=== PATIENT | female | born 1950 | race Caucasian/White ===

== ENCOUNTER 2021-05-30 14:26 | Inpatient (IN) | payer MEDICARE, OTHER ==
[2021-05-30 14:33] LABS: Glucose,Whole Blood 78 mg/dL (75-99)
--- NOTE | 2021-05-30 14:49 | ED ---
Altered Mental Status HPI - General Chief Complaint: Altered Mental Status Stated Complaint: HUMA/AMS Time Seen by Provider: 05/30/21 14:30 Source: EMS Mode of arrival: EMS Limitations: no limitations - History of Present Illness Initial Comments: 70-year-old female with past medical history of congestive heart failure, A. fib on anticoagulation, COPD with noncompliant use of her BiPAP, mood disorder who is brought into the emergency department for hypoxia. Patient was recently seen at [facility] for altered mental status. Found to have subdural hematomas versus hygromas and was shipped to [place]. [facility] evaluation deemed that the patient had chronic hygromas and she was cleared for anticoagulant use. Patient was transferred to [facility] for rehab. Patient has been noncompliant with her BiPAP and medications. at bedside states that she refuses majority of her medications. Today the staff found her more confused than normal. They state that she does has a history of some confusion at baseline however today was worsens. Her oxygen saturations were in the 80s. EMS attempted intubation of the patient however she was responsive and clenching down. There were unable to get an IV and therefore I was placed in the left humerus. Patient was placed on a nasal cannula. She did perk up upon transfer to the hospital however became agitated and therefore received 110 mg of ketamine. Patient arrives sedated with shallow respirations. She is unable to obtain any history from. She is found to be in A. fib which she has a history of. The remainder of the HPI is limited due to the patient's current condition - Related Data Home Medications Medication Instructions Recorded Confirmed Albuterol Inhaler [Ventolin Hfa 2 puff INHALATION RT-BID@0900,209905/30/21 05/30/21 Inhaler] Apixaban [Eliquis] 5 mg PO BID@0900,169905/30/21 05/30/21 Atorvastatin Calcium [Lipitor] 40 mg PO HS@209905/30/21 05/30/21 Budesonide/Formoterol Fumarate 2 puff INHALATION RT-BID@0900,169905/30/21 05/30/21 [Symbicort 160-4.5 Mcg Inhaler] Carvedilol [Coreg] 6.25 mg PO BID@0900,1700 05/30/21 05/30/21 Estrogens, Conjugated [Premarin] 1.25 mg PO DAILY@0900 05/30/21 05/30/21 Famotidine [Pepcid] 20 mg PO BID@0900,1700 05/30/21 05/30/21 Furosemide [Lasix] 20 mg PO DAILY@0900 05/30/21 05/30/21 HYDROcodone/APAP 10-325MG [[place] 1 tab PO Q6H PRN 05/30/21 05/30/21 10-325] Ipratropium-Albuterol Nebulize 3 ml INHALATION RT-Q4H PRN 05/30/21 05/30/21 [Duoneb 0.5 mg-3 mg/3 ml Soln] Ipratropium-Albuterol Nebulize 3 ml INHALATION RT-TID@09,13,21 05/30/21 05/30/21 [Duoneb 0.5 mg-3 mg/3 ml Soln] LORazepam [Ativan] 0.5 mg PO Q8H PRN 05/30/21 05/30/21 OLANZapine [ZyPREXA] 10 mg PO HS@2100 05/30/21 05/30/21 Umeclidinium [place] [Incruse 1 puff INHALATION RT-DAILY@89905/30/21 05/30/21 Ellipta] bisacodyL [Dulcolax] 10 mg RECTAL DAILY PRN 05/30/21 05/30/21 lisinopriL 40 mg PO DAILY@0900 05/30/21 05/30/21 predniSONE [Deltasone] 20 mg PO BID@0800,1600 05/30/21 05/30/21 Allergies Allergy/AdvReac Type Severity Reaction Status Date / Time morphine Allergy Unknown Verified 05/30/21 16:02 Review of Systems ROS Statement: Those systems with pertinent positive or pertinent negative responses have been documented in the HPI. ROS Other: All systems not noted in ROS Statement are negative. General Exam Limitations: altered mental status General appearance: obtunded, obese Eye exam: Present: other (significant bilateral chemosis) ENT exam: Present: normal exam, mucous membranes moist Neck exam: Present: normal inspection. Absent: tenderness, meningismus, lymphadenopathy Respiratory exam: Present: decreased breath sounds Cardiovascular Exam: Present: tachycardia, irregular rhythm GI/Abdominal exam: Present: soft, normal bowel sounds. Absent: distended, tenderness, guarding, rebound, rigid Extremities exam: Present: pedal edema Neurological exam: Present: altered Skin exam: Present: pallor Course Vital Signs 05/30/21 05/30/21 05/30/21 14:29 16:14 17:00 Temperature 98.1 F Pulse Rate 130 H 120 H 118 H Respiratory 18 26 H 20 Rate Blood Pressure 113/74 102/53 107/79 O2 Sat by Pulse 97 96 90 L Oximetry 05/30/21 05/30/21 05/30/21 18:00 18:39 18:44 Temperature Pulse Rate 129 H 123 H 130 H Respiratory 20 22 13 Rate Blood Pressure 131/53 90/67 90/67 O2 Sat by Pulse 96 96 84 L Oximetry 05/30/21 05/30/21 05/30/21 18:50 19:00 19:05 Temperature Pulse Rate 135 H 151 H 117 H Respiratory 12 23 Rate Blood Pressure 90/67 90/67 91/53 O2 Sat by Pulse 94 L 97 96 Oximetry 05/30/21 05/30/21 05/30/21 19:10 19:20 19:30 Temperature Pulse Rate 144 H 129 H 125 H Respiratory Rate Blood Pressure 91/53 91/53 91/53 O2 Sat by Pulse 81 L 87 L Oximetry 05/30/21 05/30/21 05/30/21 19:40 19:50 20:00 Temperature Pulse Rate 130 H 103 H 122 H Respiratory 22 Rate Blood Pressure 89/59 89/59 89/59 O2 Sat by Pulse 97 96 99 Oximetry 05/30/21 05/30/21 05/30/21 20:10 20:20 20:30 Temperature Pulse Rate 125 H 121 H 131 H Respiratory Rate Blood Pressure 103/49 103/49 103/49 O2 Sat by Pulse 94 L 99 Oximetry 05/30/21 05/30/21 05/30/21 20:40 20:50 21:00 Temperature Pulse Rate 121 H 134 H 112 H Respiratory 22 Rate Blood Pressure 100/78 100/78 100/78 O2 Sat by Pulse 98 98 98 Oximetry 05/30/21 05/30/21 05/30/21 21:10 21:20 21:30 Temperature Pulse Rate 124 H 122 H 124 H Respiratory Rate Blood Pressure 82/56 82/56 82/56 O2 Sat by Pulse 98 99 97 Oximetry 05/30/21 05/30/21 05/30/21 21:40 21:50 22:00 Temperature Pulse Rate 113 H 107 H Respiratory Rate Blood Pressure 116/60 116/60 116/60 O2 Sat by Pulse 96 96 97 Oximetry 05/30/21 22:10 Temperature Pulse Rate Respiratory Rate Blood Pressure 116/60 O2 Sat by Pulse Oximetry Procedures - Restraint - Face to Face Restraint Occurrence 1 Patient's Immediate Situation: Endangers self safety Patient's Reaction to the Intervention: Uncooperative, Anxious Patient's Medical & Behavioral Condition: Drowsy, Confused Need to Continue or Terminate Restraint or Seclusion: Continue Face to Face Eval of Restraint Date: 05/30/21 Face to Face Eval of Restraint Time: 20:05 Medical Decision Making - Medical Decision Making Upon arrival patient is placed into trauma 1. She is hooked up to continuous pulse ox and cardiac monitoring. I did review the patient's medical record that is accompanying her. Patient remains on 4 L via nasal cannula. IV is established and I'll is removed. Laboratory studies are conducted and an ABG is obtained to determine whether the patient's altered mental status is due to the ketamine versus hypercarbia. Laboratory studies are reviewed and demonstrates a leukocytosis of 13.5. ABG demonstrates a CO2 of 89. Lactic acid 3.1. Troponin 0.059. BNP elevated at 4460. Urinalysis demonstrates occasional bacteria with moderate budding yeast. Chest x-ray is performed which demonstrates right lower lobe pneumonia and effusion. Patient is initiated on antibiotics after blood cultures were obtained. Fluids are not given to the patient even though she does meet sepsis criteria as she does have history of congestive heart failure and has visible effusion on chest x-ray with an elevated BNP. Patient does have a mildly low blood pressure and therefore was given a 500 mL normal saline bolus only. Patient is initiated on amiodarone due to her A. fib with persistently elevated heart rate. I did CT the patient's brain which continues to demonstrate the chronic hygromas without acute abnormality. Patient will be admitted to [facility]. Spoke with urine who agreed to admit the patient. ABG is obtained and does demonstrate improvement on the BiPAP. CO2 is now 66. Patient does show marked improvement in her mentation. She does become agitated and therefore restraints are required for a short period of time. Her home dose of Zyprexa is ordered for agitation. I will consult cardiology and home. Patient remained in stable condition and was transported to the floor - Lab Data Result diagrams: 06/03/21 07:44 06/04/21 08:40 Lab Results 05/30/21 05/30/21 05/30/21 Range/Units 14:33 14:40 14:57 WBC 13.5 H (3.8-10.6) k/uL RBC 3.66 L (3.80-5.40) m/uL Hgb 9.9 L (11.4-16.0) gm/dL Hct 34.7 (34.0-46.0) % MCV 95.0 (80.0-100.0) fL MCH 27.1 (25.0-35.0) pg MCHC 28.5 L (31.0-37.0) g/dL RDW 16.5 H (11.5-15.5) % Plt Count 233 (150-450) k/uL MPV 8.9 Neutrophils % 85 % Lymphocytes % 6 % Monocytes % 6 % Eosinophils % 0 % Basophils % 0 % Neutrophils # 11.5 H (1.3-7.7) k/uL Lymphocytes # 0.8 L (1.0-4.8) k/uL Monocytes # 0.8 (0-1.0) k/uL Eosinophils # 0.0 (0-0.7) k/uL Basophils # 0.0 (0-0.2) k/uL Hypochromasia Marked Poikilocytosis Slight Anisocytosis Slight PT (9.0-12.0) sec INR (<1.2) APTT (22.0-30.0) sec Sample Site ABG pH (7.35-7.45) ABG pCO2 PROPERTY WORKER ABG pO2 (83-108) mmHg ABG HCO3 (21-25) mmol/L ABG Total CO2 (19-24) mmol/L ABG O2 Saturation (94-97) % ABG Base Excess mmol/L Adal Test Yes VBG pH 7.24 L (7.31-7.41) VBG pCO2 71 H* (37-51) mmHg VBG HCO3 29 H (24-28) mmol/L FiO2 % Sodium (137-145) mmol/L Potassium (3.5-5.1) mmol/L Chloride (98-107) mmol/L Carbon Dioxide (22-30) mmol/L Anion Gap mmol/L BUN (7-17) mg/dL Creatinine (0.52-1.04) mg/dL Est GFR (CKD-EPI)AfAm (>60 ml/min/1.73 sqM) Est GFR (CKD-EPI)NonAf (>60 ml/min/1.73 sqM) Glucose (74-99) mg/dL POC Glucose (mg/dL) 78 (75-99) mg/dL POC Glu Sales And Service Officer ID Willy Cisneros Lactic Ac Sepsis Rflx Plasma Lactic Acid Parag (0.7-2.0) mmol/L Calcium (8.4-10.2) mg/dL Total Bilirubin (0.2-1.3) mg/dL AST (14-36) U/L ALT (4-34) U/L Alkaline Phosphatase (38-126) U/L Ammonia (<30) umol/L Troponin I (0.000-0.034) ng/mL NT-Pro-B Natriuret Pep pg/mL Total Protein (6.3-8.2) g/dL Albumin (3.5-5.0) g/dL TSH (0.465-4.680) mIU/L Free T4 (0.78-2.19) ng/dL Urine Color Urine Appearance (Clear) Urine pH (5.0-8.0) Ur Specific [place] (1.001-1.035) Urine Protein (Negative) Urine Glucose (UA) (Negative) Urine Ketones (Negative) Urine Blood (Negative) Urine Nitrite (Negative) Urine Bilirubin (Negative) Urine Urobilinogen (<2.0) mg/dL Ur Leukocyte Esterase (Negative) Urine RBC (0-5) /hpf Urine WBC (0-5) /hpf Urine WBC Clumps (None) /hpf Ur Squamous Epith Cells (0-4) /hpf Urine Bacteria (None) /hpf Hyaline Casts (0-2) /lpf Urine Mucus (None) /hpf Urine Yeast (Budding) (None) /hpf 05/30/21 05/30/21 05/30/21 Range/Units 14:57 14:57 14:57 WBC (3.8-10.6) k/uL RBC (3.80-5.40) m/uL Hgb (11.4-16.0) gm/dL Hct (34.0-46.0) % MCV (80.0-100.0) fL MCH (25.0-35.0) pg MCHC (31.0-37.0) g/dL RDW (11.5-15.5) % Plt Count (150-450) k/uL MPV Neutrophils % % Lymphocytes % % Monocytes % % Eosinophils % % Basophils % % Neutrophils # (1.3-7.7) k/uL Lymphocytes # (1.0-4.8) k/uL Monocytes # (0-1.0) k/uL Eosinophils # (0-0.7) k/uL Basophils # (0-0.2) k/uL Hypochromasia Poikilocytosis Anisocytosis PT 12.0 (9.0-12.0) sec INR 1.1 (<1.2) APTT 21.2 L (22.0-30.0) sec Sample Site ABG pH (7.35-7.45) ABG pCO2 ABG pO2 (83-108) mmHg ABG HCO3 (21-25) mmol/L ABG Total CO2 (19-24) mmol/L ABG O2 Saturation (94-97) % ABG Base Excess mmol/L Adal Test VBG pH (7.31-7.41) VBG pCO2 (37-51) mmHg VBG HCO3 (24-28) mmol/L FiO2 % Sodium 137 (137-145) mmol/L Potassium 4.6 (3.5-5.1) mmol/L Chloride 102 (98-107) mmol/L Carbon Dioxide 29 (22-30) mmol/L Anion Gap 6 mmol/L BUN 31 H (7-17) mg/dL Creatinine 0.99 (0.52-1.04) mg/dL Est GFR (CKD-EPI)AfAm 66 (>60 ml/min/1.73 sqM) Est GFR (CKD-EPI)NonAf 57 (>60 ml/min/1.73 sqM) Glucose 76 (74-99) mg/dL POC Glucose (mg/dL) (75-99) mg/dL POC Glu Sales And Service Officer ID Lactic Ac Sepsis Rflx Plasma Lactic Acid Parag (0.7-2.0) mmol/L Calcium 8.8 (8.4-10.2) mg/dL Total Bilirubin 1.2 (0.2-1.3) mg/dL AST 25 (14-36) U/L ALT 20 (4-34) U/L Alkaline Phosphatase 101 (38-126) U/L Ammonia (<30) umol/L Troponin I (0.000-0.034) ng/mL NT-Pro-B Natriuret Pep pg/mL Total Protein 6.2 L (6.3-8.2) g/dL Albumin 3.5 (3.5-5.0) g/dL TSH (0.465-4.680) mIU/L Free T4 (0.78-2.19) ng/dL Urine Color Yellow Urine Appearance Cloudy H (Clear) Urine pH 5.5 (5.0-8.0) Ur Specific [place] 1.020 (1.001-1.035) Urine Protein 1+ H (Negative) Urine Glucose (UA) Negative (Negative) Urine Ketones Negative (Negative) Urine Blood Negative (Negative) Urine Nitrite Negative (Negative) Urine Bilirubin Negative (Negative) Urine Urobilinogen 2.0 (<2.0) mg/dL Ur Leukocyte Esterase Large H (Negative) Urine RBC 19 H (0-5) /hpf Urine WBC 120 H (0-5) /hpf Urine WBC Clumps Few H (None) /hpf Ur Squamous Epith Cells 12 H (0-4) /hpf Urine Bacteria Occasional H (None) /hpf Hyaline Casts 41 H (0-2) /lpf Urine Mucus Rare H (None) /hpf Urine Yeast (Budding) Moderate H (None) /hpf 05/30/21 05/30/21 05/30/21 Range/Units 14:57 14:57 14:57 WBC (3.8-10.6) k/uL RBC (3.80-5.40) m/uL Hgb (11.4-16.0) gm/dL Hct (34.0-46.0) % MCV (80.0-100.0) fL MCH (25.0-35.0) pg MCHC (31.0-37.0) g/dL RDW (11.5-15.5) % Plt Count (150-450) k/uL MPV Neutrophils % % Lymphocytes % % Monocytes % % Eosinophils % % Basophils % % Neutrophils # (1.3-7.7) k/uL Lymphocytes # (1.0-4.8) k/uL Monocytes # (0-1.0) k/uL Eosinophils # (0-0.7) k/uL Basophils # (0-0.2) k/uL Hypochromasia Poikilocytosis Anisocytosis PT (9.0-12.0) sec INR (<1.2) APTT (22.0-30.0) sec Sample Site ABG pH (7.35-7.45) ABG pCO2 ABG pO2 (83-108) mmHg ABG HCO3 (21-25) mmol/L ABG Total CO2 (19-24) mmol/L ABG O2 Saturation (94-97) % ABG Base Excess mmol/L Adal Test VBG pH (7.31-7.41) VBG pCO2 (37-51) mmHg VBG HCO3 (24-28) mmol/L FiO2 % Sodium (137-145) mmol/L Potassium (3.5-5.1) mmol/L Chloride (98-107) mmol/L Carbon Dioxide (22-30) mmol/L Anion Gap mmol/L BUN (7-17) mg/dL Creatinine (0.52-1.04) mg/dL Est GFR (CKD-EPI)AfAm (>60 ml/min/1.73 sqM) Est GFR (CKD-EPI)NonAf (>60 ml/min/1.73 sqM) Glucose (74-99) mg/dL POC Glucose (mg/dL) (75-99) mg/dL POC Glu Sales And Service Officer ID Lactic Ac Sepsis Rflx Plasma Lactic Acid Parag 3.1 H* (0.7-2.0) mmol/L Calcium (8.4-10.2) mg/dL Total Bilirubin (0.2-1.3) mg/dL AST (14-36) U/L ALT (4-34) U/L Alkaline Phosphatase (38-126) U/L Ammonia 39 H (<30) umol/L Troponin I 0.059 H* (0.000-0.034) ng/mL NT-Pro-B Natriuret Pep pg/mL Total Protein (6.3-8.2) g/dL Albumin (3.5-5.0) g/dL TSH 5.310 H (0.465-4.680) mIU/L Free T4 1.22 (0.78-2.19) ng/dL Urine Color Urine Appearance (Clear) Urine pH (5.0-8.0) Ur Specific [place] (1.001-1.035) Urine Protein (Negative) Urine Glucose (UA) (Negative) Urine Ketones (Negative) Urine Blood (Negative) Urine Nitrite (Negative) Urine Bilirubin (Negative) Urine Urobilinogen (<2.0) mg/dL Ur Leukocyte Esterase (Negative) Urine RBC (0-5) /hpf Urine WBC (0-5) /hpf Urine WBC Clumps (None) /hpf Ur Squamous Epith Cells (0-4) /hpf Urine Bacteria (None) /hpf Hyaline Casts (0-2) /lpf Urine Mucus (None) /hpf Urine Yeast (Budding) (None) /hpf 05/30/21 05/30/21 05/30/21 Range/Units 14:57 15:44 15:44 WBC (3.8-10.6) k/uL RBC (3.80-5.40) m/uL Hgb (11.4-16.0) gm/dL Hct (34.0-46.0) % MCV (80.0-100.0) fL MCH (25.0-35.0) pg MCHC (31.0-37.0) g/dL RDW (11.5-15.5) % Plt Count (150-450) k/uL MPV Neutrophils % % Lymphocytes % % Monocytes % % Eosinophils % % Basophils % % Neutrophils # (1.3-7.7) k/uL Lymphocytes # (1.0-4.8) k/uL Monocytes # (0-1.0) k/uL Eosinophils # (0-0.7) k/uL Basophils # (0-0.2) k/uL Hypochromasia Poikilocytosis Anisocytosis PT (9.0-12.0) sec INR (<1.2) APTT (22.0-30.0) sec Sample Site r brach ABG pH 7.19 L* (7.35-7.45) ABG pCO2 89 H* ABG pO2 301 H (83-108) mmHg ABG HCO3 34 H (21-25) mmol/L ABG Total CO2 37 H (19-24) mmol/L ABG O2 Saturation 99.9 H (94-97) % ABG Base Excess 5.6 mmol/L Adal Test na VBG pH (7.31-7.41) VBG pCO2 (37-51) mmHg VBG HCO3 (24-28) mmol/L FiO2 100 % Sodium (137-145) mmol/L Potassium (3.5-5.1) mmol/L Chloride (98-107) mmol/L Carbon Dioxide (22-30) mmol/L Anion Gap mmol/L BUN (7-17) mg/dL Creatinine (0.52-1.04) mg/dL Est GFR (CKD-EPI)AfAm (>60 ml/min/1.73 sqM) Est GFR (CKD-EPI)NonAf (>60 ml/min/1.73 sqM) Glucose (74-99) mg/dL POC Glucose (mg/dL) (75-99) mg/dL POC Glu Sales And Service Officer ID Lactic Ac Sepsis Rflx Y Plasma Lactic Acid Parag (0.7-2.0) mmol/L Calcium (8.4-10.2) mg/dL Total Bilirubin (0.2-1.3) mg/dL AST (14-36) U/L ALT (4-34) U/L Alkaline Phosphatase (38-126) U/L Ammonia (<30) umol/L Troponin I (0.000-0.034) ng/mL NT-Pro-B Natriuret Pep 4460 pg/mL Total Protein (6.3-8.2) g/dL Albumin (3.5-5.0) g/dL TSH (0.465-4.680) mIU/L Free T4 (0.78-2.19) ng/dL Urine Color Urine Appearance (Clear) Urine pH (5.0-8.0) Ur Specific [place] (1.001-1.035) Urine Protein (Negative) Urine Glucose (UA) (Negative) Urine Ketones (Negative) Urine Blood (Negative) Urine Nitrite (Negative) Urine Bilirubin (Negative) Urine Urobilinogen (<2.0) mg/dL Ur Leukocyte Esterase (Negative) Urine RBC (0-5) /hpf Urine WBC (0-5) /hpf Urine WBC Clumps (None) /hpf Ur Squamous Epith Cells (0-4) /hpf Urine Bacteria (None) /hpf Hyaline Casts (0-2) /lpf Urine Mucus (None) /hpf Urine Yeast (Budding) (None) /hpf 05/30/21 05/30/21 Range/Units 18:03 18:06 WBC (3.8-10.6) k/uL RBC (3.80-5.40) m/uL Hgb (11.4-16.0) gm/dL Hct (34.0-46.0) % MCV (80.0-100.0) fL MCH (25.0-35.0) pg MCHC (31.0-37.0) g/dL RDW (11.5-15.5) % Plt Count (150-450) k/uL MPV Neutrophils % % Lymphocytes % % Monocytes % % Eosinophils % % Basophils % % Neutrophils # (1.3-7.7) k/uL Lymphocytes # (1.0-4.8) k/uL Monocytes # (0-1.0) k/uL Eosinophils # (0-0.7) k/uL Basophils # (0-0.2) k/uL Hypochromasia Poikilocytosis Anisocytosis PT (9.0-12.0) sec INR (<1.2) APTT (22.0-30.0) sec Sample Site r brach ABG pH 7.31 L (7.35-7.45) ABG pCO2 66 H ABG pO2 62 L (83-108) mmHg ABG HCO3 33 H (21-25) mmol/L ABG Total CO2 35 H (19-24) mmol/L ABG O2 Saturation 91.0 L (94-97) % ABG Base Excess 7.0 mmol/L Adal Test na VBG pH (7.31-7.41) VBG pCO2 (37-51) mmHg VBG HCO3 (24-28) mmol/L FiO2 30 % Sodium (137-145) mmol/L Potassium (3.5-5.1) mmol/L Chloride (98-107) mmol/L Carbon Dioxide (22-30) mmol/L Anion Gap mmol/L BUN (7-17) mg/dL Creatinine (0.52-1.04) mg/dL Est GFR (CKD-EPI)AfAm (>60 ml/min/1.73 sqM) Est GFR (CKD-EPI)NonAf (>60 ml/min/1.73 sqM) Glucose (74-99) mg/dL POC Glucose (mg/dL) (75-99) mg/dL POC Glu Sales And Service Officer ID Lactic Ac Sepsis Rflx Plasma Lactic Acid Parag 1.3 (0.7-2.0) mmol/L Calcium (8.4-10.2) mg/dL Total Bilirubin (0.2-1.3) mg/dL AST (14-36) U/L ALT (4-34) U/L Alkaline Phosphatase (38-126) U/L Ammonia (<30) umol/L Troponin I (0.000-0.034) ng/mL NT-Pro-B Natriuret Pep pg/mL Total Protein (6.3-8.2) g/dL Albumin (3.5-5.0) g/dL TSH (0.465-4.680) mIU/L Free T4 (0.78-2.19) ng/dL Urine Color Urine Appearance (Clear) Urine pH (5.0-8.0) Ur Specific [place] (1.001-1.035) Urine Protein (Negative) Urine Glucose (UA) (Negative) Urine Ketones (Negative) Urine Blood (Negative) Urine Nitrite (Negative) Urine Bilirubin (Negative) Urine Urobilinogen (<2.0) mg/dL Ur Leukocyte Esterase (Negative) Urine RBC (0-5) /hpf Urine WBC (0-5) /hpf Urine WBC Clumps (None) /hpf Ur Squamous Epith Cells (0-4) /hpf Urine Bacteria (None) /hpf Hyaline Casts (0-2) /lpf Urine Mucus (None) /hpf Urine Yeast (Budding) (None) /hpf 05/30/21 14:48 EKG demonstrates A. fib with a rate of 143. QRS 94. QTC of 352. No acute ST segment elevations or depressions Critical Care Time Critical Care Time: Yes Critical Care Time: 35 minutes Disposition Clinical Impression: Acute encephalopathy, Acute respiratory failure with hypoxia and hypercarbia, Chronic respiratory failure, NSTEMI (non-ST elevated myocardial infarction), H CAP (healthcare-associated pneumonia), Hygroma, Lactic acidosis, BiPAP (biphasic positive airway pressure) dependence Disposition: ADMITTED IP TO THIS HOSP Condition: Serious Is patient prescribed a controlled substance at d/c from ED?: No Decision to Admit Reason: Admit from EC Decision Date: 05/30/21 Decision Time: 17:51
[2021-05-30 15:10] LABS: Allen Test Performed? Yes
[2021-05-30 15:15] LABS: Anisocytosis Slight; Basophils % (A) 0 %; Eosinophils % (A) 0 %; HCT 34.7 % (34.0-46.0); HGB 9.9 gm/dL (11.4-16.0); Hypochromasia Marked; Lymphocytes # (A) 0.8 k/uL (1.0-4.8); Lymphocytes % (A) 6 %; MCH 27.1 pg (25.0-35.0); MCHC 28.5 g/dL (31.0-37.0); Mean Platelet Volume 8.9; Monocytes # (A) 0.8 k/uL (0-1.0); Monocytes % (A) 6 %; Neutrophils # (A) 11.5 k/uL (1.3-7.7); Neutrophils % (A) 85 %; Platelet Count 233 k/uL (150-450); Poikilocytosis Slight; RBC 3.66 m/uL (3.80-5.40); RDW 16.5 % (11.5-15.5); WBC 13.5 k/uL (3.8-10.6)
[2021-05-30 15:21] LABS: Appearance,Urine Cloudy (Clear); Bacteria,Urine Occasional /hpf; Bilirubin,Urine Negative (Negative); Blood,Urine Negative (Negative); Budding Yeast,Urine Moderate /hpf; Color,Urine Yellow; Glucose,Urine (UA) Negative (Negative); Hyaline Casts,Urine 41 /lpf (0-2); Ketones,Urine Negative (Negative); Leukocyte Esterase,Urine Large (Negative); Mucus,Urine Rare /hpf; Nitrite,Urine Negative (Negative); PH, Urine 5.5 (5.0-8.0); Protein,Urine 1+ (Negative); RBC,Urine 19 /hpf (0-5); Squamous Epithelial Cell,Urine 12 /hpf (0-4); WBC,Urine 120 /hpf (0-5)
[2021-05-30 15:32] LABS: Albumin 3.5 g/dL (3.5-5.0); Calcium 8.8 mg/dL (8.4-10.2); Potassium 4.6 mmol/L (3.5-5.1); Total Bilirubin 1.2 mg/dL (0.2-1.3); Total Protein 6.2 g/dL (6.3-8.2)
[2021-05-30 15:42] LABS: INR 1.1 (<1.2)
[2021-05-30 15:44] LABS: Lactic Acid, Venous 3.1 mmol/L (0.7-2.0)
[2021-05-30 15:45] LABS: VBG HCO3 29 mmol/L (24-28); VBG PH 7.24 (7.31-7.41)
[2021-05-30 15:45] LABS: Partial Thromboplastin Time 21.2 sec (22.0-30.0)
[2021-05-30 15:49] LABS: ABG Base Excess 5.6 mmol/L; ABG HCO3 34 mmol/L (21-25); ABG Oxygen Saturation 99.9 % (94-97); ABG PH 7.19 (7.35-7.45); ABG PO2 301 mmHg (83-108); ABG TCO2 37 mmol/L (19-24)
[2021-05-30 15:50] LABS: ABG PCO2 89 mmHg (35-45)
--- NOTE | 2021-05-30 15:52 | CT ---
EXAMINATION TYPE: CT brain wo con DATE OF EXAM: 05/30/2021 COMPARISON: None HISTORY: Altered mental status. CT DLP: 1159.4 mGycm Automated exposure control for dose reduction was used. Helical imaging through the brain. FINDINGS: Cortical atrophy is present, is prominent extra-axial fluid spaces over the convexity, difficult to e xclude chronic subdural hygromas. No evident hemorrhage or hydrocephalus. Cerebral vascular calcifica tions are present. There is inflammatory change present within the sphenoid sinus and ethmoid air jody ls, maxillary sinus on the right, right mastoid air cells. Calvarium is intact. Orbits show symmetric appearance. Periventricular white matter shows patchy low attenuation. IMPRESSION: NO ACUTE ABNORMALITY. Age-related atrophy and probable chronic small vessel ischemia, possible subdur al hygromas, comparison with prior exam may be of benefit if available, alternatively consider MRI as indicated
[2021-05-30 15:54] LABS: VBG PCO2 71 mmHg (37-51)
--- NOTE | 2021-05-30 16:25 | XR ---
EXAMINATION TYPE: XR chest 1V portable DATE OF EXAM: 05/30/2021 COMPARISON: NONE HISTORY: Altered mental status and difficulty breathing TECHNIQUE: Single frontal view of the chest is obtained. FINDINGS: Patient is rotated. Heart appears prominently. There is no evident pneumothorax or left pl eural effusion. There is overlying artifact. Patchy densities present in the right midlung. Questiona ble blunting the right costophrenic angle. IMPRESSION: Difficult to exclude right lower lobe pneumonia and possible associated effusion. Exam i s somewhat limited technically. Consider follow-up PA and lateral chest x-ray when stable.
[2021-05-30] MEDS ORDERED: FUROSEMIDE 10 MG/ML 10 ML VIAL IV STA (16:40)
[2021-05-30] MEDS ORDERED: AZITHROMYCIN 500 MG in SODIUM CHLORIDE 0.9% 250 ML IVPB STA (16:41)
[2021-05-30] MEDS ORDERED: PNEUMONIA PROTOCOL UTILIZED 1 EACH MISC PO PRN (16:41)
[2021-05-30] MEDS ORDERED: LORazepam 2 MG/ML INJ IV STA (17:12)
[2021-05-30] MEDS ORDERED: diphenhydrAMINE 50 MG/ML 1 ML VIAL IVP STA (17:12)
[2021-05-30] MEDS ORDERED: FLUCONAZOLE 150 MG TAB PO STA (17:15)
[2021-05-30 17:20] LABS: T4, Free (Free Thyroxine) 1.22 ng/dL (0.78-2.19)
[2021-05-30 18:08] LABS: ABG HCO3 33 mmol/L (21-25); ABG PCO2 66 mmHg (35-45); ABG PH 7.31 (7.35-7.45); ABG PO2 62 mmHg (83-108); ABG TCO2 35 mmol/L (19-24)
[2021-05-30] MEDS ORDERED: IPRATROPIUM-ALBUTEROL 3 ML NEB INHALATION PRN ×2 (18:14→20:15)
[2021-05-30] MEDS ORDERED: DEXTROSE 5% IN WATER 100 ML with AMIODARONE 150 MG IV ONE (18:30)
[2021-05-30] MEDS ORDERED: HYDROcodone/APAP 10-325MG 1 EACH TAB PO PRN (20:15)
[2021-05-30] MEDS ORDERED: bisacodyL 10 MG SUPP RECTAL PRN (20:15)
[2021-05-30] MEDS: AMIODARONE 450 MG in DEXTROSE 5% IN WATER 250 ML IV SCH ×2 (21:26)
[2021-05-30] MEDS ORDERED: SODIUM CHLORIDE 0.9% 500 ML 500 ML IV ONE (21:28)
[2021-05-30] MEDS: IPRATROPIUM-ALBUTEROL 3 ML NEB INHALATION SCH (22:32)
[2021-05-30] MEDS: ATORVASTATIN 40 MG TAB PO SCH (23:33)
[2021-05-30] MEDS: OLANZapine 10 MG TAB PO SCH (23:34)
[2021-05-31] MEDS: LORazepam 2 MG/ML INJ IV SCH ×2 (00:22→07:59)
[2021-05-31] MEDS ORDERED: AMIODARONE 360 MG in DEXTROSE 5% IN WATER 200 ML IV ONE ×2 (01:00)
[2021-05-31] MEDS: IPRATROPIUM-ALBUTEROL 3 ML NEB INHALATION SCH ×3 (08:41→19:10)
[2021-05-31] MEDS: SYMBICORT 160-4.5 MCG INHALER INHALATION SCH ×2 (08:41→19:10)
[2021-05-31] MEDS ORDERED: NON FORMULARY DRUG (Umeclidinium Bromide [Incruse Ellipta] 62.5 MCG Each) INHALATION SCH (09:00)
--- NOTE | 2021-05-31 09:04 | XR ---
EXAMINATION TYPE: XR chest 1V portable DATE OF EXAM: 05/31/2021 COMPARISON: Chest x-ray 05/30/2021 HISTORY: Pneumonia TECHNIQUE: Single frontal view of the chest is obtained. FINDINGS: Abnormal density within the right lung shows a similar appearance, lateral aspect of the r ight hemidiaphragm is obscured. There is no evident pneumothorax. Heart appears prominently similar t o prior exam. There are overlying artifacts. Aorta is dense. IMPRESSION: Correlate for possible pneumonia, parapneumonic effusion, cardiomegaly.
--- NOTE | 2021-05-31 10:02 | P.CRDCN ---
History of Present Illness Consult date: 05/31/21 History of present illness: HISTORY OF PRESENT ILLNESS: This is a 70-year-old female with a past medical history significant for COPD, atrial fibrillation, congestive heart failure, hyperlipidemia, and hypertension. Patient does not follow with a diamond die maker at [facility]. We have been asked to see the patient in consultation for afib with RVR. Patient examined at the bedside. Patient is currently residing at [facility] for rehab. She was brought to the hospital secondary to increased confusion. Apparently the patient is noncompliant with many of her medications at rehab and refuses to wear her CPAP. Patient is lethargic and unable to give any history at this time. Patient was found to be in atrial fibrillation with RVR. Patient was started on IV amio. She remains in atrial fibrillation this morning with a heart rate in the 120s. * EKG reveals atrial fibrillation with RVR * Chest xray correlate for possible pneumonia, parapneumonic effusion, cardia megaly. * Laboratory data: WBC 13.5. Hemoglobin 9.9. Platelet count 233. Sodium 137. Potassium 4.6. BUN 31. Creatinine 0.99. Lactic acid 3.1. Repeat 1.3. ProBNP 4460. Troponin 0.059. * Current home cardiac medications include Lipitor 40 mg at night, Lasix 20 mg daily, lisinopril 40 mg daily, Eliquis 5 mg twice a day, carvedilol 6.25 mg twice a day REVIEW OF SYSTEMS: At the time of my exam: CONSTITUTIONAL: Denies fever or chills. HEENT: Denies blurred vision, vision changes, or eye pain. Denies hemoptysis CARDIOVASCULAR: Denies chest pain. Denies orthopnea. Denies PND. Denies palpitations RESPIRATORY: Denies shortness of breath. GASTROINTESTINAL: Denies abdominal pain. Denies nausea or vomiting. HEMATOLOGIC: Denies bleeding disorders. GENITOURINARY: Denies any blood in urine. SKIN: Denies pruitis. Denies rash. PHYSICAL EXAM: VITAL SIGNS: Reviewed. GENERAL: Well-developed in no acute distress. HEENT: Head is normocephalic. Pupils are equal, round. Sclerae anicteric. Mucous membranes of the mouth are moist. Neck supple. No JVD or thyromegaly LUNGS: Respirations even and unlabored. Lungs essentially clear to auscultation bilaterally. HEART: Regular rate and rhythm. S1 and S2 heard. ABDOMEN: Soft. Nondistended. Nontender. EXTREMITIES: Normal range of motion. No clubbing or cyanosis. Peripheral pulses intact. No lower extremity edema NEUROLOGIC: Awake and alert. Oriented x 3. ASSESSMENT: Altered mental status Leukocytosis Elevated lactic acid Acute hypoxic respiratory failure Abnormal troponin, suspect secondary to type II VT Atrial fibrillation with RVR, duration unknown Chronic congestive heart failure, type unknown, EF unknown Hyperlipidemia Hypertension COPD Chronic subdural hygromas Medication noncomplaince PLAN: Obtain 2D echo to assess cardiac structure and function Continue amiodarone drip as patient is unable to take oral medications Resume oral medications when patient is able to tolerate oral medications Further recommendations pending patient course Nurse practitioner note has been reviewed by physician. Signing provider agrees with the documented findings, assessment, and plan of care. Past Medical History Past Medical History: Atrial Fibrillation, Heart Failure, COPD, GERD/Reflux, Hyperlipidemia, Hypertension, Memory Impairment, Musculoskeletal Disorder History of Any Multi-Drug Resistant Organisms: Unobtainable Past Anesthesia/Blood Transfusion Reactions: Unable to Obtain Past Psychological History: Anxiety Smoking Status: Unknown if ever smoked Past Alcohol Use History: Unable to Obtain Past Drug Use History: Unable to Obtain Medications and Allergies Home Medications Medication Instructions Recorded Confirmed Type Albuterol Inhaler [Ventolin Hfa 2 puff INHALATION RT-BID@0900,209905/30/21 05/30/21 History Inhaler] Apixaban [Eliquis] 5 mg PO BID@0900,169905/30/21 05/30/21 History Atorvastatin Calcium [Lipitor] 40 mg PO HS@209905/30/21 05/30/21 History Budesonide/Formoterol Fumarate 2 puff INHALATION RT-BID@0900,169905/30/21 05/30/21 History [Symbicort 160-4.5 Mcg Inhaler] Carvedilol [Coreg] 6.25 mg PO BID@0900,169905/30/21 05/30/21 History Estrogens, Conjugated [Premarin] 1.25 mg PO DAILY@89905/30/21 05/30/21 History Famotidine [Pepcid] 20 mg PO BID@0900,169905/30/21 05/30/21 History Furosemide [Lasix] 20 mg PO DAILY@0900 05/30/21 05/30/21 History HYDROcodone/APAP 10-325MG [[place] 1 tab PO Q6H PRN 05/30/21 05/30/21 History 10-325] Ipratropium-Albuterol Nebulize 3 ml INHALATION RT-Q4H PRN 05/30/21 05/30/21 History [Duoneb 0.5 mg-3 mg/3 ml Soln] Ipratropium-Albuterol Nebulize 3 ml INHALATION RT-TID@,,05/30/21 05/30/21 History [Duoneb 0.5 mg-3 mg/3 ml Soln] LORazepam [Ativan] 0.5 mg PO Q8H PRN 05/30/21 05/30/21 History OLANZapine [ZyPREXA] 10 mg PO HS@2100 05/30/21 05/30/21 History Umeclidinium [place] [Incruse 1 puff INHALATION RT-DAILY@0905/30/21 05/30/21 History Ellipta] bisacodyL [Dulcolax] 10 mg RECTAL DAILY PRN 05/30/21 05/30/21 History lisinopriL 40 mg PO DAILY@0900 05/30/21 05/30/21 History predniSONE [Deltasone] 20 mg PO BID@0800,1600 05/30/21 05/30/21 History Allergies Allergy/AdvReac Type Severity Reaction Status Date / Time morphine Allergy Unknown Verified 05/30/21 16:02 Physical Exam Vitals: Vital Signs Temp Pulse Pulse Resp BP BP Pulse Ox 05/31/21 08:44 98 05/31/21 04:00 68 16 133/65 94 L 05/31/21 00:53 100 05/31/21 00:00 87 16 113/57 100 05/30/21 22:40 97.9 F 117 H 24 112/56 97 05/30/21 22:33 97 05/30/21 21:00 123 H 22 100/78 98 05/30/21 20:00 118 H 22 103/49 98 05/30/21 19:05 117 H 23 91/53 96 05/30/21 18:39 123 H 22 90/67 96 05/30/21 18:00 129 H 20 131/53 96 05/30/21 17:00 118 H 20 107/79 90 L 05/30/21 16:14 120 H 26 H 102/53 96 05/30/21 14:29 98.1 F 130 H 18 113/74 97 Intake and Output 05/30/21 05/31/21 05/31/21 22:59 06:59 14:59 Intake Total 500 Output Total 200 Balance 300 Intake: Intake, IV Titration 500 Amount Sodium Chloride 0.9% 500 500 ml 500 ml @ 999 mls/hr IV .Q31M ONE Rx#:[id number] Oral 0 Output: Urine 200 Other: Voiding Method Indwelling Catheter Weight 112.5 kg Results 05/30/21 14:57 05/30/21 14:57 Cardiac Enzymes 05/30/21 05/30/21 Range/Units 14:57 14:57 AST 25 (14-36) U/L Troponin I 0.059 H* (0.000-0.034) ng/mL Coagulation 05/30/21 Range/Units 14:57 PT 12.0 (9.0-12.0) sec APTT 21.2 L (22.0-30.0) sec CBC 05/30/21 Range/Units 14:57 WBC 13.5 H (3.8-10.6) k/uL RBC 3.66 L (3.80-5.40) m/uL Hgb 9.9 L (11.4-16.0) gm/dL Hct 34.7 (34.0-46.0) % Plt Count 233 (150-450) k/uL Comprehensive Metabolic Panel 05/30/21 Range/Units 14:57 Sodium 137 (137-145) mmol/L Potassium 4.6 (3.5-5.1) mmol/L Chloride 102 (98-107) mmol/L Carbon Dioxide 29 (22-30) mmol/L BUN 31 H (7-17) mg/dL Creatinine 0.99 (0.52-1.04) mg/dL Glucose 76 (74-99) mg/dL Calcium 8.8 (8.4-10.2) mg/dL AST 25 (14-36) U/L ALT 20 (4-34) U/L Alkaline Phosphatase 101 (38-126) U/L Total Protein 6.2 L (6.3-8.2) g/dL Albumin 3.5 (3.5-5.0) g/dL Current Medications Generic Name Dose Route Start Last Admin Trade Name Freq PRN Reason Stop Dose Admin Hydrocodone Bitart/Acetaminophen 1 each 05/30/21 20:15 Hydrocodone/Apap 10-325mg 1 Each Tab PO Q6H PRN moderate Pain Albuterol/Ipratropium 3 ml 05/30/21 18:14 Ipratropium-Albuterol 3 Ml Neb INHALATION RT-Q4H PRN shortness of breath Albuterol/Ipratropium 3 ml 05/30/21 20:15 Ipratropium-Albuterol 3 Ml Neb INHALATION RT-Q4H PRN Shortness Of Breath Albuterol/Ipratropium 3 ml 05/30/21 21:00 05/31/21 08:41 Ipratropium-Albuterol 3 Ml Neb INHALATION Not Given RT-TID@09,13,21 [facility] Apixaban 5 mg 05/31/21 09:00 Apixaban 5 Mg Tab PO BID@0900,1700 [facility] Protocol Atorvastatin Calcium 40 mg 05/30/21 21:00 05/30/21 23:33 Atorvastatin 40 Mg Tab PO Not Given HS@2100 [facility] Azithromycin 500 mg 05/31/21 18:00 Azithromycin 500 Mg Tab PO 06/01/21 18:01 Q24H [facility] Protocol Bisacodyl 10 mg 05/30/21 20:15 Bisacodyl 10 Mg Supp RECTAL DAILY PRN Constipation Budesonide/Formoterol Fumarate 2 puff 05/31/21 09:00 05/31/21 08:41 Symbicort 160-4.5 Mcg Inhaler INHALATION Not Given RT-BID@0900,1700 [facility] Famotidine 20 mg 05/31/21 09:00 Famotidine 20 Mg Tab PO BID@0900,1700 [facility] Ceftriaxone Sodium 2 gm/ 50 mls @ 100 mls/hr 05/31/21 18:00 Sodium Chloride IVPB 06/03/21 18:29 Q24H [facility] Protocol Amiodarone HCl 450 mg/ 250 mls @ 16.667 mls/hr 05/30/21 18:45 05/30/21 21:26 Dextrose/Water IV 05/31/21 12:44 0.5 mg/min .Q15H MARK 16.667 mls/hr Administration Protocol 0.5 MG/MIN Lorazepam 0.5 mg 05/31/21 00:00 05/31/21 07:59 Lorazepam 2 Mg/Ml Inj IV 0.5 mg Q8HR MARK Administration Miscellaneous Information 1 each 05/30/21 16:41 Pneumonia Protocol Utilized 1 Each Misc PO ONCE PRN Per Protocol Non-Formulary Medication 1.25 mg 05/31/21 09:00 Estrogens, Conjugated [Premarin] PO DAILY@0900 MARK Olanzapine 10 mg 05/30/21 21:00 05/30/21 23:34 Olanzapine 10 Mg Tab PO Not Given HS@2100 MARK Prednisone 20 mg 05/31/21 08:00 Prednisone 20 Mg Tab PO BID@0800,1600 [facility] Intake and Output 05/30/21 05/31/21 05/31/21 22:59 06:59 14:59 Intake Total 500 Output Total 200 Balance 300 Intake: Intake, IV Titration 500 Amount Sodium Chloride 0.9% 500 500 ml 500 ml @ 999 mls/hr IV .Q31M ONE Rx#:[id number] Oral 0 Output: Urine 200 Other: Voiding Method Indwelling Catheter Weight 112.5 kg 05/30/21 14:57 05/30/21 14:57
[2021-05-31] MEDS: APIXABAN 5 MG TAB PO SCH ×2 (10:44→16:59)
[2021-05-31] MEDS: ESTROGENS CONJUGATED 1.25 MG PO SCH (10:44)
[2021-05-31] MEDS: predniSONE 20 MG TAB PO SCH ×2 (10:44→16:58)
[2021-05-31] MEDS: FAMOTIDINE 20 MG TAB PO SCH ×2 (10:44→16:59)
--- NOTE | 2021-05-31 12:33 | P.CNPUL ---
History of Present Illness Consult date: 05/31/21 Requesting physician: Derek Velazquez Reason for consult: dyspnea, COPD, hypoxemia Chief complaint: Shortness of breath. History of present illness: Pulmonary consult dated 05/31/2021. 71-year-old female, very poor historian, very lethargic and sleepy, who we are asked to see for her respiratory failure. She apparently has a history of congestive heart failure, atrial fibrillation, COPD, and mood disorder. He was very difficult getting any history from this patient. She was apparently recen tly seen at an outside hospital for mental status changes. She was thought to have possible subdural hematomas. She was transferred to [facility], and it was determined that she did not require any surgery this time. Apparently the told the ER physician that his , refuses the majority of her medications. Laboratory data includes a white count of 13.5, hemoglobin 9.9, hematocrit 34.7, and platelet count 233,000. Initial blood gas showed a pO2 of 301, pCO2 of 89, and pH is 7.19. On 30%, the pO2 was 62, pCO2 of 66, pH is 7.31. She may of been on BiPAP at this point. Sodium 137, potassium 4.6, chlorides 102, CO2 29, BUN 31, and creatinine 0.99. Initial lactic acid was 3.1, with follow-up lactic acid 1.3. Ammonia level was 39, troponin was 0.059, and N-terminal proBNP was 4460. TSH was 5.310. CT of the brain showed no acute abnormality, only age-related atrophy small vessel ischemic changes, and subdural hygromas. Asked x-ray showed infiltrates or atelectasis in the right lower lobe, with bilateral effusions. Review of Systems REVIEW OF SYSTEMS: CONSTITUTIONAL: [Negative.] NEUROLOGIC: Mental status changes. HEENT: [ Negative.] CARDIAC: [Negative.] PULMONARY: Respiratory distress. GI: [Negative.] : [Negative.] RHEUMATOLOGIC: [ Negative.] IMMUNOLOGIC: [ Negative.] ENDOCRINE: [Negative. ] DERMATOLOGIC: [Negative.] Past Medical History Past Medical History: Atrial Fibrillation, Heart Failure, COPD, GERD/Reflux, Hyperlipidemia, Hypertension, Memory Impairment, Musculoskeletal Disorder History of Any Multi-Drug Resistant Organisms: Unobtainable Past Anesthesia/Blood Transfusion Reactions: Unable to Obtain Past Psychological History: Anxiety Smoking Status: Unknown if ever smoked Past Alcohol Use History: Unable to Obtain Past Drug Use History: Unable to Obtain Medications and Allergies Home Medications Medication Instructions Recorded Confirmed Type Albuterol Inhaler [Ventolin Hfa 2 puff INHALATION RT-BID@0900,209905/30/21 05/30/21 History Inhaler] Apixaban [Eliquis] 5 mg PO BID@0900,17005/30/21 05/30/21 History Atorvastatin Calcium [Lipitor] 40 mg PO HS@209905/30/21 05/30/21 History Budesonide/Formoterol Fumarate 2 puff INHALATION RT-BID@0900,169905/30/21 05/30/21 History [Symbicort 160-4.5 Mcg Inhaler] Carvedilol [Coreg] 6.25 mg PO BID@0900,169905/30/21 05/30/21 History Estrogens, Conjugated [Premarin] 1.25 mg PO DAILY@0900 05/30/21 05/30/21 History Famotidine [Pepcid] 20 mg PO BID@0900,17005/30/21 05/30/21 History Furosemide [Lasix] 20 mg PO DAILY@0905/30/21 05/30/21 History HYDROcodone/APAP 10-325MG [[place] 1 tab PO Q6H PRN 05/30/21 05/30/21 History 10-325] Ipratropium-Albuterol Nebulize 3 ml INHALATION RT-Q4H PRN 05/30/21 05/30/21 History [Duoneb 0.5 mg-3 mg/3 ml Soln] Ipratropium-Albuterol Nebulize 3 ml INHALATION RT-TID@,,05/30/21 05/30/21 History [Duoneb 0.5 mg-3 mg/3 ml Soln] LORazepam [Ativan] 0.5 mg PO Q8H PRN 05/30/21 05/30/21 History OLANZapine [ZyPREXA] 10 mg PO HS@209905/30/21 05/30/21 History Umeclidinium [place] [Incruse 1 puff INHALATION RT-DAILY@0905/30/21 05/30/21 History Ellipta] bisacodyL [Dulcolax] 10 mg RECTAL DAILY PRN 05/30/21 05/30/21 History lisinopriL 40 mg PO DAILY@0900 05/30/21 05/30/21 History predniSONE [Deltasone] 20 mg PO BID@0800,1600 05/30/21 05/30/21 History Allergies Allergy/AdvReac Type Severity Reaction Status Date / Time morphine Allergy Unknown Verified 05/30/21 16:02 Physical Exam Osteopathic Statement: *. No significant issues noted on an osteopathic structural exam other than those noted in the History and Physical/Consult. Vitals: Vital Signs Temp Pulse Pulse Resp BP BP Pulse Ox 05/31/21 12:18 109 H 05/31/21 12:10 110 H 05/31/21 11:52 98.8 F 107 H 18 118/56 100 05/31/21 08:44 98 05/31/21 08:00 99.6 F 98 19 135/70 92 L 05/31/21 04:00 68 16 133/65 94 L 05/31/21 00:53 100 05/31/21 00:00 87 16 113/57 100 05/30/21 22:40 97.9 F 117 H 24 112/56 97 05/30/21 22:33 97 05/30/21 21:00 123 H 22 100/78 98 05/30/21 20:00 118 H 22 103/49 98 05/30/21 19:05 117 H 23 91/53 96 05/30/21 18:39 123 H 22 90/67 96 05/30/21 18:00 129 H 20 131/53 96 05/30/21 17:00 118 H 20 107/79 90 L 05/30/21 16:14 120 H 26 H 102/53 96 05/30/21 14:29 98.1 F 130 H 18 113/74 97 Intake and Output 05/30/21 05/31/21 05/31/21 22:59 06:59 14:59 Intake Total 500 Output Total 200 300 Balance 300 -300 Intake: Intake, IV Titration 500 Amount Sodium Chloride 0.9% 500 500 ml 500 ml @ 999 mls/hr IV .Q31M ONE Rx#:[id number] Oral 0 Output: Urine 200 300 Other: Voiding Method Indwelling Catheter Indwelling Catheter Weight 112.5 kg 112.5 kg No acute distress, very somnolent and lethargic, and a very poor historian. Almost no information could be obtained from her. HEENT examination is grossly unremarkable. Neck supple. Full range of motion. No adenopathy thyromegaly or neck vein distention. Cardiovascular examination reveals regular rhythm rate. S1-S2 normal. No S3 or S4. No discernible murmur noted. Heart rate about 105 bpm. Heart sounds are distant. Lungs reveal scattered bilateral rhonchi. Minimal bibasilar crackles. She does not take a deep breath. Saturations are 100% on 4 L. Abdomen is obese. Bowel sounds are not noted. Extremities reveal trace edema. No cyanosis or clubbing. Skin is without rash or lesion. Neurologic examination is difficult to assess. The patient is very lethargic and somnolent. Results - Laboratory Findings CBC and BMP: 05/30/21 14:57 05/30/21 14:57 ABG ABG pH 7.31 (7.35-7.45) L 05/30/21 18:03 ABG pCO2 66 mmHg (35-45) H 05/30/21 18:03 ABG pO2 62 mmHg (83-108) L 05/30/21 18:03 ABG O2 Saturation 91.0 % (94-97) L 05/30/21 18:03 PT/INR, D-dimer PT 12.0 sec (9.0-12.0) 05/30/21 14:57 INR 1.1 (<1.2) 05/30/21 14:57 Abnormal lab findings: Abnormal Labs 05/30/21 05/30/21 05/30/21 14:40 14:57 14:57 WBC 13.5 H RBC 3.66 L Hgb 9.9 L MCHC 28.5 L RDW 16.5 H Neutrophils # 11.5 H Lymphocytes # 0.8 L APTT 21.2 L ABG pH ABG pCO2 ABG pO2 ABG HCO3 ABG Total CO2 ABG O2 Saturation VBG pH 7.24 L VBG pCO2 71 H* VBG HCO3 29 H BUN Plasma Lactic Acid Parag Ammonia Troponin I Total Protein TSH Urine Appearance Urine Protein Ur Leukocyte Esterase Urine RBC Urine WBC Urine WBC Clumps Ur Squamous Epith Cells Urine Bacteria Hyaline Casts Urine Mucus Urine Yeast (Budding) 05/30/21 05/30/2105/30/22 14:57 14:57 14:57 WBC RBC Hgb MCHC RDW Neutrophils # Lymphocytes # APTT ABG pH ABG pCO2 ABG pO2 ABG HCO3 ABG Total CO2 ABG O2 Saturation VBG pH VBG pCO2 VBG HCO3 BUN 31 H Plasma Lactic Acid Parag 3.1 H* Ammonia 39 H Troponin I Total Protein 6.2 L TSH Urine Appearance Cloudy H Urine Protein 1+ H Ur Leukocyte Esterase Large H Urine RBC 19 H Urine WBC 120 H Urine WBC Clumps Few H Ur Squamous Epith Cells 12 H Urine Bacteria Occasional H Hyaline Casts 41 H Urine Mucus Rare H Urine Yeast (Budding) Moderate H 05/30/21 05/30/21 05/30/21 14:57 14:57 15:44 WBC RBC Hgb MCHC RDW Neutrophils # Lymphocytes # APTT ABG pH 7.19 L* ABG pCO2 89 H* ABG pO2 301 H ABG HCO3 34 H ABG Total CO2 37 H ABG O2 Saturation 99.9 H VBG pH VBG pCO2 VBG HCO3 BUN Plasma Lactic Acid Parag Ammonia Troponin I 0.059 H* Total Protein TSH 5.310 H Urine Appearance Urine Protein Ur Leukocyte Esterase Urine RBC Urine WBC Urine WBC Clumps Ur Squamous Epith Cells Urine Bacteria Hyaline Casts Urine Mucus Urine Yeast (Budding) 05/30/21 18:03 WBC RBC Hgb MCHC RDW Neutrophils # Lymphocytes # APTT ABG pH 7.31 L ABG pCO2 66 H ABG pO2 62 L ABG HCO3 33 H ABG Total CO2 35 H ABG O2 Saturation 91.0 L VBG pH VBG pCO2 VBG HCO3 BUN Plasma Lactic Acid Parag Ammonia Troponin I Total Protein TSH Urine Appearance Urine Protein Ur Leukocyte Esterase Urine RBC Urine WBC Urine WBC Clumps Ur Squamous Epith Cells Urine Bacteria Hyaline Casts Urine Mucus Urine Yeast (Budding) - Diagnostic Findings Chest x-ray: image reviewed Assessment and Plan Assessment: Acute on chronic hypoxemic and hypercapnic respiratory failure, with CO2 narcosis, and acute mental status changes. History of COPD. History of atrial fibrillation. History of CHF. Morbid obesity. History of hyperlipidemia. History of hypertension. Plan: Plan dated 05/31/2021. Currently, patient is on 4 L nasal cannula. Saturations on this patient are perfectly acceptable and the 88-92% range. The patient may have a possible pneumonia in the right lung. She is currently on Zithromax and Rocephin. Prognosis is very poor. She was very lethargic and sleepy, and not a particularly good historian. I would certainly avoid all sedatives, hypnotics, narcotics, and tranquilizers. Additional recommendations and suggestions are forthcoming. Time with Patient: Greater than 30
[2021-05-31 12:59] LABS: Glucose,Whole Blood 70 mg/dL (75-99)
[2021-05-31] MEDS: AMIODARONE 450 MG in DEXTROSE 5% IN WATER 250 ML IV SCH ×2 (15:54)
[2021-05-31] MEDS ORDERED: DILTIAZEM DRIP BOLUS FROM BAG 1 MG SOLN IV ONE (16:50)
[2021-05-31] MEDS: AZITHROMYCIN 500 MG TAB PO SCH (18:13)
[2021-05-31] MEDS: DILTIAZEM 125 MG in SODIUM CHLORIDE 0.9% 100 ML IV SCH (18:34)
--- NOTE | 2021-05-31 19:00 | ECHOF ---
Referral Reason:LV function MEASUREMENTS -------- HEIGHT: 167.6 cm WEIGHT: 112.5 kg BP: RVIDd: 3.8 cm (< 3.3) IVSd: 1.3 cm (0.6 - 1.1) LVIDd: 3.8 cm (3.9 - 5.3) LVPWd: 1.3 cm (0.6 - 1.1) IVSs: 1.9 cm LVIDs: 2.6 cm LVPWs: 1.7 cm LA Diam: 3.6 cm (2.7 - 3.8) Ao Diam: 3.0 cm (2.0 - 3.7) AV Cusp: 1.7 cm (1.5 - 2.6) MV EXCURSION: 19.089 mm (> 18.000) MV EF SLOPE: 86 mm/s (70 - 150) EPSS: 0.8 cm RAP: 5.00 mmHg RVSP: 53.31 mmHg FINDINGS -------- Atrial fibrillation. This was a technically difficult study with suboptimal views. The left ventricular size is normal. There is mild concentric left ventricular hypertrophy. Overa ll left ventricular systolic function is low-normal with, an EF between 50 - 55 %. There is septal flattening in diastole and systole which is consistent with right ventricular pressure and volume ove rload. The right ventricle is severely enlarged. The left atrium is normal in size. The right atrium is normal in size. Interatrial and interventricular septum intact. There is mild aortic valve sclerosis. There is trace mitral regurgitation. Moderate to severe tricuspid regurgitation present. There is moderate pulmonary hypertension. The right ventricular systolic pressure, as measured by Doppler, is 53.31mmHg. The pulmonic valve was not well visualized. The aortic root size is normal. IVC Not well visulized. There is no pericardial effusion. CONCLUSIONS -------- 1. The left ventricular size is normal. 2. There is mild concentric left ventricular hypertrophy. 3. Overall left ventricular systolic function is low-normal with, an EF between 50 - 55 %. 4. There is septal flattening in diastole and systole which is consistent with right ventricular pres sure and volume overload. 5. The right ventricle is severely enlarged. 6. There is mild aortic valve sclerosis. 7. There is trace mitral regurgitation. 8. Moderate to severe tricuspid regurgitation present. 9. There is moderate pulmonary hypertension. 10. The right ventricular systolic pressure, as measured by Doppler, is 53.31mmHg. 11. There is no pericardial effusion. COATING MACHINE FEEDER: Qiana Anglin RDCS
[2021-05-31] MEDS: OLANZapine 10 MG TAB PO SCH (20:17)
[2021-05-31] MEDS: ATORVASTATIN 40 MG TAB PO SCH (20:17)
[2021-05-31] MEDS ORDERED: AMIODARONE 450 MG in DEXTROSE 5% IN WATER 250 ML IV SCH ×2 (23:00)
[2021-06-01] MEDS: AMIODARONE 450 MG in DEXTROSE 5% IN WATER 250 ML IV SCH ×6 (05:13→20:00)
[2021-06-01] MEDS: SYMBICORT 160-4.5 MCG INHALER INHALATION SCH ×2 (07:45→19:47)
[2021-06-01] MEDS: IPRATROPIUM-ALBUTEROL 3 ML NEB INHALATION SCH ×3 (07:45→19:48)
[2021-06-01] MEDS: predniSONE 20 MG TAB PO SCH ×2 (08:45→17:23)
[2021-06-01] MEDS: APIXABAN 5 MG TAB PO SCH (08:45)
[2021-06-01] MEDS: FAMOTIDINE 20 MG TAB PO SCH ×2 (08:45→17:23)
[2021-06-01] MEDS: ESTROGENS CONJUGATED 1.25 MG PO SCH (08:46)
--- NOTE | 2021-06-01 12:35 | P.HPIM ---
History of Present Illness H&P Date: 05/31/21 Chief Complaint: Difficulty breathing/altered mental status 70-year-old female with past medical history of congestive heart failure, A. fib on anticoagulation, COPD with noncompliant use of her BiPAP, mood disorder who is brought into the emergency department for hypoxia. Patient was recently seen at [facility] for altered mental status. Found to have subdural he matomas versus hygromas and was shipped to [place]. [place] evaluation deemed that the patient had chronic hygromas and she was cleared for anticoagulant use. Patient was transferred to [facility] for rehab. Patient has been noncompliant with her BiPAP and medications. at bedside states that she refuses majority of her medications. Today the staff found her more confused than normal. They state that she does has a history of some confusion at baseline however today was worsens. Her oxygen saturations were in the 80s. EMS attempted intubation of the patient however she was responsive and clenching down. There were unable to get an IV and therefore I was placed in the left humerus. Patient was placed on a nasal cannula. She did perk up upon transfer to the hospital however became agitated and therefore received 110 mg of ketamine. Patient arrives sedated with shallow respirations. She is unable to obtain any history from. She is found to be in A. fib which she has a history of. Laboratory studies; demonstrates a leukocytosis of 13.5. ABG demonstrates a CO2 of 89. Lactic acid 3.1. Troponin 0.059. BNP elevated at 4460. Urinalysis demonstrates occasional bacteria with moderate budding yeast. Chest x-ray is performed which demonstrates right lower lobe pneumonia and effusion. Patient was initiated on antibiotics after blood cultures were obtained. Fluids were not given to the patient even though she does meet sepsis criteria as she does have history of congestive heart failure and has visible effusion on chest x-ray with an elevated BNP. Patient does have a mildly low blood pressure and therefore was given a 500 mL normal saline bolus only. Patient is initiated on amiodarone due to her A. fib with persistently elevated heart rate. CT brain demonstrate the chronic hygromas without acute abnormality. Review of Systems ROS unobtainable: due to mental status Past Medical History Past Medical History: Atrial Fibrillation, Heart Failure, COPD, GERD/Reflux, Hyperlipidemia, Hypertension, Memory Impairment, Musculoskeletal Disorder History of Any Multi-Drug Resistant Organisms: Unobtainable Past Anesthesia/Blood Transfusion Reactions: Unable to Obtain Past Psychological History: Anxiety Smoking Status: Unknown if ever smoked Past Alcohol Use History: Unable to Obtain Past Drug Use History: Unable to Obtain Medications and Allergies Home Medications Medication Instructions Recorded Confirmed Type Albuterol Inhaler [Ventolin Hfa 2 puff INHALATION RT-BID@0900,209905/30/21 05/30/21 History Inhaler] Apixaban [Eliquis] 5 mg PO BID@0900,17005/30/21 05/30/21 History Atorvastatin Calcium [Lipitor] 40 mg PO HS@209905/30/21 05/30/21 History Budesonide/Formoterol Fumarate 2 puff INHALATION RT-BID@0900,169905/30/21 05/30/21 History [Symbicort 160-4.5 Mcg Inhaler] Carvedilol [Coreg] 6.25 mg PO BID@0900,169905/30/21 05/30/21 History Estrogens, Conjugated [Premarin] 1.25 mg PO DAILY@0905/30/21 05/30/21 History Famotidine [Pepcid] 20 mg PO BID@0900,17005/30/21 05/30/21 History Furosemide [Lasix] 20 mg PO DAILY@89905/30/21 05/30/21 History HYDROcodone/APAP 10-325MG [[place] 1 tab PO Q6H PRN 05/30/21 05/30/21 History 10-325] Ipratropium-Albuterol Nebulize 3 ml INHALATION RT-Q4H PRN 05/30/21 05/30/21 History [Duoneb 0.5 mg-3 mg/3 ml Soln] Ipratropium-Albuterol Nebulize 3 ml INHALATION RT-TID@,,05/30/21 05/30/21 History [Duoneb 0.5 mg-3 mg/3 ml Soln] LORazepam [Ativan] 0.5 mg PO Q8H PRN 05/30/21 05/30/21 History OLANZapine [ZyPREXA] 10 mg PO HS@209905/30/21 05/30/21 History Umeclidinium [place] [Incruse 1 puff INHALATION RT-DAILY@0900 05/30/21 05/30/21 History Ellipta] bisacodyL [Dulcolax] 10 mg RECTAL DAILY PRN 05/30/21 05/30/21 History lisinopriL 40 mg PO DAILY@0900 05/30/21 05/30/21 History predniSONE [Deltasone] 20 mg PO BID@0800,1600 05/30/21 05/30/21 History Allergies Allergy/AdvReac Type Severity Reaction Status Date / Time morphine Allergy Unknown Verified 05/30/21 16:02 Physical Exam Vitals: Vital Signs Temp Pulse Pulse Resp BP BP Pulse Ox 05/31/21 08:44 98 05/31/21 08:00 99.6 F 98 19 135/70 92 L 05/31/21 04:00 68 16 133/65 94 L 05/31/21 00:53 100 05/31/21 00:00 87 16 113/57 100 05/30/21 22:40 97.9 F 117 H 24 112/56 97 05/30/21 22:33 97 05/30/21 21:00 123 H 22 100/78 98 05/30/21 20:00 118 H 22 103/49 98 05/30/21 19:05 117 H 23 91/53 96 05/30/21 18:39 123 H 22 90/67 96 05/30/21 18:00 129 H 20 131/53 96 05/30/21 17:00 118 H 20 107/79 90 L 05/30/21 16:14 120 H 26 H 102/53 96 05/30/21 14:29 98.1 F 130 H 18 113/74 97 Intake and Output 05/30/21 05/31/21 05/31/21 22:59 06:59 14:59 Intake Total 500 Output Total 200 Balance 300 Intake: Intake, IV Titration 500 Amount Sodium Chloride 0.9% 500 500 ml 500 ml @ 999 mls/hr IV .Q31M [facility] Rx#:[id number] Oral 0 Output: Urine 200 Other: Voiding Method Indwelling Catheter Indwelling Catheter Weight 112.5 kg 112.5 kg No acute distress, very somnolent and lethargic, and a very poor historian. Almost no information could be obtained from her. HEENT examination is grossly unremarkable. Neck supple. No adenopathy thyromegaly or neck vein distention. Cardiovascular examination reveals regular rhythm rate. S1-S2 normal. No S3 or S4. No discernible murmur noted. Heart rate about 105 bpm. Heart sounds are distant. Lungs reveal scattered bilateral rhonchi. Minimal bibasilar crackles. She does not take a deep breath. Saturations are 100% on 4 L. Abdomen is obese. Bowel sounds are not noted. Extremities reveal trace edema. No cyanosis or clubbing. Skin is without rash or lesion. Neurologic examination is difficult to assess. The patient is very lethargic and somnolent. Results CBC & Chem 7: 05/30/21 14:57 05/30/21 14:57 Labs: Abnormal Lab Results - Last 24 Hours (Table) 05/30/21 05/30/21 05/30/21 Range/Units 14:40 14:57 14:57 WBC 13.5 H (3.8-10.6) k/uL RBC 3.66 L (3.80-5.40) m/uL Hgb 9.9 L (11.4-16.0) gm/dL MCHC 28.5 L (31.0-37.0) g/dL RDW 16.5 H (11.5-15.5) % Neutrophils # 11.5 H (1.3-7.7) k/uL Lymphocytes # 0.8 L (1.0-4.8) k/uL APTT 21.2 L (22.0-30.0) sec ABG pH (7.35-7.45) ABG pCO2 (35-45) mmHg ABG pO2 (83-108) mmHg ABG HCO3 (21-25) mmol/L ABG Total CO2 (19-24) mmol/L ABG O2 Saturation (94-97) % VBG pH 7.24 L (7.31-7.41) VBG pCO2 71 H* (37-51) mmHg VBG HCO3 29 H (24-28) mmol/L BUN (7-17) mg/dL Plasma Lactic Acid Parag (0.7-2.0) mmol/L Ammonia (<30) umol/L Troponin I (0.000-0.034) ng/mL Total Protein (6.3-8.2) g/dL TSH (0.465-4.680) mIU/L Urine Appearance (Clear) Urine Protein (Negative) Ur Leukocyte Esterase (Negative) Urine RBC (0-5) /hpf Urine WBC (0-5) /hpf Urine WBC Clumps (None) /hpf Ur Squamous Epith Cells (0-4) /hpf Urine Bacteria (None) /hpf Hyaline Casts (0-2) /lpf Urine Mucus (None) /hpf Urine Yeast (Budding) (None) /hpf 05/30/21 05/30/21 05/30/21 Range/Units 14:57 14:57 14:57 WBC (3.8-10.6) k/uL RBC (3.80-5.40) m/uL Hgb (11.4-16.0) gm/dL MCHC (31.0-37.0) g/dL RDW (11.5-15.5) % Neutrophils # (1.3-7.7) k/uL Lymphocytes # (1.0-4.8) k/uL APTT (22.0-30.0) sec ABG pH (7.35-7.45) ABG pCO2 (35-45) mmHg ABG pO2 (83-108) mmHg ABG HCO3 (21-25) mmol/L ABG Total CO2 (19-24) mmol/L ABG O2 Saturation (94-97) % VBG pH (7.31-7.41) VBG pCO2 (37-51) mmHg VBG HCO3 (24-28) mmol/L BUN 31 H (7-17) mg/dL Plasma Lactic Acid Parag 3.1 H* (0.7-2.0) mmol/L Ammonia 39 H (<30) umol/L Troponin I (0.000-0.034) ng/mL Total Protein 6.2 L (6.3-8.2) g/dL TSH (0.465-4.680) mIU/L Urine Appearance Cloudy H (Clear) Urine Protein 1+ H (Negative) Ur Leukocyte Esterase Large H (Negative) Urine RBC 19 H (0-5) /hpf Urine WBC 120 H (0-5) /hpf Urine WBC Clumps Few H (None) /hpf Ur Squamous Epith Cells 12 H (0-4) /hpf Urine Bacteria Occasional H (None) /hpf Hyaline Casts 41 H (0-2) /lpf Urine Mucus Rare H (None) /hpf Urine Yeast (Budding) Moderate H (None) /hpf 05/30/21 05/30/21 05/30/21 Range/Units 14:57 14:57 15:44 WBC (3.8-10.6) k/uL RBC (3.80-5.40) m/uL Hgb (11.4-16.0) gm/dL MCHC (31.0-37.0) g/dL RDW (11.5-15.5) % Neutrophils # (1.3-7.7) k/uL Lymphocytes # (1.0-4.8) k/uL APTT (22.0-30.0) sec ABG pH 7.19 L* (7.35-7.45) ABG pCO2 89 H* (35-45) mmHg ABG pO2 301 H (83-108) mmHg ABG HCO3 34 H (21-25) mmol/L ABG Total CO2 37 H (19-24) mmol/L ABG O2 Saturation 99.9 H (94-97) % VBG pH (7.31-7.41) VBG pCO2 (37-51) mmHg VBG HCO3 (24-28) mmol/L BUN (7-17) mg/dL Plasma Lactic Acid Parag (0.7-2.0) mmol/L Ammonia (<30) umol/L Troponin I 0.059 H* (0.000-0.034) ng/mL Total Protein (6.3-8.2) g/dL TSH 5.310 H (0.465-4.680) mIU/L Urine Appearance (Clear) Urine Protein (Negative) Ur Leukocyte Esterase (Negative) Urine RBC (0-5) /hpf Urine WBC (0-5) /hpf Urine WBC Clumps (None) /hpf Ur Squamous Epith Cells (0-4) /hpf Urine Bacteria (None) /hpf Hyaline Casts (0-2) /lpf Urine Mucus (None) /hpf Urine Yeast (Budding) (None) /hpf 05/30/21 Range/Units 18:03 WBC (3.8-10.6) k/uL RBC (3.80-5.40) m/uL Hgb (11.4-16.0) gm/dL MCHC (31.0-37.0) g/dL RDW (11.5-15.5) % Neutrophils # (1.3-7.7) k/uL Lymphocytes # (1.0-4.8) k/uL APTT (22.0-30.0) sec ABG pH 7.31 L (7.35-7.45) ABG pCO2 66 H (35-45) mmHg ABG pO2 62 L (83-108) mmHg ABG HCO3 33 H (21-25) mmol/L ABG Total CO2 35 H (19-24) mmol/L ABG O2 Saturation 91.0 L (94-97) % VBG pH (7.31-7.41) VBG pCO2 (37-51) mmHg VBG HCO3 (24-28) mmol/L BUN (7-17) mg/dL Plasma Lactic Acid Parag (0.7-2.0) mmol/L Ammonia (<30) umol/L Troponin I (0.000-0.034) ng/mL Total Protein (6.3-8.2) g/dL TSH (0.465-4.680) mIU/L Urine Appearance (Clear) Urine Protein (Negative) Ur Leukocyte Esterase (Negative) Urine RBC (0-5) /hpf Urine WBC (0-5) /hpf Urine WBC Clumps (None) /hpf Ur Squamous Epith Cells (0-4) /hpf Urine Bacteria (None) /hpf Hyaline Casts (0-2) /lpf Urine Mucus (None) /hpf Urine Yeast (Budding) (None) /hpf Microbiology - Last 24 Hours (Table) 05/30/21 14:57 Urine Culture - Preliminary Urine,Catheterized Assessment and Plan Assessment: 1. Acute on chronic hypoxemic and hypercapnic respiratory failure; multifactorial --CO2 narcosis/ COPD - Possible PNA -- patient is on 4 L nasal cannula planning to keep SpO2> 88-92% 2. Altered Mental Status; likely related to CO2 Narcosis vs PNA - treat underlying cause 3. Possible Pneumonia; currently on Rocephin/zithromax; monitor CBC, CRP, procalcitonin 4. Atrial fibrillation withRVR; continue with amiodarone infusion till able to take oral amiodarone. 5. Hyperlipidemia; continue home dose of Lipitor 6. Hypertension; currently not on any meds; monitor closely 7. Elevated Troponin; likely Type II [place]; cardiology on board; 2D ECHO ordered and pending DVT Prophylaxis; SCDs/Eliquis CODE STATUS; FULL CODE
--- NOTE | 2021-06-01 15:22 | P.PN ---
Subjective HISTORY OF PRESENT ILLNESS: This is a 70-year-old female with a past medical history significant for COPD, atrial fibrillation, congestive heart failure, hyperlipidemia, and hypertension. 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 We have been asked to see the patient in consultation for afib with RVR. Patient examin ed at the bedside. Patient is currently residing at [facility] for rehab. She was brought to the hospital secondary to increased confusion. Apparently the patient is noncompliant with many of her medications at rehab and refuses to wear her CPAP. Patient is lethargic and unable to give any history at this time. Patient was found to be in atrial fibrillation with RVR. Patient was started on IV amio. She remains in atrial fibrillation this morning with a heart rate in the 120s. * EKG reveals atrial fibrillation with RVR * Chest xray correlate for possible pneumonia, parapneumonic effusion, cardia megaly. * Laboratory data: WBC 13.5. Hemoglobin 9.9. Platelet count 233. Sodium 137. Potassium 4.6. BUN 31. Creatinine 0.99. Lactic acid 3.1. Repeat 1.3. ProBNP 4460. Troponin 0.059. * Current home cardiac medications include Lipitor 40 mg at night, Lasix 20 mg daily, lisinopril 40 mg daily, Eliquis 5 mg twice a day, carvedilol 6.25 mg twice a day / Patient seen and examined. Echocardiogram performed yesterday which shows EF 50-55%, septal flattening consistent with RV pressure and volume overload, RV severely enlarged, RVSP of 53, moderate to severe tricuspid regurgitation. Hypertension remains somnolent. Repeat troponins 0.057, 0.063. HRs somewhat better controlled 80-100's, still in Afib PHYSICAL EXAM: VITAL SIGNS: Reviewed. GENERAL: Well-developed in no acute distress. HEENT: Head is normocephalic. Pupils are equal, round. Sclerae anicteric. Mucous membranes of the mouth are moist. Neck supple. No JVD or thyromegaly LUNGS: Respirations even and unlabored. Lungs essentially clear to auscultation bilaterally. HEART: Regular rate and rhythm. S1 and S2 heard. ABDOMEN: Soft. Nondistended. Nontender. EXTREMITIES: Normal range of motion. No clubbing or cyanosis. Peripheral pulses intact. No lower extremity edema NEUROLOGIC: Somnolent but arousable ASSESSMENT: Altered mental status Leukocytosis Elevated lactic acid Acute hypoxic respiratory failure Abnormal troponin, suspect secondary to type II [place] Atrial fibrillation with RVR, mildly improved Chronic congestive heart failure, type unknown, EF unknown Hyperlipidemia Hypertension COPD Chronic subdural hygromas Medication noncomplaince RV dilation, pulmonary hypertension, moderate to severe TR PLAN: Echocardiogram reviewed with predominantly preserved EF. Patient does have RV dilation as well as pulmonary hypertension with moderate to severe tricuspid regurgitation. Patient has not been getting her Eliquis secondary to not being able to tolerate her oral medications and therefore we will change to Lovenox 1 mg/kg twice a day. Continue with amiodarone drip at this time. Transition to oral medications when able. Do not suspect acute coronary syndrome with predominantly preserved EF. Continue supportive care. Monitor hemoglobin closely. Monitor for neurologic improvement. Prognosis guarded. Objective - Vital Signs Vital signs: Vital Signs Temp 97.9 F 06/01/21 12:00 Pulse 72 06/01/21 12:00 Resp 20 06/01/21 12:00 BP 114/57 06/01/21 12:00 Pulse Ox 97 06/01/21 12:00 Intake & Output 05/31/21 06/01/21 06/01/21 18:59 06:59 18:59 Intake Total 770 0 Output Total 300 300 500 Balance 470 -300 -500 Weight 112.5 kg Intake: Intake, IV Titration 250 Amount Amiodarone 450 mg In 250 Dextrose 5% in Water 250 ml @ 0.5 MG/MIN 16.667 mls/hr IV .Q15H [facility] Rx#: [id number] Oral 520 0 Output: Urine 300 300 500 Other: Voiding Method Indwelling Catheter Indwelling Catheter Indwelling Catheter # Bowel Movements 1 - Labs CBC & Chem 7: 05/30/21 14:57 05/30/21 14:57 Labs: Abnormal Lab Results - Last 24 Hours (Table) 05/31/21 Range/Units 14:11 Troponin I 0.063 H* (0.000-0.034) ng/mL Microbiology - Last 24 Hours (Table) 05/30/21 14:57 Urine Culture - Preliminary Urine,Catheterized Yeast species 05/30/21 18:08 Blood Culture - Preliminary Blood No Growth after 24 hours 05/30/21 17:55 Blood Culture - Preliminary Blood No Growth after 24 hours
--- NOTE | 2021-06-01 15:50 | P.PN ---
Subjective Progress Note Date: 06/01/21 Principal diagnosis: Shortness of breath/atrial fibrillation. Pulmonary consult dated 05/31/2021. 71-year-old female, very poor historian, very lethargic and sleepy, who we are a sked to see for her respiratory failure. She apparently has a history of congestive heart failure, atrial fibrillation, COPD, and mood disorder. He was very difficult getting any history from this patient. She was apparently recently seen at an outside hospital for mental status changes. She was thought to have possible subdural hematomas. She was transferred to [facility], and it was determined that she did not require any surgery this time. Apparently the told the ER physician that his , refuses the majority of her medications. Laboratory data includes a white count of 13.5, hemoglobin 9.9, hematocrit 34.7, and platelet count 233,000. Initial blood gas showed a p O2 of 301, pCO2 of 89, and pH is 7.19. On 30%, the pO2 was 62, pCO2 of 66, pH is 7.31. She may of been on BiPAP at this point. Sodium 137, potassium 4.6, chlorides 102, CO2 29, BUN 31, and creatinine 0.99. Initial lactic acid was 3.1, with follow-up lactic acid 1.3. Ammonia level was 39, troponin was 0.059, and N-terminal proBNP was 4460. TSH was 5.310. CT of the brain showed no acute abnormality, only age-related atrophy small vessel ischemic changes, and subdural hygromas. Asked x-ray showed infiltrates or atelectasis in the right lower lobe, with bilateral effusions. Progress note dated 06/01/2021. 70-year-old female again seen in room 366. The patient is currently on 4 L of oxygen. The patient's also receiving a Cardizem drip at 5 mg an hour, and amiodarone at 1.5 mg/m. The patient has a very poor historian. Not much history can be obtained from her. In fact, she is just yelling out. Current laboratory data includes a troponin from the first, which was 0.057 and 0.063. No lab data from today. Microbiologic data is currently on negative. Chest x- ray from May 31 was reviewed. Labs, x-rays, and medications are all reviewed. Objective - Vital Signs Vital signs: Vital Signs Temp 97.9 F 06/01/21 12:00 Pulse 72 06/01/21 12:00 Resp 20 06/01/21 12:00 BP 114/57 06/01/21 12:00 Pulse Ox 97 06/01/21 12:00 Intake & Output 05/31/21 06/01/21 06/01/21 18:59 06:59 18:59 Intake Total 770 0 Output Total 300 300 500 Balance 470 -300 -500 Weight 112.5 kg Intake: Intake, IV Titration 250 Amount Amiodarone 450 mg In 250 Dextrose 5% in Water 250 ml @ 0.5 MG/MIN 16.667 mls/hr IV .Q15H [facility] Rx#: [id number] Oral 520 0 Output: Urine 300 300 500 Other: Voiding Method Indwelling Catheter Indwelling Catheter Indwelling Catheter # Bowel Movements 1 - Exam No acute distress, much more awake today. The patient is yelling out. She is a very poor historian. HEENT examination is grossly unremarkable. Neck supple. Full range of motion. No adenopathy thyromegaly or neck vein distention. Cardiovascular examination reveals an irregular rhythm and rate. S1-S2 normal. No S3 or S4. No discernible murmur noted. Heart sounds are distant. Heart rate is 75 bpm. Lungs reveal scattered bilateral rhonchi. Minimal bibasilar crackles. She does not take a deep breath. Saturations are 97% on 4 L. Abdomen is obese. Bowel sounds are not noted. Extremities reveal trace edema. No cyanosis or clubbing. Skin is without rash or lesion. Neurologic examination is difficult to assess. The patient does move all 4 extremities. She's quite agitated, and is yelling out. - Labs CBC & Chem 7: 05/30/21 14:57 05/30/21 14:57 Labs: Abnormal Lab Results - Last 24 Hours (Table) 05/31/21 Range/Units 14:11 Troponin I 0.063 H* (0.000-0.034) ng/mL Microbiology - Last 24 Hours (Table) 05/30/21 14:57 Urine Culture - Preliminary Urine,Catheterized Yeast species 05/30/21 18:08 Blood Culture - Preliminary Blood No Growth after 24 hours 05/30/21 17:55 Blood Culture - Preliminary Blood No Growth after 24 hours Assessment and Plan Assessment: Acute on chronic hypoxemic and hypercapnic respiratory failure, with CO2 narcosis, and acute mental status changes. History of COPD. History of atrial fibrillation, with rapid ventricular response. History of CHF. Morbid obesity. History of hyperlipidemia. History of hypertension. Plan: Plan dated 05/31/2021. Currently, patient is on 4 L nasal cannula. Saturations on this patient are perfectly acceptable and the 88-92% range. The patient may have a possible pneumonia in the right lung. She is currently on Zithromax and Rocephin. Prognosis is very poor. She was very lethargic and sleepy, and not a particularly good historian. I would certainly avoid all sedatives, hypnotics, narcotics, and tranquilizers. Additional recommendations and suggestions are forthcoming. Plan dated 06/01/2021. The patient remains on 4 L nasal cannula. The patient is also on amiodarone at 0.5 mg/m, and Cardizem drip at 5 mg an hour. We will continue to follow make recommendations where appropriate. The patient saturations on 4 L are fine. The patient remains on antibiotics. Additional recommendations and suggestions are forthcoming. As mentioned yesterday, I would avoid all sedatives, hypnotics, narcotics, and tranquilizers. Prognosis is very guarded. We will continue to follow make recommendations. Time with Patient: Less than 30
[2021-06-01 15:59] LABS: Anisocytosis Slight; Basophils % (A) 0 %; Eosinophils % (A) 0 %; HCT 30.6 % (34.0-46.0); HGB 8.6 gm/dL (11.4-16.0); Hypochromasia Marked; Lymphocytes # (A) 0.5 k/uL (1.0-4.8); Lymphocytes % (A) 5 %; MCH 26.6 pg (25.0-35.0); Mean Platelet Volume 8.9; Monocytes # (A) 0.4 k/uL (0-1.0); Monocytes % (A) 3 %; Neutrophils # (A) 9.1 k/uL (1.3-7.7); Neutrophils % (A) 90 %; Platelet Count 129 k/uL (150-450); RBC 3.22 m/uL (3.80-5.40); RDW 16.6 % (11.5-15.5); WBC 10.1 k/uL (3.8-10.6)
[2021-06-01] MEDS: AZITHROMYCIN 500 MG TAB PO SCH (17:23)
[2021-06-01] MEDS: DILTIAZEM 125 MG in SODIUM CHLORIDE 0.9% 100 ML IV SCH (19:29)
[2021-06-01] MEDS: ATORVASTATIN 40 MG TAB PO SCH (19:31)
[2021-06-01] MEDS: ENOXAPARIN 100 MG/ML SYRINGE SQ SCH (19:31)
[2021-06-01] MEDS: OLANZapine 10 MG TAB PO SCH (19:31)
--- NOTE | 2021-06-01 23:16 | P.PN ---
Subjective Progress Note Date: 06/01/21 70-year-old female with past medical history of congestive heart failure, A. fib on anticoagulation, COPD with noncompliant use of her BiPAP, mood disorder who is brought into the emergency department for hypoxia. Patient was recently seen at [facility] for altered mental status. Found to have subdural hematomas versus hygromas and was shipped to [place]. [place]'s evaluation deemed that the patient had chronic hygromas and she was cleared for anticoagulant use. Patient was transferred to [facility] for rehab. Patient has been noncompliant with her BiPAP and medications. at bedside states that she refuses majority of her medications. Today the staff found her more confused than normal. They state that she does has a history of some confusion at baseline however today was worsens. Her oxygen saturations were in the 80s. EMS attempted intubation of the patient however she was responsive and clenching down. There were unable to get an IV and therefore I was placed in the left humerus. Patient was placed on a nasal cannula. She did perk up upon transfer to the hospital however became agitated and therefore received 110 mg of ketamine. Patient arrives sedated with shallow respirations. She is unable to obtain any history from. She is found to be in A. fib which she has a history of. Laboratory studies; demonstrates a leukocytosis of 13.5. ABG demonstrates a CO2 of 89. Lactic acid 3.1. Troponin 0.059. BNP elevated at 4460. Urinalysis demonstrates occasional bacteria with moderate budding yeast. Chest x-ray is performed which demonstrates right lower lobe pneumonia and effusion. Patient was initiated on antibiotics after blood cultures were obtained. Fluids were not given to the patient even though she does meet sepsis criteria as she does have history of congestive heart failure and has visible effusion on chest x-ray with an elevated BNP. Patient does have a mildly low blood pressure and therefore was given a 500 mL normal saline bolus only. Patient is initiated on amiodarone due to her A. fib with persistently elevated heart rate. CT brain demonstrate the chronic hygromas without acute abnormality. 06/01/2021 Patient is seen and evaluated and follow-up with no issues overnight per nursing staff although patient continues to be confused and yelling out at times and can be redirected. Patient reports to having shortness of breath and is currently maintained on 4 L via nasal cannula. Cardiology and pulmonary following and patient is maintained on IV Cardizem and oral anticoagulant has been resumed. P atient with extensive weakness and will have PT/OT evaluated the patient and family would like the patient to return to [facility]. Case management and social work following. Patient is able to answer questions somewhat appropriately when redirected although continues to be confused and rambles at times. No reports of chest pain. Patient is afebrile. Active Medications Albuterol/Ipratropium (Ipratropium-Albuterol 3 Ml Neb) 3 ml INHALATION RT-Q4H PRN PRN Reason: shortness of breath Albuterol/Ipratropium (Ipratropium-Albuterol 3 Ml Neb) 3 ml INHALATION RT-Q4H PRN PRN Reason: Shortness Of Breath Albuterol/Ipratropium (Ipratropium-Albuterol 3 Ml Neb) 3 ml INHALATION RT- TID@09,13,21 [facility] Last Admin: 06/01/21 07:45 Dose: 3 ml Documented by: Apixaban (Apixaban 5 Mg Tab) 5 mg PO BID@0900,1700 [facility]; Protocol Last Admin: 06/01/21 08:45 Dose: 5 mg Documented by: Atorvastatin Calcium (Atorvastatin 40 Mg Tab) 40 mg PO HS@2100 [facility] Last Admin: 05/31/21 20:17 Dose: 40 mg Documented by: Azithromycin (Azithromycin 500 Mg Tab) 500 mg PO Q24H [facility]; Protocol Stop: 06/01/21 18:01 Last Admin: 05/31/21 18:13 Dose: 500 mg Documented by: Bisacodyl (Bisacodyl 10 Mg Supp) 10 mg RECTAL DAILY PRN PRN Reason: Constipation Budesonide/Formoterol Fumarate (Symbicort 160-4.5 Mcg Inhaler) 2 puff INHALATION RT-BID@0900,1700 [facility] Last Admin: 06/01/21 07:45 Dose: Not Given Documented by: Famotidine (Famotidine 20 Mg Tab) 20 mg PO BID@0900,1700 [facility] Last Admin: 06/01/21 08:45 Dose: 20 mg Documented by: Ceftriaxone Sodium 2 gm/ (Sodium Chloride) 50 mls @ 100 mls/hr IVPB Q24H [facility]; Protocol Stop: 06/03/21 18:29 Last Admin: 05/31/21 18:16 Dose: 100 mls/hr Documented by: Diltiazem HCl 125 mg/ Sodium (Chloride) 125 mls @ 5 mls/hr IV .Q24H [facility] Last Admin: 05/31/21 18:34 Dose: 5 mg/hr, 5 mls/hr Documented by: Miscellaneous Information (Pneumonia Protocol Util[facility] 1 each PO ONCE PRN PRN Reason: Per Protocol Non-Formulary Medication (Estrogens, Conjugated [Premarin]) 1.25 mg PO DAILY@0900 [facility] Last Admin: 06/01/21 08:46 Dose: Not Given Documented by: Olanzapine (Olanzapine 10 Mg Tab) 10 mg PO HS@2100 [facility] Last Admin: 05/31/21 20:17 Dose: 10 mg Documented by: Prednisone (Prednisone 20 Mg Tab) 20 mg PO BID@0800,1600 [facility] Last Admin: 06/01/21 08:45 Dose: 20 mg Documented by: Physical exam: General: No acute distress, very lethargic although arousable and continues to be confused, and a very poor historian. Obese HEENT examination is grossly unremarkable. Neck supple. No adenopathy thyromegaly or neck vein distention. Cardiovascular examination reveals regular rhythm rate. S1-S2 normal. No S3 or S4. No discernible murmur noted. Lungs reveal scattered bilateral rhonchi. Minimal bibasilar crackles. Saturations are 100% on 4 L. Abdomen is obese. Bowel sounds are not noted. Extremities reveal trace edema. No cyanosis or clubbing. Skin is without rash or lesion. Neurologic examination is difficult to assess. The patient is confused and lethargic. Assessment: -Acute on chronic hypoxemic and hypercapnic respiratory failure; multifactorial, CO2 narcosis -COPD acute exacerbation -Possible pneumonia - Altered Mental Status; likely related to CO2 Narcosis vs PNA -Possible Pneumonia; currently on Rocephin/zithromax -Atrial fibrillation withRVR; cardiology following and continued on IV cardizem -Hyperlipidemia -Hypertension -Elevated Troponin; likely Type II PA; cardiology on board; 2D ECHO ordered and pending -DVT Prophylaxis; SCDs/Eliquis -GI prophylaxis -FULL CODE Plan: Recommend continue with weaning FiO2 as tolerated and will continue on 4 L via nasal cannula. Strongly encouraged to avoid any MANAGER FILE agents as patient continues to be confused. Patient needs frequent reorientation. Cardiology and pulmonary following as patient was continued with atrial fibrillation with RVR and is currently maintained on Cardizem drip. Patient also continues on oral anticoagulant of Eliquis. Case management and social work also following for possible return to [facility] as patient continues with weakness and will have PT/OT evaluate the patient. Multiple complex medical issues, prognosis is guarded. Recommend repeat labs and follow-up chest x-ray in the morning. The impression and plan of care has been dictated by Sophie Rhodes, Nurse Practitioner as directed. Dr. Saadia MD I have performed a history and examination and MDM of this patient, discussed the same with the dictator, and agree with the dictator's assessment and plan as written ,documented as a scribe. Based on total visit time, I have performed more than 50% of the visit. Objective - Vital Signs Vital signs: Vital Signs Temp 97.9 F 05/31/21 20:00 Pulse 97 06/01/21 08:00 Resp 20 06/01/21 08:00 BP 139/79 06/01/21 08:00 Pulse Ox 99 06/01/21 08:00 Intake & Output 05/31/21 06/01/21 06/01/21 18:59 06:59 18:59 Intake Total 770 0 Output Total 300 300 500 Balance 470 -300 -500 Weight 112.5 kg Intake: Intake, IV Titration 250 Amount Amiodarone 450 mg In 250 Dextrose 5% in Water 250 ml @ 0.5 MG/MIN 16.667 mls/hr IV .Q15H [facility] Rx#: [id number] Oral 520 0 Output: Urine 300 300 500 Other: Voiding Method Indwelling Catheter Indwelling Catheter Indwelling Catheter # Bowel Movements 1 - Labs CBC & Chem 7: 06/01/21 15:38 05/30/21 14:57 Labs: Abnormal Lab Results - Last 24 Hours (Table) 05/31/21 05/31/21 05/31/21 Range/Units 11:14 12:57 14:11 POC Glucose (mg/dL) 70 L (75-99) mg/dL Troponin I 0.057 H* 0.063 H* (0.000-0.034) ng/mL Microbiology - Last 24 Hours (Table) 03/31/22 14:57 Urine Culture - Preliminary Urine,Catheterized Yeast species 05/30/21 18:08 Blood Culture - Preliminary Blood No Growth after 24 hours 05/30/21 17:55 Blood Culture - Preliminary Blood No Growth after 24 hours
[2021-06-02] MEDS ORDERED: QUEtiapine 25 MG TAB PO PRN (03:29)
[2021-06-02] MEDS: ENOXAPARIN 100 MG/ML SYRINGE SQ SCH ×2 (09:23→20:26)
[2021-06-02] MEDS: IPRATROPIUM-ALBUTEROL 3 ML NEB INHALATION SCH ×3 (10:39→19:13)
[2021-06-02] MEDS: SYMBICORT 160-4.5 MCG INHALER INHALATION SCH ×2 (10:39→19:13)
[2021-06-02 11:00] LABS: Anisocytosis Slight; Basophils % (A) 0 %; Eosinophils % (A) 0 %; HCT 31.4 % (34.0-46.0); HGB 8.8 gm/dL (11.4-16.0); Hypochromasia Marked; Lymphocytes # (A) 0.5 k/uL (1.0-4.8); Lymphocytes % (A) 5 %; MCHC 27.9 g/dL (31.0-37.0); MCV 96.6 fL (80.0-100.0); Macrocytosis Slight; Mean Platelet Volume 9.1; Monocytes # (A) 0.5 k/uL (0-1.0); Monocytes % (A) 6 %; Neutrophils # (A) 8.1 k/uL (1.3-7.7); Neutrophils % (A) 86 %; Platelet Count 138 k/uL (150-450); RBC 3.25 m/uL (3.80-5.40); RDW 16.5 % (11.5-15.5); WBC 9.5 k/uL (3.8-10.6)
[2021-06-02] MEDS: ESTROGENS CONJUGATED 1.25 MG PO SCH (11:09)
[2021-06-02] MEDS: predniSONE 20 MG TAB PO SCH ×2 (11:09→15:42)
[2021-06-02] MEDS: FAMOTIDINE 20 MG TAB PO SCH ×2 (11:09→17:28)
[2021-06-02 11:15] LABS: Calcium 8.5 mg/dL (8.4-10.2); Magnesium 1.8 mg/dL (1.6-2.3); Potassium 4.2 mmol/L (3.5-5.1)
--- NOTE | 2021-06-02 12:45 | P.PN ---
Subjective Progress Note Date: 06/02/21 70-year-old female with past medical history of congestive heart failure, A. fib on anticoagulation, COPD with noncompliant use of her BiPAP, mood disorder who is brought into the emergency department for hypoxia. Patient was recently seen at [facility] for altered mental status. Found to have subdural hematomas versus hygromas and was shipped to [place]. [place]'s evaluation deemed that the patient had chronic hygromas and she was cleared for anticoagulant use. Patient was transferred to [facility] for rehab. Patient has been noncompliant with her BiPAP and medications. at bedside states that she refuses majority of her medications. Today the staff found her more confused than normal. They state that she does has a history of some confusion at baseline however today was worsens. Her oxygen saturations were in the 80s. EMS attempted intubation of the patient however she was responsive and clenching down. There were unable to get an IV and therefore I was placed in the left humerus. Patient was placed on a nasal cannula. She did perk up upon transfer to the hospital however became agitated and therefore received 110 mg of ketamine. Patient arrives sedated with shallow respirations. She is unable to obtain any history from. She is found to be in A. fib which she has a history of. Laboratory studies; demonstrates a leukocytosis of 13.5. ABG demonstrates a CO2 of 89. Lactic acid 3.1. Troponin 0.059. BNP elevated at 4460. Urinalysis demonstrates occasional bacteria with moderate budding yeast. Chest x-ray is performed which demonstrates right lower lobe pneumonia and effusion. Patient was initiated on antibiotics after blood cultures were obtained. Fluids were not given to the patient even though she does meet sepsis criteria as she does have history of congestive heart failure and has visible effusion on chest x-ray with an elevated BNP. Patient does have a mildly low blood pressure and therefore was given a 500 mL normal saline bolus only. Patient is initiated on amiodarone due to her A. fib with persistently elevated heart rate. CT brain demonstrate the chronic hygromas without acute abnormality. 06/01/2021 Patient is seen and evaluated and follow-up with no issues overnight per nursing staff although patient continues to be confused and yelling out at times and can be redirected. Patient reports to having shortness of breath and is currently maintained on 4 L via nasal cannula. Cardiology and pulmonary following and patient is maintained on IV Cardizem and oral anticoagulant has been resumed. P atient with extensive weakness and will have PT/OT evaluated the patient and family would like the patient to return to [facility]. Case management and social work following. Patient is able to answer questions somewhat appropriately when redirected although continues to be confused and rambles at times. No reports of chest pain. Patient is afebrile. 06/02/2021 Patient is seen in follow-up today and per nursing staff and sitter at the bedside for safety, patient continues with confusion and has been pocketing her pills and spitting them out and not tolerating oral intake very well. Cardio logy following and patient is to continue on IV Cardizem along with amiodarone until able to tolerate oral intake. Patient also continued on ceftriaxone and oral prednisone with pulmonary following. Will add low-dose Seroquel at night and monitor closely. Review of systems: Unable to obtain as patient is confused Active Medications Albuterol/Ipratropium (Ipratropium-Albuterol 3 Ml Neb) 3 ml INHALATION RT-Q4H PRN PRN Reason: shortness of breath Albuterol/Ipratropium (Ipratropium-Albuterol 3 Ml Neb) 3 ml INHALATION RT-Q4H PRN PRN Reason: Shortness Of Breath Albuterol/Ipratropium (Ipratropium-Albuterol 3 Ml Neb) 3 ml INHALATION RT- TID@09,13,21 [facility] Last Admin: 06/02/21 10:39 Dose: Not Given Documented by: Atorvastatin Calcium (Atorvastatin 40 Mg Tab) 40 mg PO HS@2100 [facility] Last Admin: 06/01/21 19:31 Dose: 40 mg Documented by: Bisacodyl (Bisacodyl 10 Mg Supp) 10 mg RECTAL DAILY PRN PRN Reason: Constipation Budesonide/Formoterol Fumarate (Symbicort 160-4.5 Mcg Inhaler) 2 puff INHALATION RT-BID@0900,1700 [facility] Last Admin: 06/02/21 10:39 Dose: Not Given Documented by: Enoxaparin Sodium (Enoxaparin 100 Mg/Ml Syringe) 100 mg SQ Q12HR [facility] Last Admin: 06/02/21 09:23 Dose: 100 mg Documented by: Famotidine (Famotidine 20 Mg Tab) 20 mg PO BID@0900,1700 [facility] Last Admin: 06/02/21 11:09 Dose: Not Given Documented by: Ceftriaxone Sodium 2 gm/ (Sodium Chloride) 50 mls @ 100 mls/hr IVPB Q24H [facility]; Protocol Stop: 06/03/21 18:29 Last Admin: 06/01/21 19:59 Dose: 100 mls/hr Documented by: Diltiazem HCl 125 mg/ Sodium (Chloride) 125 mls @ 5 mls/hr IV .Q24H [facility] Last Admin: 06/01/21 19:29 Dose: 5 mg/hr, 5 mls/hr Documented by: Amiodarone HCl 450 mg/ (Dextrose/Water) 250 mls @ 16.667 mls/hr IV .Q15H [facility]; Protocol Last Admin: 06/01/21 20:00 Dose: 0.5 mg/min, 16.667 mls/hr Documented by: Miscellaneous Information (Pneumonia Protocol Utilized 1 Each [facility]) 1 each PO ONCE PRN PRN Reason: Per Protocol Non-Formulary Medication (Estrogens, Conjugated [Premarin]) 1.25 mg PO DAILY@0900 [facility] Last Admin: 06/02/21 11:09 Dose: Not Given Documented by: Olanzapine (Olanzapine 10 Mg Tab) 10 mg PO HS@2100 [facility] Last Admin: 06/01/21 19:31 Dose: 10 mg Documented by: Prednisone (Prednisone 20 Mg Tab) 20 mg PO BID@0800,1600 [facility] Last Admin: 06/02/21 11:09 Dose: Not Given Documented by: Quetiapine Fumarate (Quetiapine 25 Mg Tab) 12.5 mg PO HS PRN PRN Reason: Agitation Physical exam: General: No acute distress, very lethargic although arousable and continues to be confused, and a very poor historian. Obese HEENT examination is grossly unremarkable. Neck supple. No adenopathy thyromegaly or neck vein distention. Cardiovascular examination reveals regular rhythm rate. S1-S2 normal. No S3 or S4. No discernible murmur noted. Lungs reveal scattered bilateral rhonchi. Minimal bibasilar crackles. Saturations are 100% on 4 L. Abdomen is obese. Bowel sounds are not noted. Extremities reveal trace edema. No cyanosis or clubbing. Skin is without rash or lesion. Neurologic examination is difficult to assess. The patient is confused and lethargic. Assessment: -Acute on chronic hypoxemic and hypercapnic respiratory failure; multifactorial, CO2 narcosis -COPD acute exacerbation -Possible pneumonia - Altered Mental Status; likely related to CO2 Narcosis vs PNA -Possible Pneumonia; currently on Rocephin/zithromax -Atrial fibrillation with RVR; cardiology following and continued on IV cardizem and also IV amiodarone -Hyperlipidemia -Hypertension -Elevated Troponin; likely Type II CO; cardiology on board; 2D ECHO ordered and pending -DVT Prophylaxis; SCDs/Eliquis -GI prophylaxis -FULL CODE Plan: Recommend continue with weaning FiO2 as tolerated and will continue on 4 L via nasal cannula. Strongly encouraged to avoid any RETAINING ROOM CUTTER agents as patient continues to be confused. Patient needs frequent reorientation. 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 Cardiology and pulmonary following as patient was continued with atrial fibrillation with RVR and is currently maintained on Cardizem drip along with IV amiodarone as patient is unable to tolerate oral intake at this t michelle. Patient normally takes oral anticoagulant of Eliquis although has been spitting out medications and placed on subcutaneous Lovenox for now. 2-D echo shows atrial fibrillation with overall left ventricular systolic function is low to normal with an EF of 50-55% in the septal flattening in dialysis daily and systole which is consistent with right ventricular pressure and volume overload with the right ventricle being severely enlarged and there is a trace of mitral regurgitation along with moderate to severe tricuspid regurgitation present and moderate pulmonary hypertension noted. Case management and social work also following for possible return to [facility] as patient continues with weakness and will have PT/OT evaluate the patient. Multiple complex medical issues, prognosis is guarded. Repeat labs from today within normal limits and white blood count remains within normal limits at 9.5. The impression and plan of care has been dictated by Sophie Rhodes, Nurse Practitioner as directed. Dr. Saadia MD I have performed a history and examination and MDM of this patient, discussed the same with the dictator, and agree with the dictator's assessment and plan as written ,documented as a scribe. Based on total visit time, I have performed more than 50% of the visit. Objective - Vital Signs Vital signs: Vital Signs Temp 98.3 F 06/01/21 20:00 Pulse 121 H 06/02/21 04:00 Resp 16 06/02/21 04:00 BP 125/60 06/02/21 04:00 Pulse Ox 100 06/02/21 04:00 Intake & Output 06/01/21 06/02/21 06/02/21 18:59 06:59 18:59 Intake Total 172.8 624.583 Output Total 500 750 Balance -327.2 -125.417 Intake: Intake, IV Titration 172.8 374.583 Amount Amiodarone 450 mg In 132.8 Dextrose 5% in Water 250 ml @ 0.5 MG/MIN 16.667 mls/hr IV .Q15H [facility] Rx#: [id number] Amiodarone 450 mg In 250 Dextrose 5% in Water 250 ml @ 0.5 MG/MIN 16.667 mls/hr IV .Q15H [facility] Rx#: [id number] Diltiazem 125 mg In 40 124.583 Sodium Chloride 0.9% 100 ml @ 5 MG/HR 5 mls/hr IV .Q24H [facility] Rx#:[id number] Oral 250 Output: Urine 500 750 Other: Voiding Method Indwelling Catheter Indwelling Catheter - Labs CBC & Chem 7: 06/02/21 10:36 06/02/21 10:36 Labs: Abnormal Lab Results - Last 24 Hours (Table) 06/01/21 Range/Units 15:38 RBC 3.22 L (3.80-5.40) m/uL Hgb 8.6 L (11.4-16.0) gm/dL Hct 30.6 L (34.0-46.0) % MCHC 28.0 L (31.0-37.0) g/dL RDW 16.6 H (11.5-15.5) % Plt Count 129 L (150-450) k/uL Neutrophils # 9.1 H (1.3-7.7) k/uL Lymphocytes # 0.5 L (1.0-4.8) k/uL Microbiology - Last 24 Hours (Table) 05/30/21 14:57 Urine Culture - Final Urine,Catheterized Audrey albicans 05/30/21 18:08 Blood Culture - Preliminary Blood No Growth after 48 hours 05/30/21 17:55 Blood Culture - Preliminary Blood No Growth after 48 hours
--- NOTE | 2021-06-02 13:52 | P.PN ---
Subjective Progress Note Date: 06/02/21 Principal diagnosis: Shortness of breath/atrial fibrillation. Pulmonary consult dated 05/31/2021. 71-year-old female, very poor historian, very lethargic and sleepy, who we are a sked to see for her respiratory failure. She apparently has a history of congestive heart failure, atrial fibrillation, COPD, and mood disorder. He was very difficult getting any history from this patient. She was apparently recently seen at an outside hospital for mental status changes. She was thought to have possible subdural hematomas. She was transferred to [facility], and it was determined that she did not require any surgery this time. Apparently the told the ER physician that his , refuses the majority of her medications. Laboratory data includes a white count of 13.5, hemoglobin 9.9, hematocrit 34.7, and platelet count 233,000. Initial blood gas showed a p O2 of 301, pCO2 of 89, and pH is 7.19. On 30%, the pO2 was 62, pCO2 of 66, pH is 7.31. She may of been on BiPAP at this point. Sodium 137, potassium 4.6, chlorides 102, CO2 29, BUN 31, and creatinine 0.99. Initial lactic acid was 3.1, with follow-up lactic acid 1.3. Ammonia level was 39, troponin was 0.059, and N-terminal proBNP was 4460. TSH was 5.310. CT of the brain showed no acute abnormality, only age-related atrophy small vessel ischemic changes, and subdural hygromas. Asked x-ray showed infiltrates or atelectasis in the right lower lobe, with bilateral effusions. Progress note dated 06/01/2021. 70-year-old female again seen in room 366. The patient is currently on 4 L of oxygen. The patient's also receiving a Cardizem drip at 5 mg an hour, and amiodarone at 1.5 mg/m. The patient has a very poor historian. Not much history can be obtained from her. In fact, she is just yelling out. Current laboratory data includes a troponin from the first, which was 0.057 and 0.063. No lab data from today. Microbiologic data is currently on negative. Chest x- ray from May 31 was reviewed. Labs, x-rays, and medications are all reviewed. Progress note dated 06/02/2021. 70-year-old female, seen again in room 366. Today, the patient's very calm. She is on 2 L nasal cannula. She remains on a Cardizem drip at 5 mg an hour, and amiodarone at 0.5 mg/m. Clinically, the patient appears to be much more stable. The patient is much calmer as well. She is not yelling out or is not agitated. Labs today include a white count of 9.5, hemoglobin 8.8, hematocrit 31.4, and platelet count 130,000. Sodium 139, potassium 4.2, chlorides 105, CO2 30, anion gap 4, BUN 26, and creatinine 0.91. There was no chest x-ray today. Microbiologic studies are thus far negative. Objective - Vital Signs Vital signs: Vital Signs Temp 97.8 F 06/02/21 12:00 Pulse 57 L 06/02/21 12:00 Resp 16 06/02/21 12:00 BP 135/60 06/02/21 12:00 Pulse Ox 100 06/02/21 12:00 Intake & Output 06/01/21 06/02/21 06/02/21 18:59 06:59 18:59 Intake Total 172.8 624.583 Output Total 500 750 150 Balance -327.2 -125.417 -150 Intake: Intake, IV Titration 172.8 374.583 Amount Amiodarone 450 mg In 132.8 Dextrose 5% in Water 250 ml @ 0.5 MG/MIN 16.667 mls/hr IV .Q15H MARK Rx#: [id number] Amiodarone 450 mg In 250 Dextrose 5% in Water 250 ml @ 0.5 MG/MIN 16.667 mls/hr IV .Q15H MARK Rx#: [id number] Diltiazem 125 mg In 40 124.583 Sodium Chloride 0.9% 100 ml @ 5 MG/HR 5 mls/hr IV .Q24H MARK Rx#:[id number] Oral 250 Output: Urine 500 750 150 Other: Voiding Method Indwelling Catheter Indwelling Catheter Indwelling Catheter - Exam No acute distress. Today the patient is sleeping. The patient's on nasal O2 at 3 L. There is no signs or symptoms of respiratory difficulty or distress. HEENT examination is grossly unremarkable. Neck supple. Full range of motion. No adenopathy thyromegaly or neck vein distention. Cardiovascular examination reveals an irregular rhythm and rate. S1-S2 normal. No S3 or S4. No discernible murmur noted. Heart sounds are distant. Heart rate is 57 bpm. Lungs reveal scattered bilateral rhonchi. Minimal bibasilar crackles. She does not take a deep breath. Saturations are 100% on 3 L. Abdomen is obese. Bowel sounds are not noted. Extremities reveal trace edema. No cyanosis or clubbing. Skin is without rash or lesion. Neurologic examination is difficult to assess. The patient does move all 4 extremities. - Labs CBC & Chem 7: 06/02/21 10:36 06/02/21 10:36 Labs: Abnormal Lab Results - Last 24 Hours (Table) 06/01/21 06/02/21 06/02/21 Range/Units 15:38 10:36 10:36 RBC 3.22 L 3.25 L (3.80-5.40) m/uL Hgb 8.6 L 8.8 L (11.4-16.0) gm/dL Hct 30.6 L 31.4 L (34.0-46.0) % MCHC 28.0 L 27.9 L (31.0-37.0) g/dL RDW 16.6 H 16.5 H (11.5-15.5) % Plt Count 129 L 138 L (150-450) k/uL Neutrophils # 9.1 H 8.1 H (1.3-7.7) k/uL Lymphocytes # 0.5 L 0.5 L (1.0-4.8) k/uL BUN 26 H (7-17) mg/dL Glucose 123 H (74-99) mg/dL Microbiology - Last 24 Hours (Table) 05/30/21 14:57 Urine Culture - Final Urine,Catheterized Audrey albicans 05/30/21 18:08 Blood Culture - Preliminary Blood No Growth after 48 hours 05/30/21 17:55 Blood Culture - Preliminary Blood No Growth after 48 hours Assessment and Plan Assessment: Acute on chronic hypoxemic and hypercapnic respiratory failure, with CO2 narcosis, and acute mental status changes. History of COPD. History of atrial fibrillation, with rapid ventricular response. History of CHF. Morbid obesity. History of hyperlipidemia. History of hypertension. Plan: Plan dated 05/31/2021. Currently, patient is on 4 L nasal cannula. Saturations on this patient are perfectly acceptable and the 88-92% range. The patient may have a possible pneumonia in the right lung. She is currently on Zithromax and Rocephin. Prognosis is very poor. She was very lethargic and sleepy, and not a particularly good historian. I would certainly avoid all sedatives, hypnotics, narcotics, and tranquilizers. Additional recommendations and suggestions are forthcoming. Plan dated 06/01/2021. The patient remains on 4 L nasal cannula. The patient is also on amiodarone at 0.5 mg/m, and Cardizem drip at 5 mg an hour. We will continue to follow make recommendations where appropriate. The patient saturations on 4 L are fine. The patient remains on antibiotics. Additional recommendations and suggestions are forthcoming. As mentioned yesterday, I would avoid all sedatives, hypnotics, narcotics, and tranquilizers. Prognosis is very guarded. We will continue to follow make recommendations. Plan dated 06/02/2021. The patient has been weaned down to 3 L. The patient appears to be very comfortable. She remains on Cardizem drip at 5 mg an hour, and amiodarone at 0.5 mg/m. We will continue to follow make recommendations where appropriate. Patient's laboratory data is reviewed. Medications and x-rays are reviewed. As mentioned yesterday, we should avoid all sedatives, hypnotics, narcotics, or tranquilizers. We will certainly contribute to the patient's worsening hypercapnic respiratory failure. We will continue to follow and make recommendations where appropriate. Prognosis is guarded. Time with Patient: Less than 30
--- NOTE | 2021-06-02 13:55 | P.PN ---
Subjective HISTORY OF PRESENT ILLNESS: This is a 70-year-old female with a past medical history significant for COPD, atrial fibrillation, congestive heart failure, hyperlipidemia, and hypertension. Patient does not follow with a wellness program administrator at [facility]. We have been asked to see the patient in consultation for afib with RVR. Patient examin ed at the bedside. Patient is currently residing at [facility] for rehab. She was brought to the hospital secondary to increased confusion. Apparently the patient is noncompliant with many of her medications at rehab and refuses to wear her CPAP. Patient is lethargic and unable to give any history at this time. Patient was found to be in atrial fibrillation with RVR. Patient was started on IV amio. She remains in atrial fibrillation this morning with a heart rate in the 120s. * EKG reveals atrial fibrillation with RVR * Chest xray correlate for possible pneumonia, parapneumonic effusion, cardia megaly. * Laboratory data: WBC 13.5. Hemoglobin 9.9. Platelet count 233. Sodium 137. Potassium 4.6. BUN 31. Creatinine 0.99. Lactic acid 3.1. Repeat 1.3. ProBNP 4460. Troponin 0.059. * Current home cardiac medications include Lipitor 40 mg at night, Lasix 20 mg daily, lisinopril 40 mg daily, Eliquis 5 mg twice a day, carvedilol 6.25 mg twice a day 06/01 Patient seen and examined. Echocardiogram performed yesterday which shows EF 50-55%, septal flattening consistent with RV pressure and volume overload, RV severely enlarged, RVSP of 53, moderate to severe tricuspid regurgitation. Hypertension remains somnolent. Repeat troponins 0.057, 0.063. HRs somewhat better controlled 80-100's, still in Afib 06/02 Patient seen and examined. Patient remains somnolent but arousable. Patient responds to some questions saying she does not have any chest pain. Hemoglobin today 8.8, creatinine 0.9. Patient remains in A. fib with heart rates in the 70s to 80s on telemetry. Remains on amiodarone drip. PHYSICAL EXAM: VITAL SIGNS: Reviewed. GENERAL: Well-developed in no acute distress. HEENT: Head is normocephalic. Pupils are equal, round. Sclerae anicteric. Mucous membranes of the mouth are moist. Neck supple. No JVD or thyromegaly LUNGS: Respirations even and unlabored. Lungs essentially clear to auscultation bilaterally. HEART: Irregular rate and rhythm. S1 and S2 heard. ABDOMEN: Soft. Nondistended. Nontender. EXTREMITIES: Normal range of motion. No clubbing or cyanosis. Peripheral pulses intact. No lower extremity edema NEUROLOGIC: Somnolent but arousable ASSESSMENT: Altered mental status Leukocytosis Elevated lactic acid Acute hypoxic respiratory failure Abnormal troponin, suspect secondary to type II [place] Atrial fibrillation with RVR, mildly improved Chronic congestive heart failure, type unknown, EF unknown Hyperlipidemia Hypertension COPD Chronic subdural hygromas Medication noncomplaince RV dilation, pulmonary hypertension, moderate to severe TR PLAN: Echocardiogram reviewed with predominantly preserved EF. Patient does have RV dilation as well as pulmonary hypertension with moderate to severe tricuspid regurgitation. Unable to tolerate oral meds and therefore has been on Lovenox. Continue supportive care and transition to oral medications when able. Objective - Vital Signs Vital signs: Vital Signs Temp 97.8 F 06/02/21 12:00 Pulse 57 L 06/02/21 12:00 Resp 16 06/02/21 12:00 BP 135/60 06/02/21 12:00 Pulse Ox 100 06/02/21 12:00 Intake & Output 06/01/21 06/02/21 06/02/21 18:59 06:59 18:59 Intake Total 172.8 624.583 Output Total 500 750 150 Balance -327.2 -125.417 -150 Intake: Intake, IV Titration 172.8 374.583 Amount Amiodarone 450 mg In 132.8 Dextrose 5% in Water 250 ml @ 0.5 MG/MIN 16.667 mls/hr IV .Q15H MARK Rx#: [id number] Amiodarone 450 mg In 250 Dextrose 5% in Water 250 ml @ 0.5 MG/MIN 16.667 mls/hr IV .Q15H MARK Rx#: [id number] Diltiazem 125 mg In 40 124.583 Sodium Chloride 0.9% 100 ml @ 5 MG/HR 5 mls/hr IV .Q24H MARK Rx#:[id number] Oral 250 Output: Urine 500 750 150 Other: Voiding Method Indwelling Catheter Indwelling Catheter Indwelling Catheter - Labs CBC & Chem 7: 06/02/21 10:36 06/02/21 10:36 Labs: Abnormal Lab Results - Last 24 Hours (Table) 06/01/21 06/02/21 06/02/21 Range/Units 15:38 10:36 10:36 RBC 3.22 L 3.25 L (3.80-5.40) m/uL Hgb 8.6 L 8.8 L (11.4-16.0) gm/dL Hct 30.6 L 31.4 L (34.0-46.0) % MCHC 28.0 L 27.9 L (31.0-37.0) g/dL RDW 16.6 H 16.5 H (11.5-15.5) % Plt Count 129 L 138 L (150-450) k/uL Neutrophils # 9.1 H 8.1 H (1.3-7.7) k/uL Lymphocytes # 0.5 L 0.5 L (1.0-4.8) k/uL BUN 26 H (7-17) mg/dL Glucose 123 H (74-99) mg/dL Microbiology - Last 24 Hours (Table) 05/30/21 14:57 Urine Culture - Final Urine,Catheterized Audrey albicans 05/30/21 18:08 Blood Culture - Preliminary Blood No Growth after 48 hours 05/30/21 17:55 Blood Culture - Preliminary Blood No Growth after 48 hours
[2021-06-02] MEDS ORDERED: QUEtiapine 25 MG TAB PO STA (15:34)
[2021-06-02] MEDS: AMIODARONE 450 MG in DEXTROSE 5% IN WATER 250 ML IV SCH ×2 (17:28)
[2021-06-02] MEDS: DILTIAZEM 125 MG in SODIUM CHLORIDE 0.9% 100 ML IV SCH (17:28)
[2021-06-02] MEDS: OLANZapine 10 MG TAB PO SCH (20:26)
[2021-06-02] MEDS: ATORVASTATIN 40 MG TAB PO SCH (20:26)
[2021-06-03] MEDS: AMIODARONE 450 MG in DEXTROSE 5% IN WATER 250 ML IV SCH ×4 (01:52→11:36)
[2021-06-03 08:03] LABS: Anisocytosis Slight; Basophils % (A) 0 %; Eosinophils # (A) 0.1 k/uL (0-0.7); Eosinophils % (A) 1 %; HCT 30.1 % (34.0-46.0); HGB 8.6 gm/dL (11.4-16.0); Hypochromasia Marked; Lymphocytes # (A) 0.4 k/uL (1.0-4.8); Lymphocytes % (A) 6 %; MCH 27.2 pg (25.0-35.0); MCHC 28.5 g/dL (31.0-37.0); MCV 95.3 fL (80.0-100.0); Mean Platelet Volume 8.9; Monocytes # (A) 0.4 k/uL (0-1.0); Monocytes % (A) 5 %; Neutrophils # (A) 6.5 k/uL (1.3-7.7); Neutrophils % (A) 86 %; Platelet Count 121 k/uL (150-450); RBC 3.16 m/uL (3.80-5.40); RDW 16.5 % (11.5-15.5); WBC 7.6 k/uL (3.8-10.6)
[2021-06-03 08:51] LABS: Calcium 8.7 mg/dL (8.4-10.2); Magnesium 1.8 mg/dL (1.6-2.3); Potassium 4.1 mmol/L (3.5-5.1)
[2021-06-03] MEDS ORDERED: methylPREDNISolone SOD SUCCI 125 MG/2 ML VIAL IV SCH (09:00)
[2021-06-03] MEDS: IPRATROPIUM-ALBUTEROL 3 ML NEB INHALATION SCH ×3 (09:46→21:38)
[2021-06-03] MEDS: SYMBICORT 160-4.5 MCG INHALER INHALATION SCH ×2 (09:46→16:19)
[2021-06-03] MEDS: ESTROGENS CONJUGATED 1.25 MG PO SCH (09:47)
[2021-06-03] MEDS: FUROSEMIDE 10 MG/ML 4 ML VIAL IV SCH ×2 (09:55→20:24)
[2021-06-03] MEDS: ENOXAPARIN 100 MG/ML SYRINGE SQ SCH ×2 (09:56→20:24)
[2021-06-03] MEDS: FAMOTIDINE 20 MG TAB PO SCH ×2 (09:59→17:50)
[2021-06-03] MEDS: DILTIAZEM 125 MG in SODIUM CHLORIDE 0.9% 100 ML IV SCH (09:59)
[2021-06-03] MEDS: predniSONE 20 MG TAB PO SCH ×2 (10:21→22:32)
--- NOTE | 2021-06-03 11:03 | XR ---
EXAMINATION TYPE: XR chest 1V DATE OF EXAM: 06/03/2021 COMPARISON: Chest x-ray 05/31/2021 HISTORY: Redness of breath TECHNIQUE: Single frontal view of the chest is obtained. FINDINGS: Abnormal density is present in the right lower and mid lung possibly progressed in the int erval although there are differences in technique. Heart is enlarged. There is no evident pneumothora x. Lateral aspect of the right hemidiaphragm remains obscured. IMPRESSION: Correlate for pneumonia, there may be associated effusion, follow-up is recommended. Car diomegaly.
--- NOTE | 2021-06-03 12:10 | P.PN ---
Subjective This is a 70-year-old female with a past medical history significant for COPD, atrial fibrillation, congestive heart failure, hyperlipidemia, and hypertension. Patient does not follow with a flow match sofa cutter at [facility]. We have been asked to see the patient in consultation for afib with RVR. Patient examined at the bedside. Patient is currently residing at [facility] for rehab. She was brought to the hospital secondary to increased confusion. Apparently the patient is noncompliant with many of her medications at rehab and refuses to wear her CPAP. Patient was lethargic and unable to give any history at this time. Patient was found to be in atrial fibrillation with RVR. Patient was started on IV amio. She remains in atrial fibrillation this morning with a heart rate in the 120s. Echocardiogram performed this admission which shows EF 50-55%, septal flattening consistent with RV pressure and volume overload, RV severely enlarged, RVSP of 53, moderate to severe tricuspid regurgitation. Repeat troponins 0.057, 0.063. 06/03/2021 Patient seen and examined at bedside, she remains somnolent but arousable. She is lethargic. Unable to answer questions adequately. She remains in atrial fibrillation with heart rates in the 70s80s. Patient with 3.5 L urine output over the past 24 hours. Renal function stable with BUN 25, serum creatinine 0.8. She remains on IV Lasix 40 mg twice a day, IV amiodarone 0.5 mg/min, atorvastatin 40 mg nightly, decreasing 5 mg/hr, Lovenox 100 mg twice a day GENERAL: Lethargic, somnolent NECK: Supple without JVD LUNGS: Breath sounds diminished to auscultation bilaterally. Respiration equal and unlabored. No wheezes, rales or rhonchi. HEART: Irregular rate and rhythm without murmurs, rubs or gallops. S1 and S2 heard. EXTREMITIES: trace bilateral lower extremity edema. No clubbing or cyanosis. Peripheral pulses intact. NEUROLOGIC: Somnolent but arousable ASSESSMENT: Altered mental status Leukocytosis Elevated lactic acid Acute hypoxic respiratory failure Abnormal troponin, suspect secondary to type II [place] Atrial fibrillation with RVR, mildly improved Chronic congestive heart failure, type unknown, EF unknown Hyperlipidemia Hypertension COPD Chronic subdural hygromas Medication noncomplaince RV dilation, pulmonary hypertension, moderate to severe TR PLAN: Echocardiogram reviewed with predominantly preserved EF. Patient does have RV dilation as well as pulmonary hypertension with moderate to severe tricuspid regurgitation. Unable to tolerate oral meds and therefore has been on Lovenox, and IV medicatinos for rate control and IV Lasix. Continue supportive care and transition to oral medications when able. Nurse practitioner note has been reviewed by physician. Signing provider agrees with the documented findings, assessment, and plan of care. Objective - Vital Signs Vital signs: Vital Signs Temp 97.6 F 06/03/21 08:00 Pulse 79 06/03/21 08:00 Resp 19 06/03/21 08:00 BP 106/51 06/03/21 08:00 Pulse Ox 100 06/03/21 08:00 Intake & Output 06/02/21 06/03/21 06/03/21 18:59 06:59 18:59 Intake Total 430 245 162.225 Output Total 300 100 Balance 130 145 162.225 Intake: Intake, IV Titration 250 125 162.225 Amount Amiodarone 450 mg In 250 162.225 Dextrose 5% in Water 250 ml @ 0.5 MG/MIN 16.667 mls/hr IV .Q15H MARK Rx#: [id number] Diltiazem 125 mg In 125 Sodium Chloride 0.9% 100 ml @ 5 MG/HR 5 mls/hr IV .Q24H MARK Rx#:[id number] Oral 180 120 Output: Urine 300 100 Uretheral (Estrella) 100 Other: Voiding Method Indwelling Catheter Indwelling Catheter - Labs CBC & Chem 7: 06/03/21 07:44 06/03/21 07:44 Labs: Abnormal Lab Results - Last 24 Hours (Table) 06/03/21 06/03/21 06/03/21 Range/Units 07:44 07:44 07:44 RBC 3.16 L (3.80-5.40) m/uL Hgb 8.6 L (11.4-16.0) gm/dL Hct 30.1 L (34.0-46.0) % MCHC 28.5 L (31.0-37.0) g/dL RDW 16.5 H (11.5-15.5) % Plt Count 121 L (150-450) k/uL Lymphocytes # 0.4 L (1.0-4.8) k/uL BUN 25 H (7-17) mg/dL Glucose 139 H (74-99) mg/dL Procalcitonin 0.18 H (0.02-0.09) ng/mL Microbiology - Last 24 Hours (Table) 05/30/21 18:08 Blood Culture - Preliminary Blood No Growth after 72 hours 05/30/21 17:55 Blood Culture - Preliminary Blood No Growth after 72 hours
--- NOTE | 2021-06-03 13:35 | CDI ---
Documentation Clarification Form Date: 06/03/2021 01:01:30 PM From: Leatha Grady RN, CCDS Admit Date: 05/30/2021 06:15:00 PM Patient Name: Juani Yip Visit Number: [id number] Discharge Date: ATTENTION: The Clinical Documentation Specialists (CDI) and [facility] Coding Staff appreciate your assistance in clarifying documentation. Please respond to the clarification below the line at the bottom and electronically sign. The CDI & [facility] Coding staff will review the response and follow-up if needed. Please note: Queries are made part of the Legal Health Record. If you have any questions, please contact the author of this message via ITS. Dr. Nain Polo The patient has the documented diagnosis of unspecified CHF in consult on 05/31/2021 and subsequent progress notes. Additional information regarding the type and acuity of CHF is requested. History/Risk Factors: Congestive heart failure, atrial fibrillation, COPD Clinical Indicators: 70-year old female with history of present illness for atrial fibrillation, COPD and congestive heart failure. She present from [facility] with confusion and difficulty in breathing. She has no lower extremity edema 05/30 EKG: A. FIB with RVR at 143 BPM. 05/30 CXR: Difficulty to exclude right lower lobe pneumonia and possible associated effusion, cardiomegaly. 05/30 VS/Pulse OX: 113/74 130 18 98.1 97% Non-Rebreather flow rate 15 05/30 BNP: 4460 05/31 Echocardiogram Results: Atrial Fibrillation, Left ventricular systolic function is low-normal with, an EF between 50-55 % There is septal flattening in diastole and systole which is consistent with right ventricular pressure and volume overload. The right ventricle is severely enlarged. There is moderate pulmonary hypertension 05/30 Labs: Troponin 0.059 Treatment: Telemetry Monitoring Amiodarone 360 MG drip per orders 05/30 Lasix 40 MG IV Q 12 HRS Lasix 60 MG IV Once 05/30 Cardizem 125 mg drip per orders In your professional opinion, can you please clarify the acuity and type of CHF if known? [ ] Acute Systolic Heart Failure (reduced EF) [ ] Chronic Systolic Heart Failure (reduced EF) [ ] Acute on Chronic Systolic Heart Failure (reduced EF) [ ] Acute Diastolic Heart Failure (preserved EF) [ ] Chronic Diastolic Heart Failure (preserved EF) [ x ] Acute on Chronic Diastolic Heart Failure (preserved EF) [ ] Acute Systolic & Diastolic Heart Failure [ ] Chronic Systolic & Diastolic Heart Failure [ ] Acute on Chronic Heart Failure Systolic & Diastolic Heart Failure [ ] Other, please specify [ ] Unable to determine (Template Last Revised: April 2020) MTDD
--- NOTE | 2021-06-03 13:41 | CDI ---
Documentation Clarification Form Date: 06/03/2021 01:35:59 PM From: Leatha Grady RN, CCDS Admit Date: 05/30/2021 06:15:00 PM Patient Name: Juani Yip Visit Number: [id number] Discharge Date: ATTENTION: The Clinical Documentation Specialists (CDI) and [facility] Coding Staff appreciate your assistance in clarifying documentation. Please respond to the clarification below the line at the bottom and electronically sign. The CDI & [facility] Coding staff will review the response and follow-up if needed. Please note: Queries are made part of the Legal Health Record. If you have any questions, please contact the author of this message via ITS. Dr. Nain Polo Atrial Fibrillation is documented past medical history, cardiology consult and subsequent progress notes]. Additional clarification regarding the type of atrial fibrillation is requested. History/Risk Factors: Congestive heart failure, atrial fibrillation, COPD Clinical Indicators: 70-year old female with history of present illness for atrial fibrillation, COPD and congestive heart failure. [facility] with [facility] and difficulty in breathing. She has no lower extremity edema 05/30 EKG: A. FIB with RVR at 143 BPM. 05/30 VS/Pulse OX: 113/74 130 18 98.1 97% Non-Rebreather flow rate 15 05/31 Echocardiogram Results: Atrial Fibrillation, Left ventricular systolic function is low-normal with, an EF between 50-55 % There is septal flattening in diastole and systole which is consistent with right ventricular pressure and volume overload. The right ventricle is severely enlarged. There is moderate pulmonary hypertension Treatment: Telemetry Monitoring Amiodarone 360 MG drip per orders 05/30 Cardizem 125 mg drip per orders Please clarify the type of atrial fibrillation, if known: [ ] Chronic [ ] Permanent [ ] Paroxysmal [ ] Persistent [ ] Other, please specify [ x ] Unable to determine (Template Last Revised: June 2020) MTDD
--- NOTE | 2021-06-03 15:07 | P.PN ---
Subjective Progress Note Date: 06/03/21 On today's evaluation of 06/03/2021, the patient continues to be lethargic and somewhat confused. She is arousable. She only follows and can indulge herself and to short conversations. If left on some related, she will go back to sleep. The patient apparently has been able to also swallow her tablets without any major difficulties. No reported aspiration. She remains in atrial fibrillation. She remains on amiodarone maintenance of 0.5 mg per minute. The patient is also on a Cardizem drip at 5 mg an hour. The patient is also on anticoagulation with oral Eliquis. Echocardiogram showed an ejection fraction of 55% and the patient elevated RV systolic pressure of 53 mmHg. This is consistent with moderate to severe pulmonary hypertension and tricuspid regurgitation. The patient continues to have edema in lower extremity is bilaterally. Overall fluid balance over the past 24 hours has been -452 mL. The patient is on Lasix 40 mg IV every 12 hours. This was started today by the primary care team. The patient is on oral prednisone 20 mg twice a day and the patient was taken off the IV Solu-Medrol. No other significant events overnight. No agitation. She has a sitter at the bedside. Objective - Vital Signs Vital signs: Vital Signs Temp 97.6 F 06/03/21 08:00 Pulse 79 06/03/21 08:00 Resp 19 06/03/21 08:00 BP 106/51 06/03/21 08:00 Pulse Ox 100 06/03/21 08:00 Intake & Output 06/02/21 06/03/21 06/03/21 18:59 06:59 18:59 Intake Total 430 245 162.225 Output Total 300 100 Balance 130 145 162.225 Intake: Intake, IV Titration 250 125 162.225 Amount Amiodarone 450 mg In 250 162.225 Dextrose 5% in Water 250 ml @ 0.5 MG/MIN 16.667 mls/hr IV .Q15H [facility] Rx#: [id number] Diltiazem 125 mg In 125 Sodium Chloride 0.9% 100 ml @ 5 MG/HR 5 mls/hr IV .Q24H [facility] Rx#:[id number] Oral 180 120 Output: Urine 300 100 Uretheral (Etsrella) 100 Other: Voiding Method Indwelling Catheter Indwelling Catheter - Exam No acute distress. Today the patient is sleeping. The patient's on nasal O2 at 3 L. There is no signs or symptoms of respiratory difficulty or distress. The patient remains lethargic. She is arousable. She would communicate for a very short period of time and she would go back to sleep. No agitation. No r estlessness. HEENT examination is grossly unremarkable. Neck supple. Full range of motion. No adenopathy thyromegaly or neck vein distention. Cardiovascular examination reveals an irregular rhythm and rate. S1-S2 normal. No S3 or S4. No discernible murmur noted. Heart sounds are distant. Lungs reveal scattered bilateral rhonchi. Minimal bibasilar crackles. She does not take a deep breath. She has diminished breath sounds bilaterally along with scattered expiratory wheezes throughout. Abdomen is obese. Bowel sounds are not noted. Extremities reveal trace edema. No cyanosis or clubbing. Skin is without rash or lesion. Neurologic examination is difficult to assess. The patient does move all 4 extremities. - Labs CBC & Chem 7: 06/03/21 07:44 06/03/21 07:44 Labs: Abnormal Lab Results - Last 24 Hours (Table) 06/03/21 06/03/21 06/03/21 Range/Units 07:44 07:44 07:44 RBC 3.16 L (3.80-5.40) m/uL Hgb 8.6 L (11.4-16.0) gm/dL Hct 30.1 L (34.0-46.0) % MCHC 28.5 L (31.0-37.0) g/dL RDW 16.5 H (11.5-15.5) % Plt Count 121 L (150-450) k/uL Lymphocytes # 0.4 L (1.0-4.8) k/uL BUN 25 H (7-17) mg/dL Glucose 139 H (74-99) mg/dL Procalcitonin 0.18 H (0.02-0.09) ng/mL Microbiology - Last 24 Hours (Table) 05/30/21 18:08 Blood Culture - Preliminary Blood No Growth after 72 hours 05/30/21 17:55 Blood Culture - Preliminary Blood No Growth after 72 hours Assessment and Plan Plan: Acute on chronic hypoxemic and hypercapnic respiratory failure, with CO2 narcosis, and acute mental status changes. Clinically, the patient is shown showing any active signs of CO2 narcosis. She is easily arousable. She remains on 3 L of O2 by nasal cannula. History of COPD. Right lung opacity/consolidation, could be also related to underlying pleural fluid as the patient has signs of fluid overload. Nevertheless, based on the chest x-ray findings, this needs to be correlated with a pneumonia. There is underlying cardiomegaly. History of atrial fibrillation, with rapid ventricular response. The patient is currently on a combination of amiodarone drip, Cardizem drip and the patient on anticoagulation with Eliquis History of CHF. The echocardiogram showed normal LV, mild LVH, EF around 50- 55%, severe RV dilation with a pulmonary artery pressure of around 53 mmHg and moderate to severe tricuspid regurgitation Morbid obesity. History of hyperlipidemia. History of hypertension. Increased lower extremity edema Plan Start the patient on Lasix 40 mg IV every 12 hours Continued IV Rocephin Repeat chest x-ray with the next 24 hours Monitor electrolytes Continue bronchodilators Continue prednisone burst taper Management of atrial fibrillation with accommodation Cardizem drip and amiodarone drip and the patient also underwent evaluation with Eliquis We'll continue to follow. Watch for any signs of CO2 narcosis. Further recommendations to follow based on her response.
[2021-06-03] MEDS: LIDOCAINE 5% PATCH TOPICAL SCH (19:03)
[2021-06-03] MEDS: OLANZapine 10 MG TAB PO SCH (22:32)
[2021-06-03] MEDS: ATORVASTATIN 40 MG TAB PO SCH (22:32)
--- NOTE | 2021-06-03 23:30 | P.PN ---
Subjective 70-year-old female with past medical history of congestive heart failure, A. fib on anticoagulation, COPD with noncompliant use of her BiPAP, mood disorder who is brought into the emergency department for hypoxia. Patient was recently seen at [facility] for altered mental status. Found to have subdural hematomas versus hygromas and was shipped to [place]. [facility] evaluation deemed that the patient had chronic hygromas and she was cleared for anticoagulant use. Patient was transferred to [facility] for rehab. Patient has been noncompliant with her BiPAP and medications. at bedside states that she refuses majority of her medications. Today the staff found her more confused than normal. They state that she does has a history of some confusion at baseline however today was worsens. Her oxygen saturations were in the 80s. EMS attempted intubation of the patient however she was responsive and clenching down. There were unable to get an IV and therefore I was placed in the left humerus. Patient was placed on a nasal cannula. She did perk up upon transfer to the hospital however became agitated and therefore received 110 mg of ketamine. Patient arrives sedated with shallow respirations. She is unable to obtain any history from. She is found to be in A. fib which she has a history of. Laboratory studies; demonstrates a leukocytosis of 13.5. ABG demonstrates a CO2 of 89. Lactic acid 3.1. Troponin 0.059. BNP elevated at 4460. Urinalysis demonstrates occasional bacteria with moderate budding yeast. Chest x-ray is performed which demonstrates right lower lobe pneumonia and effusion. Patient was initiated on antibiotics after blood cultures were obtained. Fluids were not given to the patient even though she does meet sepsis criteria as she does have history of congestive heart failure and has visible effusion on chest x-ray with an elevated BNP. Patient does have a mildly low blood pressure and therefore was given a 500 mL normal saline bolus only. Patient is initiated on amiodarone due to her A. fib with persistently elevated heart rate. CT brain demonstrate the chronic hygromas without acute abnormality. 06/01/2021 Patient is seen and evaluated and follow-up with no issues overnight per nursing staff although patient continues to be confused and yelling out at times and can be redirected. Patient reports to having shortness of breath and is currently m aintained on 4 L via nasal cannula. Cardiology and pulmonary following and patient is maintained on IV Cardizem and oral anticoagulant has been resumed. Patient with extensive weakness and will have PT/OT evaluated the patient and family would like the patient to return to [facility]. Case management and social work following. Patient is able to answer questions somewhat appropriately when redirected although continues to be confused and rambles at times. No reports of chest pain. Patient is afebrile. 06/02/2021 Patient is seen in follow-up today and per nursing staff and sitter at the [facility] for safety, patient continues with confusion and has been pocketing her pills and spitting them out and not tolerating oral intake very well. Cardiology following and patient is to continue on IV Cardizem along with amiodarone until able to tolerate oral intake. Patient also continued on ce ftriaxone and oral prednisone with pulmonary following. Will add low-dose Seroquel at night and monitor closely. 06/03/2021 Patient remains confused and drowsy secondary to her CO2 narcosis but she is arousable and she knows and she is in the hospital. She denies headache or weakness or numbness, no asymmetry noted in her examination. Both pupils are equal and reactive to light. No meningeal signs. She ate 75% of her denying 100% of snack last night. She is on 4 L oxygen via nasal cannula. She is hemodynamically stable and afebrile. The hemoglobin is stable at 8.6, platelet count improved slightly at 121, creatinine normal 0.8, pro-calcitonin is slightly elevated at 0.18. Chest x-ray showing possible pneumonia and effusion and the recommend follow-up. I looked at the chest x-ray myself she has bilateral infiltrates, more on the right side, looks slightly better than when she came in to the hospital. She has significant bilateral leg edema probnp is improving since admission 4460 to 3190 [address] [facility] on this admission showing ejection fraction of 50-55% with moderate to severe tricuspid regurgitation and moderate pulmonary hypertension She has amiodarone and Cardizem running also she is on ceftriaxone, therapeutic dose of Lovenox and Eliquis is on hold. She is on prednisone 20 mg twice daily and Seroquel. We will add doxycycline for coverage of atypical bacteria. IV Lasix 40 twice a day. Objective - Vital Signs Vital signs: Vital Signs Temp 97.6 F 06/03/21 04:00 Pulse 90 06/03/21 04:00 Resp 20 06/03/21 04:00 BP 120/75 06/03/21 04:00 Pulse Ox 93 L 06/03/21 04:00 Intake & Output 06/02/21 06/03/21 06/03/21 18:59 06:59 18:59 Intake Total 430 245 Output Total 300 100 Balance 130 145 Intake: Intake, IV Titration 250 125 Amount Amiodarone 450 mg In 250 Dextrose 5% in Water 250 ml @ 0.5 MG/MIN 16.667 mls/hr IV .Q15H [facility] Rx#: [id number] Diltiazem 125 mg In 125 Sodium Chloride 0.9% 100 ml @ 5 MG/HR 5 mls/hr IV .Q24H [facility] Rx#:[id number] Oral 180 120 Output: Urine 300 100 Uretheral (Estrella) 100 Other: Voiding Method Indwelling Catheter Indwelling Catheter - Exam -GENERAL: The patient is confused and drowsy but arousable, she follows commands and she knows she is in the hospital, not in any acute distress. Well developed, well nourished. HEENT: Pupils are round and equally reacting to light. EOMI. No scleral icterus. No conjunctival pallor. Normocephalic, atraumatic. No pharyngeal erythema. No thyromegaly. CARDIOVASCULAR: S1 and S2 present. No murmurs, rubs, or gallops. PULMONARY: Chest is clear to auscultation, no wheezing . Decreased breath sounds on both sides. Bilateral crepitation ABDOMEN: Soft, nontender, nondistended, normoactive bowel sounds. No palpable organomegaly. MUSCULOSKELETAL: No joint swelling or deformity. -EXTREMITIES: No cyanosis, clubbing,. 2-3+ bilateral pitting Leg edema NEUROLOGICAL: Gross neurological examination did not reveal any focal deficits. SKIN: No rashes. no petechiae. - Labs CBC & Chem 7: 06/03/21 07:44 06/03/21 07:44 Labs: Abnormal Lab Results - Last 24 Hours (Table) 06/02/21 06/02/21 06/03/21 Range/Units 10:36 10:36 07:44 RBC 3.25 L 3.16 L (3.80-5.40) m/uL Hgb 8.8 L 8.6 L (11.4-16.0) gm/dL Hct 31.4 L 30.1 L (34.0-46.0) % MCHC 27.9 L 28.5 L (31.0-37.0) g/dL RDW 16.5 H 16.5 H (11.5-15.5) % Plt Count 138 L 121 L (150-450) k/uL Neutrophils # 8.1 H (1.3-7.7) k/uL Lymphocytes # 0.5 L 0.4 L (1.0-4.8) k/uL BUN 26 H (7-17) mg/dL Glucose 123 H (74-99) mg/dL 06/03/21 Range/Units 07:44 RBC (3.80-5.40) m/uL Hgb (11.4-16.0) gm/dL Hct (34.0-46.0) % MCHC (31.0-37.0) g/dL RDW (11.5-15.5) % Plt Count (150-450) k/uL Neutrophils # (1.3-7.7) k/uL Lymphocytes # (1.0-4.8) k/uL BUN 25 H (7-17) mg/dL Glucose 139 H (74-99) mg/dL Microbiology - Last 24 Hours (Table) 05/30/21 18:08 Blood Culture - Preliminary Blood No Growth after 72 hours 05/30/21 17:55 Blood Culture - Preliminary Blood No Growth after 72 hours Assessment and Plan Assessment: Possible bilateral pneumonia Possible acute diastolic CHF with ejection fraction 50-55% with fluid overload a nd bilateral pitting edema COPD with narcosis. She is on steroids for acute exacerbation Possible obesity hypoventilation syndrome A. fib with RVR Metabolic encephalopathy secondary to above Acute hypoxic hypercapnic respiratory failure Moderate to severe tricuspid regurgitation Moderate pulmonary hypertension morbid obesity with BMI of 40 Plan: This is a pleasant 70-year-old years old female who presents with multiple cardiac and pulmonary problems including possible pneumonia, CHF, AMS, high troponin, hypoxia and hypercapnia, A. fib and RVR and pulmonary hypertension. Continue with amiodarone and Cardizem drip per cardiology team Continue with anticoagulation and currently on Lovenox while Eliquis on hold. Continue with pulmonary team on the case Continue with the prednisone Continue with Seroquel as needed Continue with antibiotic ceftriaxone and doxycycline Start the patient on Lasix 40 mg IV twice a day on monitor input and output Labs and medication were reviewed.. Continue same treatment. Continue with symptomatic treatment. Resume home medication. Monitor lytes and vitals. DVT and GI prophylaxis. Further recommendations as per clinical course of the patient DVT prophylaxis: Subcutaneous Lovenox GI Prophylaxis: Pepcid Prognosis is definitely guarded
[2021-06-04] MEDS: DOXYCYCLINE 100 MG in SODIUM CHLORIDE 0.9% 100 ML IVPB SCH ×3 (00:12→23:25)
[2021-06-04] MEDS: AMIODARONE 450 MG in DEXTROSE 5% IN WATER 250 ML IV SCH ×2 (04:59)
[2021-06-04] MEDS: SYMBICORT 160-4.5 MCG INHALER INHALATION SCH ×2 (07:58→16:28)
[2021-06-04] MEDS: IPRATROPIUM-ALBUTEROL 3 ML NEB INHALATION SCH ×3 (08:00→19:27)
[2021-06-04] MEDS: ESTROGENS CONJUGATED 1.25 MG PO SCH (09:29)
[2021-06-04 09:30] LABS: Calcium 8.7 mg/dL (8.4-10.2); Potassium 4.4 mmol/L (3.5-5.1)
[2021-06-04] MEDS: FAMOTIDINE 20 MG TAB PO SCH ×2 (09:33→17:26)
[2021-06-04] MEDS: methylPREDNISolone SOD SUCCI 40 MG/ML 1 ML VIAL IV SCH ×2 (10:25→21:14)
[2021-06-04] MEDS: ENOXAPARIN 100 MG/ML SYRINGE SQ SCH ×2 (10:30→21:14)
[2021-06-04] MEDS: LIDOCAINE 5% PATCH TOPICAL SCH (10:31)
[2021-06-04] MEDS: FUROSEMIDE 10 MG/ML 4 ML VIAL IV SCH (10:35)
[2021-06-04] MEDS: predniSONE 20 MG TAB PO SCH (10:35)
[2021-06-04 11:11] LABS: Glucose,Whole Blood 133 mg/dL (75-99)
--- NOTE | 2021-06-04 11:19 | XR ---
EXAMINATION TYPE: XR chest 1V portable DATE OF EXAM: 06/04/2021 COMPARISON: This x-ray 06/03/2021 HISTORY: Pneumonia TECHNIQUE: frontal view of the chest is obtained 2 images. FINDINGS: There is been progression in the abnormal attenuation at the right lung base, the right he midiaphragm is obscured. Patient is rotated. Patchy density also present at the left lung base. Heart is enlarged. No evident pneumothorax. The aorta is dense. Interstitium appears somewhat prominently. Patient is rotated. IMPRESSION: Correlate for pneumonia versus congestive heart failure with probable associated effusio n, heart is enlarged. Follow-up is recommended.
[2021-06-04] MEDS: FUROSEMIDE 100 MG in SODIUM CHLORIDE 0.9% 90 ML IV SCH ×2 (11:43→19:47)
[2021-06-04 12:25] LABS: ABG Base Excess 9.6 mmol/L; ABG HCO3 35 mmol/L (21-25); ABG Oxygen Saturation 97.2 % (94-97); ABG PCO2 66 mmHg (35-45); ABG PH 7.34 (7.35-7.45); ABG PO2 86 mmHg (83-108); ABG TCO2 37 mmol/L (19-24)
--- NOTE | 2021-06-04 12:32 | P.PN ---
Subjective Progress Note Date: 06/04/21 On today's evaluation of 06/03/2021, the patient continues to be lethargic and somewhat confused. She is arousable. She only follows and can indulge herself and to short conversations. If left on some related, she will go back to sleep. The patient apparently has been able to also swallow her tablets without any major difficulties. No reported aspiration. She remains in atrial fibrillation. She remains on amiodarone maintenance of 0.5 mg per minute. The patient is also on a Cardizem drip at 5 mg an hour. The patient is also on anticoagulation with oral Eliquis. Echocardiogram showed an ejection fraction of 55% and the patient elevated RV systolic pressure of 53 mmHg. This is consistent with moderate to severe pulmonary hypertension and tricuspid regurgitation. The patient continues to have edema in lower extremity is bilaterally. Overall fluid balance over the past 24 hours has been -452 mL. The patient is on Lasix 40 mg IV every 12 hours. This was started today by the primary care team. The patient is on oral prednisone 20 mg twice a day and the patient was taken off the IV Solu-Medrol. No other significant events overnight. No agitation. She has a sitter at the bedside. 06/04/2021, the patient is doing poorly. I had some difficulties in arousing this patient on the medical floor. As such, I think the patient may be in a CO2 narcosis states. Her chest x-ray from yesterday was showing an extensive consolidation of the right lung and the patient has obvious signs of fluid overload with extensive edema in lower extremity bilaterally. The patient is arousable upon repeated stimulation unit if left ultimately did, the patient will go back to sleep. The patient remains in atrial fibrillation. Rate is controlled and the patient is currently on a combination of amiodarone drip at 0.5 mg per minute and the patient is also on Cardizem drip at 5 mg an hour. She was given anticoagulation with Lovenox 100 mg subcu every 12 hours. At the same time, the patient was receiving IV Lasix 40 mg every 12 hours. Overall fluid balance has been negative. The patient continues to have significant amount of edema in lower extremity is bilaterally. No reported aspiration. No reported agitation. Based on all this, I made a decision to transfer this patient to the intensive care unit. She will need very close monitoring, BiPAP support, aggressive diuresis and management of her atrial fibrillation. Objective - Vital Signs Vital signs: Vital Signs Temp 97.9 F 06/04/21 08:05 Pulse 79 06/04/21 08:05 Resp 18 06/04/21 08:05 BP 106/52 06/04/21 08:05 Pulse Ox 99 06/04/21 08:05 Intake & Output 06/03/21 06/04/21 06/04/21 18:59 06:59 18:59 Intake Total 162.225 250 Output Total 1600 525 Balance -1437.775 -275 Weight 112.5 kg Intake: Intake, IV Titration 162.225 250 Amount Amiodarone 450 mg In 162.225 250 Dextrose 5% in Water 250 ml @ 0.5 MG/MIN 16.667 mls/hr IV .Q15H [facility] Rx#: [id number] Output: Urine 1600 525 Uretheral (Estrella) 1100 Other: Voiding Method Indwelling Catheter Indwelling Catheter Indwelling Catheter - Exam No acute distress. Today the patient is sleeping. The patient's on nasal O2 at 3 L. There is no signs or symptoms of respiratory difficulty or distress. The patient remains lethargic. She is arousable. She would communicate for a very short period of time and she would go back to sleep. No agitation. No restlessness. HEENT examination is grossly unremarkable. Neck supple. Full range of motion. No adenopathy thyromegaly or neck vein distention. Cardiovascular examination reveals an irregular rhythm and rate. S1-S2 normal. No S3 or S4. No discernible murmur noted. Heart sounds are distant. Lungs reveal scattered bilateral rhonchi. Minimal bibasilar crackles. She does not take a deep breath. She has diminished breath sounds bilaterally along with scattered expiratory wheezes throughout. Abdomen is obese. Bowel sounds are not noted. Extremities reveal trace edema. No cyanosis or clubbing. Skin is without rash or lesion. Neurologic examination is difficult to assess. The patient does move all 4 extremities. - Labs CBC & Chem 7: 06/03/21 07:44 06/04/21 08:40 Labs: Abnormal Lab Results - Last 24 Hours (Table) 06/04/21 06/04/21 06/04/21 Range/Units 08:40 11:08 12:23 ABG pH 7.34 L (7.35-7.45) ABG pCO2 66 H (35-45) mmHg ABG HCO3 35 H (21-25) mmol/L ABG Total CO2 37 H (19-24) mmol/L ABG O2 Saturation 97.2 H (94-97) % Carbon Dioxide 34 H (22-30) mmol/L BUN 25 H (7-17) mg/dL Glucose 135 H (74-99) mg/dL POC Glucose (mg/dL) 133 H (75-99) mg/dL Microbiology - Last 24 Hours (Table) 05/30/21 18:08 Blood Culture - Preliminary Blood No Growth after 96 hours 05/30/21 17:55 Blood Culture - Preliminary Blood No Growth after 96 hours Assessment and Plan Plan: Acute on chronic hypoxemic and hypercapnic respiratory failure, with CO2 narcosis, and acute mental status changes. Clinically, the patient is shown showing any active signs of CO2 narcosis. She is easily arousable. She remains on 3 L of O2 by nasal cannula. Nevertheless, I do suspect a component of CO2 narcosis that the patient has significant limitation in her mental status and impaired mentation and I attribute this to her acid base status and hypercapnia. I'm recommending transfer this patient to the intensive care unit. Her condition slightly worse compared to yesterday and the patient is more difficult to arouse compared to yesterday. History of COPD. Right lung opacity/consolidation, could be also related to underlying pleural fluid as the patient has signs of fluid overload. Nevertheless, based on the chest x-ray findings, this needs to be correlated with a pneumonia. There is underlying cardiomegaly. History of atrial fibrillation, with rapid ventricular response. The patient is currently on a combination of amiodarone drip, Cardizem drip and the patient on anticoagulation with Eliquis History of CHF. The echocardiogram showed normal LV, mild LVH, EF around 50- 55%, severe RV dilation with a pulmonary artery pressure of around 53 mmHg and moderate to severe tricuspid regurgitation Morbid obesity. History of hyperlipidemia. History of hypertension. Increased lower extremity edema Plan Transfer the patient to the intensive care unit Do a blood gas Put the patient on a BiPAP at a pressure of 12/5 cm of water and titrate FiO2 to maintain saturation above 90% Stop the IV Lasix and put the patient on Lasix drip at the rate of 10 mg an hour He is a Estrella catheter in place Continue the amiodarone drip at 0.5 mg every minutes and discontinue the Cardizem drip Continue Lovenox therapeutic doses Continued IV Rocephin Obtain a chest x-ray This is a thoracentesis of the right lung a very sizable effusion Condition is critical and the patient will be chest intensive care unit. We will obtain advanced directives.
--- NOTE | 2021-06-04 13:31 | P.PN ---
Subjective This is a 70-year-old female with a past medical history significant for COPD, atrial fibrillation, congestive heart failure, hyperlipidemia, and hypertension. 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 We have been asked to see the patient in consultation for afib with RVR. Patient examined at the bedside. Patient is currently residing at [facility] for rehab. She was brought to the hospital secondary to increased confusion. Apparently the patient is noncompliant with many of her medications at rehab and refuses to wear her CPAP. Patient was lethargic and unable to give any history at this time. Patient was found to be in atrial fibrillation with RVR. Patient was started on IV amio. She remains in atrial fibrillation this morning with a heart rate in the 120s. Echocardiogram performed this admission which shows EF 50-55%, septal flattening consistent with RV pressure and volume overload, RV severely enlarged, RVSP of 53, moderate to severe tricuspid regurgitation. Repeat troponins 0.057, 0.063. 06/04/2021 Patient seen and examined at bedside, is more alert this morning and talking. She continued to be lethargic overnight and somnolent. Unable to answer questions adequately. She remains in atrial fibrillation with heart rates in the 60s80s. Patient with 2125m L urine output over the past 24 hours. Renal function stable with BUN 25, serum creatinine 0.88. She remains on Lasix drip 10mg/hr,, IV amiodarone 0.5 mg/min, atorvastatin 40 mg nightly, Lovenox 100 mg twice a day GENERAL: Lethargic, somnolent NECK: Supple without JVD LUNGS: Breath sounds diminished to auscultation bilaterally. Respiration equal and unlabored. No wheezes, rales or rhonchi. HEART: Irregular rate and rhythm without murmurs, rubs or gallops. S1 and S2 heard. EXTREMITIES: trace bilateral lower extremity edema. No clubbing or cyanosis. Peripheral pulses intact. NEUROLOGIC: Somnolent but arousable ASSESSMENT: Altered mental status Leukocytosis Elevated lactic acid Acute hypoxic hypercapnic respiratory failure Abnormal troponin, suspect secondary to type II RI Atrial fibrillation with RVR, mildly improved Chronic congestive heart failure, type unknown, EF unknown Hyperlipidemia Hypertension COPD Chronic subdural hygromas Medication noncomplaince RV dilation, pulmonary hypertension, moderate to severe TR PLAN: Pulmonary following and recommending transfer to ICU due to respiratory status Echocardiogram reviewed with predominantly preserved EF. Patient does have RV dilation as well as pulmonary hypertension with moderate to severe tricuspid regurgitation. Patient may be able to tolerate oral medications this morning, however, due to patient being transferred to ICU for BIPAP, recommend continuing Lovenox, and amiodarone and IV Lasix at this time. Continue supportive care and hopefully transition to oral medications tomorrow. Nurse practitioner note has been reviewed by physician. Signing provider agrees with the documented findings, assessment, and plan of care. Objective - Vital Signs Vital signs: Vital Signs Temp 97.9 F 06/04/21 08:05 Pulse 79 06/04/21 08:05 Resp 18 06/04/21 08:05 BP 106/52 06/04/21 08:05 Pulse Ox 99 06/04/21 08:05 Intake & Output 06/03/21 06/04/21 06/04/21 18:59 06:59 18:59 Intake Total 162.225 250 Output Total 1600 525 Balance -1437.775 -275 Weight 112.5 kg Intake: Intake, IV Titration 162.225 250 Amount Amiodarone 450 mg In 162.225 250 Dextrose 5% in Water 250 ml @ 0.5 MG/MIN 16.667 mls/hr IV .Q15H [facility] Rx#: [id number] Output: Urine 1600 525 Uretheral (Estrella) 1100 Other: Voiding Method Indwelling Catheter Indwelling Catheter Indwelling Catheter - Labs CBC & Chem 7: 06/03/21 07:44 06/04/21 08:40 Labs: Abnormal Lab Results - Last 24 Hours (Table) 06/04/21 06/04/21 06/04/21 Range/Units 08:40 11:08 12:23 ABG pH 7.34 L (7.35-7.45) ABG pCO2 66 H (35-45) mmHg ABG HCO3 35 H (21-25) mmol/L ABG Total CO2 37 H (19-24) mmol/L ABG O2 Saturation 97.2 H (94-97) % Carbon Dioxide 34 H (22-30) mmol/L BUN 25 H (7-17) mg/dL Glucose 135 H (74-99) mg/dL POC Glucose (mg/dL) 133 H (75-99) mg/dL Microbiology - Last 24 Hours (Table) 05/30/21 18:08 Blood Culture - Preliminary Blood No Growth after 96 hours 05/30/21 17:55 Blood Culture - Preliminary Blood No Growth after 96 hours
--- NOTE | 2021-06-04 14:31 | P.PN ---
Subjective Progress Note Date: 06/04/21 70-year-old female with past medical history of congestive heart failure, A. fib on anticoagulation, COPD with noncompliant use of her BiPAP, mood disorder who is brought into the emergency department for hypoxia. Patient was recently seen at [facility] for altered mental status. Found to have subdural hematomas versus hygromas and was shipped to [place]. [place]'s evaluation deemed that the patient had chronic hygromas and she was cleared for anticoagulant use. Patient was transferred to [facility] for rehab. Patient has been noncompliant with her BiPAP and medications. at bedside states that she refuses majority of her medications. Today the staff found her more confused than normal. They state that she does has a history of some confusion at baseline however today was worsens. Her oxygen saturations were in the 80s. EMS attempted intubation of the patient however she was responsive and clenching down. There were unable to get an IV and therefore I was placed in the left humerus. Patient was placed on a nasal cannula. She did perk up upon transfer to the hospital however became agitated and therefore received 110 mg of ketamine. Patient arrives sedated with shallow respirations. She is unable to obtain any history from. She is found to be in A. fib which she has a history of. Laboratory studies; demonstrates a leukocytosis of 13.5. ABG demonstrates a CO2 of 89. Lactic acid 3.1. Troponin 0.059. BNP elevated at 4460. Urinalysis demonstrates occasional bacteria with moderate budding yeast. Chest x-ray is performed which demonstrates right lower lobe pneumonia and effusion. Patient was initiated on antibiotics after blood cultures were obtained. Fluids were not given to the patient even though she does meet sepsis criteria as she does have history of congestive heart failure and has visible effusion on chest x-ray with an elevated BNP. Patient does have a mildly low blood pressure and therefore was given a 500 mL normal saline bolus only. Patient is initiated on amiodarone due to her A. fib with persistently elevated heart rate. CT brain demonstrate the chronic hygromas without acute abnormality. 06/01/2021 Patient is seen and evaluated and follow-up with no issues overnight per nursing staff although patient continues to be confused and yelling out at times and can be redirected. Patient reports to having shortness of breath and is currently maintained on 4 L via nasal cannula. Cardiology and pulmonary following and patient is maintained on IV Cardizem and oral anticoagulant has been resumed. P atient with extensive weakness and will have PT/OT evaluated the patient and family would like the patient to return to [facility]. Case management and social work following. Patient is able to answer questions somewhat appropriately when redirected although continues to be confused and rambles at times. No reports of chest pain. Patient is afebrile. 06/02/2021 Patient is seen in follow-up today and per nursing staff and sitter at the bedside for safety, patient continues with confusion and has been pocketing her pills and spitting them out and not tolerating oral intake very well. Cardio logy following and patient is to continue on IV Cardizem along with amiodarone until able to tolerate oral intake. Patient also continued on ceftriaxone and oral prednisone with pulmonary following. Will add low-dose Seroquel at night and monitor closely. 06/03/2021 Patient remains confused and drowsy secondary to her CO2 narcosis but she is arousable and she knows and she is in the hospital. She denies headache or weakness or numbness, no asymmetry noted in her examination. Both pupils are equal and reactive to light. No meningeal signs. She ate 75% of her denying 100% of snack last night. She is on 4 L oxygen via nasal cannula. She is hemodynamically stable and afebrile. The hemoglobin is stable at 8.6, platelet count improved slightly at 121, creatinine normal 0.8, pro-calcitonin is slightly elevated at 0.18. Chest x-ray showing possible pneumonia and effusion and the recommend follow-up. I looked at the chest x-ray myself she has bilateral infiltrates, more on the right side, looks slightly better than when she came in to the hospital. She has significant bilateral leg edema probnp is improving since admission 4460 to 3190 Under Lio on this admission showing ejection fraction of 50-55% with moderate to severe tricuspid regurgitation and moderate pulmonary hypertension She has amiodarone and Cardizem running also she is on ceftriaxone, therapeutic dose of Lovenox and Eliquis is on hold. She is on prednisone 20 mg twice daily and Seroquel. We will add doxycycline for coverage of atypical bacteria. IV Lasix 40 twice a day. 06/04/2021 Patient is seen in follow-up this morning and continues to be confused and rambling. Patient was given a dose of IV Lasix for some volume overload and appears edematous throughout including bilateral lower extremities with 2+ pitting edema noted. Patient with continued shortness of breath and chest x-ray showing correlate for pneumonia versus congestive heart failure with probable associated effusions and the heart is enlarged with patchy densities also present at the left lung base. Pulmonary following recommending transfer to the ICU for close monitoring. She is continued on 2 L via nasal cannula and oxygen saturation is 99%. Patient will most likely be need on BiPAP. Patient will be placed on a Lasix drip. CODE STATUS needs to be addressed. Will call family. Review of systems: Unable to obtain as patient is confused Active Medications Albuterol/Ipratropium (Ipratropium-Albuterol 3 Ml Neb) 3 ml INHALATION RT-Q4H PRN PRN Reason: shortness of breath Albuterol/Ipratropium (Ipratropium-Albuterol 3 Ml Neb) 3 ml INHALATION RT-Q4H PRN PRN Reason: Shortness Of Breath Albuterol/Ipratropium (Ipratropium-Albuterol 3 Ml Neb) 3 ml INHALATION RT- TID@,13,21 [facility] Last Admin: 06/04/21 08:00 Dose: Not Given Documented by: Atorvastatin Calcium (Atorvastatin 40 Mg Tab) 40 mg PO HS@2100 [facility] Last Admin: 06/03/21 22:32 Dose: Not Given Documented by: Bisacodyl (Bisacodyl 10 Mg Supp) 10 mg RECTAL DAILY PRN PRN Reason: Constipation Budesonide/Formoterol Fumarate (Symbicort 160-4.5 Mcg Inhaler) 2 puff INHALATION RT-BID@0900,1700 [facility] Last Admin: 06/04/21 07:58 Dose: Not Given Documented by: Enoxaparin Sodium (Enoxaparin 100 Mg/Ml Syringe) 100 mg SQ Q12HR [facility] Last Admin: 06/04/21 10:30 Dose: 100 mg Documented by: Famotidine (Famotidine 20 Mg Tab) 20 mg PO BID@0900,1700 [facility] Last Admin: 06/04/21 09:33 Dose: Not Given Documented by: Amiodarone HCl 450 mg/ (Dextrose/Water) 250 mls @ 16.667 mls/hr IV .Q15H [facility]; Protocol Last Admin: 06/04/21 04:59 Dose: 0.5 mg/min, 16.667 mls/hr Documented by: Ceftriaxone Sodium 1 gm/ (Sodium Chloride) 50 mls @ 100 mls/hr IVPB Q24H [facility]; Protocol Doxycycline Hyclate 100 mg/ (Sodium Chloride) 100 mls @ 100 mls/hr IVPB Q12H [facility]; Protocol Last Admin: 06/04/21 00:12 Dose: 100 mls/hr Documented by: Furosemide 100 mg/ Sodium (Chloride) 100 mls @ 10 mls/hr IV .Q10H [facility] Lidocaine (Lidocaine 5% Patch) 1 patch TOPICAL DAILY [facility]; Protocol Last Admin: 06/04/21 10:31 Dose: 1 patch Documented by: Methylprednisolone Sodium Succinate (Methylprednisolone Sod Succi 40 Mg/Ml 1 Ml Vial) 40 mg IV Q12HR [facility] Last Admin: 06/04/21 10:25 Dose: 40 mg Documented by: Miscellaneous Information (Pneumonia Protocol Utilized 1 Each Misc) 1 each PO ONCE PRN PRN Reason: Per Protocol Non-Formulary Medication (Estrogens, Conjugated [Premarin]) 1.25 mg PO DAILY@0900 [facility] Last Admin: 06/04/21 09:29 Dose: Not Given Documented by: Olanzapine (Olanzapine 10 Mg Tab) 10 mg PO HS@2100 [facility] Last Admin: 06/03/21 22:32 Dose: Not Given Documented by: Quetiapine Fumarate (Quetiapine 25 Mg Tab) 12.5 mg PO HS PRN PRN Reason: Agitation Last Admin: 06/02/21 20:26 Dose: 12.5 mg Documented by: Physical exam: General: Patient is extremely confused and rambling, and a very poor historian. Obese HEENT examination is grossly unremarkable. Neck supple. No adenopathy thyromegaly or neck vein distention. Cardiovascular examination reveals regular rhythm rate. S1-S2 normal. No S3 or S4. No discernible murmur noted. Lungs reveal scattered bilateral rhonchi. bibasilar crackles. Saturations are 100% on 2 L. Abdomen is obese. Bowel sounds are not noted. Extremities reveal 2+ pitting edema. No cyanosis or clubbing. Skin is without rash or lesion. Neurologic examination is difficult to assess. The patient is confused and lethargic. Assessment: -Acute on chronic hypoxemic and hypercapnic respiratory failure; multifactorial, CO2 narcosis -COPD acute exacerbation -Possible pneumonia - Altered Mental Status; likely related to CO2 Narcosis vs PNA -Atrial fibrillation with RVR; cardiology following and continued on IV cardizem and also IV amiodarone -Hyperlipidemia -Hypertension -Elevated Troponin; likely Type II PA; cardiology on board -DVT Prophylaxis; SCDs/Eliquis -GI prophylaxis -FULL CODE Plan: Recommend to continue with close monitoring and pulmonary in class special education teacher following recommending ICU transfer for IV Lasix drip and possible BiPAP as patient continues to be confused most likely continued with CO2 narcosis. Patient has been rambling and somewhat coherent at times although continues to be agitated and confused. Per nursing staff patient continued talking and rambling all n ight and did not sleep. All CONTROL SYSTEMS DESIGNER agents are on hold. Patient is continued on IV antibiotics along with oral antibiotics in the form of ceftriaxone and doxycycline. Chest x-ray shows correlate for pneumonia versus congestive heart failure with probable associated effusion and patchy density also present in the left lung base. Patient is afebrile with normal white blood count and appears to be volume overloaded. Will initiate IV Lasix drip. Cardiology also following and patient is maintained on IV amiodarone and will continue for now as patient is in A. fib. CODE STATUS was addressed with family as there was no orders for code in the computer and per spouse Radhames, patient did not want to be on mechanical vent or have chest compressions. No CODE STATUS entered. Due to multiple complex medical issues, prognosis is extremely guarded. Plan repeat labs and follow-up chest x-ray in the morning. The impression and plan of care has been dictated by Sophie Rhodes, Nurse Practitioner as directed. Dr. Saadia MD I have performed a history and examination and MDM of this patient, discussed the same with the dictator, and agree with the dictator's assessment and plan as written ,documented as a scribe. Based on total visit time, I have performed more than 50% of the visit. Objective - Vital Signs Vital signs: Vital Signs Temp 97.9 F 06/04/21 08:05 Pulse 79 06/04/21 08:05 Resp 18 06/04/21 08:05 BP 106/52 06/04/21 08:05 Pulse Ox 99 06/04/21 08:05 Intake & Output 06/03/21 06/04/21 06/04/21 18:59 06:59 18:59 Intake Total 162.225 250 Output Total 1600 525 Balance -8937.775 -339 Intake: Intake, IV Titration 162.225 250 Amount Amiodarone 450 mg In 162.225 250 Dextrose 5% in Water 250 ml @ 0.5 MG/MIN 16.667 mls/hr IV .Q15H [facility] Rx#: [id number] Output: Urine 1600 525 Uretheral (Estrella) 1100 Other: Voiding Method Indwelling Catheter Indwelling Catheter - Labs CBC & Chem 7: 06/03/21 07:44 06/04/21 08:40 Labs: Abnormal Lab Results - Last 24 Hours (Table) 06/03/21 Range/Units 07:44 Procalcitonin 0.18 H (0.02-0.09) ng/mL Microbiology - Last 24 Hours (Table) 05/30/21 18:08 Blood Culture - Preliminary Blood No Growth after 96 hours 05/30/21 17:55 Blood Culture - Preliminary Blood No Growth after 96 hours
[2021-06-04] MEDS: DEXMEDETOMIDINE/0.9% NACL(PMX) 400 MCG in EMPTY BAG 1 BAG IV SCH (17:25)
[2021-06-05] MEDS: AMIODARONE 450 MG in DEXTROSE 5% IN WATER 250 ML IV SCH ×4 (00:21→14:45)
[2021-06-05] MEDS: ATORVASTATIN 40 MG TAB PO SCH ×2 (00:22→21:13)
[2021-06-05] MEDS: OLANZapine 10 MG TAB PO SCH ×2 (00:22→21:13)
[2021-06-05] MEDS: FUROSEMIDE 100 MG in SODIUM CHLORIDE 0.9% 90 ML IV SCH ×2 (05:07→16:28)
[2021-06-05] MEDS: IPRATROPIUM-ALBUTEROL 3 ML NEB INHALATION SCH ×3 (07:49→20:39)
[2021-06-05] MEDS: SYMBICORT 160-4.5 MCG INHALER INHALATION SCH ×3 (07:49→20:54)
[2021-06-05 08:11] LABS: Calcium 8.5 mg/dL (8.4-10.2); Potassium 4.4 mmol/L (3.5-5.1)
[2021-06-05 08:32] LABS: Anisocytosis Slight; HCT 35.1 % (34.0-46.0); HGB 9.9 gm/dL (11.4-16.0); Hypochromasia Marked; MCH 27.3 pg (25.0-35.0); MCHC 28.3 g/dL (31.0-37.0); MCV 96.4 fL (80.0-100.0); Macrocytosis Slight; Mean Platelet Volume 8.8; Poikilocytosis Slight; RBC 3.64 m/uL (3.80-5.40); RDW 16.8 % (11.5-15.5); WBC 4.7 k/uL (3.8-10.6)
[2021-06-05] MEDS: PANTOPRAZOLE 40 MG/10 ML VIAL IVP SCH (09:04)
[2021-06-05] MEDS: ENOXAPARIN 100 MG/ML SYRINGE SQ SCH ×2 (09:04→21:49)
[2021-06-05] MEDS: LIDOCAINE 5% PATCH TOPICAL SCH (09:05)
[2021-06-05] MEDS: methylPREDNISolone SOD SUCCI 40 MG/ML 1 ML VIAL IV SCH ×2 (09:05→21:12)
[2021-06-05 09:07] LABS: Platelet Count 99 k/uL (150-450)
[2021-06-05] MEDS: ESTROGENS CONJUGATED 1.25 MG PO SCH (09:08)
--- NOTE | 2021-06-05 09:54 | XR ---
EXAMINATION TYPE: XR chest 1V portable DATE OF EXAM: 06/05/2021 COMPARISON: 06/05/2019 HISTORY: Shortness of breath TECHNIQUE: Single frontal view of the chest is obtained. FINDINGS: Diffuse interstitial pattern with bilateral infiltrate and pleural effusion greater on the right similar to the prior exam. Heart size stable. Atherosclerotic change aorta. Arthropathy of the shoulders. Biapical pleural thickening. IMPRESSION: Bilateral pleural-parenchymal changes stable correlate for CHF. Underlying pneumonia not excluded
[2021-06-05] MEDS: DEXMEDETOMIDINE/0.9% NACL(PMX) 400 MCG in EMPTY BAG 1 BAG IV SCH ×2 (10:11→21:23)
--- NOTE | 2021-06-05 11:35 | P.PN ---
Subjective Progress Note Date: 06/05/21 On today's evaluation of 06/03/2021, the patient continues to be lethargic and somewhat confused. She is arousable. She only follows and can indulge herself and to short conversations. If left on some related, she will go back to sleep. The patient apparently has been able to also swallow her tablets without any major difficulties. No reported aspiration. She remains in atrial fibrillation. She remains on amiodarone maintenance of 0.5 mg per minute. The patient is also on a Cardizem drip at 5 mg an hour. The patient is also on anticoagulation with oral Eliquis. Echocardiogram showed an ejection fraction of 55% and the patient elevated RV systolic pressure of 53 mmHg. This is consistent with moderate to severe pulmonary hypertension and tricuspid regurgitation. The patient continues to have edema in lower extremity is bilaterally. Overall fluid balance over the past 24 hours has been -452 mL. The patient is on Lasix 40 mg IV every 12 hours. This was started today by the primary care team. The patient is on oral prednisone 20 mg twice a day and the patient was taken off the IV Solu-Medrol. No other significant events overnight. No agitation. She has a sitter at the bedside. 06/04/2021, the patient is doing poorly. I had some difficulties in arousing this patient on the medical floor. As such, I think the patient may be in a CO2 narcosis states. Her chest x-ray from yesterday was showing an extensive consolidation of the right lung and the patient has obvious signs of fluid overload with extensive edema in lower extremity bilaterally. The patient is arousable upon repeated stimulation unit if left ultimately did, the patient will go back to sleep. The patient remains in atrial fibrillation. Rate is controlled and the patient is currently on a combination of amiodarone drip at 0.5 mg per minute and the patient is also on Cardizem drip at 5 mg an hour. She was given anticoagulation with Lovenox 100 mg subcu every 12 hours. At the same time, the patient was receiving IV Lasix 40 mg every 12 hours. Overall fluid balance has been negative. The patient continues to have significant amount of edema in lower extremity is bilaterally. No reported aspiration. No reported agitation. Based on all this, I made a decision to transfer this patient to the intensive care unit. She will need very close monitoring, BiPAP support, aggressive diuresis and management of her atrial fibrillation. On today's evaluation of 06/05/2021, the patient remains on a BiPAP at a setting of 12/5 cm of water and FiO2 of 50%. She is more arousable compared to yeste rday. A blood. This was done while her pulmonary status. The patient's blood gases from yesterday showed a pH of 7.34 with a pCO2 of 66 and pO2 of 86. The follow-up blood gases will be obtained today. A follow-up chest x-ray still pending from today. Meanwhile, the patient has signs of fluid overload. The patient was started on Lasix drip which is currently running at 10 mg an hour. The patient has been a negative fluid balance of 1.7 L 4 yesterday and since today, the patient has been in a negative fluid balance of 3.3 L. Her BUN is at 25 L of 0.8. Sodium level is at 141 with a potassium level of 4.4. That hemoglobin is at 9.5 and the patient's white cell count is at 4.7. The patient remains in atrial fibrillation. Rate is controlled. The patient is currently off amiodarone and the patient is off Cardizem and the patient isn't taking therapeutic doses of Lovenox 1 mg subcu every 12 hours. The patient did not require any sedation. Initially, she was slightly restless and agitated. The patient was given order for Precedex which she never used. She remains on IV Protonix patient remains on IV Solu Medrol and the patient also is on Rocephin and doxycycline combination. Objective - Vital Signs Vital signs: Vital Signs Temp 98.6 F 06/05/21 08:00 Pulse 86 06/05/21 11:00 Resp 0 L 06/05/21 11:00 BP 138/95 06/05/21 11:00 Pulse Ox 100 06/05/21 11:00 Intake & Output 06/04/21 06/05/21 06/05/21 18:59 06:59 18:59 Intake Total 220 384.000 50 Output Total 1350 2575 1375 Balance -1130 -2191.000 -1325 Weight 112.5 kg 114.5 kg Intake: IV 70 110 50 0.9 NS 70 110 50 Intake, IV Titration 150 274.000 Amount Doxycycline 100 mg In 100 100 Sodium Chloride 0.9% 100 ml @ 100 mls/hr IVPB Q12H [facility] Rx#:[id number] Furosemide 100 mg In 174.000 Sodium Chloride 0.9% 90 ml @ 10 MG/HR 10 mls/hr IV .Q10H [facility] Rx#: [id number] cefTRIAXone 1 gm In 50 Sodium Chloride 0.9% 50 ml @ 100 mls/hr IVPB Q24H [facility] Rx#:[id number] Output: Urine 1350 2575 1375 Other: Voiding Method Indwelling Catheter Indwelling Catheter Indwelling Catheter - Exam No acute distress. the patient is somewhat lethargic and the patient is very much interested the BiPAP machine which is set at a pressure of 12/5 cm of water with an FiO2 of 50%. No agitation. Head exam was generally normal. There was no scleral icterus or corneal arcus. Mucous membranes were moist. Neck supple. Full range of motion. No adenopathy thyromegaly or neck vein distention. Cardiovascular examination reveals an irregular rhythm and rate. S1-S2 normal. No S3 or S4. No discernible murmur noted. Heart sounds are distant. Lungs reveal scattered bilateral rhonchi. Minimal bibasilar crackles. She does not take a deep breath. She has diminished breath sounds bilaterally along with scattered expiratory wheezes throughout. Abdomen is obese. Bowel sounds are not noted. Extremities extensive edema in lower extremity is bilaterally. No cyanosis or clubbing. Skin is without rash or lesion. Neurologic examination is difficult to assess. The patient does move all 4 extremities. - Labs CBC & Chem 7: 06/05/21 07:31 06/05/21 07:31 Labs: Abnormal Lab Results - Last 24 Hours (Table) 06/04/21 06/05/21 06/05/21 Range/Units 12:23 07:31 07:31 RBC 3.64 L (3.80-5.40) m/uL Hgb 9.9 L (11.4-16.0) gm/dL MCHC 28.3 L (31.0-37.0) g/dL RDW 16.8 H (11.5-15.5) % Plt Count 99 L (150-450) k/uL ABG pH 7.34 L (7.35-7.45) ABG pCO2 66 H (35-45) mmHg ABG HCO3 35 H (21-25) mmol/L ABG Total CO2 37 H (19-24) mmol/L ABG O2 Saturation 97.2 H (94-97) % Carbon Dioxide 39 H (22-30) mmol/L BUN 25 H (7-17) mg/dL Glucose 102 H (74-99) mg/dL Microbiology - Last 24 Hours (Table) 05/30/21 18:08 Blood Culture - Preliminary Blood No Growth after 120 hours 05/30/21 17:55 Blood Culture - Preliminary Blood No Growth after 120 hours Assessment and Plan Plan: Acute on chronic hypoxemic and hypercapnic respiratory failure, with CO2 narcosis, and acute mental status changes. Clinically, the patient was showing signs of CO2 narcosis and fluid overload with possibly a component of pneumonia. Based on that, the patient got transferred to the intensive care unit. This is despite a DNR/DNI CODE STATUS. The patient was started on BiPAP at a pressure of 12/5 cm of water and currently she is an FiO2 of 50%. She has more awake compared to yesterday and less lethargic and her follow-up blood gases from yesterday showed improvement and acid base status. The patient is currently on Lasix drip and the patient is mobilizing had extra fluid and she is diuresing adequately for now. She is also covered with antibiotics. Family is at the bedside. Estrella cath is in place. Urine output is adequate for now. There may be "component of right-sided pleural effusion That may need drainage at a later stage. Obesity with a BMI of 40.7 COPD Right lung opacity/consolidation, could be also related to underlying pleural fluid as the patient has signs of fluid overload. Nevertheless, based on the chest x-ray findings, this needs to be correlated with a pneumonia. There is underlying cardiomegaly.The chest x-ray from today is showing adequate and bilateral infiltrates and pleural effusion right more than left consistent with CHF and volume overload. History of atrial fibrillation, with rapid ventricular response. The patient is currentl off amiodarone drip and Cardizem drip and the patient is on therapeutic dose of Lovenox 1 mg subcu every 12 hours. History of CHF. The echocardiogram showed normal LV, mild LVH, EF around 50- 55%, severe RV dilation with a pulmonary artery pressure of around 53 mmHg and moderate to severe tricuspid regurgitation Morbid obesity. History of hyperlipidemia. History of hypertension. Increased lower extremity edema Chronic normocytic anemia. Plan Keep the patient in the intensive care unit Follow-up chest x-ray was noted Obtain a follow-up blood gases Continue BiPAP at a pressure of 12/5 cm of water and titrate FiO2 to maintain saturation above 90% Continue Lasix drip at the rate of 10 mg an hour He is a Estrella catheter in place Amiodarone and Cardizem drip has been discontinued as the patient's rate is under good control Continue Lovenox therapeutic doses Continued IV Rocephin Obtain a chest x-rayIn a.m. This is a thoracentesis of the right lung was the patient is more awake and she is able to sit up on a chair for the procedure to be completed Condition is critical and the patient will be chest intensive care unit. We obtained advanced directives.I believe she is a DNR/DNI CODE STATUS for now.
--- NOTE | 2021-06-05 11:54 | P.PN ---
Subjective Progress Note Date: 06/05/21 This 70-year-old female with history of obesity. Hypercarbic respiratory failure and some fluid overload and diastolic CHF was transferred to intensive care unit yesterday. Patient has been on BiPAP. Patient was also started on IV Lasix. Patient seemed to be diuresing better. There may be slight improvement in the mental status. She is off amiodarone drip. Her heart rate is controlled. Patient is in atrial fibrillation. She was getting Lovenox for anticoagulation. Overall this seemed to be some progress in critical status. Pulmonary is following this closely. Continue current management. If necessary, IV amiodarone drip to be reinstated Objective - Vital Signs Vital signs: Vital Signs Temp 98.6 F 06/05/21 08:00 Pulse 86 06/05/21 11:00 Resp 0 L 06/05/21 11:00 BP 138/95 06/05/21 11:00 Pulse Ox 100 06/05/21 11:00 Intake & Output 06/04/21 06/05/21 06/05/21 18:59 06:59 18:59 Intake Total 220 384.000 50 Output Total 1350 2575 1375 Balance -1130 -2191.000 -1325 Weight 112.5 kg 114.5 kg Intake: IV 70 110 50 0.9 NS 70 110 50 Intake, IV Titration 150 274.000 Amount Doxycycline 100 mg In 100 100 Sodium Chloride 0.9% 100 ml @ 100 mls/hr IVPB Q12H [facility] Rx#:[id number] Furosemide 100 mg In 174.000 Sodium Chloride 0.9% 90 ml @ 10 MG/HR 10 mls/hr IV .Q10H [facility] Rx#: [id number] cefTRIAXone 1 gm In 50 Sodium Chloride 0.9% 50 ml @ 100 mls/hr IVPB Q24H [facility] Rx#:[id number] Output: Urine 1350 2575 1375 Other: Voiding Method Indwelling Catheter Indwelling Catheter Indwelling Catheter - Exam GENERAL EXAM: Patient is sleepy and barely arousable HEENT: Normocephalic. Normal reaction of pupils, equal size, normal range of extraocular motion. No erythema or exudates in the throat. NECK: No masses, no nuchal rigidity. CHEST: No chest wall deformity. LUNGS: Diminished air exchange and dullness to the bases HEART: S1 and S2 normal . Irregular heart sounds ABDOMEN: No hepatosplenomegaly, normal bowel sounds, no guarding or rigidity. SKIN: No rashes CENTRAL NERVOUS SYSTEM: Patient is sleepy and barely arousable EXTREMITIES: Edema plus plus - Labs CBC & Chem 7: 06/05/21 07:31 06/05/21 07:31 Labs: Abnormal Lab Results - Last 24 Hours (Table) 06/04/21 06/05/21 06/05/21 Range/Units 12:23 07:31 07:31 RBC 3.64 L (3.80-5.40) m/uL Hgb 9.9 L (11.4-16.0) gm/dL MCHC 28.3 L (31.0-37.0) g/dL RDW 16.8 H (11.5-15.5) % Plt Count 99 L (150-450) k/uL ABG pH 7.34 L (7.35-7.45) ABG pCO2 66 H (35-45) mmHg ABG HCO3 35 H (21-25) mmol/L ABG Total CO2 37 H (19-24) mmol/L ABG O2 Saturation 97.2 H (94-97) % Carbon Dioxide 39 H (22-30) mmol/L BUN 25 H (7-17) mg/dL Glucose 102 H (74-99) mg/dL Microbiology - Last 24 Hours (Table) 05/30/21 18:08 Blood Culture - Preliminary Blood No Growth after 120 hours 05/30/21 17:55 Blood Culture - Preliminary Blood No Growth after 120 hours Assessment and Plan (1) Diastolic CHF Current Visit: Yes Status: Acute Code(s): I50.30 - UNSPECIFIED DIASTOLIC (CONGESTIVE) HEART FAILURE SNOMED Code(s): 461160185 (2) Acute encephalopathy Current Visit: Yes Status: Acute Code(s): G93.40 - ENCEPHALOPATHY, UNSPECIFIED SNOMED Code(s): 22896764 (3) Acute respiratory failure with hypoxia and hypercarbia Current Visit: Yes Status: Acute Code(s): J96.01 - ACUTE RESPIRATORY FAILURE WITH HYPOXIA; J96.02 - ACUTE RESPIRATORY FAILURE WITH HYPERCAPNIA SNOMED Code(s): 523626634 (4) Chronic respiratory failure Current Visit: Yes Status: Acute Code(s): J96.10 - CHRONIC RESPIRATORY FAILURE, UNSP W HYPOXIA OR HYPERCAPNIA SNOMED Code(s): 27974506 Plan: Continue current management. May restart amiodarone if necessary. Further recommendations depend upon clinical course
[2021-06-05] MEDS: DOXYCYCLINE 100 MG in SODIUM CHLORIDE 0.9% 100 ML IVPB SCH ×2 (13:04→23:07)
--- NOTE | 2021-06-05 14:11 | P.PN ---
Subjective Progress Note Date: 06/05/21 70-year-old female with past medical history of congestive heart failure, A. fib on anticoagulation, COPD with noncompliant use of her BiPAP, mood disorder who is brought into the emergency department for hypoxia. Patient was recently seen at [facility] for altered mental status. Found to have subdural hematomas versus hygromas and was shipped to [place]. [facility] evaluation deemed that the patient had chronic hygromas and she was cleared for anticoagulant use. Patient was transferred to [facility] for rehab. Patient has been noncompliant with her BiPAP and medications. at bedside states that she refuses majority of her medications. Today the staff found her more confused than normal. They state that she does has a history of some confusion at baseline however today was worsens. Her oxygen saturations were in the 80s. EMS attempted intubation of the patient however she was responsive and clenching down. There were unable to get an IV and therefore I was placed in the left humerus. Patient was placed on a nasal cannula. She did perk up upon transfer to the hospital however became agitated and therefore received 110 mg of ketamine. Patient arrives sedated with shallow respirations. She is unable to obtain any history from. She is found to be in A. fib which she has a history of. Laboratory studies; demonstrates a leukocytosis of 13.5. ABG demonstrates a CO2 of 89. Lactic acid 3.1. Troponin 0.059. BNP elevated at 4460. Urinalysis demonstrates occasional bacteria with moderate budding yeast. Chest x-ray is performed which demonstrates right lower lobe pneumonia and effusion. Patient was initiated on antibiotics after blood cultures were obtained. Fluids were not given to the patient even though she does meet sepsis criteria as she does have history of congestive heart failure and has visible effusion on chest x-ray with an elevated BNP. Patient does have a mildly low blood pressure and therefore was given a 500 mL normal saline bolus only. Patient is initiated on amiodarone due to her A. fib with persistently elevated heart rate. CT brain demonstrate the chronic hygromas without acute abnormality. 06/01/2021 Patient is seen and evaluated and follow-up with no issues overnight per nursing staff although patient continues to be confused and yelling out at times and can be redirected. Patient reports to having shortness of breath and is currently maintained on 4 L via nasal cannula. Cardiology and pulmonary following and patient is maintained on IV Cardizem and oral anticoagulant has been resumed. P atient with extensive weakness and will have PT/OT evaluated the patient and family would like the patient to return to [facility]. Case management and social work following. Patient is able to answer questions somewhat appropriately when redirected although continues to be confused and rambles at times. No reports of chest pain. Patient is afebrile. 06/02/2021 Patient is seen in follow-up today and per nursing staff and sitter at the bedside for safety, patient continues with confusion and has been pocketing her pills and spitting them out and not tolerating oral intake very well. Cardio logy following and patient is to continue on IV Cardizem along with amiodarone until able to tolerate oral intake. Patient also continued on ceftriaxone and oral prednisone with pulmonary following. Will add low-dose Seroquel at night and monitor closely. 06/03/2021 Patient remains confused and drowsy secondary to her CO2 narcosis but she is arousable and she knows and she is in the hospital. She denies headache or weakness or numbness, no asymmetry noted in her examination. Both pupils are equal and reactive to light. No meningeal signs. She ate 75% of her denying 100% of snack last night. She is on 4 L oxygen via nasal cannula. She is hemodynamically stable and afebrile. The hemoglobin is stable at 8.6, platelet count improved slightly at 121, creatinine normal 0.8, pro-calcitonin is slightly elevated at 0.18. Chest x-ray showing possible pneumonia and effusion and the recommend follow-up. I looked at the chest x-ray myself she has bilateral infiltrates, more on the right side, looks slightly better than when she came in to the hospital. She has significant bilateral leg edema probnp is improving since admission 4460 to 3190 Under [facility] on this admission showing ejection fraction of 50-55% with moderate to severe tricuspid regurgitation and moderate pulmonary hypertension She has amiodarone and Cardizem running also she is on ceftriaxone, therapeutic dose of Lovenox and Eliquis is on hold. She is on prednisone 20 mg twice daily and Seroquel. We will add doxycycline for coverage of atypical bacteria. IV Lasix 40 twice a day. 06/04/2021 Patient is seen in follow-up this morning and continues to be confused and rambling. Patient was given a dose of IV Lasix for some volume overload and appears edematous throughout including bilateral lower extremities with 2+ pitting edema noted. Patient with continued shortness of breath and chest x-ray showing correlate for pneumonia versus congestive heart failure with probable associated effusions and the heart is enlarged with patchy densities also present at the left lung base. Pulmonary following recommending transfer to the ICU for close monitoring. She is continued on 2 L via nasal cannula and oxygen saturation is 99%. Patient will most likely be need on BiPAP. Patient will be placed on a Lasix drip. CODE STATUS needs to be addressed. Will call family. 06/05/2021 Patient is seen and evaluated in follow-up continues to be in the ICU being closely monitored. Patient is maintained on IV Lasix and diuresing well and also continues on IV antibiotics in the form of ceftriaxone and doxycycline and will continue. Patient also continues on IV Solu-Medrol twice daily in breathing inhalational treatments. Patient continues on IV amiodarone as patient is currently on a BiPAP and requiring a sitter at the bedside as patient continues to be confused and attempting to remove IVs and tubing. Patient being started on Precedex as well. Overall generalized edema continues with significant 2+ pitting edema noted in bilateral lower extremities. The PBC is normal at 4.7 and hemoglobin is 9.9, BMP within normal limits. Chest x-ray today shows bilateral pleural parenchymal changes stable and correlate for CHF with underlying pneumonia not excluded. Review of systems: Unable to obtain as patient is confused Active Medications Albuterol/Ipratropium (Ipratropium-Albuterol 3 Ml Neb) 3 ml INHALATION RT-Q4H PRN PRN Reason: shortness of breath Albuterol/Ipratropium (Ipratropium-Albuterol 3 Ml Neb) 3 ml INHALATION RT-Q4H PRN PRN Reason: Shortness Of Breath Albuterol/Ipratropium (Ipratropium-Albuterol 3 Ml Neb) 3 ml INHALATION RT- TID@09,13,21 [facility] Last Admin: 06/05/21 11:56 Dose: 3 ml Documented by: Atorvastatin Calcium (Atorvastatin 40 Mg Tab) 40 mg PO HS@2100 [facility] Last Admin: 06/05/21 00:22 Dose: Not Given Documented by: Bisacodyl (Bisacodyl 10 Mg Supp) 10 mg RECTAL DAILY PRN PRN Reason: Constipation Budesonide/Formoterol Fumarate (Symbicort 160-4.5 Mcg Inhaler) 2 puff INHALATION RT-BID@0900,1700 [facility] Last Admin: 06/05/21 07:49 Dose: Not Given Documented by: Enoxaparin Sodium (Enoxaparin 100 Mg/Ml Syringe) 100 mg SQ Q12HR [facility] Last Admin: 06/05/21 09:04 Dose: 100 mg Documented by: Amiodarone HCl 450 mg/ (Dextrose/Water) 250 mls @ 16.667 mls/hr IV .Q15H [facility]; Protocol Last Admin: 06/05/21 00:21 Dose: Not Given Documented by: Ceftriaxone Sodium 1 gm/ (Sodium Chloride) 50 mls @ 100 mls/hr IVPB Q24H [facility]; Protocol Last Admin: 06/04/21 18:39 Dose: 100 mls/hr Documented by: Doxycycline Hyclate 100 mg/ (Sodium Chloride) 100 mls @ 100 mls/hr IVPB Q12H [facility]; Protocol Last Admin: 06/05/21 13:04 Dose: 100 mls/hr Documented by: Furosemide 100 mg/ Sodium (Chloride) 100 mls @ 10 mls/hr IV .Q10H [facility] Last Admin: 06/05/21 05:07 Dose: 10 mg/hr, 10 mls/hr Documented by: Dexmedetomidine HCl 400 mcg/ (IV Solution) 100 mls @ 5.625 mls/hr IV .[id number] [facility]; Protocol Last Admin: 06/05/21 10:11 Dose: 0.2 mcg/kg/hr, 5.625 mls/hr Documented by: Lidocaine (Lidocaine 5% Patch) 1 patch TOPICAL DAILY [facility]; Protocol Last Admin: 06/05/21 09:05 Dose: 1 patch Documented by: Methylprednisolone Sodium Succinate (Methylprednisolone Sod Succi 40 Mg/Ml 1 Ml Vial) 40 mg IV Q12HR [facility] Last Admin: 06/05/21 09:05 Dose: 40 mg Documented by: Miscellaneous Information (Pneumonia Protocol Utilized 1 Each Misc) 1 each PO ONCE PRN PRN Reason: Per Protocol Non-Formulary Medication (Estrogens, Conjugated [Premarin]) 1.25 mg PO D AILY@0900 [facility] Last Admin: 06/05/21 09:08 Dose: Not Given Documented by: Olanzapine (Olanzapine 10 Mg Tab) 10 mg PO HS@2100 [facility] Last Admin: 06/05/21 00:22 Dose: Not Given Documented by: Pantoprazole Sodium (Pantoprazole 40 Mg/10 Ml Vial) 40 mg IVP DAILY [facility] Last Admin: 06/05/21 09:04 Dose: 40 mg Documented by: Quetiapine Fumarate (Quetiapine 25 Mg Tab) 12.5 mg PO HS PRN PRN Reason: Agitation Last Admin: 06/02/21 20:26 Dose: 12.5 mg Documented by: Physical exam: General: Patient is extremely confused and rambling, and a very poor historian. Obese, currently on BiPAP with a sitter at the bedside in order to maintain the BiPAP mask on along with refraining from pulling out IVs and telemetry HEENT examination is grossly unremarkable. Neck supple. No adenopathy thyromegaly or neck vein distention. Cardiovascular examination reveals regular rhythm rate. S1-S2 normal. No S3 or S4. No discernible murmur noted. Lungs reveal scattered bilateral rhonchi. bibasilar crackles. Currently on BiPAP with an FiO2 of 20 and PEEP is 5 Abdomen is obese. Bowel sounds are not noted. Extremities reveal 2+ pitting edema. No cyanosis or clubbing. Skin is without rash or lesion. Neurologic examination is difficult to assess. The patient is confused and lethargic. Assessment: -Acute on chronic hypoxemic and hypercapnic respiratory failure; multifactorial, CO2 narcosis -COPD acute exacerbation -Possible pneumonia - Altered Mental Status; likely related to CO2 Narcosis vs PNA -Atrial fibrillation with RVR; cardiology following and continued on IV amiodarone -Hyperlipidemia -Hypertension -Elevated Troponin; likely Type II HI; cardiology on board -DVT Prophylaxis; SCDs/Eliquis -GI prophylaxis -FULL CODE Plan: Recommend to continue with close monitoring and pulmonary religious education teacher following recommending ICU monitoring and continued BiPAP as patient continues to be confused most likely continued with CO2 narcosis. Patient has been rambling and somewhat coherent at times although continues to be agitated and confused. Per nursing staff patient continued talking and rambling all night and did not sleep and continues to attempt to pull out IVs and pull off BiPAP mask and will continue safety and health consultant at the bedside. All [employer] agents are on hold. Patient is continued on IV antibiotics along with oral antibiotics in the form of ceftriaxone and doxycycline. Chest x-ray shows stable and to correlate for pneumonia versus congestive heart failure Patient is afebrile with normal white blood count and appears to be volume overloaded. Continue IV Lasix drip. Patient initiated on Precedex. Cardiology also following and patient is maintained on IV amiodarone and will continue for now as patient is in A. fib. CODE STATUS was addressed with family and No CODE STATUS entered. Due to multiple complex medical issues, prognosis is extremely guarded. Plan repeat labs and follow-up chest x-ray in the morning. The impression and plan of care has been dictated by Sophie Rhodes, Nurse Practitioner as directed. Dr. Saadia MD I have performed a history and examination and MDM of this patient, discussed the same with the dictator, and agree with the dictator's assessment and plan as written ,documented as a scribe. Based on total visit time, I have performed more than 50% of the visit. Objective - Vital Signs Vital signs: Vital Signs Temp 97.0 F L 06/05/21 04:00 Pulse 83 06/05/21 07:58 Resp 12 06/05/21 07:00 BP 128/56 06/05/21 07:00 Pulse Ox 100 06/05/21 06:00 Intake & Output 06/04/21 06/05/21 06/05/21 18:59 06:59 18:59 Intake Total 220 384.000 10 Output Total 1350 2575 150 Balance -1130 -2191.000 -140 Weight 112.5 kg 114.5 kg Intake: IV 70 110 10 0.9 NS 70 110 10 Intake, IV Titration 150 274.000 Amount Doxycycline 100 mg In 100 100 Sodium Chloride 0.9% 100 ml @ 100 mls/hr IVPB Q12H [facility] Rx#:[id number] Furosemide 100 mg In 174.000 Sodium Chloride 0.9% 90 ml @ 10 MG/HR 10 mls/hr IV .Q10H [facility] Rx#: [id number] cefTRIAXone 1 gm In 50 Sodium Chloride 0.9% 50 ml @ 100 mls/hr IVPB Q24H [facility] Rx#:[id number] Output: Urine 1350 2575 150 Other: Voiding Method Indwelling Catheter Indwelling Catheter - Labs CBC & Chem 7: 06/05/21 07:31 06/05/21 07:31 Labs: Abnormal Lab Results - Last 24 Hours (Table) 06/04/21 06/04/21 06/04/21 Range/Units 08:40 11:08 12:23 RBC (3.80-5.40) m/uL Hgb (11.4-16.0) gm/dL MCHC (31.0-37.0) g/dL RDW (11.5-15.5) % ABG pH 7.34 L (7.35-7.45) ABG pCO2 66 H (35-45) mmHg ABG HCO3 35 H (21-25) mmol/L ABG Total CO2 37 H (19-24) mmol/L ABG O2 Saturation 97.2 H (94-97) % Carbon Dioxide 34 H (22-30) mmol/L BUN 25 H (7-17) mg/dL Glucose 135 H (74-99) mg/dL POC Glucose (mg/dL) 133 H (75-99) mg/dL 06/05/21 06/05/21 Range/Units 07:31 07:31 RBC 3.64 L (3.80-5.40) m/uL Hgb 9.9 L (11.4-16.0) gm/dL MCHC 28.3 L (31.0-37.0) g/dL RDW 16.8 H (11.5-15.5) % ABG pH (7.35-7.45) ABG pCO2 (35-45) mmHg ABG HCO3 (21-25) mmol/L ABG Total CO2 (19-24) mmol/L ABG O2 Saturation (94-97) % Carbon Dioxide 39 H (22-30) mmol/L BUN 25 H (7-17) mg/dL Glucose 102 H (74-99) mg/dL POC Glucose (mg/dL) (75-99) mg/dL Microbiology - Last 24 Hours (Table) 05/30/21 18:08 Blood Culture - Preliminary Blood No Growth after 120 hours 05/30/21 17:55 Blood Culture - Preliminary Blood No Growth after 120 hours
[2021-06-05 20:12] LABS: ABG Base Excess 21.3 mmol/L; ABG Oxygen Saturation 99.2 % (94-97); ABG PH 7.38 (7.35-7.45); ABG PO2 153 mmHg (83-108); ABG TCO2 49 mmol/L (19-24); Allen Test Performed? Yes
[2021-06-05 20:14] LABS: ABG PCO2 78 mmHg (35-45)
[2021-06-05 20:15] LABS: ABG HCO3 46 mmol/L (21-25)
[2021-06-06] MEDS: FUROSEMIDE 100 MG in SODIUM CHLORIDE 0.9% 90 ML IV SCH ×4 (03:11→23:51)
[2021-06-06] MEDS: AMIODARONE 450 MG in DEXTROSE 5% IN WATER 250 ML IV SCH ×4 (04:58→20:04)
[2021-06-06 05:11] LABS: Anisocytosis Slight; HGB 9.5 gm/dL (11.4-16.0); Hypochromasia Marked; MCH 27.2 pg (25.0-35.0); MCHC 29.8 g/dL (31.0-37.0); Mean Platelet Volume 8.9; Platelet Count 83 k/uL (150-450); Poikilocytosis Slight; RBC 3.51 m/uL (3.80-5.40); RDW 16.8 % (11.5-15.5); WBC 2.6 k/uL (3.8-10.6)
[2021-06-06 05:26] LABS: Potassium 3.5 mmol/L (3.5-5.1)
[2021-06-06 05:27] LABS: Calcium 8.7 mg/dL (8.4-10.2)
[2021-06-06 05:37] LABS: MCV 91.3 fL (80.0-100.0)
[2021-06-06] MEDS ORDERED: Potassium Replacement Protocol 1 EACH MISC MISCELLANE PRN (05:56)
[2021-06-06] MEDS: DEXMEDETOMIDINE/0.9% NACL(PMX) 400 MCG in EMPTY BAG 1 BAG IV SCH ×2 (06:21→22:28)
[2021-06-06] MEDS: POTASSIUM CHLORIDE 10 MEQ in WATER FOR INJECTION 1 100ML.BAG IVPB SCH ×4 (06:34→13:37)
[2021-06-06] MEDS: IPRATROPIUM-ALBUTEROL 3 ML NEB INHALATION SCH ×3 (07:38→19:26)
[2021-06-06] MEDS: SYMBICORT 160-4.5 MCG INHALER INHALATION SCH ×2 (07:38→19:27)
[2021-06-06] MEDS: ENOXAPARIN 100 MG/ML SYRINGE SQ SCH ×2 (09:27→21:03)
[2021-06-06] MEDS: PANTOPRAZOLE 40 MG/10 ML VIAL IVP SCH (09:27)
--- NOTE | 2021-06-06 09:29 | XR ---
EXAMINATION TYPE: XR chest 1V portable DATE OF EXAM: 06/06/2021 COMPARISON: 06/05/2021 HISTORY: Shortness of breath FINDINGS: There are bilateral pleural effusions with cardiomegaly and bibasilar infiltrate. There is a diffuse interstitial pattern. Atherosclerotic change aorta. Biapical pleural thickening. IMPRESSION: 1. Findings are similar to prior exam correlate for CHF. Underlying pneumonia not excluded.
[2021-06-06] MEDS: ESTROGENS CONJUGATED 1.25 MG PO SCH (09:41)
--- NOTE | 2021-06-06 11:16 | P.PN ---
Subjective Progress Note Date: 06/06/21 On today's evaluation of 06/03/2021, the patient continues to be lethargic and somewhat confused. She is arousable. She only follows and can indulge herself and to short conversations. If left on some related, she will go back to sleep. The patient apparently has been able to also swallow her tablets without any major difficulties. No reported aspiration. She remains in atrial fibrillation. She remains on amiodarone maintenance of 0.5 mg per minute. The patient is also on a Cardizem drip at 5 mg an hour. The patient is also on anticoagulation with oral Eliquis. Echocardiogram showed an ejection fraction of 55% and the patient elevated RV systolic pressure of 53 mmHg. This is consistent with moderate to severe pulmonary hypertension and tricuspid regurgitation. The patient continues to have edema in lower extremity is bilaterally. Overall fluid balance over the past 24 hours has been -452 mL. The patient is on Lasix 40 mg IV every 12 hours. This was started today by the primary care team. The patient is on oral prednisone 20 mg twice a day and the patient was taken off the IV Solu-Medrol. No other significant events overnight. No agitation. She has a sitter at the bedside. 06/04/2021, the patient is doing poorly. I had some difficulties in arousing this patient on the medical floor. As such, I think the patient may be in a CO2 narcosis states. Her chest x-ray from yesterday was showing an extensive consolidation of the right lung and the patient has obvious signs of fluid overload with extensive edema in lower extremity bilaterally. The patient is arousable upon repeated stimulation unit if left ultimately did, the patient will go back to sleep. The patient remains in atrial fibrillation. Rate is controlled and the patient is currently on a combination of amiodarone drip at 0.5 mg per minute and the patient is also on Cardizem drip at 5 mg an hour. She was given anticoagulation with Lovenox 100 mg subcu every 12 hours. At the same time, the patient was receiving IV Lasix 40 mg every 12 hours. Overall fluid balance has been negative. The patient continues to have significant amount of edema in lower extremity is bilaterally. No reported aspiration. No reported agitation. Based on all this, I made a decision to transfer this patient to the intensive care unit. She will need very close monitoring, BiPAP support, aggressive diuresis and management of her atrial fibrillation. On today's evaluation of 06/05/2021, the patient remains on a BiPAP at a setting of 12/5 cm of water and FiO2 of 50%. She is more arousable compared to yeste rday. A blood. This was done while her pulmonary status. The patient's blood gases from yesterday showed a pH of 7.34 with a pCO2 of 66 and pO2 of 86. The follow-up blood gases will be obtained today. A follow-up chest x-ray still pending from today. Meanwhile, the patient has signs of fluid overload. The patient was started on Lasix drip which is currently running at 10 mg an hour. The patient has been a negative fluid balance of 1.7 L 4 yesterday and since today, the patient has been in a negative fluid balance of 3.3 L. Her BUN is at 25 L of 0.8. Sodium level is at 141 with a potassium level of 4.4. That hemoglobin is at 9.5 and the patient's white cell count is at 4.7. The patient remains in atrial fibrillation. Rate is controlled. The patient is currently off amiodarone and the patient is off Cardizem and the patient isn't taking therapeutic doses of Lovenox 1 mg subcu every 12 hours. The patient did not require any sedation. Initially, she was slightly restless and agitated. The patient was given order for Precedex which she never used. She remains on IV Protonix patient remains on IV Solu Medrol and the patient also is on Rocephin and doxycycline combination. 06/06/2021, the patient is considerably much more alert and awake compared to yesterday. She still on a BiPAP at a pressure of 12/5 cm of water with an FiO2 of 30%. She remains on Precedex at 0.5 [facility] kilogram per minute and as will be gradually weaned off and discontinued. She is very much calm and comfortable and responsive. Her fluid balance is negative as the patient is on Lasix drip at 10 mg an hour. 4 yesterday, the neck fluid balance of been -3.3 L in for today she is oriented to 5.1 L negative fluid balance. Her BUN is at 29 with a creatinine of 0.8. No major active disturbances. Her potassium level is at 3.5. Serum bicarbonate of 44. At the same time, the patient has developed some thrombocytopenia. Platelet count is down to 83, hemoglobin however is stable at 9.5 with a white cell count of 2.6. The blood gases from yesterday was completed and the patient hasn't improvement and acid base status. The patient was at 7.38 with a pCO2 of 78 and a pO2 of 153 and this was on FiO2 of 50%. Chest x-ray was repeated today and is still showing some right-sided pleural effusion. The patient is diuresing very nicely with diuretics and IV Lasix. The patient continues to have significant amount of edema in lower extremity is bilaterally. Cardiac rhythm is sinus. The patient remains on Lovenox therapeutic dose for DVT prophylaxis. No focal neurological deficit. She is in no code. Objective - Vital Signs Vital signs: Vital Signs Temp 97.6 F 06/06/21 08:00 Pulse 84 06/06/21 10:00 Resp 11 L 06/06/21 10:00 BP 167/83 06/06/21 10:00 Pulse Ox 93 L 06/06/21 10:03 Intake & Output 06/05/21 06/06/21 06/06/21 18:59 06:59 18:59 Intake Total 253.799 382.366 221.016 Output Total 3285 2500 1410 Balance -3031.201 -2117.634 -1188.984 Weight 109.769 kg Intake: IV 120 120 180 0.9 NS 120 120 40 Furosemide 100 mg In 40 Sodium Chloride 0.9% 90 ml @ 10 MG/HR 10 mls/hr IV .Q10H [facility] Rx#: [id number] Potassium Chloride 10 meq 100 In Water For Injection 1 100ml.bag @ 100 mls/hr IVPB Q1HR [facility] Rx#: [id number] Intake, IV Titration 133.799 262.366 41.016 Amount Dexmedetomidine/0.9% NaCl 33.799 112.366 41.016 (Pmx) 400 mcg In Empty Bag 1 bag @ 0.2 MCG/KG/HR 5.625 mls/hr IV .[id number] [facility] Rx#:[id number] Furosemide 100 mg In 100 100 Sodium Chloride 0.9% 90 ml @ 10 MG/HR 10 mls/hr IV .Q10H [facility] Rx#: [id number] cefTRIAXone 1 gm In 50 Sodium Chloride 0.9% 50 ml @ 100 mls/hr IVPB Q24H [facility] Rx#:[id number] Output: Urine 3285 2500 1410 Other: Voiding Method Indwelling Catheter Indwelling Catheter - Exam No acute distress. the patient is somewhat lethargic and the patient is very much interested the BiPAP machine which is set at a pressure of 12/5 cm of water with an FiO2 of 30%. No agitation. Head exam was generally normal. There was no scleral icterus or corneal arcus. M ucous membranes were moist. Neck supple. Full range of motion. No adenopathy thyromegaly or neck vein distention. Cardiovascular examination reveals an irregular rhythm and rate. S1-S2 normal. No S3 or S4. No discernible murmur noted. Heart sounds are distant. Lungs reveal scattered bilateral rhonchi. Minimal bibasilar crackles. She does not take a deep breath. She has diminished breath sounds bilaterally along with scattered expiratory wheezes throughout. Abdomen is obese. Bowel sounds are not noted. Extremities extensive edema in lower extremity is bilaterally. No cyanosis or clubbing. Skin is without rash or lesion. Neurologic examination is difficult to assess. The patient does move all 4 extremities. - Labs CBC & Chem 7: 06/06/21 04:32 06/06/21 04:32 Labs: Abnormal Lab Results - Last 24 Hours (Table) 06/05/21 06/06/21 06/06/21 Range/Units 20:10 04:32 04:32 WBC 2.6 L (3.8-10.6) k/uL RBC 3.51 L (3.80-5.40) m/uL Hgb 9.5 L (11.4-16.0) gm/dL Hct 32.0 L (34.0-46.0) % MCHC 29.8 L (31.0-37.0) g/dL RDW 16.8 H (11.5-15.5) % Plt Count 83 L (150-450) k/uL ABG pCO2 78 H* (35-45) mmHg ABG pO2 153 H (83-108) mmHg ABG HCO3 46 H* (21-25) mmol/L ABG Total CO2 49 H (19-24) mmol/L ABG O2 Saturation 99.2 H (94-97) % Chloride 94 L (98-107) mmol/L Carbon Dioxide 44 H* (22-30) mmol/L BUN 29 H (7-17) mg/dL Glucose 121 H (74-99) mg/dL Microbiology - Last 24 Hours (Table) 05/30/21 18:08 Blood Culture - Final Blood No Growth after 144 hours 05/30/21 17:55 Blood Culture - Final Blood No Growth after 144 hours Assessment and Plan Plan: Acute on chronic hypoxemic and hypercapnic respiratory failure, with CO2 narcosis, and acute mental status changes. Clinically, the patient was showing signs of CO2 narcosis and fluid overload with possibly a component of pneumonia. Based on that, the patient got transferred to the intensive care unit. This is despite a DNR/DNI CODE STATUS. The patient was started on BiPAP at a pressure of 12/5 cm of water and currently she is an FiO2 of 30%. The patient is getting progressively more awake and alert. The patient is on 10 mg of Lasix drip and the patient has been negative fluid balance. Mental status is improving. Acid base status is improving. We'll keep the BiPAP. We'll consider doing a thoracentesis of the right lung within the next 24 hours. Noted the patient is currently on a therapeutic dose of Lovenox. Obesity with a BMI of 39.1 COPD Right lung opacity/consolidation, could be also related to underlying pleural fluid as the patient has signs of fluid overload. Nevertheless, based on the chest x-ray findings, this needs to be correlated with a pneumonia. There is underlying cardiomegaly.The chest x-ray from today is showing adequate and bilateral infiltrates and pleural effusion right more than left consistent with CHF and volume overload. History of atrial fibrillation, with rapid ventricular response. The patient is currentl off amiodarone drip and Cardizem drip and the patient is on therapeutic dose of Lovenox 100 mg subcu every 12 hours. History of CHF. The echocardiogram showed normal LV, mild LVH, EF around 50- 55%, severe RV dilation with a pulmonary artery pressure of around 53 mmHg and moderate to severe tricuspid regurgitation Morbid obesity. History of hyperlipidemia. History of hypertension. Increased lower extremity edema Chronic normocytic anemia. Plan Keep the patient in the intensive care unit Follow-up chest x-ray was noted and the patient continues to have a persistent right-sided pleural effusion Obtain a follow-up blood gases , blood gases from yesterday was noted and there is improvement and acid base status Continue BiPAP at a pressure of 12/5 cm of water and titrate FiO2 to maintain saturation above 90%, current FiO2 is a 30% Continue Lasix drip at the rate of 10 mg an hour He is a Estrella catheter in place Amiodarone and Cardizem drip has been discontinued as the patient's rate is under good control Continue Lovenox therapeutic doses Continued IV Rocephin Obtain a chest x-ray in a.m. Condition is critical and the patient will be chest intensive care unit. We obtained advanced directives. DNR/DNI CODE STATUS for now.
[2021-06-06] MEDS: LIDOCAINE 5% PATCH TOPICAL SCH (12:21)
[2021-06-06] MEDS: DOXYCYCLINE 100 MG in SODIUM CHLORIDE 0.9% 100 ML IVPB SCH (12:22)
--- NOTE | 2021-06-06 17:21 | P.PN ---
Subjective Progress Note Date: 06/06/21 This 70-year-old female with history of obesity. Hypercarbic respiratory failure and some fluid overload and diastolic CHF was transferred to intensive care unit yesterday. Patient has been on BiPAP. Patient was also started on IV Lasix. Patient seemed to be diuresing better. There may be slight improvement in the mental status. She is off amiodarone drip. Her heart rate is controlled. Patient is in atrial fibrillation. She was getting Lovenox for anticoagulation. Overall this seemed to be some progress in critical status. Pulmonary is following this closely. Continue current management. If necessary, IV amiodarone drip to be reinstated. 06/06/2021: This patient with history of hypercarbic respiratory failure, fluid overload and obesity on BiPAP machine. Patient seemed to be much more alert and communicative today. Doesn't complain of any chest pain. Doesn't appear to be in acute distress. Her ABG hasn't shown much improvement. Patient is diuresing very well on IV Lasix. Still has significant edema. Patient heart rate is controlled without IV amiodarone off Cardizem. Her echocardiogram showed previously normal ejection fraction. I'm going to restart her on Coreg 3.125 mg by mouth twice a day. Continue rest of the medications. We'll follow Objective - Vital Signs Vital signs: Vital Signs Temp 96.6 F L 06/06/21 12:00 Pulse 78 06/06/21 15:00 Resp 17 06/06/21 15:00 BP 120/85 06/06/21 15:00 Pulse Ox 95 06/06/21 15:00 Intake & Output 06/05/21 06/06/21 06/06/21 18:59 06:59 18:59 Intake Total 253.799 382.366 734.454 Output Total 3285 2500 2430 Balance -3031.201 -4625.634 -7657.225 Weight 109.769 kg 109.769 kg Intake: IV 120 120 540 0.9 NS 120 120 70 Doxycycline 100 mg In 100 Sodium Chloride 0.9% 100 ml @ 100 mls/hr IVPB Q12H [facility] Rx#:[id number] Furosemide 100 mg In 60 Sodium Chloride 0.9% 90 ml @ 10 MG/HR 10 mls/hr IV .Q10H [facility] Rx#: [id number] Potassium Chloride 10 meq 310 In Water For Injection 1 100ml.bag @ 100 mls/hr IVPB Q1HR [facility] Rx#: [id number] Intake, IV Titration 133.799 262.366 194.454 Amount Dexmedetomidine/0.9% NaCl 33.799 112.366 94.454 (Pmx) 400 mcg In Empty Bag 1 bag @ 0.2 MCG/KG/HR 5.625 mls/hr IV .[id number] [facility] Rx#:[id number] Furosemide 100 mg In 100 100 100 Sodium Chloride 0.9% 90 ml @ 10 MG/HR 10 mls/hr IV .Q10H [facility] Rx#: [id number] cefTRIAXone 1 gm In 50 Sodium Chloride 0.9% 50 ml @ 100 mls/hr IVPB Q24H [facility] Rx#:[id number] Output: Urine 3285 2500 2430 Other: Voiding Method Indwelling Catheter Indwelling Catheter Indwelling Catheter - Exam GENERAL EXAM: Patient is much more alert and communicative HEENT: Normocephalic. Normal reaction of pupils, equal size, normal range of extraocular motion. No erythema or exudates in the throat. NECK: No masses, no nuchal rigidity. CHEST: No chest wall deformity. LUNGS: Diminished air exchange and dullness to the bases HEART: S1 and S2 normal . Irregular heart sounds ABDOMEN: No hepatosplenomegaly, normal bowel sounds, no guarding or rigidity. SKIN: No rashes CENTRAL NERVOUS SYSTEM: Patient is sleepy and barely arousable EXTREMITIES: Edema plus plus - Labs CBC & Chem 7: 06/06/21 04:32 06/06/21 04:32 Labs: Abnormal Lab Results - Last 24 Hours (Table) 06/05/21 06/06/21 06/06/21 Range/Units 20:10 04:32 04:32 WBC 2.6 L (3.8-10.6) k/uL RBC 3.51 L (3.80-5.40) m/uL Hgb 9.5 L (11.4-16.0) gm/dL Hct 32.0 L (34.0-46.0) % MCHC 29.8 L (31.0-37.0) g/dL RDW 16.8 H (11.5-15.5) % Plt Count 83 L (150-450) k/uL ABG pCO2 78 H* (35-45) mmHg ABG pO2 153 H (83-108) mmHg ABG HCO3 46 H* (21-25) mmol/L ABG Total CO2 49 H (19-24) mmol/L ABG O2 Saturation 99.2 H (94-97) % Chloride 94 L (98-107) mmol/L Carbon Dioxide 44 H* (22-30) mmol/L BUN 29 H (7-17) mg/dL Glucose 121 H (74-99) mg/dL Microbiology - Last 24 Hours (Table) 05/30/21 18:08 Blood Culture - Final Blood No Growth after 144 hours 05/30/21 17:55 Blood Culture - Final Blood No Growth after 144 hours Assessment and Plan (1) Diastolic CHF Current Visit: Yes Status: Acute Code(s): I50.30 - UNSPECIFIED DIASTOLIC (CONGESTIVE) HEART FAILURE SNOMED Code(s): 764383431 (2) Acute encephalopathy Current Visit: Yes Status: Acute Code(s): G93.40 - ENCEPHALOPATHY, UNSPECIFIED SNOMED Code(s): 82307842 (3) Acute respiratory failure with hypoxia and hypercarbia Current Visit: Yes Status: Acute Code(s): J96.01 - ACUTE RESPIRATORY FAILURE WITH HYPOXIA; J96.02 - ACUTE RESPIRATORY FAILURE WITH HYPERCAPNIA SNOMED Code(s): 468652740 (4) Chronic respiratory failure Current Visit: Yes Status: Acute Code(s): J96.10 - CHRONIC RESPIRATORY FAILURE, UNSP W HYPOXIA OR HYPERCAPNIA SNOMED Code(s): 75147623 Plan: Continue current medical therapy. Initiate a small dose of Coreg. Further examination depend upon the critical course. Continue rest of the management
[2021-06-06] MEDS: carvediloL 3.125 MG TAB PO SCH (17:51)
--- NOTE | 2021-06-06 18:40 | P.PN ---
Subjective 70-year-old female with past medical history of congestive heart failure, A. fib on anticoagulation, COPD with noncompliant use of her BiPAP, mood disorder who is brought into the emergency department for hypoxia. Patient was recently seen at [facility] for altered mental status. Found to have subdural hematomas versus hygromas and was shipped to [place]. [place] [facility]' evaluation deemed that the patient had chronic hygromas and she was cleared for anticoagulant use. Patient was transferred to [facility] for rehab. Patient has been noncompliant with her BiPAP and medications. at bedside states that she refuses majority of her medications. Today the staff found her more confused than normal. They state that she does has a history of some confusion at baseline however today was worsens. Her oxygen saturations were in the 80s. EMS attempted intubation of the patient however she was responsive and clenching down. There were unable to get an IV and therefore I was placed in the left humerus. Patient was placed on a nasal cannula. She did perk up upon transfer to the hospital however became agitated and therefore received 110 mg of ketamine. Patient arrives sedated with shallow respirations. She is unable to obtain any history from. She is found to be in A. fib which she has a history of. Laboratory studies; demonstrates a leukocytosis of 13.5. ABG demonstrates a CO2 of 89. Lactic acid 3.1. Troponin 0.059. BNP elevated at 4460. Urinalysis demonstrates occasional bacteria with moderate budding yeast. Chest x-ray is performed which demonstrates right lower lobe pneumonia and effusion. Patient was initiated on antibiotics after blood cultures were obtained. Fluids were not given to the patient even though she does meet sepsis criteria as she does have history of congestive heart failure and has visible effusion on chest x-ray with an elevated BNP. Patient does have a mildly low blood pressure and therefore was given a 500 mL normal saline bolus only. Patient is initiated on amiodarone due to her A. fib with persistently elevated heart rate. CT brain demonstrate the chronic hygromas without acute abnormality. 06/01/2021 Patient is seen and evaluated and follow-up with no issues overnight per nursing staff although patient continues to be confused and yelling out at times and can be redirected. Patient reports to having shortness of breath and is currently m aintained on 4 L via nasal cannula. Cardiology and pulmonary following and patient is maintained on IV Cardizem and oral anticoagulant has been resumed. Patient with extensive weakness and will have PT/OT evaluated the patient and family would like the patient to return to [facility]. Case management and social work following. Patient is able to answer questions somewhat appropriately when redirected although continues to be confused and rambles at times. No reports of chest pain. Patient is afebrile. 06/02/2021 Patient is seen in follow-up today and per nursing staff and sitter at the [facility] for safety, patient continues with confusion and has been pocketing her pills and spitting them out and not tolerating oral intake very well. Cardiology following and patient is to continue on IV Cardizem along with amiodarone until able to tolerate oral intake. Patient also continued on ce ftriaxone and oral prednisone with pulmonary following. Will add low-dose Seroquel at night and monitor closely. 06/03/2021 Patient remains confused and drowsy secondary to her CO2 narcosis but she is arousable and she knows and she is in the hospital. She denies headache or weakness or numbness, no asymmetry noted in her examination. Both pupils are equal and reactive to light. No meningeal signs. She ate 75% of her denying 100% of snack last night. She is on 4 L oxygen via nasal cannula. She is hemodynamically stable and afebrile. The hemoglobin is stable at 8.6, platelet count improved slightly at 121, creatinine normal 0.8, pro-calcitonin is slightly elevated at 0.18. Chest x-ray showing possible pneumonia and effusion and the recommend follow-up. I looked at the chest x-ray myself she has bilateral infiltrates, more on the right side, looks slightly better than when she came in to the hospital. She has significant bilateral leg edema probnp is improving since admission 4460 to 3190 Under Lio on this admission showing ejection fraction of 50-55% with moderate to severe tricuspid regurgitation and moderate pulmonary hypertension She has amiodarone and Cardizem running also she is on ceftriaxone, therapeutic dose of Lovenox and Eliquis is on hold. She is on prednisone 20 mg twice daily and Seroquel. We will add doxycycline for coverage of atypical bacteria. IV Lasix 40 twice a day. 06/06/2021, resume the care of the patient Patient remains in the ICU on high flow nasal cannula at 4 L however earlier she was on BiPAP but her respiratory status is improving. She is currently on Lasix drip for her diastolic CHF him on ceftriaxone and doxycycline for her right lower lobe pneumonia and she was getting BiPAP for her CO2 retention. Patient clinically improved. Negative balance of 5-6 L over 24 hours Also she is on therapeutic dose of Lovenox Currently her heart rate is core controlled with Coreg and Lovenox at therapeutic dose. Ejection fraction 45-50% Objective - Vital Signs Vital signs: Vital Signs Temp 97.3 F L 06/06/21 04:00 Pulse 76 06/06/21 06:00 Resp 20 06/06/21 06:00 BP 158/87 06/06/21 06:00 Pulse Ox 96 06/06/21 06:00 Intake & Output 06/05/21 06/06/21 06/06/21 18:59 06:59 18:59 Intake Total 253.799 382.366 Output Total 3285 2500 Balance -3031.201 -2117.634 Weight 109.769 kg Intake: IV 120 120 0.9 NS 120 120 Intake, IV Titration 133.799 262.366 Amount Dexmedetomidine/0.9% NaCl 33.799 112.366 (Pmx) 400 mcg In Empty Bag 1 bag @ 0.2 MCG/KG/HR 5.625 mls/hr IV .[id number] MARK Rx#:[id number] Furosemide 100 mg In 100 100 Sodium Chloride 0.9% 90 ml @ 10 MG/HR 10 mls/hr IV .Q10H MARK Rx#: [id number] cefTRIAXone 1 gm In 50 Sodium Chloride 0.9% 50 ml @ 100 mls/hr IVPB Q24H MARK Rx#:[id number] Output: Urine 3285 2500 Other: Voiding Method Indwelling Catheter Indwelling Catheter - Exam -GENERAL: The patient is confused and drowsy but arousable, she follows commands and she knows she is in the hospital, not in any acute distress. Well developed, well nourished. HEENT: Pupils are round and equally reacting to light. EOMI. No scleral icterus. No conjunctival pallor. Normocephalic, atraumatic. No pharyngeal erythema. No thyromegaly. CARDIOVASCULAR: S1 and S2 present. No murmurs, rubs, or gallops. PULMONARY: Chest is clear to auscultation, no wheezing . Decreased breath sounds on both sides. Bilateral crepitation ABDOMEN: Soft, nontender, nondistended, normoactive bowel sounds. No palpable organomegaly. MUSCULOSKELETAL: No joint swelling or deformity. -EXTREMITIES: No cyanosis, clubbing,. 2-3+ bilateral pitting Leg edema NEUROLOGICAL: Gross neurological examination did not reveal any focal deficits. SKIN: No rashes. no petechiae. - Labs CBC & Chem 7: 06/06/21 04:32 06/06/21 04:32 Labs: Abnormal Lab Results - Last 24 Hours (Table) 06/05/21 06/05/21 06/05/21 Range/Units 07:31 07:31 20:10 WBC (3.8-10.6) k/uL RBC 3.64 L (3.80-5.40) m/uL Hgb 9.9 L (11.4-16.0) gm/dL Hct (34.0-46.0) % MCHC 28.3 L (31.0-37.0) g/dL RDW 16.8 H (11.5-15.5) % Plt Count 99 L (150-450) k/uL ABG pCO2 78 H* (35-45) mmHg ABG pO2 153 H (83-108) mmHg ABG HCO3 46 H* (21-25) mmol/L ABG Total CO2 49 H (19-24) mmol/L ABG O2 Saturation 99.2 H (94-97) % Chloride (98-107) mmol/L Carbon Dioxide 39 H (22-30) mmol/L BUN 25 H (7-17) mg/dL Glucose 102 H (74-99) mg/dL 06/06/21 06/06/21 Range/Units 04:32 04:32 WBC 2.6 L (3.8-10.6) k/uL RBC 3.51 L (3.80-5.40) m/uL Hgb 9.5 L (11.4-16.0) gm/dL Hct 32.0 L (34.0-46.0) % MCHC 29.8 L (31.0-37.0) g/dL RDW 16.8 H (11.5-15.5) % Plt Count 83 L (150-450) k/uL ABG pCO2 (35-45) mmHg ABG pO2 (83-108) mmHg ABG HCO3 (21-25) mmol/L ABG Total CO2 (19-24) mmol/L ABG O2 Saturation (94-97) % Chloride 94 L (98-107) mmol/L Carbon Dioxide 44 H* (22-30) mmol/L BUN 29 H (7-17) mg/dL Glucose 121 H (74-99) mg/dL Microbiology - Last 24 Hours (Table) 05/30/21 18:08 Blood Culture - Final Blood No Growth after 144 hours 05/30/21 17:55 Blood Culture - Final Blood No Growth after 144 hours Assessment and Plan Assessment: Possible bilateral pneumonia Possible acute diastolic CHF with ejection fraction 50-55% with fluid overload and bilateral pitting edema COPD with narcosis. She is on steroids for acute exacerbation Possible obesity hypoventilation syndrome A. fib with RVR Metabolic encephalopathy secondary to above Acute hypoxic hypercapnic respiratory failure Moderate to severe tricuspid regurgitation Moderate pulmonary hypertension morbid obesity with BMI of 40 Plan: This is a pleasant 70-year-old years old female who presents with multiple cardiac and pulmonary problems including possible pneumonia, CHF, AMS, high troponin, hypoxia and hypercapnia, A. fib and RVR and pulmonary hypertension. Continue with Coreg Continue with anticoagulation and currently on Lovenox while Eliquis on hold. Continue with pulmonary team on the case Continue with the Lasix to drip Continue with Seroquel as needed Continue with antibiotic ceftriaxone and doxycycline Labs and medication were reviewed.. Continue same treatment. Continue with symptomatic treatment. Resume home medication. Monitor lytes and vitals. DVT and GI prophylaxis. Further recommendations as per clinical course of the patient DVT prophylaxis: Subcutaneous Lovenox GI Prophylaxis: Pepcid Prognosis is definitely guarded
[2021-06-06] MEDS ORDERED: QUEtiapine 25 MG TAB PO PRN (18:45)
[2021-06-06] MEDS ORDERED: QUEtiapine 25 MG TAB PO SCH (18:45)
[2021-06-06] MEDS: OLANZapine 10 MG TAB PO SCH (21:02)
[2021-06-06] MEDS: ATORVASTATIN 40 MG TAB PO SCH (21:02)
[2021-06-07] MEDS: DOXYCYCLINE 100 MG in SODIUM CHLORIDE 0.9% 100 ML IVPB SCH (00:15)
--- NOTE | 2021-06-07 07:35 | P.PN ---
Subjective 70-year-old female with past medical history of congestive heart failure, A. fib on anticoagulation, COPD with noncompliant use of her BiPAP, mood disorder who is brought into the emergency department for hypoxia. Patient was recently seen at [facility] for altered mental status. Found to have subdural hematomas versus hygromas and was shipped to [place]. [facility]' evaluation deemed that the patient had chronic hygromas and she was cleared for anticoagulant use. Patient was transferred to [facility] for rehab. Patient has been noncompliant with her BiPAP and medications. at bedside states that she refuses majority of her medications. Today the staff found her more confused than normal. They state that she does has a history of some confusion at baseline however today was worsens. Her oxygen saturations were in the 80s. EMS attempted intubation of the patient however she was responsive and clenching down. There were unable to get an IV and therefore I was placed in the left humerus. Patient was placed on a nasal cannula. She did perk up upon transfer to the hospital however became agitated and therefore received 110 mg of ketamine. Patient arrives sedated with shallow respirations. She is unable to obtain any history from. She is found to be in A. fib which she has a history of. Laboratory studies; demonstrates a leukocytosis of 13.5. ABG demonstrates a CO2 of 89. Lactic acid 3.1. Troponin 0.059. BNP elevated at 4460. Urinalysis demonstrates occasional bacteria with moderate budding yeast. Chest x-ray is performed which demonstrates right lower lobe pneumonia and effusion. Patient was initiated on antibiotics after blood cultures were obtained. Fluids were not given to the patient even though she does meet sepsis criteria as she does have history of congestive heart failure and has visible effusion on chest x-ray with an elevated BNP. Patient does have a mildly low blood pressure and therefore was given a 500 mL normal saline bolus only. Patient is initiated on amiodarone due to her A. fib with persistently elevated heart rate. CT brain demonstrate the chronic hygromas without acute abnormality. 06/01/2021 Patient is seen and evaluated and follow-up with no issues overnight per nursing staff although patient continues to be confused and yelling out at times and can be redirected. Patient reports to having shortness of breath and is currently m aintained on 4 L via nasal cannula. Cardiology and pulmonary following and patient is maintained on IV Cardizem and oral anticoagulant has been resumed. Patient with extensive weakness and will have PT/OT evaluated the patient and family would like the patient to return to [facility]. Case management and social work following. Patient is able to answer questions somewhat appropriately when redirected although continues to be confused and rambles at times. No reports of chest pain. Patient is afebrile. 06/02/2021 Patient is seen in follow-up today and per nursing staff and sitter at the [facility] for safety, patient continues with confusion and has been pocketing her pills and spitting them out and not tolerating oral intake very well. Cardiology following and patient is to continue on IV Cardizem along with amiodarone until able to tolerate oral intake. Patient also continued on ce ftriaxone and oral prednisone with pulmonary following. Will add low-dose Seroquel at night and monitor closely. 06/03/2021 Patient remains confused and drowsy secondary to her CO2 narcosis but she is arousable and she knows and she is in the hospital. She denies headache or weakness or numbness, no asymmetry noted in her examination. Both pupils are equal and reactive to light. No meningeal signs. She ate 75% of her denying 100% of snack last night. She is on 4 L oxygen via nasal cannula. She is hemodynamically stable and afebrile. The hemoglobin is stable at 8.6, platelet count improved slightly at 121, creatinine normal 0.8, pro-calcitonin is slightly elevated at 0.18. Chest x-ray showing possible pneumonia and effusion and the recommend follow-up. I looked at the chest x-ray myself she has bilateral infiltrates, more on the right side, looks slightly better than when she came in to the hospital. She has significant bilateral leg edema probnp is improving since admission 4460 to 3190 Under Lio on this admission showing ejection fraction of 50-55% with moderate to severe tricuspid regurgitation and moderate pulmonary hypertension She has amiodarone and Cardizem running also she is on ceftriaxone, therapeutic dose of Lovenox and Eliquis is on hold. She is on prednisone 20 mg twice daily and Seroquel. We will add doxycycline for coverage of atypical bacteria. IV Lasix 40 twice a day. 06/06/2021, resume the care of the patient Patient remains in the ICU on high flow nasal cannula at 4 L however earlier she was on BiPAP but her respiratory status is improving. She is currently on Lasix drip for her diastolic CHF him on ceftriaxone and doxycycline for her right lower lobe pneumonia and she was getting BiPAP for her CO2 retention. Patient clinically improved. Negative balance of 5-6 L over 24 hours Also she is on therapeutic dose of Lovenox Currently her heart rate is core controlled with Coreg and Lovenox at therapeutic dose. Ejection fraction 45-50% 06/07/2021 Patient uses BiPAP for about 4 hours last night, then she switched to 4 L/m of oxygen via nasal cannula and she is doing well this morning, she can talk freely with minimal shortness of breath. She is hemodynamically stable. Labs are pending. Chest x-ray reviewed by myself showing persistent bilateral infiltrates on both lower sites, more on the right side. She is eating without difficulty. She remains on Lasix drip at 10 mg per hour, ceftriaxone and doxycycline, Lovenox 100 mg twice a day, Coreg 3.125 mg, Seroquel/Zyprexa. She has good urine output Objective - Vital Signs Vital signs: Vital Signs Temp 98.1 F 06/07/21 00:00 Pulse 80 06/07/21 07:00 Resp 16 06/07/21 07:00 BP 99/50 06/07/21 07:00 Pulse Ox 100 06/07/21 07:00 Intake & Output 06/06/21 06/07/21 06/07/21 18:59 06:59 18:59 Intake Total 794.454 565.269 Output Total 5120 4275 Balance -1875.546 -6389.731 Weight 109.769 kg 100.4 kg Intake: IV 600 410 0.9 NS 100 130 Doxycycline 100 mg In 100 100 Sodium Chloride 0.9% 100 ml @ 100 mls/hr IVPB Q12H MARK Rx#:[id number] Furosemide 100 mg In 90 130 Sodium Chloride 0.9% 90 ml @ 10 MG/HR 10 mls/hr IV .Q10H MARK Rx#: [id number] Potassium Chloride 10 meq 310 In Water For Injection 1 100ml.bag @ 100 mls/hr IVPB Q1HR MARK Rx#: [id number] cefTRIAXone 1 gm In 50 Sodium Chloride 0.9% 50 ml @ 100 mls/hr IVPB Q24H MARK Rx#:[id number] Intake, IV Titration 194.454 155.269 Amount Dexmedetomidine/0.9% NaCl 94.454 55.269 (Pmx) 400 mcg In Empty Bag 1 bag @ 0.2 MCG/KG/HR 5.625 mls/hr IV .[id number] MARK Rx#:[id number] Furosemide 100 mg In 100 100 Sodium Chloride 0.9% 90 ml @ 10 MG/HR 10 mls/hr IV .Q10H MARK Rx#: [id number] Output: Urine 3680 4275 Other: Voiding Method Indwelling Catheter Indwelling Catheter - Exam -GENERAL: The patient is confused and drowsy but arousable, she follows commands and she knows she is in the hospital, not in any acute distress. Well developed, well nourished. HEENT: Pupils are round and equally reacting to light. EOMI. No scleral icterus. No conjunctival pallor. Normocephalic, atraumatic. No pharyngeal erythema. No thyromegaly. CARDIOVASCULAR: S1 and S2 present. No murmurs, rubs, or gallops. PULMONARY: Chest is clear to auscultation, no wheezing . Decreased breath sounds on both sides. Bilateral crepitation ABDOMEN: Soft, nontender, nondistended, normoactive bowel sounds. No palpable organomegaly. MUSCULOSKELETAL: No joint swelling or deformity. -EXTREMITIES: No cyanosis, clubbing,. 2-3+ bilateral pitting Leg edema NEUROLOGICAL: Gross neurological examination did not reveal any focal deficits. SKIN: No rashes. no petechiae. - Labs CBC & Chem 7: 06/06/21 04:32 06/06/21 04:32 Assessment and Plan Assessment: Possible bilateral pneumonia Possible acute diastolic CHF with ejection fraction 50-55% with fluid overload and bilateral pitting edema COPD with narcosis. She is on steroids for acute exacerbation Possible obesity hypoventilation syndrome A. fib with RVR Metabolic encephalopathy secondary to above Acute hypoxic hypercapnic respiratory failure Moderate to severe tricuspid regurgitation Moderate pulmonary hypertension morbid obesity with BMI of 40 Plan: This is a pleasant 70-year-old years old female who presents with multiple cardiac and pulmonary problems including possible pneumonia, CHF, AMS, high troponin, hypoxia and hypercapnia, A. fib and RVR and pulmonary hypertension. Continue with Coreg Continue with anticoagulation and currently on Lovenox while Eliquis on hold. Continue with pulmonary team on the case Continue with the Lasix to drip Continue with Seroquel as needed Continue with antibiotic ceftriaxone and doxycycline Labs and medication were reviewed.. Continue same treatment. Continue with symptomatic treatment. Resume home medication. Monitor lytes and vitals. DVT and GI prophylaxis. Further recommendations as per clinical course of the patient DVT prophylaxis: Subcutaneous Lovenox GI Prophylaxis: Pepcid Prognosis is definitely guarded
[2021-06-07 07:45] LABS: Anisocytosis Slight; Basophils % (A) 0 %; Eosinophils % (A) 0 %; HGB 9.6 gm/dL (11.4-16.0); Hypochromasia Marked; Lymphocytes # (A) 0.5 k/uL (1.0-4.8); Lymphocytes % (A) 10 %; MCH 26.9 pg (25.0-35.0); MCHC 29.2 g/dL (31.0-37.0); MCV 92.2 fL (80.0-100.0); Mean Platelet Volume 9.5; Monocytes # (A) 0.3 k/uL (0-1.0); Monocytes % (A) 6 %; Neutrophils # (A) 3.9 k/uL (1.3-7.7); Neutrophils % (A) 83 %; RBC 3.57 m/uL (3.80-5.40); RDW 16.8 % (11.5-15.5); WBC 4.7 k/uL (3.8-10.6)
[2021-06-07 07:56] LABS: Platelet Count 71 k/uL (150-450)
[2021-06-07] MEDS: IPRATROPIUM-ALBUTEROL 3 ML NEB INHALATION SCH ×3 (08:14→20:38)
[2021-06-07] MEDS: SYMBICORT 160-4.5 MCG INHALER INHALATION SCH ×2 (08:14→20:38)
--- NOTE | 2021-06-07 08:54 | XR ---
EXAMINATION TYPE: XR chest 1V portable DATE OF EXAM: 06/07/2021 COMPARISON: 06/07/2019 HISTORY: Shortness of breath FINDINGS: There are bilateral pleural effusions with cardiomegaly and bibasilar infiltrate. There is a diffuse interstitial pattern. Diffuse osteopenia. IMPRESSION: 1. Stable x-ray correlate for CHF otherwise consider bilateral pneumonia
[2021-06-07] MEDS: FUROSEMIDE 100 MG in SODIUM CHLORIDE 0.9% 90 ML IV SCH ×2 (09:01→19:54)
[2021-06-07] MEDS: ESTROGENS CONJUGATED 1.25 MG PO SCH (09:06)
[2021-06-07] MEDS: carvediloL 3.125 MG TAB PO SCH ×2 (09:06→18:18)
[2021-06-07] MEDS: PANTOPRAZOLE 40 MG/10 ML VIAL IVP SCH (09:16)
[2021-06-07] MEDS ORDERED: HALOPERIDOL LACTATE 5 MG/ML 1 ML VIAL IVP PRN (09:48)
[2021-06-07] MEDS: LIDOCAINE 5% PATCH TOPICAL SCH (10:48)
[2021-06-07] MEDS: AMIODARONE 450 MG in DEXTROSE 5% IN WATER 250 ML IV SCH ×2 (10:48)
--- NOTE | 2021-06-07 11:12 | P.PN ---
Subjective Progress Note Date: 06/07/21 This 70-year-old female with history of obesity. Hypercarbic respiratory failure and some fluid overload and diastolic CHF was transferred to intensive care unit yesterday. Patient has been on BiPAP. Patient was also started on IV Lasix. Patient seemed to be diuresing better. There may be slight improvement in the mental status. She is off amiodarone drip. Her heart rate is controlled. Patient is in atrial fibrillation. She was getting Lovenox for anticoagulation. Overall this seemed to be some progress in critical status. Pulmonary is following this closely. Continue current management. If necessary, IV amiodarone drip to be reinstated. 06/06/2021: This patient with history of hypercarbic respiratory failure, fluid overload and obesity on BiPAP machine. Patient seemed to be much more alert and communicative today. Doesn't complain of any chest pain. Doesn't appear to be in acute distress. Her ABG hasn't shown much improvement. Patient is diuresing very well on IV Lasix. Still has significant edema. Patient heart rate is controlled without IV amiodarone off Cardizem. Her echocardiogram showed previously normal ejection fraction. I'm going to restart her on Coreg 3.125 mg by mouth twice a day. Continue rest of the medications. We'll follow 06/07/2021: Patient is still remains extubated. Seemed to be alert and talkative. Patient however has underlying confusion. Doesn't appear to be in acute distress. Patient blood pressure is running low. Coreg has been held. Her heart rate is remaining stable. She still on IV Lasix and diuresing well. Still has moderate edema of the legs. Patient will continue current medical therapy. May consider switching to bolus of IV Lasix. Prognosis is guarded Objective - Vital Signs Vital signs: Vital Signs Temp 97.1 F L 06/07/21 08:00 Pulse 89 06/07/21 09:00 Resp 20 06/07/21 09:00 BP 108/58 06/07/21 09:00 Pulse Ox 100 06/07/21 09:00 Intake & Output 06/06/21 06/07/21 06/07/21 18:59 06:59 18:59 Intake Total 794.454 565.269 131.667 Output Total 3680 4275 800 Balance -2885.546 -3709.731 -668.333 Weight 109.769 kg 100.4 kg Intake: IV 600 410 40 0.9 NS 100 130 20 Doxycycline 100 mg In 100 100 Sodium Chloride 0.9% 100 ml @ 100 mls/hr IVPB Q12H MARK Rx#:[id number] Furosemide 100 mg In 90 130 20 Sodium Chloride 0.9% 90 ml @ 10 MG/HR 10 mls/hr IV .Q10H MARK Rx#: [id number] Potassium Chloride 10 meq 310 In Water For Injection 1 100ml.bag @ 100 mls/hr IVPB Q1HR MARK Rx#: [id number] cefTRIAXone 1 gm In 50 Sodium Chloride 0.9% 50 ml @ 100 mls/hr IVPB Q24H MARK Rx#:[id number] Intake, IV Titration 194.454 155.269 91.667 Amount Dexmedetomidine/0.9% NaCl 94.454 55.269 (Pmx) 400 mcg In Empty Bag 1 bag @ 0.2 MCG/KG/HR 5.625 mls/hr IV .[id number] MARK Rx#:[id number] Furosemide 100 mg In 100 100 91.667 Sodium Chloride 0.9% 90 ml @ 10 MG/HR 10 mls/hr IV .Q10H MARK Rx#: [id number] Output: Urine 3680 4275 800 Other: Voiding Method Indwelling Catheter Indwelling Catheter Indwelling Catheter - Exam GENERAL EXAM: Patient is much more alert and communicative HEENT: Normocephalic. Normal reaction of pupils, equal size, normal range of extraocular motion. No erythema or exudates in the throat. NECK: No masses, no nuchal rigidity. CHEST: No chest wall deformity. LUNGS: Diminished air exchange and dullness to the bases HEART: S1 and S2 normal . Irregular heart sounds ABDOMEN: No hepatosplenomegaly, normal bowel sounds, no guarding or rigidity. SKIN: No rashes CENTRAL NERVOUS SYSTEM: Patient is sleepy and barely arousable EXTREMITIES: Edema plus plus - Labs CBC & Chem 7: 06/07/21 07:17 06/07/21 07:17 Labs: Abnormal Lab Results - Last 24 Hours (Table) 06/07/21 06/07/21 Range/Units 07:17 07:17 RBC 3.57 L (3.80-5.40) m/uL Hgb 9.6 L (11.4-16.0) gm/dL Hct 33.0 L (34.0-46.0) % MCHC 29.2 L (31.0-37.0) g/dL RDW 16.8 H (11.5-15.5) % Plt Count 71 L (150-450) k/uL Lymphocytes # 0.5 L (1.0-4.8) k/uL Carbon Dioxide 46 H* (22-30) mmol/L Assessment and Plan (1) Diastolic CHF Current Visit: Yes Status: Acute Code(s): I50.30 - UNSPECIFIED DIASTOLIC (CONGESTIVE) HEART FAILURE SNOMED Code(s): 119365715 (2) Acute encephalopathy Current Visit: Yes Status: Acute Code(s): G93.40 - ENCEPHALOPATHY, UNSPECIFIED SNOMED Code(s): 88746985 (3) Acute respiratory failure with hypoxia and hypercarbia Current Visit: Yes Status: Acute Code(s): J96.01 - ACUTE RESPIRATORY FAILURE WITH HYPOXIA; J96.02 - ACUTE RESPIRATORY FAILURE WITH HYPERCAPNIA SNOMED Code(s): 359184025 (4) Chronic respiratory failure Current Visit: Yes Status: Acute Code(s): J96.10 - CHRONIC RESPIRATORY FAILURE, UNSP W HYPOXIA OR HYPERCAPNIA SNOMED Code(s): 98026669 Plan: Patient could not tolerate Coreg because of hypotension. Coreg will be held if the blood pressure below 100 heart rate is controlled. Continue current medical therapy. May switch to either IV bolus of Lasix by mouth Lasix. Prognosis is guarded
[2021-06-07 11:18] LABS: Calcium 8.3 mg/dL (8.4-10.2); Potassium 3.5 mmol/L (3.5-5.1)
--- NOTE | 2021-06-07 13:05 | P.PN ---
Subjective Progress Note Date: 06/07/21 On today's evaluation of 06/03/2021, the patient continues to be lethargic and somewhat confused. She is arousable. She only follows and can indulge herself and to short conversations. If left on some related, she will go back to sleep. The patient apparently has been able to also swallow her tablets without any major difficulties. No reported aspiration. She remains in atrial fibrillation. She remains on amiodarone maintenance of 0.5 mg per minute. The patient is also on a Cardizem drip at 5 mg an hour. The patient is also on anticoagulation with oral Eliquis. Echocardiogram showed an ejection fraction of 55% and the patient elevated RV systolic pressure of 53 mmHg. This is consistent with moderate to severe pulmonary hypertension and tricuspid regurgitation. The patient continues to have edema in lower extremity is bilaterally. Overall fluid balance over the past 24 hours has been -452 mL. The patient is on Lasix 40 mg IV every 12 hours. This was started today by the primary care team. The patient is on oral prednisone 20 mg twice a day and the patient was taken off the IV Solu-Medrol. No other significant events overnight. No agitation. She has a sitter at the bedside. 06/04/2021, the patient is doing poorly. I had some difficulties in arousing this patient on the medical floor. As such, I think the patient may be in a CO2 narcosis states. Her chest x-ray from yesterday was showing an extensive consolidation of the right lung and the patient has obvious signs of fluid overload with extensive edema in lower extremity bilaterally. The patient is arousable upon repeated stimulation unit if left ultimately did, the patient will go back to sleep. The patient remains in atrial fibrillation. Rate is controlled and the patient is currently on a combination of amiodarone drip at 0.5 mg per minute and the patient is also on Cardizem drip at 5 mg an hour. She was given anticoagulation with Lovenox 100 mg subcu every 12 hours. At the same time, the patient was receiving IV Lasix 40 mg every 12 hours. Overall fluid balance has been negative. The patient continues to have significant amount of edema in lower extremity is bilaterally. No reported aspiration. No reported agitation. Based on all this, I made a decision to transfer this patient to the intensive care unit. She will need very close monitoring, BiPAP support, aggressive diuresis and management of her atrial fibrillation. On today's evaluation of 06/05/2021, the patient remains on a BiPAP at a setting of 12/5 cm of water and FiO2 of 50%. She is more arousable compared to yeste rday. A blood. This was done while her pulmonary status. The patient's blood gases from yesterday showed a pH of 7.34 with a pCO2 of 66 and pO2 of 86. The follow-up blood gases will be obtained today. A follow-up chest x-ray still pending from today. Meanwhile, the patient has signs of fluid overload. The patient was started on Lasix drip which is currently running at 10 mg an hour. The patient has been a negative fluid balance of 1.7 L 4 yesterday and since today, the patient has been in a negative fluid balance of 3.3 L. Her BUN is at 25 L of 0.8. Sodium level is at 141 with a potassium level of 4.4. That hemoglobin is at 9.5 and the patient's white cell count is at 4.7. The patient remains in atrial fibrillation. Rate is controlled. The patient is currently off amiodarone and the patient is off Cardizem and the patient isn't taking therapeutic doses of Lovenox 1 mg subcu every 12 hours. The patient did not require any sedation. Initially, she was slightly restless and agitated. The patient was given order for Precedex which she never used. She remains on IV Protonix patient remains on IV Solu Medrol and the patient also is on Rocephin and doxycycline combination. 06/06/2021, the patient is considerably much more alert and awake compared to yesterday. She still on a BiPAP at a pressure of 12/5 cm of water with an FiO2 of 30%. She remains on Precedex at 0.5 [facility] kilogram per minute and as will be gradually weaned off and discontinued. She is very much calm and comfortable and responsive. Her fluid balance is negative as the patient is on Lasix drip at 10 mg an hour. 4 yesterday, the neck fluid balance of been -3.3 L in for today she is oriented to 5.1 L negative fluid balance. Her BUN is at 29 with a creatinine of 0.8. No major active disturbances. Her potassium level is at 3.5. Serum bicarbonate of 44. At the same time, the patient has developed some thrombocytopenia. Platelet count is down to 83, hemoglobin however is stable at 9.5 with a white cell count of 2.6. The blood gases from yesterday was completed and the patient hasn't improvement and acid base status. The patient was at 7.38 with a pCO2 of 78 and a pO2 of 153 and this was on FiO2 of 50%. Chest x-ray was repeated today and is still showing some right-sided pleural effusion. The patient is diuresing very nicely with diuretics and IV Lasix. The patient continues to have significant amount of edema in lower extremity is bilaterally. Cardiac rhythm is sinus. The patient remains on Lovenox therapeutic dose for DVT prophylaxis. No focal neurological deficit. She is in no code. 06/06/2021, the patient is being seen for a follow-up. She is awake. She is not having any new complaints. She continues to be on a Lasix drip and the patient is on [employer] progress in terms of diuresis. Over the past 24 hours, she was 5.1 L negative fluid balance. Patient is also another 6.5 negative fluid balance since today. Meanwhile, the patient's electrodes were potassium level of 3.5, and a serum bicarb is up to 46 and the BUN is at 35 with a creatinine of 1.2. The patient's is much improved. The chest x-ray however shows persistent but the pleural effusions right more than left. The white cell count is at 4.7 with a hemoglobin 9.6 and platelet count of 71 and that has been persistent and ongoing drop in platelet count this admission. The patient remains on therapeutic dose of Lovenox 100 mg subcu every 12 hours. Cardiac rhythm is sin us and it's well-controlled at this point in time and the patient is currently off amiodarone drip. She is having issues with agitation and restlessness overnight and she remains on Zyprexa. She is off the BiPAP. Overnight, the patient briefly had to be placed on Precedex and attentive chest that his discontinued as the patient is pleasantly confused. No agitation. No thrashing. No restlessness. Objective - Vital Signs Vital signs: Vital Signs Temp 98.0 F 06/07/21 12:00 Pulse 111 H 06/07/21 12:23 Resp 16 04/08/22 12:23 BP 106/59 06/07/21 12:00 Pulse Ox 97 06/07/21 11:00 Intake & Output 06/06/21 06/07/21 06/07/21 18:59 06:59 18:59 Intake Total 794.454 565.269 176.667 Output Total 3680 4275 1800 Balance -2885.546 -3709.731 -1623.333 Weight 109.769 kg 100.4 kg Intake: IV 600 410 85 0.9 NS 100 130 50 Doxycycline 100 mg In 100 100 Sodium Chloride 0.9% 100 ml @ 100 mls/hr IVPB Q12H MARK Rx#:[id number] Furosemide 100 mg In 90 130 35 Sodium Chloride 0.9% 90 ml @ 5 MG/HR 5 mls/hr IV .Q20H MARK Rx#:[id number] Potassium Chloride 10 meq 310 In Water For Injection 1 100ml.bag @ 100 mls/hr IVPB Q1HR MARK Rx#: [id number] cefTRIAXone 1 gm In 50 Sodium Chloride 0.9% 50 ml @ 100 mls/hr IVPB Q24H MARK Rx#:[id number] Intake, IV Titration 194.454 155.269 91.667 Amount Dexmedetomidine/0.9% NaCl 94.454 55.269 (Pmx) 400 mcg In Empty Bag 1 bag @ 0.2 MCG/KG/HR 5.625 mls/hr IV .[id number] MARK Rx#:[id number] Furosemide 100 mg In 100 100 91.667 Sodium Chloride 0.9% 90 ml @ 5 MG/HR 5 mls/hr IV .Q20H MARK Rx#:[id number] Output: Urine 3680 4275 1800 Other: Voiding Method Indwelling Catheter Indwelling Catheter Indwelling Catheter - Exam No acute distress. the patient is somewhat lethargic and the patient is awake, alert, communicating, confused. Head exam was generally normal. There was no scleral icterus or corneal arcus. Mucous membranes were moist. Neck supple. Full range of motion. No adenopathy thyromegaly or neck vein distention. Cardiovascular examination reveals an irregular rhythm and rate. S1-S2 normal. No S3 or S4. No discernible murmur noted. Heart sounds are distant. Lungs reveal scattered bilateral rhonchi. Minimal bibasilar crackles. She does not take a deep breath. She has diminished breath sounds bilaterally along with scattered expiratory wheezes throughout. Abdomen is obese. Bowel sounds are not noted. Extremities improvement in the edema in lower extremity is bilaterally. No cyanosis or clubbing. Skin is without rash or lesion. Neurologic examination is confused. Communicating. Neurologic exam is nonfocal. Patient is moving all 4 extremity is without any limitation. No facial asymmetry. Pupils are equal and symmetric to light.. - Labs CBC & Chem 7: 06/07/21 07:17 06/07/21 07:17 Labs: Abnormal Lab Results - Last 24 Hours (Table) 06/07/21 06/07/21 Range/Units 07:17 07:17 RBC 3.57 L (3.80-5.40) m/uL Hgb 9.6 L (11.4-16.0) gm/dL Hct 33.0 L (34.0-46.0) % MCHC 29.2 L (31.0-37.0) g/dL RDW 16.8 H (11.5-15.5) % Plt Count 71 L (150-450) k/uL Lymphocytes # 0.5 L (1.0-4.8) k/uL Chloride 90 L (98-107) mmol/L Carbon Dioxide 46 H* (22-30) mmol/L BUN 35 H (7-17) mg/dL Creatinine 1.21 H (0.52-1.04) mg/dL Calcium 8.3 L (8.4-10.2) mg/dL Assessment and Plan Plan: Acute on chronic hypoxemic and hypercapnic respiratory failure, with CO2 narcosis, and acute mental status changes. Clinically, the patient was showing signs of CO2 narcosis and fluid overload with possibly a component of fluid overload. The patient was subjected to diuretics and BiPAP therapy and since then the patient is improved. This morning, the patient is off the BiPAP. The chest x-ray still showing bilateral pleural effusions right more than left yet overall fluid balance is improved considerably on this patient and the patient is currently off the BiPAP. Subsequent blood gases showed improvement in the acid base status. The patient remains on a Lasix drip. Obesity with a BMI of 39.1 COPD Right lung opacity/consolidation, could be also related to underlying pleural fluid as the patient has signs of fluid overload. Nevertheless, based on the chest x-ray findings, this needs to be correlated with a pneumonia. There is underlying cardiomegaly.The chest x-ray from today is showing adequate and bilateral infiltrates and pleural effusion right more than left consistent with CHF and volume overload. History of atrial fibrillation, with rapid ventricular response. The patient is currentl off amiodarone drip and Cardizem drip and the patient is on therapeutic dose of Lovenox 100 mg subcu every 12 hours. History of CHF. The echocardiogram showed normal LV, mild LVH, EF around 50- 55%, severe RV dilation with a pulmonary artery pressure of around 53 mmHg and moderate to severe tricuspid regurgitation Morbid obesity. History of hyperlipidemia. History of hypertension. Increased lower extremity edema Chronic normocytic anemia. Metabolic alkalosis Acute kidney injury with a creatinine of 1.2 related to diuresis. New onset thrombocytopenia with ongoing drop in the platelet count, consider this to be related to Lovenox Plan Keep the patient in the intensive care unit Follow-up chest x-ray was noted and the patient continues to have a persistent right-sided pleural effusion Drop the Lasix infusion rate to 5 mg an hour Give the patient will dose of Diamox to 50 mg IV every 12 hours 2 Discontinue the doxycycline Discontinue Lovenox Keep the patient off anticoagulation for the next 24 hours and monitor the platelet count. At the platelet count is above 50, I went to proceed with a thoracentesis of the right lung tomorrow. Continue BiPAP at a pressure of 12/5 cm of water and titrate FiO2 to maintain saturation above 90%, current FiO2 is a 30% Continued IV Rocephin Discontinue the Precedex in increase the Zyprexa dose to 15 mg daily Obtain a chest x-ray in a.m. Monitor renal function Condition is critical and the patient will be chest intensive care unit. We obtained advanced directives. DNR/DNI CODE STATUS for now.
[2021-06-07] MEDS: POTASSIUM BICARBONATE/CIT AC 20 MEQ TABLET.EFF NG-TUBE SCH ×2 (13:20→14:31)
[2021-06-07] MEDS ORDERED: DILTIAZEM DRIP BOLUS FROM BAG 1 MG SOLN IV ONE (13:52)
[2021-06-07] MEDS: DILTIAZEM 125 MG in SODIUM CHLORIDE 0.9% 100 ML IV SCH ×2 (14:15→20:10)
[2021-06-07] MEDS: DEXMEDETOMIDINE/0.9% NACL(PMX) 400 MCG in EMPTY BAG 1 BAG IV SCH ×3 (15:33→23:41)
[2021-06-07] MEDS: ATORVASTATIN 40 MG TAB PO SCH (20:16)
[2021-06-07] MEDS: OLANZapine 7.5 MG TAB PO SCH (20:16)
[2021-06-07] MEDS: NOREPINEPHRINE 4 MG in SODIUM CHLORIDE 0.9% 250 ML IV SCH (21:33)
[2021-06-08] MEDS: FUROSEMIDE 100 MG in SODIUM CHLORIDE 0.9% 90 ML IV SCH ×2 (00:57→17:22)
[2021-06-08] MEDS: AMIODARONE 450 MG in DEXTROSE 5% IN WATER 250 ML IV SCH ×4 (01:22→15:42)
[2021-06-08] MEDS: DEXMEDETOMIDINE/0.9% NACL(PMX) 400 MCG in EMPTY BAG 1 BAG IV SCH ×3 (06:42→23:53)
[2021-06-08] MEDS: carvediloL 3.125 MG TAB PO SCH ×2 (06:43→15:43)
[2021-06-08 06:46] LABS: Anisocytosis Slight; Basophils % (A) 0 %; Eosinophils # (A) 0.1 k/uL (0-0.7); Eosinophils % (A) 1 %; HCT 34.8 % (34.0-46.0); HGB 10.1 gm/dL (11.4-16.0); Hypochromasia Marked; Lymphocytes # (A) 0.9 k/uL (1.0-4.8); Lymphocytes % (A) 13 %; MCH 26.4 pg (25.0-35.0); MCV 90.9 fL (80.0-100.0); Mean Platelet Volume 9.5; Monocytes # (A) 0.4 k/uL (0-1.0); Monocytes % (A) 5 %; Neutrophils # (A) 5.8 k/uL (1.3-7.7); Neutrophils % (A) 80 %; Platelet Count 104 k/uL (150-450); Poikilocytosis Slight; RBC 3.83 m/uL (3.80-5.40); RDW 17.2 % (11.5-15.5); WBC 7.3 k/uL (3.8-10.6)
--- NOTE | 2021-06-08 06:47 | XR ---
EXAMINATION TYPE: XR chest 1V portable DATE OF EXAM: 06/08/2021 5:29 AM COMPARISON:Chest radiograph from one day prior. TECHNIQUE: XR chest 1V portable Frontal view of the chest. CLINICAL INDICATION:Female, 70 years old with history of shortness of breath; FINDINGS: Lungs/Pleura: Persistent suspected bilateral layering pleural effusions. No evidence of pneumothorax. Increased lucency within the lung apices. Pulmonary vascularity: Unremarkable. Heart/mediastinum: Cardiomediastinal silhouette is enlarged and stable. Musculoskeletal: No acute osseous pathology. IMPRESSION: 1. Similar suspect bilateral layering pleural effusions with associated subsegmental atelectasis. 2. Similar cardiomegaly. 3. Similar COPD changes
[2021-06-08 07:14] LABS: Calcium 8.5 mg/dL (8.4-10.2); Potassium 3.2 mmol/L (3.5-5.1)
[2021-06-08] MEDS: SYMBICORT 160-4.5 MCG INHALER INHALATION SCH ×3 (07:39→20:01)
[2021-06-08] MEDS: IPRATROPIUM-ALBUTEROL 3 ML NEB INHALATION SCH ×4 (07:40→20:01)
[2021-06-08] MEDS: ESTROGENS CONJUGATED 1.25 MG PO SCH (09:00)
--- NOTE | 2021-06-08 09:24 | P.PCN ---
Date of Procedure: 06/08/21 Preoperative Diagnosis: right sided pleural effusion Postoperative Diagnosis: right sided pleural effusion Procedure(s) Performed: Right sided thoracentesis Anesthesia: local Surgeon: Desire Reyez Estimated Blood Loss (ml): 0 Pathology: other Condition: critical Disposition: ICU Operative Findings: A time out was performed and the chest x-ray was reviewed, the appropriate side was confirmed and marked. My hands were washed immediately prior to the procedure. I wore a surgical cap, mask with protective eyewear, sterile gown and sterile gloves throughout the procedure. The patient was prepped and draped in a sterile manner using chlorhexidine scrub after the appropriate level was percussed and confirmed by ultrasound. 1% lidocaine was used to anesthesize the skin, subcutaneous tissue, superior aspect of the rib periosteum and parietal pleura. A finder needle was then introduced over the superior aspect of the rib to locate the pleural fluid; 2colored fluid was aspirated at a depth of approximately 2 cm. A 10-blade scalpel was used to teena the skin at the insertio n site. The [id number] needle was then introduced through the skin incision into the pleural space using negative aspiration pressure and the red colometric indicator to confirm appropriate positioning of the needle. The thoracentesis catheter was then threaded without difficulty. 1250 ml of turbid colored fluid was removed without difficulty. The catheter was then removed. No immediate complications were noted during the procedure. A post-procedure chest x-ray is pending at the time of this note. The fluid will be sent for studies. Estimated blood loss is 0cc
--- NOTE | 2021-06-08 09:51 | XR ---
EXAMINATION TYPE: XR chest 1V DATE OF EXAM: 06/08/2021 9:42 AM COMPARISON:None TECHNIQUE: XR chest 1V Frontal view of the chest. CLINICAL INDICATION:Female, 70 years old with history of post thoracentesis; FINDINGS: Lungs/Pleura: There is no evidence of focal consolidation, or pneumothorax. Status post thoracentesis with airspace opacities within the lung bases with persistent blunting of the costophrenic angles. Pulmonary vascularity: Unremarkable. Heart/mediastinum: Cardiomediastinal silhouette is enlarged and stable. Musculoskeletal: No acute osseous pathology. IMPRESSION: 1. Improved positioning on today's exam with atelectasis changes within the lung bases and persisten t trace bilateral pleural effusions. 2. COPD changes.
[2021-06-08] MEDS: PANTOPRAZOLE 40 MG/10 ML VIAL IVP SCH (09:57)
[2021-06-08] MEDS: LIDOCAINE 5% PATCH TOPICAL SCH (09:57)
[2021-06-08] MEDS ORDERED: Magnesium Replacement Protocol 1 EACH MISC MISCELLANE PRN (10:55)
--- NOTE | 2021-06-08 11:04 | P.PN ---
Subjective 70-year-old female with past medical history of congestive heart failure, A. fib on anticoagulation, COPD with noncompliant use of her BiPAP, mood disorder who is brought into the emergency department for hypoxia. Patient was recently seen at [facility] for altered mental status. Found to have subdural hematomas versus hygromas and was shipped to [place]. [facility] evaluation deemed that the patient had chronic hygromas and she was cleared for anticoagulant use. Patient was transferred to [facility] for rehab. Patient has been noncompliant with her BiPAP and medications. at bedside states that she refuses majority of her medications. Today the staff found her more confused than normal. They state that she does has a history of some confusion at baseline however today was worsens. Her oxygen saturations were in the 80s. EMS attempted intubation of the patient however she was responsive and clenching down. There were unable to get an IV and therefore I was placed in the left humerus. Patient was placed on a nasal cannula. She did perk up upon transfer to the hospital however became agitated and therefore received 110 mg of ketamine. Patient arrives sedated with shallow respirations. She is unable to obtain any history from. She is found to be in A. fib which she has a history of. Laboratory studies; demonstrates a leukocytosis of 13.5. ABG demonstrates a CO2 of 89. Lactic acid 3.1. Troponin 0.059. BNP elevated at 4460. Urinalysis demonstrates occasional bacteria with moderate budding yeast. Chest x-ray is performed which demonstrates right lower lobe pneumonia and effusion. Patient was initiated on antibiotics after blood cultures were obtained. Fluids were not given to the patient even though she does meet sepsis criteria as she does have history of congestive heart failure and has visible effusion on chest x-ray with an elevated BNP. Patient does have a mildly low blood pressure and therefore was given a 500 mL normal saline bolus only. Patient is initiated on amiodarone due to her A. fib with persistently elevated heart rate. CT brain demonstrate the chronic hygromas without acute abnormality. 06/01/2021 Patient is seen and evaluated and follow-up with no issues overnight per nursing staff although patient continues to be confused and yelling out at times and can be redirected. Patient reports to having shortness of breath and is currently m aintained on 4 L via nasal cannula. Cardiology and pulmonary following and patient is maintained on IV Cardizem and oral anticoagulant has been resumed. Patient with extensive weakness and will have PT/OT evaluated the patient and family would like the patient to return to [facility]. Case management and social work following. Patient is able to answer questions somewhat appropriately when redirected although continues to be confused and rambles at times. No reports of chest pain. Patient is afebrile. 06/02/2021 Patient is seen in follow-up today and per nursing staff and sitter at the [facility] for safety, patient continues with confusion and has been pocketing her pills and spitting them out and not tolerating oral intake very well. Cardiology following and patient is to continue on IV Cardizem along with amiodarone until able to tolerate oral intake. Patient also continued on ce ftriaxone and oral prednisone with pulmonary following. Will add low-dose Seroquel at night and monitor closely. 06/03/2021 Patient remains confused and drowsy secondary to her CO2 narcosis but she is arousable and she knows and she is in the hospital. She denies headache or weakness or numbness, no asymmetry noted in her examination. Both pupils are equal and reactive to light. No meningeal signs. She ate 75% of her denying 100% of snack last night. She is on 4 L oxygen via nasal cannula. She is hemodynamically stable and afebrile. The hemoglobin is stable at 8.6, platelet count improved slightly at 121, creatinine normal 0.8, pro-calcitonin is slightly elevated at 0.18. Chest x-ray showing possible pneumonia and effusion and the recommend follow-up. I looked at the chest x-ray myself she has bilateral infiltrates, more on the right side, looks slightly better than when she came in to the hospital. She has significant bilateral leg edema probnp is improving since admission 4460 to 3190 Under [facility] on this admission showing ejection fraction of 50-55% with moderate to severe tricuspid regurgitation and moderate pulmonary hypertension She has amiodarone and Cardizem running also she is on ceftriaxone, therapeutic dose of Lovenox and Eliquis is on hold. She is on prednisone 20 mg twice daily and Seroquel. We will add doxycycline for coverage of atypical bacteria. IV Lasix 40 twice a day. 06/06/2021, resume the care of the patient Patient remains in the ICU on high flow nasal cannula at 4 L however earlier she was on BiPAP but her respiratory status is improving. She is currently on Lasix drip for her diastolic CHF him on ceftriaxone and doxycycline for her right lower lobe pneumonia and she was getting BiPAP for her CO2 retention. Patient clinically improved. Negative balance of 5-6 L over 24 hours Also she is on therapeutic dose of Lovenox Currently her heart rate is core controlled with Coreg and Lovenox at therapeutic dose. Ejection fraction 45-50% 06/07/2021 Patient uses BiPAP for about 4 hours last night, then she switched to 4 L/m of oxygen via nasal cannula and she is doing well this morning, she can talk freely with minimal shortness of breath. She is hemodynamically stable. Labs are pending. Chest x-ray reviewed by myself showing persistent bilateral infiltrates on both lower sites, more on the right side. She is eating without difficulty. She remains on Lasix drip at 10 mg per hour, ceftriaxone and doxycycline, Lovenox 100 mg twice a day, Coreg 3.125 mg, Seroquel/Zyprexa. She has good urine output 06/08/2021 Patient remains in the ICU, she is currently on 4 L of oxygen per minute. She refused BiPAP last night. She is eating little but she'll try to eat more this morning. No significant dyspnea or coughing, she is breathing easier compared to yesterday after 1250 mL of turbid fluid removed from her right-sided thoraco centesis yesterday. She is a bit hypertensive and bradycardiac today while she is on Lasix drip whil e the dose lowered from 10 mg/h down to 5 mg per hour. Also she is on Coreg small dose 3.125 per cardiology is following the patient closely. WBC improved 7.3 hemoglobin went up 10.5 as well as platelet 204. Carbon dioxide is elevated 49 and BNP is also elevated 3940. Currently she is covered with ceftriaxone, Lasix drip, therapeutic dose of Lovenox and pressors, she is on levophed Objective - Vital Signs Vital signs: Vital Signs Temp 98.0 F 06/08/21 08:00 Pulse 54 L 06/08/21 09:00 Resp 16 06/08/21 09:00 BP 81/39 06/08/21 09:00 Pulse Ox 100 06/08/21 09:00 Intake & Output 06/07/21 06/08/21 06/08/21 18:59 06:59 18:59 Intake Total 329.552 657.080 261.495 Output Total 3470 4675 500 Balance -3140.448 -4017.920 -238.505 Weight 100.4 kg 98.6 kg Intake: IV 225 310 20 0.9 NS 110 120 10 Diltiazem 125 mg In 50 120 10 Sodium Chloride 0.9% 100 ml @ 10 MG/HR 10 mls/hr IV .[id number] MARK Rx#: [id number] Furosemide 100 mg In 65 20 Sodium Chloride 0.9% 90 ml @ 5 MG/HR 5 mls/hr IV .Q20H MARK Rx#:[id number] cefTRIAXone 1 gm In 50 Sodium Chloride 0.9% 50 ml @ 100 mls/hr IVPB Q24H MARK Rx#:[id number] Intake, IV Titration 104.552 347.080 241.495 Amount Dexmedetomidine/0.9% NaCl 12.885 160.180 (Pmx) 400 mcg In Empty Bag 1 bag @ 0.2 MCG/KG/HR 5.02 mls/hr IV .[id number] MARK Rx#:[id number] Diltiazem 125 mg In 59.167 115.833 Sodium Chloride 0.9% 100 ml @ 10 MG/HR 10 mls/hr IV .[id number] MARK Rx#: [id number] Furosemide 100 mg In 91.667 100 Sodium Chloride 0.9% 90 ml @ 5 MG/HR 5 mls/hr IV .Q20H MARK Rx#:[id number] Norepinephrine 4 mg In 27.733 125.662 Sodium Chloride 0.9% 250 ml @ 0.05 MCG/KG/MIN 19. 126 mls/hr IV .[id number] MARK Rx#:[id number] Output: Urine 3470 4675 500 Other: Voiding Method Indwelling Catheter Indwelling Catheter - Exam -GENERAL: The patient is confused and drowsy but arousable, she follows commands and she knows she is in the hospital, not in any acute distress. Well developed, well nourished. HEENT: Pupils are round and equally reacting to light. EOMI. No scleral icterus. No conjunctival pallor. Normocephalic, atraumatic. No pharyngeal erythema. No thyromegaly. CARDIOVASCULAR: S1 and S2 present. No murmurs, rubs, or gallops. PULMONARY: Chest is clear to auscultation, no wheezing . Decreased breath sounds on both sides. Bilateral crepitation ABDOMEN: Soft, nontender, nondistended, normoactive bowel sounds. No palpable organomegaly. MUSCULOSKELETAL: No joint swelling or deformity. -EXTREMITIES: No cyanosis, clubbing,. 2-3+ bilateral pitting Leg edema NEUROLOGICAL: Gross neurological examination did not reveal any focal deficits. SKIN: No rashes. no petechiae. - Labs CBC & Chem 7: 06/08/21 06:05 06/08/21 06:05 Labs: Abnormal Lab Results - Last 24 Hours (Table) 06/07/21 06/08/21 06/08/21 Range/Units 07:17 06:05 06:05 Hgb 10.1 L (11.4-16.0) gm/dL MCHC 29.0 L (31.0-37.0) g/dL RDW 17.2 H (11.5-15.5) % Plt Count 104 L (150-450) k/uL Lymphocytes # 0.9 L (1.0-4.8) k/uL Potassium 3.2 L (3.5-5.1) mmol/L Chloride 90 L 86 L (98-107) mmol/L Carbon Dioxide 49 H* (22-30) mmol/L BUN 35 H 34 H (7-17) mg/dL Creatinine 1.21 H 1.18 H (0.52-1.04) mg/dL Glucose 127 H (74-99) mg/dL Calcium 8.3 L (8.4-10.2) mg/dL Assessment and Plan Assessment: Possible bilateral pneumonia Possible acute diastolic CHF with ejection fraction 50-55% with fluid overload and bilateral pitting edema COPD with narcosis. She is on steroids for acute exacerbation Possible obesity hypoventilation syndrome A. fib with RVR Metabolic encephalopathy secondary to above Acute hypoxic hypercapnic respiratory failure Moderate to severe tricuspid regurgitation Moderate pulmonary hypertension morbid obesity with BMI of 40 Plan: This is a pleasant 70-year-old years old female who presents with multiple cardiac and pulmonary problems including possible pneumonia, CHF, AMS, high troponin, hypoxia and hypercapnia, A. fib and RVR and pulmonary hypertension. Continue with Coreg cardiology team recommendation Continue with anticoagulation and currently on Lovenox while Eliquis on hold. Continue with pulmonary team on the case Continue with the Lasix to drip Continue with Seroquel as needed Continue with antibiotic ceftriaxone Labs and medication were reviewed.. Continue same treatment. Continue with symptomatic treatment. Resume home medication. Monitor lytes and vitals. DVT and GI prophylaxis. Further recommendations as per clinical course of the patient DVT prophylaxis: Subcutaneous Lovenox GI Prophylaxis: Pepcid Prognosis is definitely guarded
--- NOTE | 2021-06-08 11:42 | P.PN ---
Subjective Progress Note Date: 06/08/21 On today's evaluation of 06/03/2021, the patient continues to be lethargic and somewhat confused. She is arousable. She only follows and can indulge herself and to short conversations. If left on some related, she will go back to sleep. The patient apparently has been able to also swallow her tablets without any major difficulties. No reported aspiration. She remains in atrial fibrillation. She remains on amiodarone maintenance of 0.5 mg per minute. The patient is also on a Cardizem drip at 5 mg an hour. The patient is also on anticoagulation with oral Eliquis. Echocardiogram showed an ejection fraction of 55% and the patient elevated RV systolic pressure of 53 mmHg. This is consistent with moderate to severe pulmonary hypertension and tricuspid regurgitation. The patient continues to have edema in lower extremity is bilaterally. Overall fluid balance over the past 24 hours has been -452 mL. The patient is on Lasix 40 mg IV every 12 hours. This was started today by the primary care team. The patient is on oral prednisone 20 mg twice a day and the patient was taken off the IV Solu-Medrol. No other significant events overnight. No agitation. She has a sitter at the bedside. 06/04/2021, the patient is doing poorly. I had some difficulties in arousing this patient on the medical floor. As such, I think the patient may be in a CO2 narcosis states. Her chest x-ray from yesterday was showing an extensive consolidation of the right lung and the patient has obvious signs of fluid overload with extensive edema in lower extremity bilaterally. The patient is arousable upon repeated stimulation unit if left ultimately did, the patient will go back to sleep. The patient remains in atrial fibrillation. Rate is controlled and the patient is currently on a combination of amiodarone drip at 0.5 mg per minute and the patient is also on Cardizem drip at 5 mg an hour. She was given anticoagulation with Lovenox 100 mg subcu every 12 hours. At the same time, the patient was receiving IV Lasix 40 mg every 12 hours. Overall fluid balance has been negative. The patient continues to have significant amount of edema in lower extremity is bilaterally. No reported aspiration. No reported agitation. Based on all this, I made a decision to transfer this patient to the intensive care unit. She will need very close monitoring, BiPAP support, aggressive diuresis and management of her atrial fibrillation. On today's evaluation of 06/05/2021, the patient remains on a BiPAP at a setting of 12/5 cm of water and FiO2 of 50%. She is more arousable compared to yeste rday. A blood. This was done while her pulmonary status. The patient's blood gases from yesterday showed a pH of 7.34 with a pCO2 of 66 and pO2 of 86. The follow-up blood gases will be obtained today. A follow-up chest x-ray still pending from today. Meanwhile, the patient has signs of fluid overload. The patient was started on Lasix drip which is currently running at 10 mg an hour. The patient has been a negative fluid balance of 1.7 L 4 yesterday and since today, the patient has been in a negative fluid balance of 3.3 L. Her BUN is at 25 L of 0.8. Sodium level is at 141 with a potassium level of 4.4. That hemoglobin is at 9.5 and the patient's white cell count is at 4.7. The patient remains in atrial fibrillation. Rate is controlled. The patient is currently off amiodarone and the patient is off Cardizem and the patient isn't taking therapeutic doses of Lovenox 1 mg subcu every 12 hours. The patient did not require any sedation. Initially, she was slightly restless and agitated. The patient was given order for Precedex which she never used. She remains on IV Protonix patient remains on IV Solu Medrol and the patient also is on Rocephin and doxycycline combination. 06/06/2021, the patient is considerably much more alert and awake compared to yesterday. She still on a BiPAP at a pressure of 12/5 cm of water with an FiO2 of 30%. She remains on Precedex at 0.5 [facility] kilogram per minute and as will be gradually weaned off and discontinued. She is very much calm and comfortable and responsive. Her fluid balance is negative as the patient is on Lasix drip at 10 mg an hour. 4 yesterday, the neck fluid balance of been -3.3 L in for today she is oriented to 5.1 L negative fluid balance. Her BUN is at 29 with a creatinine of 0.8. No major active disturbances. Her potassium level is at 3.5. Serum bicarbonate of 44. At the same time, the patient has developed some thrombocytopenia. Platelet count is down to 83, hemoglobin however is stable at 9.5 with a white cell count of 2.6. The blood gases from yesterday was completed and the patient hasn't improvement and acid base status. The patient was at 7.38 with a pCO2 of 78 and a pO2 of 153 and this was on FiO2 of 50%. Chest x-ray was repeated today and is still showing some right-sided pleural effusion. The patient is diuresing very nicely with diuretics and IV Lasix. The patient continues to have significant amount of edema in lower extremity is bilaterally. Cardiac rhythm is sinus. The patient remains on Lovenox therapeutic dose for DVT prophylaxis. No focal neurological deficit. She is in no code. 06/07/2021, the patient is being seen for a follow-up. She is awake. She is not having any new complaints. She continues to be on a Lasix drip and the patient is on Ex[employer] progress in terms of diuresis. Over the past 24 hours, she was 5.1 L negative fluid balance. Patient is also another 6.5 negative fluid balance since today. Meanwhile, the patient's electrodes were potassium level of 3.5, and a serum bicarb is up to 46 and the BUN is at 35 with a creatinine of 1.2. The patient's is much improved. The chest x-ray however shows persistent but the pleural effusions right more than left. The white cell count is at 4.7 with a hemoglobin 9.6 and platelet count of 71 and that has been persistent and ongoing drop in platelet count this admission. The patient remains on therapeutic dose of Lovenox 100 mg subcu every 12 hours. Cardiac rhythm is sin us and it's well-controlled at this point in time and the patient is currently off amiodarone drip. She is having issues with agitation and restlessness overnight and she remains on Zyprexa. She is off the BiPAP. Overnight, the patient briefly had to be placed on Precedex and attentive chest that his discontinued as the patient is pleasantly confused. No agitation. No thrashing. No restlessness. 06/08/2021, I'm seeing the patient for a follow-up. The patient is doing well. The patient was admitted to restless and agitated yesterday. The patient also went into atrial fibrillation with rapid ventricular response. Based on that, the patient started on a Cardizem drip initially at 10 mg an hour and the patient currently is somewhat bradycardic special that the patient required also some Precedex to control her agitation. Precedex is currently running at 0.25 mg/kg per minute and this will be discontinued on a Cardizem drip will be also discontinued. The patient's atrial fibrillation has been under adequate control for now and no agitation this morning. The patient remains on Lasix drip at 5 mg an hour. The patient's overall fluid balance is been -6.5 L over the past 24 hours and 7.1 L since morning. The patient is doing much better. Lower extremity edema is improved. I furthermore performed a right-sided thoracentesis on this patient a total of 1.25 L of fluid was aspirated from the right lung. Note that the morning chest x-ray showed a large right-sided pleur al effusion and a subsequent follow-up chest x-ray showed noticing the pneumothorax and there is significant expansion of the right lung. The patient is not having any major respiratory distress. The white cell count is at 7.3 with hemoglobin of 10. The BUN is a 49 and his sodium level is at 140, BUN at 34 with a creatinine of 1.1. She is confused and she does have an underlying dementia for now. She is on Zyprexa and the dose was increased up to 15 mg overnight. Objective - Vital Signs Vital signs: Vital Signs Temp 98.0 F 06/08/21 08:00 Pulse 61 06/08/21 11:30 Resp 17 06/08/21 11:30 BP 99/61 06/08/21 11:30 Pulse Ox 100 06/08/21 11:30 Intake & Output 06/07/21 06/08/21 06/08/21 18:59 06:59 18:59 Intake Total 329.552 657.080 369.495 Output Total 3470 4675 2650 Balance -3140.448 -4017.920 -2280.505 Weight 100.4 kg 98.6 kg Intake: IV 225 310 80 0.9 NS 110 120 50 Diltiazem 125 mg In 50 120 10 Sodium Chloride 0.9% 100 ml @ 10 MG/HR 10 mls/hr IV .[id number] MARK Rx#: [id number] Furosemide 100 mg In 65 20 20 Sodium Chloride 0.9% 90 ml @ 5 MG/HR 5 mls/hr IV .Q20H MARK Rx#:[id number] cefTRIAXone 1 gm In 50 Sodium Chloride 0.9% 50 ml @ 100 mls/hr IVPB Q24H MARK Rx#:[id number] Intake, IV Titration 104.552 347.080 289.495 Amount Dexmedetomidine/0.9% NaCl 12.885 160.180 48 (Pmx) 400 mcg In Empty Bag 1 bag @ 0.2 MCG/KG/HR 5.02 mls/hr IV .[id number] MARK Rx#:[id number] Diltiazem 125 mg In 59.167 115.833 Sodium Chloride 0.9% 100 ml @ 10 MG/HR 10 mls/hr IV .[id number] MARK Rx#: [id number] Furosemide 100 mg In 91.667 100 Sodium Chloride 0.9% 90 ml @ 5 MG/HR 5 mls/hr IV .Q20H MARK Rx#:[id number] Norepinephrine 4 mg In 27.733 125.662 Sodium Chloride 0.9% 250 ml @ 0.05 MCG/KG/MIN 19. 126 mls/hr IV .[id number] MARK Rx#:[id number] Output: Urine 3470 4675 1400 Other 1250 Other: Voiding Method Indwelling Catheter Indwelling Catheter - Exam No acute distress. the patient is somewhat lethargic and the patient is awake, alert, communicating, confused. Head exam was generally normal. There was no scleral icterus or corneal arcus. Mucous membranes were moist. Neck supple. Full range of motion. No adenopathy thyromegaly or neck vein distention. Cardiovascular examination reveals an irregular rhythm and rate. S1-S2 normal. No S3 or S4. No discernible murmur noted. Heart sounds are distant. Lungs reveal scattered bilateral rhonchi. Minimal bibasilar crackles. She does not take a deep breath. She has diminished breath sounds bilaterally along with scattered expiratory wheezes throughout. Abdomen is obese. Bowel sounds are not noted. Extremities improvement in the edema in lower extremity is bilaterally. No cyanosis or clubbing. Skin is without rash or lesion. Neurologic examination is confused. Communicating. Neurologic exam is nonfocal. Patient is moving all 4 extremity is without any limitation. No facial asymmetry. Pupils are equal and symmetric to light.. - Labs CBC & Chem 7: 06/08/21 06:05 06/08/21 06:05 Labs: Abnormal Lab Results - Last 24 Hours (Table) 06/08/21 06/08/21 Range/Units 06:05 06:05 Hgb 10.1 L (11.4-16.0) gm/dL MCHC 29.0 L (31.0-37.0) g/dL RDW 17.2 H (11.5-15.5) % Plt Count 104 L (150-450) k/uL Lymphocytes # 0.9 L (1.0-4.8) k/uL Potassium 3.2 L (3.5-5.1) mmol/L Chloride 86 L (98-107) mmol/L Carbon Dioxide 49 H* (22-30) mmol/L BUN 34 H (7-17) mg/dL Creatinine 1.18 H (0.52-1.04) mg/dL Glucose 127 H (74-99) mg/dL Assessment and Plan Plan: Acute on chronic hypoxemic and hypercapnic respiratory failure, with CO2 narcosis, and acute mental status changes. Clinically, the patient was showing signs of CO2 narcosis and fluid overload with possibly a component of fluid overload. The patient was subjected to diuretics and BiPAP therapy and since then the patient is improved. This morning, the patient is off the BiPAP. The chest x-ray still showing bilateral pleural effusions right more than left yet overall fluid balance is improved considerably on this patient and the patient is currently off the BiPAP. Subsequent blood gases showed improvement in the acid base status. The patient remains on a Lasix drip. The patient is currently on 5 mg of Lasix drip per hour. Significant negativity in terms of fluid balance. Furthermore, right-sided thoracentesis was done with a total of 2.5 L of fluid being removed from the right hemithorax without any complications. The patient is currently on Lasix drip. Obesity with a BMI of 39.1 COPD Right lung opacity/consolidation, could be also related to underlying pleural fluid as the patient has signs of fluid overload. Nevertheless, based on the chest x-ray findings, this needs to be correlated with a pneumonia. There is underlying cardiomegaly.The chest x-ray from today is showing adequate and bilateral infiltrates and pleural effusion right more than left consistent with CHF and volume overload. I performed a right-sided thoracentesis a total of 1.25 L of fluid was removed from the right lung. History of atrial fibrillation, with rapid ventricular response. The patient is a controlled rate for now and the Cardizem drip will be discontinued History of CHF. The echocardiogram showed normal LV, mild LVH, EF around 50- 55%, severe RV dilation with a pulmonary artery pressure of around 53 mmHg and moderate to severe tricuspid regurgitation Morbid obesity. History of hyperlipidemia. History of hypertension. Increased lower extremity edema Chronic normocytic anemia. Metabolic alkalosis Acute kidney injury with a creatinine of 1.1 with a component of metabolic alkalosis New onset thrombocytopenia , the platelet count is on the rise and it's up to 104 and the patient is currently off Lovenox Plan Keep the patient in the intensive care unit Right-sided thoracentesis been completed Continue Lasix infusion rate to 5 mg an hour Diamox 250 mg every 12 hours times for Discontinue the Rocephin Discontinue the doxycycline Discontinue Lovenox and start the patient on Eliquis 5 mg 2 twice a day, monitor the platelet count Keep the patient off anticoagulation for the next 24 hours and monitor the platelet count. At the platelet count is above 50, I went to proceed with a thoracentesis of the right lung tomorrow. Continue BiPAP at a pressure of 12/5 cm of water and titrate FiO2 to maintain saturation above 90%, current FiO2 is a 30% Discontinue the Precedex Zyprexa dose to 15 mg daily Obtain a chest x-ray in a.m. Monitor renal function Condition is critical and the patient will be chest intensive care unit. We obtained advanced directives. DNR/DNI CODE STATUS for now.
[2021-06-08] MEDS: NOREPINEPHRINE 4 MG in SODIUM CHLORIDE 0.9% 250 ML IV SCH (12:49)
[2021-06-08] MEDS: POTASSIUM BICARBONATE/CIT AC 20 MEQ TABLET.EFF NG-TUBE SCH ×5 (12:49→20:44)
--- NOTE | 2021-06-08 13:57 | P.PN ---
Subjective Progress Note Date: 06/08/21 This 70-year-old female with history of obesity. Hypercarbic respiratory failure and some fluid overload and diastolic CHF was transferred to intensive care unit yesterday. Patient has been on BiPAP. Patient was also started on IV Lasix. Patient seemed to be diuresing better. There may be slight improvement in the mental status. She is off amiodarone drip. Her heart rate is controlled. Patient is in atrial fibrillation. She was getting Lovenox for anticoagulation. Overall this seemed to be some progress in critical status. Pulmonary is following this closely. Continue current management. If necessary, IV amiodarone drip to be reinstated. 06/06/2021: This patient with history of hypercarbic respiratory failure, fluid overload and obesity on BiPAP machine. Patient seemed to be much more alert and communicative today. Doesn't complain of any chest pain. Doesn't appear to be in acute distress. Her ABG hasn't shown much improvement. Patient is diuresing very well on IV Lasix. Still has significant edema. Patient heart rate is controlled without IV amiodarone off Cardizem. Her echocardiogram showed previously normal ejection fraction. I'm going to restart her on Coreg 3.125 mg by mouth twice a day. Continue rest of the medications. We'll follow 06/07/2021: Patient is still remains extubated. Seemed to be alert and talkative. Patient however has underlying confusion. Doesn't appear to be in acute distress. Patient blood pressure is running low. Coreg has been held. Her heart rate is remaining stable. She still on IV Lasix and diuresing well. Still has moderate edema of the legs. Patient will continue current medical therapy. May consider switching to bolus of IV Lasix. Prognosis is guarded. 06/08/2021: This patient went to into atrial fibrillation with rapid ventricular response. Patient was initiated on IV Cardizem. Patient was to have a rapid response and patient was advised to be started on amiodarone by my colleague. However, it appears that patient heart rate was coming down and actually she was taken off Cardizem drip. She was never started on amiodarone. Patient was agitated and she was given a Precedex, which seemed to be helped her. She seemed to be sleeping at the time of my examination. She also had a poor TODAY and significant amount of fluid was taken out. Overall clinical status is relatively stable. She'll continue current medical therapy. Objective - Vital Signs Vital signs: Vital Signs Temp 98.0 F 06/08/21 08:00 Pulse 68 06/08/21 11:39 Resp 17 06/08/21 11:30 BP 99/61 06/08/21 11:30 Pulse Ox 100 06/08/21 11:30 Intake & Output 06/07/21 06/08/21 06/08/21 18:59 06:59 18:59 Intake Total 329.552 657.080 413.358 Output Total 3470 4675 2650 Balance -3140.448 -4017.920 -4606.642 Weight 100.4 kg 98.6 kg Intake: IV 225 310 80 0.9 NS 110 120 50 Diltiazem 125 mg In 50 120 10 Sodium Chloride 0.9% 100 ml @ 10 MG/HR 10 mls/hr IV .[id number] MARK Rx#: [id number] Furosemide 100 mg In 65 20 20 Sodium Chloride 0.9% 90 ml @ 5 MG/HR 5 mls/hr IV .Q20H MARK Rx#:[id number] cefTRIAXone 1 gm In 50 Sodium Chloride 0.9% 50 ml @ 100 mls/hr IVPB Q24H MARK Rx#:[id number] Intake, IV Titration 104.552 347.080 333.358 Amount Dexmedetomidine/0.9% NaCl 12.885 160.180 48 (Pmx) 400 mcg In Empty Bag 1 bag @ 0.2 MCG/KG/HR 5.02 mls/hr IV .[id number] MARK Rx#:[id number] Diltiazem 125 mg In 59.167 115.833 Sodium Chloride 0.9% 100 ml @ 10 MG/HR 10 mls/hr IV .[id number] MARK Rx#: [id number] Furosemide 100 mg In 91.667 100 Sodium Chloride 0.9% 90 ml @ 5 MG/HR 5 mls/hr IV .Q20H MARK Rx#:[id number] Norepinephrine 4 mg In 27.733 169.525 Sodium Chloride 0.9% 250 ml @ 0.05 MCG/KG/MIN 19. 126 mls/hr IV .[id number] MARK Rx#:[id number] Output: Urine 3470 4675 1400 Other 1250 Other: Voiding Method Indwelling Catheter Indwelling Catheter Indwelling Catheter - Exam GENERAL EXAM: Patient is much more alert and communicative HEENT: Normocephalic. Normal reaction of pupils, equal size, normal range of extraocular motion. No erythema or exudates in the throat. NECK: No masses, no nuchal rigidity. CHEST: No chest wall deformity. LUNGS: Diminished air exchange and dullness to the bases HEART: S1 and S2 normal . Irregular heart sounds ABDOMEN: No hepatosplenomegaly, normal bowel sounds, no guarding or rigidity. SKIN: No rashes CENTRAL NERVOUS SYSTEM: Patient is sleepy and barely arousable EXTREMITIES: Edema plus plus - Labs CBC & Chem 7: 06/08/21 06:05 06/08/21 06:05 Labs: Abnormal Lab Results - Last 24 Hours (Table) 06/08/21 06/08/21 Range/Units 06:05 06:05 Hgb 10.1 L (11.4-16.0) gm/dL MCHC 29.0 L (31.0-37.0) g/dL RDW 17.2 H (11.5-15.5) % Plt Count 104 L (150-450) k/uL Lymphocytes # 0.9 L (1.0-4.8) k/uL Potassium 3.2 L (3.5-5.1) mmol/L Chloride 86 L (98-107) mmol/L Carbon Dioxide 49 H* (22-30) mmol/L BUN 34 H (7-17) mg/dL Creatinine 1.18 H (0.52-1.04) mg/dL Glucose 127 H (74-99) mg/dL Assessment and Plan (1) Diastolic CHF Current Visit: Yes Status: Acute Code(s): I50.30 - UNSPECIFIED DIASTOLIC (CONGESTIVE) HEART FAILURE SNOMED Code(s): 233407910 (2) Acute encephalopathy Current Visit: Yes Status: Acute Code(s): G93.40 - ENCEPHALOPATHY, UNSPECIFIED SNOMED Code(s): 32303711 (3) Acute respiratory failure with hypoxia and hypercarbia Current Visit: Yes Status: Acute Code(s): J96.01 - ACUTE RESPIRATORY FAILURE WITH HYPOXIA; J96.02 - ACUTE RESPIRATORY FAILURE WITH HYPERCAPNIA SNOMED Code (s): 880291986 (4) Chronic respiratory failure Current Visit: Yes Status: Acute Code(s): J96.10 - CHRONIC RESPIRATORY FAILURE, UNSP W HYPOXIA OR HYPERCAPNIA SNOMED Code(s): 49925120 Plan: Continue with the Coreg 3.125 mg twice a day as tolerated. Patient also is on IV Lasix which can be changed to boluses of by mouth Lasix. Continue rest of the management. Prognosis is guarded
[2021-06-08] MEDS: DILTIAZEM 125 MG in SODIUM CHLORIDE 0.9% 100 ML IV SCH (15:42)
[2021-06-08 18:28] LABS: Appearance,BF Clear
[2021-06-08 18:53] LABS: Glucose, BF Source Pleural Fluid; Glucose, Body Fluid 131 mg/dL; LDH, Body Fluid Source Pleural Fluid; T. Protein, Body Fluid Source Pleural Fluid; Total Protein, Body Fluid 1960 mg/dL
[2021-06-08] MEDS: OLANZapine 7.5 MG TAB PO SCH (20:04)
[2021-06-08] MEDS: ATORVASTATIN 40 MG TAB PO SCH (20:04)
[2021-06-08] MEDS: APIXABAN 5 MG TAB PO SCH (20:04)
[2021-06-08] MEDS ORDERED: Potassium Replacement Protocol 1 EACH MISC MISCELLANE PRN (20:40)
[2021-06-08] MEDS ORDERED: POTASSIUM CHLORIDE 20 MEQ in WATER FOR INJECTION 1 100ML.BAG IVPB SCH (22:00)
[2021-06-08] MEDS: POTASSIUM CHLORIDE 10 MEQ in WATER FOR INJECTION 1 100ML.BAG IVPB SCH ×2 (22:05→23:13)
[2021-06-09] MEDS: POTASSIUM CHLORIDE 10 MEQ in WATER FOR INJECTION 1 100ML.BAG IVPB SCH ×8 (00:36→12:58)
[2021-06-09] MEDS: DEXMEDETOMIDINE/0.9% NACL(PMX) 400 MCG in EMPTY BAG 1 BAG IV SCH ×2 (05:16→16:20)
[2021-06-09 06:32] LABS: Anisocytosis Slight; Basophils % (A) 0 %; Eosinophils # (A) 0.2 k/uL (0-0.7); Eosinophils % (A) 3 %; HCT 36.4 % (34.0-46.0); HGB 10.7 gm/dL (11.4-16.0); Hypochromasia Marked; Lymphocytes # (A) 0.8 k/uL (1.0-4.8); Lymphocytes % (A) 13 %; MCHC 29.4 g/dL (31.0-37.0); MCV 91.9 fL (80.0-100.0); Mean Platelet Volume 8.9; Monocytes # (A) 0.4 k/uL (0-1.0); Monocytes % (A) 6 %; Neutrophils # (A) 4.9 k/uL (1.3-7.7); Neutrophils % (A) 76 %; Poikilocytosis Slight; RBC 3.96 m/uL (3.80-5.40); WBC 6.4 k/uL (3.8-10.6)
[2021-06-09] MEDS: NOREPINEPHRINE 4 MG in SODIUM CHLORIDE 0.9% 250 ML IV SCH ×2 (06:46→20:25)
[2021-06-09 06:50] LABS: Calcium 8.8 mg/dL (8.4-10.2); Magnesium 1.4 mg/dL (1.6-2.3); Potassium 3.3 mmol/L (3.5-5.1)
[2021-06-09 07:00] LABS: Platelet Count 78 k/uL (150-450)
[2021-06-09] MEDS ORDERED: Potassium Replacement Protocol 1 EACH MISC MISCELLANE PRN (07:04)
[2021-06-09] MEDS: SYMBICORT 160-4.5 MCG INHALER INHALATION SCH ×2 (07:17→19:42)
[2021-06-09] MEDS: IPRATROPIUM-ALBUTEROL 3 ML NEB INHALATION SCH ×3 (07:17→19:42)
[2021-06-09] MEDS ORDERED: FUROSEMIDE 10 MG/ML 4 ML VIAL IV SCH (09:00)
[2021-06-09] MEDS: ESTROGENS CONJUGATED 1.25 MG PO SCH (09:30)
[2021-06-09] MEDS: DILTIAZEM 125 MG in SODIUM CHLORIDE 0.9% 100 ML IV SCH (09:59)
[2021-06-09] MEDS: carvediloL 3.125 MG TAB PO SCH (09:59)
[2021-06-09] MEDS: APIXABAN 5 MG TAB PO SCH ×2 (09:59→20:24)
[2021-06-09] MEDS: PANTOPRAZOLE 40 MG/10 ML VIAL IVP SCH (10:00)
[2021-06-09] MEDS: LIDOCAINE 5% PATCH TOPICAL SCH (10:00)
[2021-06-09] MEDS: AMIODARONE 450 MG in DEXTROSE 5% IN WATER 250 ML IV SCH ×2 (10:01)
[2021-06-09] MEDS: AMIODARONE 200 MG TAB PO SCH ×3 (10:14→21:39)
[2021-06-09] MEDS ORDERED: Magnesium Replacement Protocol 1 EACH MISC MISCELLANE PRN (11:20)
--- NOTE | 2021-06-09 11:24 | P.PN ---
Subjective 70-year-old female with past medical history of congestive heart failure, A. fib on anticoagulation, COPD with noncompliant use of her BiPAP, mood disorder who is brought into the emergency department for hypoxia. Patient was recently seen at [facility] for altered mental status. Found to have subdural hematomas versus hygromas and was shipped to [place]. [facility] evaluation deemed that the patient had chronic hygromas and she was cleared for anticoagulant use. Patient was transferred to [facility] for rehab. Patient has been noncompliant with her BiPAP and medications. at bedside states that she refuses majority of her medications. Today the staff found her more confused than normal. They state that she does has a history of some confusion at baseline however today was worsens. Her oxygen saturations were in the 80s. EMS attempted intubation of the patient however she was responsive and clenching down. There were unable to get an IV and therefore I was placed in the left humerus. Patient was placed on a nasal cannula. She did perk up upon transfer to the hospital however became agitated and therefore received 110 mg of ketamine. Patient arrives sedated with shallow respirations. She is unable to obtain any history from. She is found to be in A. fib which she has a history of. Laboratory studies; demonstrates a leukocytosis of 13.5. ABG demonstrates a CO2 of 89. Lactic acid 3.1. Troponin 0.059. BNP elevated at 4460. Urinalysis demonstrates occasional bacteria with moderate budding yeast. Chest x-ray is performed which demonstrates right lower lobe pneumonia and effusion. Patient was initiated on antibiotics after blood cultures were obtained. Fluids were not given to the patient even though she does meet sepsis criteria as she does have history of congestive heart failure and has visible effusion on chest x-ray with an elevated BNP. Patient does have a mildly low blood pressure and therefore was given a 500 mL normal saline bolus only. Patient is initiated on amiodarone due to her A. fib with persistently elevated heart rate. CT brain demonstrate the chronic hygromas without acute abnormality. 06/01/2021 Patient is seen and evaluated and follow-up with no issues overnight per nursing staff although patient continues to be confused and yelling out at times and can be redirected. Patient reports to having shortness of breath and is currently m aintained on 4 L via nasal cannula. Cardiology and pulmonary following and patient is maintained on IV Cardizem and oral anticoagulant has been resumed. Patient with extensive weakness and will have PT/OT evaluated the patient and family would like the patient to return to [facility]. Case management and social work following. Patient is able to answer questions somewhat appropriately when redirected although continues to be confused and rambles at times. No reports of chest pain. Patient is afebrile. 06/02/2021 Patient is seen in follow-up today and per nursing staff and sitter at the [facility] for safety, patient continues with confusion and has been pocketing her pills and spitting them out and not tolerating oral intake very well. Cardiology following and patient is to continue on IV Cardizem along with amiodarone until able to tolerate oral intake. Patient also continued on ce ftriaxone and oral prednisone with pulmonary following. Will add low-dose Seroquel at night and monitor closely. 06/03/2021 Patient remains confused and drowsy secondary to her CO2 narcosis but she is arousable and she knows and she is in the hospital. She denies headache or weakness or numbness, no asymmetry noted in her examination. Both pupils are equal and reactive to light. No meningeal signs. She ate 75% of her denying 100% of snack last night. She is on 4 L oxygen via nasal cannula. She is hemodynamically stable and afebrile. The hemoglobin is stable at 8.6, platelet count improved slightly at 121, creatinine normal 0.8, pro-calcitonin is slightly elevated at 0.18. Chest x-ray showing possible pneumonia and effusion and the recommend follow-up. I looked at the chest x-ray myself she has bilateral infiltrates, more on the right side, looks slightly better than when she came in to the hospital. She has significant bilateral leg edema probnp is improving since admission 4460 to 3190 [address] [facility] on this admission showing ejection fraction of 50-55% with moderate to severe tricuspid regurgitation and moderate pulmonary hypertension She has amiodarone and Cardizem running also she is on ceftriaxone, therapeutic dose of Lovenox and Eliquis is on hold. She is on prednisone 20 mg twice daily and Seroquel. We will add doxycycline for coverage of atypical bacteria. IV Lasix 40 twice a day. 06/06/2021, resume the care of the patient Patient remains in the ICU on high flow nasal cannula at 4 L however earlier she was on BiPAP but her respiratory status is improving. She is currently on Lasix drip for her diastolic CHF him on ceftriaxone and doxycycline for her right lower lobe pneumonia and she was getting BiPAP for her CO2 retention. Patient clinically improved. Negative balance of 5-6 L over 24 hours Also she is on therapeutic dose of Lovenox Currently her heart rate is core controlled with Coreg and Lovenox at therapeutic dose. Ejection fraction 45-50% 06/07/2021 Patient uses BiPAP for about 4 hours last night, then she switched to 4 L/m of oxygen via nasal cannula and she is doing well this morning, she can talk freely with minimal shortness of breath. She is hemodynamically stable. Labs are pending. Chest x-ray reviewed by myself showing persistent bilateral infiltrates on both lower sites, more on the right side. She is eating without difficulty. She remains on Lasix drip at 10 mg per hour, ceftriaxone and doxycycline, Lovenox 100 mg twice a day, Coreg 3.125 mg, Seroquel/Zyprexa. She has good urine output 06/08/2021 Patient remains in the ICU, she is currently on 4 L of oxygen per minute. She refused BiPAP last night. She is eating little but she'll try to eat more this morning. No significant dyspnea or coughing, she is breathing easier compared to yesterday after 1250 mL of turbid fluid removed from her right-sided thoraco centesis yesterday. She is a bit hypertensive and bradycardiac today while she is on Lasix drip whil e the dose lowered from 10 mg/h down to 5 mg per hour. Also she is on Coreg small dose 3.125 per cardiology is following the patient closely. WBC improved 7.3 hemoglobin went up 10.5 as well as platelet 204. Carbon dioxide is elevated 49 and BNP is also elevated 3940. Currently she is covered with ceftriaxone, Lasix drip, therapeutic dose of Lovenox and pressors, she is on levophed 06/09/2021 Patient remains in the ICU actually improving. Her breathing pattern is better than yesterday,, she came off her BIPAP today which is dicontinued. Blood pressure this morning 88/63, patient is asymptomatic and has no tachycardia. Mrs. drip was stopped and switched to IV Lasix 40 mg twice daily. Other than that LOOKS stable with WBC 6.4, hemoglobin 10.7, platelets 78, creatinine 1.2. Low potassium and magnesium is been placed ceftriaxone was discontinued. And Lovenox and switched to a liquid Objective - Vital Signs Vital signs: Vital Signs Temp 98.8 F 06/09/21 08:00 Pulse 89 06/09/21 10:15 Resp 21 06/09/21 10:15 BP 99/63 06/09/21 10:15 Pulse Ox 99 06/09/21 10:15 Intake & Output 06/08/21 06/09/21 06/09/21 18:59 06:59 18:59 Intake Total 722.316 665.864 497.117 Output Total 5650 6395 650 Balance -4927.684 -5729.136 -152.883 Weight 95.7 kg Intake: IV 185 135 60 0.9 NS 120 130 60 Diltiazem 125 mg In 10 Sodium Chloride 0.9% 100 ml @ 10 MG/HR 10 mls/hr IV .[id number] [facility] Rx#: [id number] Furosemide 100 mg In 55 5 Sodium Chloride 0.9% 90 ml @ 5 MG/HR 5 mls/hr IV .Q20H [facility] Rx#:[id number] Intake, IV Titration 537.316 530.864 317.117 Amount Amiodarone 450 mg In 250 Dextrose 5% in Water 250 ml @ 0.5 MG/MIN 16.667 mls/hr IV .Q15H [facility] Rx#: [id number] Dexmedetomidine/0.9% NaCl 100.000 177.277 40.977 (Pmx) 400 mcg In Empty Bag 1 bag @ 0.2 MCG/KG/HR 5.02 mls/hr IV .[id number] [facility] Rx#:[id number] Diltiazem 125 mg In 115.833 Sodium Chloride 0.9% 100 ml @ 10 MG/HR 10 mls/hr IV .[id number] [facility] Rx#: [id number] Furosemide 100 mg In 82.083 Sodium Chloride 0.9% 90 ml @ 5 MG/HR 5 mls/hr IV .Q20H [facility] Rx#:[id number] Norepinephrine 4 mg In 239.400 153.587 26.140 Sodium Chloride 0.9% 250 ml @ 0.05 MCG/KG/MIN 19. 126 mls/hr IV .[id number] [facility] Rx#:[id number] Potassium Chloride 10 meq 200 In Water For Injection 1 100ml.bag @ 100 mls/hr IVPB Q1HR [facility] Rx#: [id number] Oral 120 Output: Urine 4400 6395 650 Other 1250 Other: Voiding Method Indwelling Catheter Indwelling Catheter - Exam -GENERAL: The patient is confused and drowsy but arousable, she follows commands and she knows she is in the hospital, not in any acute distress. Well developed, well nourished. HEENT: Pupils are round and equally reacting to light. EOMI. No scleral icterus. No conjunctival pallor. Normocephalic, atraumatic. No pharyngeal erythema. No t hyromegaly. CARDIOVASCULAR: S1 and S2 present. No murmurs, rubs, or gallops. PULMONARY: Chest is clear to auscultation, no wheezing . Decreased breath sounds on both sides. Bilateral crepitation ABDOMEN: Soft, nontender, nondistended, normoactive bowel sounds. No palpable organomegaly. MUSCULOSKELETAL: No joint swelling or deformity. -EXTREMITIES: No cyanosis, clubbing,. 2-3+ bilateral pitting Leg edema NEUROLOGICAL: Gross neurological examination did not reveal any focal deficits. SKIN: No rashes. no petechiae. - Labs CBC & Chem 7: 06/09/21 05:54 06/09/21 05:54 Labs: Abnormal Lab Results - Last 24 Hours (Table) 06/09/21 06/09/21 Range/Units 05:54 05:54 Hgb 10.7 L (11.4-16.0) gm/dL MCHC 29.4 L (31.0-37.0) g/dL RDW 17.0 H (11.5-15.5) % Plt Count 78 L (150-450) k/uL Lymphocytes # 0.8 L (1.0-4.8) k/uL Potassium 3.3 L (3.5-5.1) mmol/L Chloride 89 L (98-107) mmol/L Carbon Dioxide 47 H* (22-30) mmol/L BUN 27 H (7-17) mg/dL Creatinine 1.26 H (0.52-1.04) mg/dL Glucose 123 H (74-99) mg/dL Magnesium 1.4 L (1.6-2.3) mg/dL Microbiology - Last 24 Hours (Table) 06/08/21 09:30 Gram Stain - Preliminary Pleural Fluid Body Fluid Culture - Preliminary Assessment and Plan Assessment: Possible bilateral pneumonia Possible acute diastolic CHF with ejection fraction 50-55% with fluid overload and bilateral pitting edema COPD with narcosis. She is on steroids for acute exacerbation Possible obesity hypoventilation syndrome A. fib with RVR Metabolic encephalopathy secondary to above Acute hypoxic hypercapnic respiratory failure Moderate to severe tricuspid regurgitation Moderate pulmonary hypertension morbid obesity with BMI of 40 Plan: This is a pleasant 70-year-old years old female who presents with multiple cardiac and pulmonary problems including possible pneumonia, CHF, AMS, high troponin, hypoxia and hypercapnia, A. fib and RVR and pulmonary hypertension. Continue with Coreg cardiology team recommendation Continue with anticoagulation and currently on Eliquis Continue with pulmonary team on the case Discontinue Lasix drip and start IV Lasix 40 mg twice daily Continue with Seroquel as needed Discontinue ceftriaxone Labs and medication were reviewed.. Continue same treatment. Continue with symptomatic treatment. Resume home medication. Monitor lytes and vitals. DVT and GI prophylaxis. Further recommendations as per clinical course of the patient DVT prophylaxis: Subcutaneous Lovenox GI Prophylaxis: Pepcid Prognosis is definitely guarded
--- NOTE | 2021-06-09 11:26 | P.PN ---
Subjective Progress Note Date: 06/09/21 This 70-year-old female with history of obesity. Hypercarbic respiratory failure and some fluid overload and diastolic CHF was transferred to intensive care unit yesterday. Patient has been on BiPAP. Patient was also started on IV Lasix. Patient seemed to be diuresing better. There may be slight improvement in the mental status. She is off amiodarone drip. Her heart rate is controlled. Patient is in atrial fibrillation. She was getting Lovenox for anticoagulation. Overall this seemed to be some progress in critical status. Pulmonary is following this closely. Continue current management. If necessary, IV amiodarone drip to be reinstated. 06/06/2021: This patient with history of hypercarbic respiratory failure, fluid overload and obesity on BiPAP machine. Patient seemed to be much more alert and communicative today. Doesn't complain of any chest pain. Doesn't appear to be in acute distress. Her ABG hasn't shown much improvement. Patient is diuresing very well on IV Lasix. Still has significant edema. Patient heart rate is controlled without IV amiodarone off Cardizem. Her echocardiogram showed previously normal ejection fraction. I'm going to restart her on Coreg 3.125 mg by mouth twice a day. Continue rest of the medications. We'll follow 06/07/2021: Patient is still remains extubated. Seemed to be alert and talkative. Patient however has underlying confusion. Doesn't appear to be in acute distress. Patient blood pressure is running low. Coreg has been held. Her heart rate is remaining stable. She still on IV Lasix and diuresing well. Still has moderate edema of the legs. Patient will continue current medical therapy. May consider switching to bolus of IV Lasix. Prognosis is guarded. 06/08/2021: This patient went to into atrial fibrillation with rapid ventricular response. Patient was initiated on IV Cardizem. Patient was to have a rapid response and patient was advised to be started on amiodarone by my colleague. However, it appears that patient heart rate was coming down and actually she was taken off Cardizem drip. She was never started on amiodarone. Patient was agitated and she was given a Precedex, which seemed to be helped her. She seemed to be sleeping at the time of my examination. She also had a poor TODAY and significant amount of fluid was taken out. Overall clinical status is relatively stable. She'll continue current medical therapy. 06/09/2021: This patient seemed to be relatively stable. Patient is in atrial fibrillation with heart rate in the 80s and 90s. However, she is hypotensive. Cannot tolerate Coreg. She still on vasopressin. We'll going to start her on amiodarone by mouth and discontinue Coreg. Continue the rest of the management as per the lead recreation assistant. Prognosis is guarded Objective - Vital Signs Vital signs: Vital Signs Temp 98.8 F 06/09/21 08:00 Pulse 88 06/09/21 11:00 Resp 12 06/09/21 11:00 BP 88/63 06/09/21 11:00 Pulse Ox 100 06/09/21 11:00 Intake & Output 06/08/21 06/09/21 06/09/21 18:59 06:59 18:59 Intake Total 722.316 665.864 497.117 Output Total 5650 6395 650 Balance -4927.684 -5729.136 -152.883 Weight 95.7 kg Intake: IV 185 135 60 0.9 NS 120 130 60 Diltiazem 125 mg In 10 Sodium Chloride 0.9% 100 ml @ 10 MG/HR 10 mls/hr IV .[id number] [facility] Rx#: [id number] Furosemide 100 mg In 55 5 Sodium Chloride 0.9% 90 ml @ 5 MG/HR 5 mls/hr IV .Q20H [facility] Rx#:[id number] Intake, IV Titration 537.316 530.864 317.117 Amount Amiodarone 450 mg In 250 Dextrose 5% in Water 250 ml @ 0.5 MG/MIN 16.667 mls/hr IV .Q15H [facility] Rx#: [id number] Dexmedetomidine/0.9% NaCl 100.000 177.277 40.977 (Pmx) 400 mcg In Empty Bag 1 bag @ 0.2 MCG/KG/HR 5.02 mls/hr IV .[id number] [facility] Rx#:[id number] Diltiazem 125 mg In 115.833 Sodium Chloride 0.9% 100 ml @ 10 MG/HR 10 mls/hr IV .[id number] [facility] Rx#: [id number] Furosemide 100 mg In 82.083 Sodium Chloride 0.9% 90 ml @ 5 MG/HR 5 mls/hr IV .Q20H [facility] Rx#:[id number] Norepinephrine 4 mg In 239.400 153.587 26.140 Sodium Chloride 0.9% 250 ml @ 0.05 MCG/KG/MIN 19. 126 mls/hr IV .[id number] [facility] Rx#:[id number] Potassium Chloride 10 meq 200 In Water For Injection 1 100ml.bag @ 100 mls/hr IVPB Q1HR [facility] Rx#: [id number] Oral 120 Output: Urine 4400 6395 650 Other 1250 Other: Voiding Method Indwelling Catheter Indwelling Catheter Indwelling Catheter - Exam GENERAL EXAM: Patient is much more alert and communicative HEENT: Normocephalic. Normal reaction of pupils, equal size, normal range of extraocular motion. No erythema or exudates in the throat. NECK: No masses, no nuchal rigidity. CHEST: No chest wall deformity. LUNGS: Diminished air exchange and dullness to the bases HEART: S1 and S2 normal . Irregular heart sounds ABDOMEN: No hepatosplenomegaly, normal bowel sounds, no guarding or rigidity. SKIN: No rashes CENTRAL NERVOUS SYSTEM: Patient is sleepy and barely arousable EXTREMITIES: Edema plus plus - Labs CBC & Chem 7: 06/09/21 05:54 06/09/21 05:54 Labs: Abnormal Lab Results - Last 24 Hours (Table) 06/09/21 06/09/21 Range/Units 05:54 05:54 Hgb 10.7 L (11.4-16.0) gm/dL MCHC 29.4 L (31.0-37.0) g/dL RDW 17.0 H (11.5-15.5) % Plt Count 78 L (150-450) k/uL Lymphocytes # 0.8 L (1.0-4.8) k/uL Potassium 3.3 L (3.5-5.1) mmol/L Chloride 89 L (98-107) mmol/L Carbon Dioxide 47 H* (22-30) mmol/L BUN 27 H (7-17) mg/dL Creatinine 1.26 H (0.52-1.04) mg/dL Glucose 123 H (74-99) mg/dL Magnesium 1.4 L (1.6-2.3) mg/dL Microbiology - Last 24 Hours (Table) 06/08/21 09:30 Gram Stain - Preliminary Pleural Fluid Body Fluid Culture - Preliminary Assessment and Plan (1) Diastolic CHF Current Visit: Yes Status: Acute Code(s): I50.30 - UNSPECIFIED DIASTOLIC (CONGESTIVE) HEART FAILURE SNOMED Code(s): 319458757 (2) Acute encephalopathy Current Visit: Yes Status: Acute Code(s): G93.40 - ENCEPHALOPATHY, UNSPECIFIED SNOMED Code(s): 82700242 (3) Acute respiratory failure with hypoxia and hypercarbia Current Visit: Yes Status: Acute Code(s): J96.01 - ACUTE RESPIRATORY FAILURE WITH HYPOXIA; J96.02 - ACUTE RESPIRATORY FAILURE WITH HYPERCAPNIA SNOMED Code(s): 263758655 (4) Chronic respiratory failure Current Visit: Yes Status: Acute Code(s): J96.10 - CHRONIC RESPIRATORY FAILURE, UNSP W HYPOXIA OR HYPERCAPNIA SNOMED Code(s): 12878592 Plan: Clinically relatively stable. In atrial fibrillation with controlled ventricular response. Unable to tolerate Coreg because of hypotension. We'll start her on by mouth amiodarone. Continue rest of the management
[2021-06-09] MEDS: MAGNESIUM SULFATE-D5W PMX 1 GM in DEXTROSE/WATER 1 100ML.BAG IVPB SCH ×3 (11:37→14:11)
--- NOTE | 2021-06-09 11:51 | P.PN ---
Subjective Progress Note Date: 06/09/21 On today's evaluation of 06/03/2021, the patient continues to be lethargic and somewhat confused. She is arousable. She only follows and can indulge herself and to short conversations. If left on some related, she will go back to sleep. The patient apparently has been able to also swallow her tablets without any major difficulties. No reported aspiration. She remains in atrial fibrillation. She remains on amiodarone maintenance of 0.5 mg per minute. The patient is also on a Cardizem drip at 5 mg an hour. The patient is also on anticoagulation with oral Eliquis. Echocardiogram showed an ejection fraction of 55% and the patient elevated RV systolic pressure of 53 mmHg. This is consistent with moderate to severe pulmonary hypertension and tricuspid regurgitation. The patient continues to have edema in lower extremity is bilaterally. Overall fluid balance over the past 24 hours has been -452 mL. The patient is on Lasix 40 mg IV every 12 hours. This was started today by the primary care team. The patient is on oral prednisone 20 mg twice a day and the patient was taken off the IV Solu-Medrol. No other significant events overnight. No agitation. She has a sitter at the bedside. 06/04/2021, the patient is doing poorly. I had some difficulties in arousing this patient on the medical floor. As such, I think the patient may be in a CO2 narcosis states. Her chest x-ray from yesterday was showing an extensive consolidation of the right lung and the patient has obvious signs of fluid overload with extensive edema in lower extremity bilaterally. The patient is arousable upon repeated stimulation unit if left ultimately did, the patient will go back to sleep. The patient remains in atrial fibrillation. Rate is controlled and the patient is currently on a combination of amiodarone drip at 0.5 mg per minute and the patient is also on Cardizem drip at 5 mg an hour. She was given anticoagulation with Lovenox 100 mg subcu every 12 hours. At the same time, the patient was receiving IV Lasix 40 mg every 12 hours. Overall fluid balance has been negative. The patient continues to have significant amount of edema in lower extremity is bilaterally. No reported aspiration. No reported agitation. Based on all this, I made a decision to transfer this patient to the intensive care unit. She will need very close monitoring, BiPAP support, aggressive diuresis and management of her atrial fibrillation. On today's evaluation of 06/05/2021, the patient remains on a BiPAP at a setting of 12/5 cm of water and FiO2 of 50%. She is more arousable compared to yeste rday. A blood. This was done while her pulmonary status. The patient's blood gases from yesterday showed a pH of 7.34 with a pCO2 of 66 and pO2 of 86. The follow-up blood gases will be obtained today. A follow-up chest x-ray still pending from today. Meanwhile, the patient has signs of fluid overload. The patient was started on Lasix drip which is currently running at 10 mg an hour. The patient has been a negative fluid balance of 1.7 L 4 yesterday and since today, the patient has been in a negative fluid balance of 3.3 L. Her BUN is at 25 L of 0.8. Sodium level is at 141 with a potassium level of 4.4. That hemoglobin is at 9.5 and the patient's white cell count is at 4.7. The patient remains in atrial fibrillation. Rate is controlled. The patient is currently off amiodarone and the patient is off Cardizem and the patient isn't taking therapeutic doses of Lovenox 1 mg subcu every 12 hours. The patient did not require any sedation. Initially, she was slightly restless and agitated. The patient was given order for Precedex which she never used. She remains on IV Protonix patient remains on IV Solu Medrol and the patient also is on Rocephin and doxycycline combination. 06/06/2021, the patient is considerably much more alert and awake compared to yesterday. She still on a BiPAP at a pressure of 12/5 cm of water with an FiO2 of 30%. She remains on Precedex at 0.5 [facility] kilogram per minute and as will be gradually weaned off and discontinued. She is very much calm and comfortable and responsive. Her fluid balance is negative as the patient is on Lasix drip at 10 mg an hour. 4 yesterday, the neck fluid balance of been -3.3 L in for today she is oriented to 5.1 L negative fluid balance. Her BUN is at 29 with a creatinine of 0.8. No major active disturbances. Her potassium level is at 3.5. Serum bicarbonate of 44. At the same time, the patient has developed some thrombocytopenia. Platelet count is down to 83, hemoglobin however is stable at 9.5 with a white cell count of 2.6. The blood gases from yesterday was completed and the patient hasn't improvement and acid base status. The patient was at 7.38 with a pCO2 of 78 and a pO2 of 153 and this was on FiO2 of 50%. Chest x-ray was repeated today and is still showing some right-sided pleural effusion. The patient is diuresing very nicely with diuretics and IV Lasix. The patient continues to have significant amount of edema in lower extremity is bilaterally. Cardiac rhythm is sinus. The patient remains on Lovenox therapeutic dose for DVT prophylaxis. No focal neurological deficit. She is in no code. 06/07/2021, the patient is being seen for a follow-up. She is awake. She is not having any new complaints. She continues to be on a Lasix drip and the patient is on Ex[employer] progress in terms of diuresis. Over the past 24 hours, she was 5.1 L negative fluid balance. Patient is also another 6.5 negative fluid balance since today. Meanwhile, the patient's electrodes were potassium level of 3.5, and a serum bicarb is up to 46 and the BUN is at 35 with a creatinine of 1.2. The patient's is much improved. The chest x-ray however shows persistent but the pleural effusions right more than left. The white cell count is at 4.7 with a hemoglobin 9.6 and platelet count of 71 and that has been persistent and ongoing drop in platelet count this admission. The patient remains on therapeutic dose of Lovenox 100 mg subcu every 12 hours. Cardiac rhythm is sin us and it's well-controlled at this point in time and the patient is currently off amiodarone drip. She is having issues with agitation and restlessness overnight and she remains on Zyprexa. She is off the BiPAP. Overnight, the patient briefly had to be placed on Precedex and attentive chest that his discontinued as the patient is pleasantly confused. No agitation. No thrashing. No restlessness. 06/08/2021, I'm seeing the patient for a follow-up. The patient is doing well. The patient was admitted to restless and agitated yesterday. The patient also went into atrial fibrillation with rapid ventricular response. Based on that, the patient started on a Cardizem drip initially at 10 mg an hour and the patient currently is somewhat bradycardic special that the patient required also some Precedex to control her agitation. Precedex is currently running at 0.25 mg/kg per minute and this will be discontinued on a Cardizem drip will be also discontinued. The patient's atrial fibrillation has been under adequate control for now and no agitation this morning. The patient remains on Lasix drip at 5 mg an hour. The patient's overall fluid balance is been -6.5 L over the past 24 hours and 7.1 L since morning. The patient is doing much better. Lower extremity edema is improved. I furthermore performed a right-sided thoracentesis on this patient a total of 1.25 L of fluid was aspirated from the right lung. Note that the morning chest x-ray showed a large right-sided pleur al effusion and a subsequent follow-up chest x-ray showed noticing the pneumothorax and there is significant expansion of the right lung. The patient is not having any major respiratory distress. The white cell count is at 7.3 with hemoglobin of 10. The BUN is a 49 and his sodium level is at 140, BUN at 34 with a creatinine of 1.1. She is confused and she does have an underlying dementia for now. She is on Zyprexa and the dose was increased up to 15 mg overnight. On 06/09/2021, the patient is on 1 L of oxygen by nasal cannula. Doing well. No specific complaints. On and off she gets agitated and confused. She is on Zyprexa and she is also on Precedex running at 0.3 mcg/kg per minute which will be asked to be weaned off and discontinued. Meanwhile, the patient was in a Lasix drip at 5 mg an hour. Her overall fluid balance of been -7.1 L over the past 24 hours and 10 L since morning. This is extensive diuresis and the patient's body weight is up from 114 kg down to 95 kg. Based on his underlying diuresis, the patient required a low dose norepinephrine which is running at 0. 03 mcg/kg per minute. The patient has excellent urine output. The patient is currently off the BiPAP. BUN is at 27 with a creatinine of 1.2 and a serum bicarb is 47. The white cell count is at 6.4 with a hemoglobin of 10.7 and a platelet count of 78. I performed a thoracentesis of the right lung on this patient with excellent results and the pleural fluid is also a transudate. Pleural fluid cytology is pending for now. Eliquis has been restarted and the patient is currently on 5 mg by mouth twice a day. Tolerating her diet. No other significant events overnight. Cardiac rhythm is atrial fibrillation with a controlled rate. Objective - Vital Signs Vital signs: Vital Signs Temp 98.8 F 06/09/21 08:00 Pulse 88 06/09/21 11:00 Resp 12 06/09/21 11:00 BP 88/63 06/09/21 11:00 Pulse Ox 100 06/09/21 11:00 Intake & Output 06/08/21 06/09/21 06/09/21 18:59 06:59 18:59 Intake Total 722.316 665.864 741.143 Output Total 5650 6395 750 Balance -4927.684 -5729.136 -8.857 Weight 95.7 kg Intake: IV 185 135 280 0.9 NS 120 130 80 Diltiazem 125 mg In 10 Sodium Chloride 0.9% 100 ml @ 10 MG/HR 10 mls/hr IV .[id number] MARK Rx#: [id number] Furosemide 100 mg In 55 5 Sodium Chloride 0.9% 90 ml @ 5 MG/HR 5 mls/hr IV .Q20H MARK Rx#:[id number] Magnesium Sulfate-D5w Pmx 100 1 gm In Dextrose/Water 1 100ml.bag @ 100 mls/hr IVPB Q1H MARK Rx#: [id number] Potassium Chloride 10 meq 100 In Water For Injection 1 100ml.bag @ 100 mls/hr IVPB Q1HR MARK Rx#: [id number] Intake, IV Titration 537.316 530.864 341.143 Amount Amiodarone 450 mg In 250 Dextrose 5% in Water 250 ml @ 0.5 MG/MIN 16.667 mls/hr IV .Q15H MARK Rx#: [id number] Dexmedetomidine/0.9% NaCl 100.000 177.277 45.877 (Pmx) 400 mcg In Empty Bag 1 bag @ 0.2 MCG/KG/HR 5.02 mls/hr IV .[id number] MARK Rx#:[id number] Diltiazem 125 mg In 115.833 Sodium Chloride 0.9% 100 ml @ 10 MG/HR 10 mls/hr IV .[id number] MARK Rx#: [id number] Furosemide 100 mg In 82.083 Sodium Chloride 0.9% 90 ml @ 5 MG/HR 5 mls/hr IV .Q20H MARK Rx#:[id number] Norepinephrine 4 mg In 239.400 153.587 45.266 Sodium Chloride 0.9% 250 ml @ 0.05 MCG/KG/MIN 19. 126 mls/hr IV .[id number] MARK Rx#:[id number] Potassium Chloride 10 meq 200 In Water For Injection 1 100ml.bag @ 100 mls/hr IVPB Q1HR MARK Rx#: [id number] Oral 120 Output: Urine 4400 6395 750 Other 1250 Other: Voiding Method Indwelling Catheter Indwelling Catheter Indwelling Catheter - Exam No acute distress. the patient is somewhat lethargic and the patient is awake, alert, communicating, confused. Currently on 1 L of oxygen by nasal cannula Head exam was generally normal. There was no scleral icterus or corneal arcus. Mucous membranes were moist. Neck supple. Full range of motion. No adenopathy thyromegaly or neck vein distention. Cardiovascular examination reveals an irregular rhythm and rate. S1-S2 normal. No S3 or S4. No discernible murmur noted. Heart sounds are distant. Lungs reveal scattered bilateral rhonchi. Minimal bibasilar crackles. She does not take a deep breath. She has diminished breath sounds bilaterally along with scattered expiratory wheezes throughout. Abdomen is obese. Bowel sounds are not noted. Extremities improvement in the edema in lower extremity is bilaterally. No cyanosis or clubbing. Skin is without rash or lesion. Neurologic examination is confused. Communicating. Neurologic exam is nonfocal. Patient is moving all 4 extremity is without any limitation. No facial asymmetry. Pupils are equal and symmetric to light.. - Labs CBC & Chem 7: 06/09/21 05:54 06/09/21 05:54 Labs: Abnormal Lab Results - Last 24 Hours (Table) 06/09/21 06/09/21 Range/Units 05:54 05:54 Hgb 10.7 L (11.4-16.0) gm/dL MCHC 29.4 L (31.0-37.0) g/dL RDW 17.0 H (11.5-15.5) % Plt Count 78 L (150-450) k/uL Lymphocytes # 0.8 L (1.0-4.8) k/uL Potassium 3.3 L (3.5-5.1) mmol/L Chloride 89 L (98-107) mmol/L Carbon Dioxide 47 H* (22-30) mmol/L BUN 27 H (7-17) mg/dL Creatinine 1.26 H (0.52-1.04) mg/dL Glucose 123 H (74-99) mg/dL Magnesium 1.4 L (1.6-2.3) mg/dL Microbiology - Last 24 Hours (Table) 06/08/21 09:30 Gram Stain - Preliminary Pleural Fluid Body Fluid Culture - Preliminary Assessment and Plan Plan: Acute on chronic hypoxemic and hypercapnic respiratory failure, with CO2 narcosis, and acute mental status changes. Clinically, the patient was showing signs of CO2 narcosis and fluid overload with possibly a component of fluid overload. The patient was subjected to diuretics and BiPAP therapy and since then the patient is improved. The patient had extensive diuresis with Lasix drip and the patient has lost more than 10 kg of body weight and her fluid balance is optimize although she does have some residual edema lower occiput is bilaterally. I also performed a thoracentesis of the right lung and the fluid turner off to be a transudate. She is currently on 1 L of oxygen by nasal cannula. Obesity with a BMI of 39.1 COPD Right lung opacity/consolidation, could be also related to underlying pleural fluid as the patient has signs of fluid overload. Performed a thoracentesis with evacuation of more than 1 L of fluid, changes a day. History of atrial fibrillation, with rapid ventricular response. The patient is a controlled rate for now and the Cardizem drip will be discontinued, the patient is currently on anticoagulation History of CHF. The echocardiogram showed normal LV, mild LVH, EF around 50- 55%, severe RV dilation with a pulmonary artery pressure of around 53 mmHg and moderate to severe tricuspid regurgitation Morbid obesity. History of hyperlipidemia. History of hypertension. Increased lower extremity edema, improving Chronic normocytic anemia. Metabolic alkalosis, secondary to diuresis Acute kidney injury , creatinine is at 1.2 New onset thrombocytopenia , the platelet count is stable for now and the patient is currently on Eliquis Dementia with ongoing episodic agitation and altered mentation currently on Zyprexa and low dose Precedex Plan Keep the patient in the intensive care unit Right-sided thoracentesis been completed, and the fluid is transudate Discontinue the Lasix drip and put the patient Lasix 40 mg IV every 24 hours Diamox 250 mg every 12 hours times for 2 2 doses Discontinue the Rocephin Discontinue the doxycycline The patient is currently on no antibiotics Continue anticoagulation with Eliquis 5 mg 2 twice a day, monitor the platelet count Discontinue BiPAP Discontinue the Precedex Zyprexa dose to 15 mg daily Obtain a chest x-ray in a.m. Monitor renal function Condition is critical and the patient will be chest intensive care unit. We obtained advanced directives. DNR/DNI CODE STATUS for now.
[2021-06-09] MEDS: ATORVASTATIN 40 MG TAB PO SCH (20:24)
[2021-06-09] MEDS: OLANZapine 7.5 MG TAB PO SCH (20:25)
[2021-06-09 20:54] LABS: Magnesium 2.2 mg/dL (1.6-2.3); Potassium 3.5 mmol/L (3.5-5.1)
[2021-06-10] MEDS: DEXMEDETOMIDINE/0.9% NACL(PMX) 400 MCG in EMPTY BAG 1 BAG IV SCH ×3 (01:01→23:06)
[2021-06-10] MEDS: NOREPINEPHRINE 4 MG in SODIUM CHLORIDE 0.9% 250 ML IV SCH ×2 (01:03→16:34)
[2021-06-10] MEDS: IPRATROPIUM-ALBUTEROL 3 ML NEB INHALATION SCH ×3 (08:20→20:12)
[2021-06-10] MEDS: SYMBICORT 160-4.5 MCG INHALER INHALATION SCH ×2 (08:20→20:12)
[2021-06-10] MEDS: FUROSEMIDE 10 MG/ML 4 ML VIAL IV SCH (09:02)
[2021-06-10] MEDS: PANTOPRAZOLE 40 MG/10 ML VIAL IVP SCH (09:02)
[2021-06-10] MEDS: AMIODARONE 200 MG TAB PO SCH ×3 (09:02→21:46)
[2021-06-10] MEDS: APIXABAN 5 MG TAB PO SCH ×2 (09:02→21:46)
[2021-06-10] MEDS: LIDOCAINE 5% PATCH TOPICAL SCH (09:03)
[2021-06-10] MEDS: ESTROGENS CONJUGATED 1.25 MG PO SCH (09:03)
--- NOTE | 2021-06-10 09:25 | XR ---
EXAMINATION TYPE: XR chest 1V portable DATE OF EXAM: 06/10/2021 COMPARISON: NONE HISTORY: Shortness of breath TECHNIQUE: Single frontal view of the chest is obtained. FINDINGS: Diffuse interstitial pattern with cardiomegaly. Bilateral infiltrate and small effusion. B iapical pleural thickening. Diffuse osteopenia. IMPRESSION: Correlate for CHF otherwise consider pneumonia.
[2021-06-10 09:47] LABS: Anisocytosis Slight; Basophils % (A) 0 %; Eosinophils # (A) 0.2 k/uL (0-0.7); Eosinophils % (A) 4 %; HGB 10.1 gm/dL (11.4-16.0); Hypochromasia Marked; Lymphocytes # (A) 0.8 k/uL (1.0-4.8); Lymphocytes % (A) 14 %; MCH 27.1 pg (25.0-35.0); MCHC 29.6 g/dL (31.0-37.0); MCV 91.7 fL (80.0-100.0); Mean Platelet Volume 11.3; Monocytes # (A) 0.3 k/uL (0-1.0); Monocytes % (A) 5 %; Neutrophils # (A) 4.2 k/uL (1.3-7.7); Neutrophils % (A) 73 %; Poikilocytosis Slight; RBC 3.71 m/uL (3.80-5.40); WBC 5.8 k/uL (3.8-10.6)
[2021-06-10 09:48] LABS: Calcium 8.7 mg/dL (8.4-10.2); Potassium 3.2 mmol/L (3.5-5.1); Total Bilirubin 0.8 mg/dL (0.2-1.3); Total Protein 5.4 g/dL (6.3-8.2)
[2021-06-10 09:50] LABS: Platelet Count 66 k/uL (150-450)
[2021-06-10] MEDS ORDERED: Potassium Replacement Protocol 1 EACH MISC MISCELLANE PRN (10:06)
[2021-06-10] MEDS ORDERED: Magnesium Replacement Protocol 1 EACH MISC MISCELLANE PRN (10:06)
[2021-06-10] MEDS: POTASSIUM CHLORIDE 10 MEQ in WATER FOR INJECTION 1 100ML.BAG IVPB SCH ×4 (10:23→13:29)
[2021-06-10] MEDS: MAGNESIUM SULFATE-D5W PMX 1 GM in DEXTROSE/WATER 1 100ML.BAG IVPB SCH ×2 (11:09→12:04)
--- NOTE | 2021-06-10 11:54 | P.PN ---
Subjective Progress Note Date: 06/10/21 Principal diagnosis: Acute on chronic hypoxic and hypercapnic respiratory failure secondary to acute diastolic congestive heart failure and underlying COPD On 06/09/2021, the patient is on 1 L of oxygen by nasal cannula. Doing well. No specific complaints. On and off she gets agitated and confused. She is on Zyprexa and she is also on Precedex running at 0.3 mcg/kg per minute which will be asked to be weaned off and discontinued. Meanwhile, the patient was in a Lasix drip at 5 mg an hour. Her overall fluid balance of been -7.1 L over the past 24 hours and 10 L since morning. This is extensive diuresis and the patient's body weight is up from 114 kg down to 95 kg. Based on his underlying diuresis, the patient required a low dose norepinephrine which is running at 0.03 mcg/kg per minute. The patient has excellent urine output. The patient is currently off the BiPAP. BUN is at 27 with a creatinine of 1.2 and a serum bicarb is 47. The white cell count is at 6.4 with a hemoglobin of 10.7 and a platelet count of 78. I performed a thoracentesis of the right lung on this patient with excellent results and the pleural fluid is also a transudate. Pleural fluid cytology is pending for now. Eliquis has been restarted and the patient is currently on 5 mg by mouth twice a day. Tolerating her diet. No other significant events overnight. Cardiac rhythm is atrial fibrillation with a controlled rate. Patient was evaluated today on 06/11/19 remains in the ICU on 1 L nasal cannula, patient seems to be quite comfortable. Remains on Lasix at 40 mg every 12 hours. Patient had a negative balance of 193 2 mL over the last 24 hours. His funding quite well to diuretics. She is in atrial fibrillation, rate seems to be controlled, patient is maintained on eliquis. Patient is requiring norepinephrine at 0.02 mcg/kg/m, he is also requiring Precedex at 0.4 mcg/kg/h. IV fluid is at KVO 20 mL per hour in the formal 0.9 normal saline. Chest x-ray today is showing evidence of congestive heart failure, left pleural effusion, strongly doubt pneumonia. CBC is relatively unremarkable. Electrolytes are normal low potassium being addressed accordingly. Cytology on the pleural effusion is pending but from the looks of it this is a transudate of pleural e ffusion with low protein and low LDH. Objective - Vital Signs Vital signs: Vital Signs Temp 97.6 F 06/10/21 08:00 Pulse 77 06/10/21 11:00 Resp 26 H 06/10/21 11:00 BP 94/39 06/10/21 11:00 Pulse Ox 97 06/10/21 11:00 Intake & Output 06/09/21 06/10/21 06/10/21 18:59 06:59 18:59 Intake Total 1520.436 8563.508 400.925 Output Total 1575 3050 875 Balance 100.760 -2032.492 -474.075 Weight 84 kg Intake: IV 860 240 100 0.9 NS 160 240 100 Magnesium Sulfate-D5w Pmx 300 1 gm In Dextrose/Water 1 100ml.bag @ 100 mls/hr IVPB Q1H MARK Rx#: [id number] Potassium Chloride 10 meq 400 In Water For Injection 1 100ml.bag @ 100 mls/hr IVPB Q1HR MARK Rx#: [id number] Intake, IV Titration 475.760 177.508 300.925 Amount Amiodarone 450 mg In 250 Dextrose 5% in Water 250 ml @ 0.5 MG/MIN 16.667 mls/hr IV .Q15H MARK Rx#: [id number] Dexmedetomidine/0.9% NaCl 84.227 77.667 100 (Pmx) 400 mcg In Empty Bag 1 bag @ 0.2 MCG/KG/HR 5.02 mls/hr IV .[id number] MARK Rx#:[id number] Norepinephrine 4 mg In 141.533 99.841 100.925 Sodium Chloride 0.9% 250 ml @ 0.05 MCG/KG/MIN 19. 126 mls/hr IV .[id number] MARK Rx#:[id number] Potassium Chloride 10 meq 100 In Water For Injection 1 100ml.bag @ 100 mls/hr IVPB Q1HR MARK Rx#: [id number] Oral 340 600 Output: Urine 1575 3050 875 Other: Voiding Method Indwelling Catheter Indwelling Catheter - Exam Physical Exam: Revealed a 70-year-old female in no distress. Head: Atraumatic, normocephalic. HEENT:[Neck is supple.] [No neck masses.] [No thyromegaly.] [No JVD.] Chest: [Clear throughout, minimal crackles at the bases, diminished breath sounds at the left base. Cardiac Exam: [Normal S1 and S2, no S3 gallop, no murmur.] Abdomen: [Soft, nontender, no megaly, no rebound, no guarding, normal bowel sounds.] Extremities: [No clubbing, no edema, no cyanosis.] Neurological Exam: [No focal neurologic deficit.] Alert oriented 3. Skin: No rashes. Psychiatric: Normal mood affect and normal mental status examination. - Labs CBC & Chem 7: 06/10/21 07:18 06/10/21 07:18 Labs: Abnormal Lab Results - Last 24 Hours (Table) 06/10/21 06/10/21 Range/Units 07:18 07:18 RBC 3.71 L (3.80-5.40) m/uL Hgb 10.1 L (11.4-16.0) gm/dL MCHC 29.6 L (31.0-37.0) g/dL RDW 17.0 H (11.5-15.5) % Plt Count 66 L (150-450) k/uL Lymphocytes # 0.8 L (1.0-4.8) k/uL Potassium 3.2 L (3.5-5.1) mmol/L Chloride 97 L (98-107) mmol/L Carbon Dioxide 37 H (22-30) mmol/L BUN 21 H (7-17) mg/dL Glucose 114 H (74-99) mg/dL Total Protein 5.4 L (6.3-8.2) g/dL Albumin 3.0 L (3.5-5.0) g/dL Microbiology - Last 24 Hours (Table) 06/08/21 09:30 Gram Stain - Preliminary Pleural Fluid Body Fluid Culture - Preliminary Assessment and Plan Assessment: Impression: Acute on chronic hypoxic and hypercapnic respiratory failure secondary to acute diastolic congestive heart failure and suspect some component of COPD. With hypercapnia and CO2 narcosis. Chronic obstructive pulmonary disease Left pleural effusion requiring thoracentesis, transudative in nature Chronic atrial fibrillation Benign essential hypertension Dyslipidemia New onset thrombocytopenia, exact etiology is not clear platelet count remains stable History of underlying dementia. Recommendation: Continue present supportive care measures Continue diuretics Agree with Diamox added by Dr. Reyez Discontinue all antibiotics Continue eliquis continue to monitor platelet count. Discontinue Precedex Discontinue norepinephrine Titrate oxygen accordingly Continue bronchodilators Continue to monitor renal status Possible transfer out of the ICU once Precedex and norepinephrine are discontinued Time with Patient: Less than 30
--- NOTE | 2021-06-10 13:32 | PN ---
PROGRESS NOTE This is a 70-year-old lady who came into the hospital with what seems to be a hypercarbic respiratory failure and has developed atrial fibrillation; I do not think this is a new-onset atrial fibrillation. Patient has had atrial fibrillation before. However, the rate is now better controlled with amiodarone 200 mg three times a day in addition to carvedilol. The patient is not very communicative. She remains in atrial fibrillation. Rate is much better controlled. Her mentation cannot be assessed because she is sleepy. She is on a very small dose of Levophed at this time. Blood pressure today is about 120/60, pulse rate is about 90, irregular. HEENT unremarkable. Limited examination was performed. Neck is supple. No JVD. S1, S2 with irregular rhythm noted. Lungs reveal diminished air entry. Abdomen is soft. Lower extremities reveal diminished pulses. Central nervous system assessment was not performed. IMPRESSION: 1. Atrial fibrillation. Rate is much better controlled. 2. Patient has hypercarbic respiratory failure. She is improving and Pulmonology is following closely. We will continue current medical regimen, and based on progress, we will recommend further medications. She has not tolerated carvedilol very well. I will consider adding a small dose of metoprolol tartrate based on clinical course. She has a fairly well preserved LV systolic function, but there is evidence of pulmonary hypertension with right ventricular pressure and volume overload type picture, and pressures on the right side of about 50 to 55 mmHg. We will continue amiodarone and see how she does. Prognosis remains guarded. Will check electrolytes as well. MMODL / IJN: [id number] /
[2021-06-10] MEDS: ATORVASTATIN 40 MG TAB PO SCH (21:46)
[2021-06-10] MEDS: OLANZapine 7.5 MG TAB PO SCH (21:47)
--- NOTE | 2021-06-11 00:31 | P.PN ---
Subjective Progress Note Date: 06/10/21 70-year-old female with past medical history of congestive heart failure, A. fib on anticoagulation, COPD with noncompliant use of her BiPAP, mood disorder who is brought into the emergency department for hypoxia. Patient was recently seen at [facility] for altered mental status. Found to have subdural hematomas versus hygromas and was shipped to [place]. [facility]'s evaluation deemed that the patient had chronic hygromas and she was cleared for anticoagulant use. Patient was transferred to [facility] for rehab. Patient has been noncompliant with her BiPAP and medications. at bedside states that she refuses majority of her medications. Today the staff found her more confused than normal. They state that she does has a history of some confusion at baseline however today was worsens. Her oxygen saturations were in the 80s. EMS attempted intubation of the patient however she was responsive and clenching down. There were unable to get an IV and therefore I was placed in the left humerus. Patient was placed on a nasal cannula. She did perk up upon transfer to the hospital however became agitated and therefore received 110 mg of ketamine. Patient arrives sedated with shallow respirations. She is unable to obtain any history from. She is found to be in A. fib which she has a history of. Laboratory studies; demonstrates a leukocytosis of 13.5. ABG demonstrates a CO2 of 89. Lactic acid 3.1. Troponin 0.059. BNP elevated at 4460. Urinalysis demonstrates occasional bacteria with moderate budding yeast. Chest x-ray is performed which demonstrates right lower lobe pneumonia and effusion. Patient was initiated on antibiotics after blood cultures were obtained. Fluids were not given to the patient even though she does meet sepsis criteria as she does have history of congestive heart failure and has visible effusion on chest x-ray with an elevated BNP. Patient does have a mildly low blood pressure and therefore was given a 500 mL normal saline bolus only. Patient is initiated on amiodarone due to her A. fib with persistently elevated heart rate. CT brain demonstrate the chronic hygromas without acute abnormality. 06/01/2021 Patient is seen and evaluated and follow-up with no issues overnight per nursing staff although patient continues to be confused and yelling out at times and can be redirected. Patient reports to having shortness of breath and is currently maintained on 4 L via nasal cannula. Cardiology and pulmonary following and patient is maintained on IV Cardizem and oral anticoagulant has been resumed. P atient with extensive weakness and will have PT/OT evaluated the patient and family would like the patient to return to [facility]. Case management and social work following. Patient is able to answer questions somewhat appropriately when redirected although continues to be confused and rambles at times. No reports of chest pain. Patient is afebrile. 06/02/2021 Patient is seen in follow-up today and per nursing staff and sitter at the bedside for safety, patient continues with confusion and has been pocketing her pills and spitting them out and not tolerating oral intake very well. Cardio logy following and patient is to continue on IV Cardizem along with amiodarone until able to tolerate oral intake. Patient also continued on ceftriaxone and oral prednisone with pulmonary following. Will add low-dose Seroquel at night and monitor closely. 06/03/2021 Patient remains confused and drowsy secondary to her CO2 narcosis but she is arousable and she knows and she is in the hospital. She denies headache or weakness or numbness, no asymmetry noted in her examination. Both pupils are equal and reactive to light. No meningeal signs. She ate 75% of her denying 100% of snack last night. She is on 4 L oxygen via nasal cannula. She is hemodynamically stable and afebrile. The hemoglobin is stable at 8.6, platelet count improved slightly at 121, creatinine normal 0.8, pro-calcitonin is slightly elevated at 0.18. Chest x-ray showing possible pneumonia and effusion and the recommend follow-up. I looked at the chest x-ray myself she has bilateral infiltrates, more on the right side, looks slightly better than when she came in to the hospital. She has significant bilateral leg edema probnp is improving since admission 4460 to 3190 [address] [place] on this admission showing ejection fraction of 50-55% with moderate to severe tricuspid regurgitation and moderate pulmonary hypertension She has amiodarone and Cardizem running also she is on ceftriaxone, therapeutic dose of Lovenox and Eliquis is on hold. She is on prednisone 20 mg twice daily and Seroquel. We will add doxycycline for coverage of atypical bacteria. IV Lasix 40 twice a day. 06/04/2021 Patient is seen in follow-up this morning and continues to be confused and rambling. Patient was given a dose of IV Lasix for some volume overload and appears edematous throughout including bilateral lower extremities with 2+ pitting edema noted. Patient with continued shortness of breath and chest x-ray showing correlate for pneumonia versus congestive heart failure with probable associated effusions and the heart is enlarged with patchy densities also present at the left lung base. Pulmonary following recommending transfer to the ICU for close monitoring. She is continued on 2 L via nasal cannula and oxygen saturation is 99%. Patient will most likely be need on BiPAP. Patient will be placed on a Lasix drip. CODE STATUS needs to be addressed. Will call family. 06/05/2021 Patient is seen and evaluated in follow-up continues to be in the ICU being closely monitored. Patient is maintained on IV Lasix and diuresing well and also continues on IV antibiotics in the form of ceftriaxone and doxycycline and will continue. Patient also continues on IV Solu-Medrol twice daily in breathing inhalational treatments. Patient continues on IV amiodarone as patient is currently on a BiPAP and requiring a sitter at the bedside as patient continues to be confused and attempting to remove IVs and tubing. Patient being started on Precedex as well. Overall generalized edema continues with significant 2+ pitting edema noted in bilateral lower extremities. The PBC is normal at 4.7 and hemoglobin is 9.9, BMP within normal limits. Chest x-ray today shows bilateral pleural parenchymal changes stable and correlate for CHF with underlying pneumonia not excluded. 06/06/2021 Patient remains in the ICU on high flow nasal cannula at 4 L however earlier she was on BiPAP but her respiratory status is improving. She is currently on Lasix drip for her diastolic CHF him on ceftriaxone and doxycycline for her right lower lobe pneumonia and she was getting BiPAP for her CO2 retention. Patient clinically improved. Negative balance of 5-6 L over 24 hours Also she is on therapeutic dose of Lovenox Currently her heart rate is core controlled with Coreg and Lovenox at therapeutic dose. Ejection fraction 45-50% 06/07/2021 Patient uses BiPAP for about 4 hours last night, then she switched to 4 L/m of oxygen via nasal cannula and she is doing well this morning, she can talk freely with minimal shortness of breath. She is hemodynamically stable. Labs are pending. Chest x-ray reviewed by myself showing persistent bilateral infiltrates on both lower sites, more on the right side. She is eating without difficulty. She remains on Lasix drip at 10 mg per hour, ceftriaxone and doxycycline, Lovenox 100 mg twice a day, Coreg 3.125 mg, Seroquel/Zyprexa. She has good urine output 06/08/2021 Patient remains in the ICU, she is currently on 4 L of oxygen per minute. She refused BiPAP last night. She is eating little but she'll try to eat more this morning. No significant dyspnea or coughing, she is breathing easier compared to yesterday after 1250 mL of turbid fluid removed from her right-sided thorac ocentesis yesterday. She is a bit hypertensive and bradycardiac today while she is on Lasix drip whi le the dose lowered from 10 mg/h down to 5 mg per hour. Also she is on Coreg small dose 3.125 per cardiology is following the patient closely. WBC improved 7.3 hemoglobin went up 10.5 as well as platelet 204. Carbon dioxide is elevated 49 and BNP is also elevated 3940. Currently she is covered with ceftriaxone, Lasix drip, therapeutic dose of Lovenox and pressors, she is on levophed 06/09/2021 Patient remains in the ICU actually improving. Her breathing pattern is better than yesterday,, she came off her BIPAP today which is dicontinued. Blood pressure this morning 88/63, patient is asymptomatic and has no tachycardia. MrsRanjith drip was stopped and switched to IV Lasix 40 mg twice daily. Other than that LOOKS stable with WBC 6.4, hemoglobin 10.7, platelets 78, creatinine 1.2. Low potassium and magnesium is been placed ceftriaxone was discontinued. And Lovenox and switched to a liquid 06/10/2021 Patient is seen and evaluated in follow-up continues to be in the ICU with multiple medical consultations following. Per nursing staff patient continues on Precedex although weaning and also weaning Levophed. Patient is currently maintained on 1 L of oxygen via nasal cannula and will continue. Patient is being followed by pulmonary and cardiology and is status post left thoracentesi s. IV antibiotics being discontinued. Patient is afebrile. Patient awaiting possible transfer out of the ICU. Review of systems: Unable to obtain as patient is confused Active Medications Albuterol/Ipratropium (Ipratropium-Albuterol 3 Ml Neb) 3 ml INHALATION RT-Q4H PRN PRN Reason: shortness of breath Albuterol/Ipratropium (Ipratropium-Albuterol 3 Ml Neb) 3 ml INHALATION RT-Q4H PRN PRN Reason: Shortness Of Breath Albuterol/Ipratropium (Ipratropium-Albuterol 3 Ml Neb) 3 ml INHALATION RT- TID@,, FOR[facility]LY [facility], [facility]1983 Last Admin: 06/10/21 12:07 Dose: 3 ml Documented by: Amiodarone HCl (Amiodarone 200 Mg Tab) 200 mg PO TID [facility], [facility] Last Admin: 06/10/21 09:02 Dose: 200 mg Documented by: Apixaban (Apixaban 5 Mg Tab) 5 mg PO BID [facility], [facility]; Protocol Last Admin: 06/10/21 09:02 Dose: 5 mg Documented by: Atorvastatin Calcium (Atorvastatin 40 Mg Tab) 40 mg PO HS@2100 [facility], [facility] Last Admin: 06/09/21 20:24 Dose: 40 mg Documented by: Bisacodyl (Bisacodyl 10 Mg Supp) 10 mg RECTAL DAILY PRN PRN Reason: Constipation Budesonide/Formoterol Fumarate (Symbicort 160-4.5 Mcg Inhaler) 2 puff INHALATION RT-BID@0900,1700 [facility], [facility] Last Admin: 06/10/21 08:20 Dose: 2 puff Documented by: Furosemide (Furosemide 10 Mg/Ml 4 Ml Vial) 40 mg IV Q24HR [facility], [facility] Last Admin: 06/10/21 09:02 Dose: 40 mg Documented by: Haloperidol Lactate (Haloperidol Lactate 5 Mg/Ml 1 Ml Vial) 2 mg IVP Q4HR PRN PRN Reason: Agitation or Acute Psychosis Last Admin: 06/07/21 13:57 Dose: 2 mg Documented by: Dexmedetomidine HCl 400 mcg/ (IV Solution) 100 mls @ 5.02 mls/hr IV .[id number] [facility], [facility]; Protocol Last Titration: 06/10/21 14:08 Dose: 0.6 mcg/kg/hr, 15.1 mls/hr Documented by: Norepinephrine Bitartrate 4 mg (/ Sodium Chloride) 254 mls @ 19.126 mls/hr IV .[id number] [facility], [facility]; Protocol Last Titration: 06/10/21 14:43 Dose: 0.04 mcg/kg/min, 15.301 mls/hr Documented by: Lidocaine (Lidocaine 5% Patch) 1 patch TOPICAL DAILY [facility], [facility]; Protocol Last Admin: 06/10/21 09:03 Dose: 1 patch Documented by: Miscellaneous Information (Pneumonia Protocol Utilized 1 Each Misc) 1 each PO ONCE PRN PRN Reason: Per Protocol Miscellaneous Information (Magnesium Replacement Protocol 1 Each Misc) 1 each MISCELLANE DAILY PRN; Protocol PRN Reason: Per Protocol Miscellaneous Information (Potassium Replacement Protocol 1 Each Misc) 1 each MISCELLANE DAILY PRN; Protocol PRN Reason: Per Protocol Non-Formulary Medication (Estrogens, Conjugated [Premarin]) 1.25 mg PO DAILY@0900 [facility], [facility] Last Admin: 06/10/21 09:03 Dose: Not Given Documented by: Olanzapine (Olanzapine 7.5 Mg Tab) 15 mg PO HS@2100 [facility], [facility] Last Admin: 06/09/21 20:25 Dose: 15 mg Documented by: Pantoprazole Sodium (Pantoprazole 40 Mg/10 Ml Vial) 40 mg IVP DAILY [facility], [facility] Last Admin: 06/10/21 09:02 Dose: 40 mg Documented by: Physical exam: General: Patient is confused, although follows commands appropriately and more alert. Obese, currently on 1L via NC HEENT examination is grossly unremarkable. Neck supple. No adenopathy thyromegaly or neck vein distention. Cardiovascular: S1, S2 muffled. irregularly irregular. Lungs reveal scattered bilateral rhonchi with some faint crackles. Abdomen is obese. Bowel sounds are noted. Extremities reveal edema. although improved. No cyanosis or clubbing. Skin is without rash or lesion. Neurologic; no focal deficit noted. diffusely weak Assessment: -Acute on chronic hypoxemic and hypercapnic respiratory failure; multifactorial, CO2 narcosis -COPD acute exacerbation -Possible bilateral pneumonia -Possible acute diastolic congestive heart failure with an ejection fraction of 50-55% with volume overload and bilateral pitting edema -left pleural effusion status post thoracentesis -Altered Mental Status; Metabolic encephalopathy secondary to CO2 Narcosis -Atrial fibrillation with RVR; cardiology following -hypokalemia -hypomagnesemia -Hyperlipidemia -Hypertension -Moderate to severe tricuspid regurgitation -Moderate pulmonary hypertension -Possible obesity hypoventilation syndrome -Elevated Troponin; likely Type II ME; cardiology on board -DVT Prophylaxis; Eliquis -GI prophylaxis -NO CODE Plan: This is a pleasant 70-year-old years old female who presents with multiple cardiac and pulmonary problems including possible pneumonia, CHF, AMS, high troponin, hypoxia and hypercapnia, A. fib and RVR and pulmonary hypertension. Continue with cardiology and pulmonary following Patient continues on low dose precedex and levophed and being weaned Continue with anticoagulation and currently on Eliquis Continue IV Lasix 40 mg daily Continue with Seroquel as needed Continue electrolyte replacement per protocol Possible transfer out of the ICU once weaned from levophed and precedex Prognosis is guarded The impression and plan of care has been dictated by Sophie Rhodes, Nurse Practitioner as directed. Dr. Saadia MD I have performed a history and examination and MDM of this patient, discussed the same with the dictator, and agree with the dictator's assessment and plan as written ,documented as a scribe. Based on total visit time, I have performed more than 50% of the visit. Objective - Vital Signs Vital signs: Vital Signs Temp 98.1 F 06/10/21 04:00 Pulse 67 06/10/21 08:31 Resp 16 06/10/21 07:00 BP 110/45 06/10/21 07:00 Pulse Ox 96 06/10/21 07:00 Intake & Output 06/09/21 06/10/21 06/10/21 18:59 06:59 18:59 Intake Total 3928.968 3305.508 109.322 Output Total 1575 3050 125 Balance 100.760 -2032.492 -15.678 Weight 84 kg Intake: IV 860 240 20 0.9 NS 160 240 20 Magnesium Sulfate-D5w Pmx 300 1 gm In Dextrose/Water 1 100ml.bag @ 100 mls/hr IVPB Q1H MARK Rx#: [id number] Potassium Chloride 10 meq 400 In Water For Injection 1 100ml.bag @ 100 mls/hr IVPB Q1HR MARK Rx#: [id number] Intake, IV Titration 475.760 177.508 89.322 Amount Amiodarone 450 mg In 250 Dextrose 5% in Water 250 ml @ 0.5 MG/MIN 16.667 mls/hr IV .Q15H MARK Rx#: [id number] Dexmedetomidine/0.9% NaCl 84.227 77.667 (Pmx) 400 mcg In Empty Bag 1 bag @ 0.2 MCG/KG/HR 5.02 mls/hr IV .[id number] [facility], [facility] Rx#:[id number] Norepinephrine 4 mg In 141.533 99.841 89.322 Sodium Chloride 0.9% 250 ml @ 0.05 MCG/KG/MIN 19. 126 mls/hr IV .[id number] [facility] Rx#:[id number] Oral 340 600 Output: Urine 1575 3050 125 Other: Voiding Method Indwelling Catheter Indwelling Catheter - Labs CBC & Chem 7: 06/10/21 07:18 06/10/21 20:18 Labs: Microbiology - Last 24 Hours (Table) 06/08/21 09:30 Gram Stain - Preliminary Pleural Fluid Body Fluid Culture - Preliminary
[2021-06-11] MEDS ORDERED: POTASSIUM CHLORIDE ER 20 MEQ TAB.ER PO SCH ×2 (04:00→10:00)
[2021-06-11] MEDS: NOREPINEPHRINE 4 MG in SODIUM CHLORIDE 0.9% 250 ML IV SCH ×2 (05:03→18:48)
[2021-06-11 07:52] LABS: Anisocytosis Slight; Basophils % (A) 0 %; Eosinophils # (A) 0.1 k/uL (0-0.7); Eosinophils % (A) 3 %; HCT 32.8 % (34.0-46.0); HGB 9.6 gm/dL (11.4-16.0); Hypochromasia Marked; Lymphocytes # (A) 0.8 k/uL (1.0-4.8); Lymphocytes % (A) 15 %; MCH 26.9 pg (25.0-35.0); MCHC 29.4 g/dL (31.0-37.0); MCV 91.7 fL (80.0-100.0); Mean Platelet Volume 10.8; Monocytes # (A) 0.3 k/uL (0-1.0); Monocytes % (A) 6 %; Neutrophils # (A) 3.9 k/uL (1.3-7.7); Neutrophils % (A) 73 %; Poikilocytosis Slight; RBC 3.58 m/uL (3.80-5.40); WBC 5.4 k/uL (3.8-10.6)
[2021-06-11 07:53] LABS: Platelet Count 76 k/uL (150-450)
[2021-06-11] MEDS: FUROSEMIDE 10 MG/ML 4 ML VIAL IV SCH (08:14)
[2021-06-11] MEDS: APIXABAN 5 MG TAB PO SCH ×2 (08:14→20:38)
[2021-06-11] MEDS: PANTOPRAZOLE 40 MG/10 ML VIAL IVP SCH (08:14)
[2021-06-11] MEDS: AMIODARONE 200 MG TAB PO SCH ×2 (08:16→20:36)
[2021-06-11] MEDS: ESTROGENS CONJUGATED 1.25 MG PO SCH (08:16)
[2021-06-11 08:22] LABS: Albumin 2.8 g/dL (3.5-5.0); Calcium 8.8 mg/dL (8.4-10.2); Potassium 3.9 mmol/L (3.5-5.1); Total Bilirubin 0.7 mg/dL (0.2-1.3); Total Protein 5.3 g/dL (6.3-8.2)
--- NOTE | 2021-06-11 08:22 | XR ---
EXAMINATION TYPE: XR chest 1V portable DATE OF EXAM: 06/11/2021 COMPARISON: 06/10/2021 HISTORY: Shortness of breath TECHNIQUE: Single frontal view of the chest is obtained. FINDINGS: Diffuse interstitial pattern with cardiomegaly. Bilateral infiltrate and small effusion. B iapical pleural thickening. Diffuse osteopenia. Findings stable. IMPRESSION: Correlate for CHF otherwise consider pneumonia.
[2021-06-11] MEDS: DEXMEDETOMIDINE/0.9% NACL(PMX) 400 MCG in EMPTY BAG 1 BAG IV SCH ×2 (08:27→17:09)
[2021-06-11] MEDS: LIDOCAINE 5% PATCH TOPICAL SCH (08:45)
[2021-06-11] MEDS: IPRATROPIUM-ALBUTEROL 3 ML NEB INHALATION SCH ×3 (09:23→19:14)
[2021-06-11] MEDS: SYMBICORT 160-4.5 MCG INHALER INHALATION SCH ×3 (09:23→19:15)
[2021-06-11] MEDS ORDERED: Potassium Replacement Protocol 1 EACH MISC MISCELLANE PRN (09:51)
[2021-06-11] MEDS: ACETAMINOPHEN TAB 325 MG TAB PO PRN ×2 (09:57→20:36)
[2021-06-11] MEDS: MIDODRINE 5 MG TAB PO SCH ×2 (09:58→17:09)
--- NOTE | 2021-06-11 11:40 | P.PN ---
Subjective Progress Note Date: 06/11/21 Principal diagnosis: Acute on chronic hypoxic and hypercapnic respiratory failure secondary to acute diastolic congestive heart failure and underlying COPD On 06/09/2021, the patient is on 1 L of oxygen by nasal cannula. Doing well. No specific complaints. On and off she gets agitated and confused. She is on Zyprexa and she is also on Precedex running at 0.3 mcg/kg per minute which will be asked to be weaned off and discontinued. Meanwhile, the patient was in a Lasix drip at 5 mg an hour. Her overall fluid balance of been -7.1 L over the past 24 hours and 10 L since morning. This is extensive diuresis and the patient's body weight is up from 114 kg down to 95 kg. Based on his underlying diuresis, the patient required a low dose norepinephrine which is running at 0.03 mcg/kg per minute. The patient has excellent urine output. The patient is currently off the BiPAP. BUN is at 27 with a creatinine of 1.2 and a serum bicarb is 47. The white cell count is at 6.4 with a hemoglobin of 10.7 and a platelet count of 78. I performed a thoracentesis of the right lung on this patient with excellent results and the pleural fluid is also a transudate. Pleural fluid cytology is pending for now. Eliquis has been restarted and the patient is currently on 5 mg by mouth twice a day. Tolerating her diet. No other significant events overnight. Cardiac rhythm is atrial fibrillation with a controlled rate. Patient was evaluated today on 06/11/19 remains in the ICU on 1 L nasal cannula, patient seems to be quite comfortable. Remains on Lasix at 40 mg every 12 hours. Patient had a negative balance of 193 2 mL over the last 24 hours. His funding quite well to diuretics. She is in atrial fibrillation, rate seems to be controlled, patient is maintained on eliquis. Patient is requiring norepinephrine at 0.02 mcg/kg/m, he is also requiring Precedex at 0.4 mcg/kg/h. IV fluid is at KVO 20 mL per hour in the formal 0.9 normal saline. Chest x-ray today is showing evidence of congestive heart failure, left pleural effusion, strongly doubt pneumonia. CBC is relatively unremarkable. Electrolytes are normal low potassium being addressed accordingly. Cytology on the pleural effusion is pending but from the looks of it this is a transudate of pleural e ffusion with low protein and low LDH. Reevaluated today on06/11/21, patient remains in the ICU, she is quite comfortable, does not seem to be in any distress, however the patient is still requiring norepinephrine at 0.01 mcg/kg/m. She is on room air, she is also requiring Precedex at 0.4 mgkg/h. Ration has intermittent confusions and hallucinations, remains on Zyprexa, and I have discontinued her Haldol. Precedex seems to keep her calm. Patient was noted to be quite calm during my evaluation. And she was very appropriate. TBC is normal electrolytes are normal renal profile is normal bicarb is 19. Objective - Vital Signs Vital signs: Vital Signs Temp 98.4 F 06/11/21 08:00 Pulse 75 06/11/21 11:00 Resp 20 06/11/21 11:00 BP 101/46 06/11/21 11:00 Pulse Ox 93 L 06/11/21 11:00 Intake & Output 06/10/21 06/11/21 06/11/21 18:59 06:59 18:59 Intake Total 1747.404 802.370 546.100 Output Total 2090 855 1075 Balance -342.596 -52.630 -528.900 Weight 84 kg 84.2 kg Intake: IV 260 220 100 0.9 NS 260 220 100 Intake, IV Titration 907.404 132.370 126.100 Amount Dexmedetomidine/0.9% NaCl 163.255 36.745 93.333 (Pmx) 400 mcg In Empty Bag 1 bag @ 0.2 MCG/KG/HR 5.02 mls/hr IV .[id number] MARK Rx#:[id number] Magnesium Sulfate-D5w Pmx 200 1 gm In Dextrose/Water 1 100ml.bag @ 100 mls/hr IVPB Q1H MARK Rx#: [id number] Norepinephrine 4 mg In 144.149 95.625 32.767 Sodium Chloride 0.9% 250 ml @ 0.05 MCG/KG/MIN 19. 126 mls/hr IV .[id number] MARK Rx#:[id number] Potassium Chloride 10 meq 400 In Water For Injection 1 100ml.bag @ 100 mls/hr IVPB Q1HR MARK Rx#: [id number] Oral 580 450 320 Output: Urine 2090 855 1075 Other: Voiding Method Indwelling Catheter Indwelling Catheter Indwelling Catheter - Exam Physical Exam: Revealed a 70-year-old female in no distress. On room air. However the patient is on norepinephrine. Head: Atraumatic, normocephalic. HEENT:[Neck is supple.] [No neck masses.] [No thyromegaly.] [No JVD.] Chest: [Clear throughout, minimal crackles at the bases, diminished breath sounds at the left base. Cardiac Exam: [Normal S1 and S2, no S3 gallop, no murmur.] Abdomen: [Soft, nontender, no megaly, no rebound, no guarding, normal bowel sounds.] Extremities: [No clubbing, no edema, no cyanosis.] Neurological Exam: [No focal neurologic deficit.] Alert oriented 3. Skin: No rashes. Psychiatric: Normal mood affect and normal mental status examination. - Labs CBC & Chem 7: 06/11/21 07:22 06/11/21 07:22 Labs: Abnormal Lab Results - Last 24 Hours (Table) 06/11/21 06/11/21 Range/Units 07:22 07:22 RBC 3.58 L (3.80-5.40) m/uL Hgb 9.6 L (11.4-16.0) gm/dL Hct 32.8 L (34.0-46.0) % MCHC 29.4 L (31.0-37.0) g/dL RDW 17.0 H (11.5-15.5) % Plt Count 76 L (150-450) k/uL Lymphocytes # 0.8 L (1.0-4.8) k/uL Carbon Dioxide 33 H (22-30) mmol/L BUN 19 H (7-17) mg/dL Glucose 109 H (74-99) mg/dL Total Protein 5.3 L (6.3-8.2) g/dL Albumin 2.8 L (3.5-5.0) g/dL Microbiology - Last 24 Hours (Table) 06/08/21 09:30 Gram Stain - Preliminary Pleural Fluid Body Fluid Culture - Preliminary Assessment and Plan Assessment: Impression: Acute on chronic hypoxic and hypercapnic respiratory failure secondary to acute diastolic congestive heart failure and suspect some component of COPD. With hypercapnia and CO2 narcosis. Chronic obstructive pulmonary disease Left pleural effusion requiring thoracentesis, transudative in nature/cardiac in nature. Chronic atrial fibrillation Benign essential hypertension Dyslipidemia New onset thrombocytopenia, exact etiology is not clear platelet count remains stable History of underlying dementia. Recommendation: Continue present supportive care measures Continue diuretics Continue Diamox. Discontinue all antibiotics Continue eliquis continue to monitor platelet count. Try to discontinue Precedex. Discontinue norepinephrine, if tolerated in the meantime we'll try midodrine on this patient at 5 mg twice a day Continue bronchodilators Continue to monitor renal status Possible transfer out of the ICU once Precedex and norepinephrine are discontinued Time with Patient: Less than 30
--- NOTE | 2021-06-11 15:33 | PN ---
PROGRESS NOTE Mrs. Juani Yip is still having some confusion. She does not communicate. However, her atrial fibrillation rate is much better controlled. She is anticoagulated. I am asking that we reduce the amiodarone from 200 mg t.i.d. to b.i.d. Rate control has been achieved. Will continue anticoagulation. Prognosis remains guarded. She has acute on chronic respiratory failure. She is refusing BiPAP. Vitals are stable. S1-S2 heard normally. Irregular rhythm noted. Short systolic murmur noted. Lungs reveal diminished air entry. Abdomen is soft. Lower extremities reveal diminished pulses. Central nervous system assessment was not performed. Prognosis remains guarded. We will continue amiodarone at lower dose and continue anticoagulation. I will continue to see the patient as needed. MMODL / IJN: [id number] /
[2021-06-11] MEDS: OLANZapine 7.5 MG TAB PO SCH (20:36)
[2021-06-11] MEDS: ATORVASTATIN 40 MG TAB PO SCH (20:38)
--- NOTE | 2021-06-11 22:33 | P.PN ---
Subjective Progress Note Date: 06/11/21 70-year-old female with past medical history of congestive heart failure, A. fib on anticoagulation, COPD with noncompliant use of her BiPAP, mood disorder who is brought into the emergency department for hypoxia. Patient was recently seen at [facility] for altered mental status. Found to have subdural hematomas versus hygromas and was shipped to [place]. [facility] evaluation deemed that the patient had chronic hygromas and she was cleared for anticoagulant use. Patient was transferred to [facility] for rehab. Patient has been noncompliant with her BiPAP and medications. at bedside states that she refuses majority of her medications. Today the staff found her more confused than normal. They state that she does has a history of some confusion at baseline however today was worsens. Her oxygen saturations were in the 80s. EMS attempted intubation of the patient however she was responsive and clenching down. There were unable to get an IV and therefore I was placed in the left humerus. Patient was placed on a nasal cannula. She did perk up upon transfer to the hospital however became agitated and therefore received 110 mg of ketamine. Patient arrives sedated with shallow respirations. She is unable to obtain any history from. She is found to be in A. fib which she has a history of. Laboratory studies; demonstrates a leukocytosis of 13.5. ABG demonstrates a CO2 of 89. Lactic acid 3.1. Troponin 0.059. BNP elevated at 4460. Urinalysis demonstrates occasional bacteria with moderate budding yeast. Chest x-ray is performed which demonstrates right lower lobe pneumonia and effusion. Patient was initiated on antibiotics after blood cultures were obtained. Fluids were not given to the patient even though she does meet sepsis criteria as she does have history of congestive heart failure and has visible effusion on chest x-ray with an elevated BNP. Patient does have a mildly low blood pressure and therefore was given a 500 mL normal saline bolus only. Patient is initiated on amiodarone due to her A. fib with persistently elevated heart rate. CT brain demonstrate the chronic hygromas without acute abnormality. 06/01/2021 Patient is seen and evaluated and follow-up with no issues overnight per nursing staff although patient continues to be confused and yelling out at times and can be redirected. Patient reports to having shortness of breath and is currently maintained on 4 L via nasal cannula. Cardiology and pulmonary following and patient is maintained on IV Cardizem and oral anticoagulant has been resumed. P atient with extensive weakness and will have PT/OT evaluated the patient and family would like the patient to return to [facility]. Case management and social work following. Patient is able to answer questions somewhat appropriately when redirected although continues to be confused and rambles at times. No reports of chest pain. Patient is afebrile. 06/02/2021 Patient is seen in follow-up today and per nursing staff and sitter at the bedside for safety, patient continues with confusion and has been pocketing her pills and spitting them out and not tolerating oral intake very well. Cardio logy following and patient is to continue on IV Cardizem along with amiodarone until able to tolerate oral intake. Patient also continued on ceftriaxone and oral prednisone with pulmonary following. Will add low-dose Seroquel at night and monitor closely. 06/03/2021 Patient remains confused and drowsy secondary to her CO2 narcosis but she is arousable and she knows and she is in the hospital. She denies headache or weakness or numbness, no asymmetry noted in her examination. Both pupils are equal and reactive to light. No meningeal signs. She ate 75% of her denying 100% of snack last night. She is on 4 L oxygen via nasal cannula. She is hemodynamically stable and afebrile. The hemoglobin is stable at 8.6, platelet count improved slightly at 121, creatinine normal 0.8, pro-calcitonin is slightly elevated at 0.18. Chest x-ray showing possible pneumonia and effusion and the recommend follow-up. I looked at the chest x-ray myself she has bilateral infiltrates, more on the right side, looks slightly better than when she came in to the hospital. She has significant bilateral leg edema probnp is improving since admission 4460 to 3190 Under Lio on this admission showing ejection fraction of 50-55% with moderate to severe tricuspid regurgitation and moderate pulmonary hypertension She has amiodarone and Cardizem running also she is on ceftriaxone, therapeutic dose of Lovenox and Eliquis is on hold. She is on prednisone 20 mg twice daily and Seroquel. We will add doxycycline for coverage of atypical bacteria. IV Lasix 40 twice a day. 06/04/2021 Patient is seen in follow-up this morning and continues to be confused and rambling. Patient was given a dose of IV Lasix for some volume overload and appears edematous throughout including bilateral lower extremities with 2+ pitting edema noted. Patient with continued shortness of breath and chest x-ray showing correlate for pneumonia versus congestive heart failure with probable associated effusions and the heart is enlarged with patchy densities also present at the left lung base. Pulmonary following recommending transfer to the ICU for close monitoring. She is continued on 2 L via nasal cannula and oxygen saturation is 99%. Patient will most likely be need on BiPAP. Patient will be placed on a Lasix drip. CODE STATUS needs to be addressed. Will call family. 06/05/2021 Patient is seen and evaluated in follow-up continues to be in the ICU being closely monitored. Patient is maintained on IV Lasix and diuresing well and also continues on IV antibiotics in the form of ceftriaxone and doxycycline and will continue. Patient also continues on IV Solu-Medrol twice daily in breathing inhalational treatments. Patient continues on IV amiodarone as patient is currently on a BiPAP and requiring a sitter at the bedside as patient continues to be confused and attempting to remove IVs and tubing. Patient being started on Precedex as well. Overall generalized edema continues with significant 2+ pitting edema noted in bilateral lower extremities. The PBC is normal at 4.7 and hemoglobin is 9.9, BMP within normal limits. Chest x-ray today shows bilateral pleural parenchymal changes stable and correlate for CHF with underlying pneumonia not excluded. 06/06/2021 Patient remains in the ICU on high flow nasal cannula at 4 L however earlier she was on BiPAP but her respiratory status is improving. She is currently on Lasix drip for her diastolic CHF him on ceftriaxone and doxycycline for her right lower lobe pneumonia and she was getting BiPAP for her CO2 retention. Patient clinically improved. Negative balance of 5-6 L over 24 hours Also she is on therapeutic dose of Lovenox Currently her heart rate is core controlled with Coreg and Lovenox at therapeutic dose. Ejection fraction 45-50% 06/07/2021 Patient uses BiPAP for about 4 hours last night, then she switched to 4 L/m of oxygen via nasal cannula and she is doing well this morning, she can talk freely with minimal shortness of breath. She is hemodynamically stable. Labs are pending. Chest x-ray reviewed by myself showing persistent bilateral infiltrates on both lower sites, more on the right side. She is eating without difficulty. She remains on Lasix drip at 10 mg per hour, ceftriaxone and doxycycline, Lovenox 100 mg twice a day, Coreg 3.125 mg, Seroquel/Zyprexa. She has good urine output 06/08/2021 Patient remains in the ICU, she is currently on 4 L of oxygen per minute. She refused BiPAP last night. She is eating little but she'll try to eat more this morning. No significant dyspnea or coughing, she is breathing easier compared to yesterday after 1250 mL of turbid fluid removed from her right-sided thorac ocentesis yesterday. She is a bit hypertensive and bradycardiac today while she is on Lasix drip whi le the dose lowered from 10 mg/h down to 5 mg per hour. Also she is on Coreg small dose 3.125 per cardiology is following the patient closely. WBC improved 7.3 hemoglobin went up 10.5 as well as platelet 204. Carbon dioxide is elevated 49 and BNP is also elevated 3940. Currently she is covered with ceftriaxone, Lasix drip, therapeutic dose of Lovenox and pressors, she is on levophed 06/09/2021 Patient remains in the ICU actually improving. Her breathing pattern is better than yesterday,, she came off her BIPAP today which is dicontinued. Blood pressure this morning 88/63, patient is asymptomatic and has no tachycardia. MrsRanjith drip was stopped and switched to IV Lasix 40 mg twice daily. Other than that LOOKS stable with WBC 6.4, hemoglobin 10.7, platelets 78, creatinine 1.2. Low potassium and magnesium is been placed ceftriaxone was discontinued. And Lovenox and switched to a liquid 06/10/2021 Patient is seen and evaluated in follow-up continues to be in the ICU with multiple medical consultations following. Per nursing staff patient continues on Precedex although weaning and also weaning Levophed. Patient is currently maintained on 1 L of oxygen via nasal cannula and will continue. Patient is being followed by pulmonary and cardiology and is status post left thoracentesi s. IV antibiotics being discontinued. Patient is afebrile. Patient awaiting possible transfer out of the ICU. 06/11/2021 Patient is seen and evaluated this morning and continues to be closely monitored in the ICU and remains on levophed and precedex. Patient continues with some confusion although much more awake and alert during exam today. Patient was able to have a conversation and answer all questions and commands appropriately. Patient also being followed by pulmonary and cardiology. Patient tolerating diet on exam and being fed. Patient is extremely weak and will have PT/OT evaluate. Patient is afebrile. Patient is on room air currently. Denies chest pain or shortness of breath. Active Medications Albuterol/Ipratropium (Ipratropium-Albuterol 3 Ml Neb) 3 ml INHALATION RT-Q4H PRN PRN Reason: shortness of breath Albuterol/Ipratropium (Ipratropium-Albuterol 3 Ml Neb) 3 ml INHALATION RT-Q4H PRN PRN Reason: Shortness Of Breath Albuterol/Ipratropium (Ipratropium-Albuterol 3 Ml Neb) 3 ml INHALATION RT- TID@,13,21 [facility] Last Admin: 06/10/21 20:12 Dose: 3 ml Documented by: Amiodarone HCl (Amiodarone 200 Mg Tab) 200 mg PO BID [facility] Last Admin: 06/11/21 08:16 Dose: 200 mg Documented by: Apixaban (Apixaban 5 Mg Tab) 5 mg PO BID [facility]; Protocol Last Admin: 06/11/21 08:14 Dose: 5 mg Documented by: Atorvastatin Calcium (Atorvastatin 40 Mg Tab) 40 mg PO HS@2100 [facility] Last Admin: 06/10/21 21:46 Dose: 40 mg Documented by: Bisacodyl (Bisacodyl 10 Mg Supp) 10 mg RECTAL DAILY PRN PRN Reason: Constipation Budesonide/Formoterol Fumarate (Symbicort 160-4.5 Mcg Inhaler) 2 puff INHALATION RT-BID@0900,1700 [facility] Last Admin: 06/10/21 20:12 Dose: 2 puff Documented by: Furosemide (Furosemide 10 Mg/Ml 4 Ml Vial) 40 mg IV Q24HR [facility] Last Admin: 06/11/21 08:14 Dose: 40 mg Documented by: Haloperidol Lactate (Haloperidol Lactate 5 Mg/Ml 1 Ml Vial) 2 mg IVP Q4HR PRN PRN Reason: Agitation or Acute Psychosis Last Admin: 06/07/21 13:57 Dose: 2 mg Documented by: Dexmedetomidine HCl 400 mcg/ (IV Solution) 100 mls @ 5.02 mls/hr IV .[id number] [facility]; Protocol Last Admin: 06/11/21 08:27 Dose: 0.4 mcg/kg/hr, 10 mls/hr Documented by: Norepinephrine Bitartrate 4 mg (/ Sodium Chloride) 254 mls @ 19.126 mls/hr IV .[id number] [facility]; Protocol Last Admin: 06/11/21 05:03 Dose: 0.02 mcg/kg/min, 7.65 mls/hr Documented by: Lidocaine (Lidocaine 5% Patch) 1 patch TOPICAL DAILY [facility]; Protocol Last Admin: 06/11/21 08:45 Dose: 1 patch Documented by: Miscellaneous Information (Pneumonia Protocol Utilized 1 Each Misc) 1 each PO ONCE PRN PRN Reason: Per Protocol Miscellaneous Information (Magnesium Replacement Protocol 1 Each Misc) 1 each MISCELLANE DAILY PRN; Protocol PRN Reason: Per Protocol Miscellaneous Information (Potassium Replacement Protocol 1 Each Misc) 1 each MISCELLANE DAILY PRN; Protocol PRN Reason: Per Protocol Non-Formulary Medication (Estrogens, Conjugated [Premarin]) 1.25 mg PO DAILY@0900 [facility] Last Admin: 06/11/21 08:16 Dose: Not Given Documented by: Olanzapine (Olanzapine 7.5 Mg Tab) 15 mg PO HS@2100 [facility] Last Admin: 06/10/21 21:47 Dose: 15 mg Documented by: Pantoprazole Sodium (Pantoprazole 40 Mg/10 Ml Vial) 40 mg IVP DAILY [facility] Last Admin: 06/11/21 08:14 Dose: 40 mg Documented by: Physical exam: General: Patient is confused, although follows commands appropriately and more alert. Obese, currently on room air HEENT examination is grossly unremarkable. Neck supple. No adenopathy thyromegaly or neck vein distention. Cardiovascular: S1, S2 muffled. irregularly irregular. Lungs reveal scattered bilateral rhonchi with some faint crackles. Abdomen is obese. Bowel sounds are noted. Extremities reveal edema. although improved. No cyanosis or clubbing. Skin is without rash or lesion. Neurologic; no focal deficit noted. diffusely weak Assessment: -Acute on chronic hypoxemic and hypercapnic respiratory failure; multifactorial, CO2 narcosis -COPD acute exacerbation -Possible bilateral pneumonia -Possible acute diastolic congestive heart failure with an ejection fraction of 50-55% with volume overload and bilateral pitting edema -left pleural effusion status post thoracentesis -Altered Mental Status; Metabolic encephalopathy secondary to CO2 Narcosis -Atrial fibrillation with RVR; cardiology following -hypokalemia -hypomagnesemia -Hyperlipidemia -Hypertension -Moderate to severe tricuspid regurgitation -Moderate pulmonary hypertension -Possible obesity hypoventilation syndrome -Elevated Troponin; likely Type II PR; cardiology on board -DVT Prophylaxis; Eliquis -GI prophylaxis -NO CODE Plan: This is a pleasant 70-year-old years old female who presents with multiple cardiac and pulmonary problems including possible pneumonia, CHF, AMS, high troponin, hypoxia and hypercapnia, A. fib and RVR and pulmonary hypertension. Continue with cardiology and pulmonary following Patient continues on low dose precedex and levophed and being weaned, levophed to be discontinued and adding midodrine. Continue with anticoagulation and currently on Eliquis Continue IV Lasix 40 mg daily Continue with Seroquel as needed Continue electrolyte replacement per protocol Possible transfer out of the ICU once weaned from levophed and precedex Prognosis is guarded PT/OT to evaluate the patient along with social work following as patient will return to [facility] once stable The impression and plan of care has been dictated by Sophie Rhodes, Nurse Practitioner as directed. Dr. Saadia MD I have performed a history and examination and MDM of this patient, discussed the same with the dictator, and agree with the dictator's assessment and plan as written ,documented as a scribe. Based on total visit time, I have performed more than 50% of the visit. Objective - Vital Signs Vital signs: Vital Signs Temp 98.4 F 06/11/21 08:00 Pulse 79 06/11/21 08:30 Resp 19 06/11/21 08:30 BP 111/49 06/11/21 08:30 Pulse Ox 96 06/11/21 08:30 Intake & Output 06/10/21 06/11/21 06/11/21 18:59 06:59 18:59 Intake Total 1747.404 802.370 253.333 Output Total 2090 855 280 Balance -342.596 -52.630 -26.667 Weight 84 kg 84.2 kg Intake: IV 260 220 40 0.9 NS 260 220 40 Intake, IV Titration 907.404 132.370 93.333 Amount Dexmedetomidine/0.9% NaCl 163.255 36.745 93.333 (Pmx) 400 mcg In Empty Bag 1 bag @ 0.2 MCG/KG/HR 5.02 mls/hr IV .[id number] MARK Rx#:[id number] Magnesium Sulfate-D5w Pmx 200 1 gm In Dextrose/Water 1 100ml.bag @ 100 mls/hr IVPB Q1H MARK Rx#: [id number] Norepinephrine 4 mg In 144.149 95.625 Sodium Chloride 0.9% 250 ml @ 0.05 MCG/KG/MIN 19. 126 mls/hr IV .[id number] MARK Rx#:[id number] Potassium Chloride 10 meq 400 In Water For Injection 1 100ml.bag @ 100 mls/hr IVPB Q1HR MARK Rx#: [id number] Oral 580 450 120 Output: Urine 2090 855 280 Other: Voiding Method Indwelling Catheter Indwelling Catheter - Labs CBC & Chem 7: 06/11/21 07:22 06/11/21 07:22 Labs: Abnormal Lab Results - Last 24 Hours (Table) 06/10/21 06/10/21 06/11/21 Range/Units 07:18 07:18 07:22 RBC 3.71 L (3.80-5.40) m/uL Hgb 10.1 L (11.4-16.0) gm/dL Hct (34.0-46.0) % MCHC 29.6 L (31.0-37.0) g/dL RDW 17.0 H (11.5-15.5) % Plt Count 66 L (150-450) k/uL Lymphocytes # 0.8 L (1.0-4.8) k/uL Potassium 3.2 L (3.5-5.1) mmol/L Chloride 97 L (98-107) mmol/L Carbon Dioxide 37 H 33 H (22-30) mmol/L BUN 21 H 19 H (7-17) mg/dL Glucose 114 H 109 H (74-99) mg/dL Total Protein 5.4 L 5.3 L (6.3-8.2) g/dL Albumin 3.0 L 2.8 L (3.5-5.0) g/dL 06/11/21 Range/Units 07:22 RBC 3.58 L (3.80-5.40) m/uL Hgb 9.6 L (11.4-16.0) gm/dL Hct 32.8 L (34.0-46.0) % MCHC 29.4 L (31.0-37.0) g/dL RDW 17.0 H (11.5-15.5) % Plt Count 76 L (150-450) k/uL Lymphocytes # 0.8 L (1.0-4.8) k/uL Potassium (3.5-5.1) mmol/L Chloride (98-107) mmol/L Carbon Dioxide (22-30) mmol/L BUN (7-17) mg/dL Glucose (74-99) mg/dL Total Protein (6.3-8.2) g/dL Albumin (3.5-5.0) g/dL Microbiology - Last 24 Hours (Table) 06/08/21 09:30 Gram Stain - Preliminary Pleural Fluid Body Fluid Culture - Preliminary
[2021-06-12] MEDS: MIDODRINE 5 MG TAB PO SCH ×2 (06:30→17:10)
[2021-06-12 06:33] LABS: Anisocytosis Slight; Basophils % (A) 0 %; Eosinophils # (A) 0.1 k/uL (0-0.7); Eosinophils % (A) 2 %; HGB 9.2 gm/dL (11.4-16.0); Hypochromasia Marked; Lymphocytes # (A) 0.7 k/uL (1.0-4.8); Lymphocytes % (A) 14 %; MCH 26.9 pg (25.0-35.0); MCHC 28.8 g/dL (31.0-37.0); MCV 93.6 fL (80.0-100.0); Mean Platelet Volume 10.3; Monocytes # (A) 0.5 k/uL (0-1.0); Monocytes % (A) 9 %; Neutrophils # (A) 3.8 k/uL (1.3-7.7); Neutrophils % (A) 71 %; RBC 3.42 m/uL (3.80-5.40); WBC 5.4 k/uL (3.8-10.6)
[2021-06-12 06:36] LABS: Platelet Count 82 k/uL (150-450)
[2021-06-12 06:44] LABS: Calcium 8.6 mg/dL (8.4-10.2); Potassium 3.5 mmol/L (3.5-5.1)
[2021-06-12] MEDS: POTASSIUM CHLORIDE ER 20 MEQ TAB.ER PO SCH ×2 (06:52→08:01)
[2021-06-12] MEDS: NOREPINEPHRINE 4 MG in SODIUM CHLORIDE 0.9% 250 ML IV SCH (07:21)
[2021-06-12] MEDS: ESTROGENS CONJUGATED 1.25 MG PO SCH (07:21)
[2021-06-12] MEDS: ACETAMINOPHEN TAB 325 MG TAB PO PRN ×3 (07:41→19:56)
[2021-06-12] MEDS: APIXABAN 5 MG TAB PO SCH ×2 (08:01→19:56)
[2021-06-12] MEDS: PANTOPRAZOLE 40 MG/10 ML VIAL IVP SCH (08:01)
[2021-06-12] MEDS: AMIODARONE 200 MG TAB PO SCH ×2 (08:01→19:56)
[2021-06-12] MEDS: METOPROLOL TARTRATE 25 MG TAB PO SCH ×2 (08:03→19:56)
[2021-06-12] MEDS: IPRATROPIUM-ALBUTEROL 3 ML NEB INHALATION SCH ×3 (08:08→20:49)
[2021-06-12] MEDS: SYMBICORT 160-4.5 MCG INHALER INHALATION SCH ×2 (08:08→20:49)
[2021-06-12] MEDS: LIDOCAINE 5% PATCH TOPICAL SCH (08:29)
--- NOTE | 2021-06-12 09:18 | PN ---
PROGRESS NOTE This lady is in atrial fibrillation. She is much more alert. She has chronic hypoxemia with a hypercarbic-type picture, but she is more alert today. She appears to be a bit confused, however. Denies chest pain or shortness of breath. She is in atrial fibrillation. Rate is about 100. We will continue the amiodarone 200 mg b.i.d. and I will add beta mary grace 25 mg b.i.d. of metoprolol tartrate. Vitals are stable. S1, S2 with irregular rhythm noted. Short systolic murmur noted. Lungs reveal diminished air entry. Abdomen is soft. Lower extremities reveal diminished pulses. Central nervous system grossly within normal limits. MMODL / IJN: [id number] /
[2021-06-12] MEDS ORDERED: FUROSEMIDE 10 MG/ML 2 ML VIAL IV ONE (10:33)
--- NOTE | 2021-06-12 11:56 | P.PN ---
Subjective Progress Note Date: 06/12/21 Principal diagnosis: Acute on chronic hypoxic and hypercapnic respiratory failure secondary to acute diastolic congestive heart failure and underlying COPD On 06/09/2021, the patient is on 1 L of oxygen by nasal cannula. Doing well. No specific complaints. On and off she gets agitated and confused. She is on Zyprexa and she is also on Precedex running at 0.3 mcg/kg per minute which will be asked to be weaned off and discontinued. Meanwhile, the patient was in a Lasix drip at 5 mg an hour. Her overall fluid balance of been -7.1 L over the past 24 hours and 10 L since morning. This is extensive diuresis and the patient's body weight is up from 114 kg down to 95 kg. Based on his underlying diuresis, the patient required a low dose norepinephrine which is running at 0.03 mcg/kg per minute. The patient has excellent urine output. The patient is currently off the BiPAP. BUN is at 27 with a creatinine of 1.2 and a serum bicarb is 47. The white cell count is at 6.4 with a hemoglobin of 10.7 and a platelet count of 78. I performed a thoracentesis of the right lung on this patient with excellent results and the pleural fluid is also a transudate. Pleural fluid cytology is pending for now. Eliquis has been restarted and the patient is currently on 5 mg by mouth twice a day. Tolerating her diet. No other significant events overnight. Cardiac rhythm is atrial fibrillation with a controlled rate. Patient was evaluated today on 06/11/19 remains in the ICU on 1 L nasal cannula, patient seems to be quite comfortable. Remains on Lasix at 40 mg every 12 hours. Patient had a negative balance of 193 2 mL over the last 24 hours. His funding quite well to diuretics. She is in atrial fibrillation, rate seems to be controlled, patient is maintained on eliquis. Patient is requiring norepinephrine at 0.02 mcg/kg/m, he is also requiring Precedex at 0.4 mcg/kg/h. IV fluid is at KVO 20 mL per hour in the formal 0.9 normal saline. Chest x-ray today is showing evidence of congestive heart failure, left pleural effusion, strongly doubt pneumonia. CBC is relatively unremarkable. Electrolytes are normal low potassium being addressed accordingly. Cytology on the pleural effusion is pending but from the looks of it this is a transudate of pleural e ffusion with low protein and low LDH. Reevaluated today on06/11/21, patient remains in the ICU, she is quite comfortable, does not seem to be in any distress, however the patient is still requiring norepinephrine at 0.01 mcg/kg/m. She is on room air, she is also requiring Precedex at 0.4 mgkg/h. Ration has intermittent confusions and hallucinations, remains on Zyprexa, and I have discontinued her Haldol. Precedex seems to keep her calm. Patient was noted to be quite calm during my evaluation. And she was very appropriate. TBC is normal electrolytes are normal renal profile is normal bicarb is 19. Reevaluated today on 06/12/21, patient remains in the ICU, but she seems to be doing better. She is off norepinephrine, her blood pressure is actually much better today compared to yesterday. Nonetheless the patient continues to have intermittent confusion, but today she is alert oriented 3. She knew where she was, she knew the year, and she knew the name of the president. Her WBC count is 5.4 hemoglobin is 9.2 her left lites are normal renal profile is relatively normal except for slight rise in creatinine up to 1.14 from 0.9 yesterday, hence I will cut down on her diuretics. Objective - Vital Signs Vital signs: Vital Signs Temp 98.7 F 06/12/21 08:00 Pulse 113 H 06/12/21 10:00 Resp 16 06/12/21 10:00 BP 175/83 06/12/21 10:00 Pulse Ox 94 L 06/12/21 10:00 Intake & Output 06/11/21 06/12/21 06/12/21 18:59 06:59 18:59 Intake Total 1140.735 670.25 300 Output Total 1620 1235 450 Balance -479.265 -564.75 -150 Weight 82.5 kg Intake: IV 220 140 60 0.9 NS 220 140 60 Intake, IV Titration 240.735 50.25 Amount Dexmedetomidine/0.9% NaCl 173.542 50.25 (Pmx) 400 mcg In Empty Bag 1 bag @ 0.2 MCG/KG/HR 5.02 mls/hr IV .[id number] [facility] Rx#:[id number] Norepinephrine 4 mg In 67.193 Sodium Chloride 0.9% 250 ml @ 0.05 MCG/KG/MIN 19. 126 mls/hr IV .[id number] [facility] Rx#:[id number] Oral 680 480 240 Output: Urine 1620 1235 450 Other: Voiding Method Indwelling Catheter Indwelling Catheter Indwelling Catheter # Bowel Movements 3 - Exam Physical Exam: Revealed a 70-year-old female in no distress. On room air. Off norepinephrine today. Head: Atraumatic, normocephalic. HEENT:[Neck is supple.] [No neck masses.] [No thyromegaly.] [No JVD.] Chest: [Diminished breath sounds at the bases no rhonchi and no wheezes Cardiac Exam: [Normal S1 and S2, no S3 gallop, no murmur.] Abdomen: [Soft, nontender, no megaly, no rebound, no guarding, normal bowel sounds.] Extremities: [No clubbing, no edema, no cyanosis.] Neurological Exam: [No focal neurologic deficit.] Alert oriented 3. Skin: No rashes. Psychiatric: Normal mood affect and normal mental status examination. - Labs CBC & Chem 7: 06/12/21 05:44 06/12/21 05:44 Labs: Abnormal Lab Results - Last 24 Hours (Table) 06/12/21 06/12/21 Range/Units 05:44 05:44 RBC 3.42 L (3.80-5.40) m/uL Hgb 9.2 L (11.4-16.0) gm/dL Hct 32.0 L (34.0-46.0) % MCHC 28.8 L (31.0-37.0) g/dL RDW 17.0 H (11.5-15.5) % Plt Count 82 L (150-450) k/uL Lymphocytes # 0.7 L (1.0-4.8) k/uL BUN 23 H (7-17) mg/dL Creatinine 1.14 H (0.52-1.04) mg/dL Microbiology - Last 24 Hours (Table) 06/08/21 09:30 Gram Stain - Final Pleural Fluid Body Fluid Culture - Final Assessment and Plan Assessment: Impression: Acute on chronic hypoxic and hypercapnic respiratory failure secondary to acute diastolic congestive heart failure and suspect some component of COPD. With hypercapnia and CO2 narcosis. Chronic obstructive pulmonary disease Left pleural effusion requiring thoracentesis, transudative in nature/cardiac in nature. Cytology was negative. Chronic atrial fibrillation Benign essential hypertension Dyslipidemia New onset thrombocytopenia, exact etiology is not clear platelet count remains stable History of underlying dementia. Recommendation: Continue present supportive care measures Cut down Lasix to 20 mg IV push daily. Off antibiotics. Continue eliquis continue to monitor platelet count. Off norepinephrine and Precedex. Cut down midodrine to 2.5 mg twice a day Continue bronchodilators Continue to monitor renal status Transfer out of the ICU today to a regular medical floor. Time with Patient: Less than 30
[2021-06-12 13:44] VITALS: BMI 29.3
[2021-06-12] MEDS: FUROSEMIDE 10 MG/ML 4 ML VIAL IV SCH (16:30)
[2021-06-12] MEDS: ENOXAPARIN 100 MG/ML SYRINGE SQ SCH (16:30)
[2021-06-12] MEDS: traMADol 50 MG TAB PO PRN (17:41)
[2021-06-12] MEDS: ATORVASTATIN 40 MG TAB PO SCH (19:56)
[2021-06-12] MEDS: OLANZapine 7.5 MG TAB PO SCH (20:34)
--- NOTE | 2021-06-13 00:07 | P.PN ---
Subjective Progress Note Date: 06/13/21 70-year-old female with past medical history of congestive heart failure, A. fib on anticoagulation, COPD with noncompliant use of her BiPAP, mood disorder who is brought into the emergency department for hypoxia. Patient was recently seen at [facility] for altered mental status. Found to have subdural hematomas versus hygromas and was shipped to [place]. [facility] evaluation deemed that the patient had chronic hygromas and she was cleared for anticoagulant use. Patient was transferred to [facility] for rehab. Patient has been noncompliant with her BiPAP and medications. at bedside states that she refuses majority of her medications. Today the staff found her more confused than normal. They state that she does has a history of some confusion at baseline however today was worsens. Her oxygen saturations were in the 80s. EMS attempted intubation of the patient however she was responsive and clenching down. There were unable to get an IV and therefore I was placed in the left humerus. Patient was placed on a nasal cannula. She did perk up upon transfer to the hospital however became agitated and therefore received 110 mg of ketamine. Patient arrives sedated with shallow respirations. She is unable to obtain any history from. She is found to be in A. fib which she has a history of. Laboratory studies; demonstrates a leukocytosis of 13.5. ABG demonstrates a CO2 of 89. Lactic acid 3.1. Troponin 0.059. BNP elevated at 4460. Urinalysis demonstrates occasional bacteria with moderate budding yeast. Chest x-ray is performed which demonstrates right lower lobe pneumonia and effusion. Patient was initiated on antibiotics after blood cultures were obtained. Fluids were not given to the patient even though she does meet sepsis criteria as she does have history of congestive heart failure and has visible effusion on chest x-ray with an elevated BNP. Patient does have a mildly low blood pressure and therefore was given a 500 mL normal saline bolus only. Patient is initiated on amiodarone due to her A. fib with persistently elevated heart rate. CT brain demonstrate the chronic hygromas without acute abnormality. 06/01/2021 Patient is seen and evaluated and follow-up with no issues overnight per nursing staff although patient continues to be confused and yelling out at times and can be redirected. Patient reports to having shortness of breath and is currently maintained on 4 L via nasal cannula. Cardiology and pulmonary following and patient is maintained on IV Cardizem and oral anticoagulant has been resumed. P atient with extensive weakness and will have PT/OT evaluated the patient and family would like the patient to return to [facility]. Case management and social work following. Patient is able to answer questions somewhat appropriately when redirected although continues to be confused and rambles at times. No reports of chest pain. Patient is afebrile. 06/02/2021 Patient is seen in follow-up today and per nursing staff and sitter at the bedside for safety, patient continues with confusion and has been pocketing her pills and spitting them out and not tolerating oral intake very well. Cardio logy following and patient is to continue on IV Cardizem along with amiodarone until able to tolerate oral intake. Patient also continued on ceftriaxone and oral prednisone with pulmonary following. Will add low-dose Seroquel at night and monitor closely. 06/03/2021 Patient remains confused and drowsy secondary to her CO2 narcosis but she is arousable and she knows and she is in the hospital. She denies headache or weakness or numbness, no asymmetry noted in her examination. Both pupils are equal and reactive to light. No meningeal signs. She ate 75% of her denying 100% of snack last night. She is on 4 L oxygen via nasal cannula. She is hemodynamically stable and afebrile. The hemoglobin is stable at 8.6, platelet count improved slightly at 121, creatinine normal 0.8, pro-calcitonin is slightly elevated at 0.18. Chest x-ray showing possible pneumonia and effusion and the recommend follow-up. I looked at the chest x-ray myself she has bilateral infiltrates, more on the right side, looks slightly better than when she came in to the hospital. She has significant bilateral leg edema probnp is improving since admission 4460 to 3190 Under Lio on this admission showing ejection fraction of 50-55% with moderate to severe tricuspid regurgitation and moderate pulmonary hypertension She has amiodarone and Cardizem running also she is on ceftriaxone, therapeutic dose of Lovenox and Eliquis is on hold. She is on prednisone 20 mg twice daily and Seroquel. We will add doxycycline for coverage of atypical bacteria. IV Lasix 40 twice a day. 06/04/2021 Patient is seen in follow-up this morning and continues to be confused and rambling. Patient was given a dose of IV Lasix for some volume overload and appears edematous throughout including bilateral lower extremities with 2+ pitting edema noted. Patient with continued shortness of breath and chest x-ray showing correlate for pneumonia versus congestive heart failure with probable associated effusions and the heart is enlarged with patchy densities also present at the left lung base. Pulmonary following recommending transfer to the ICU for close monitoring. She is continued on 2 L via nasal cannula and oxygen saturation is 99%. Patient will most likely be need on BiPAP. Patient will be placed on a Lasix drip. CODE STATUS needs to be addressed. Will call family. 06/05/2021 Patient is seen and evaluated in follow-up continues to be in the ICU being closely monitored. Patient is maintained on IV Lasix and diuresing well and also continues on IV antibiotics in the form of ceftriaxone and doxycycline and will continue. Patient also continues on IV Solu-Medrol twice daily in breathing inhalational treatments. Patient continues on IV amiodarone as patient is currently on a BiPAP and requiring a sitter at the bedside as patient continues to be confused and attempting to remove IVs and tubing. Patient being started on Precedex as well. Overall generalized edema continues with significant 2+ pitting edema noted in bilateral lower extremities. The PBC is normal at 4.7 and hemoglobin is 9.9, BMP within normal limits. Chest x-ray today shows bilateral pleural parenchymal changes stable and correlate for CHF with underlying pneumonia not excluded. 06/06/2021 Patient remains in the ICU on high flow nasal cannula at 4 L however earlier she was on BiPAP but her respiratory status is improving. She is currently on Lasix drip for her diastolic CHF him on ceftriaxone and doxycycline for her right lower lobe pneumonia and she was getting BiPAP for her CO2 retention. Patient clinically improved. Negative balance of 5-6 L over 24 hours Also she is on therapeutic dose of Lovenox Currently her heart rate is core controlled with Coreg and Lovenox at therapeutic dose. Ejection fraction 45-50% 06/07/2021 Patient uses BiPAP for about 4 hours last night, then she switched to 4 L/m of oxygen via nasal cannula and she is doing well this morning, she can talk freely with minimal shortness of breath. She is hemodynamically stable. Labs are pending. Chest x-ray reviewed by myself showing persistent bilateral infiltrates on both lower sites, more on the right side. She is eating without difficulty. She remains on Lasix drip at 10 mg per hour, ceftriaxone and doxycycline, Lovenox 100 mg twice a day, Coreg 3.125 mg, Seroquel/Zyprexa. She has good urine output 06/08/2021 Patient remains in the ICU, she is currently on 4 L of oxygen per minute. She refused BiPAP last night. She is eating little but she'll try to eat more this morning. No significant dyspnea or coughing, she is breathing easier compared to yesterday after 1250 mL of turbid fluid removed from her right-sided thorac ocentesis yesterday. She is a bit hypertensive and bradycardiac today while she is on Lasix drip whi le the dose lowered from 10 mg/h down to 5 mg per hour. Also she is on Coreg small dose 3.125 per cardiology is following the patient closely. WBC improved 7.3 hemoglobin went up 10.5 as well as platelet 204. Carbon dioxide is elevated 49 and BNP is also elevated 3940. Currently she is covered with ceftriaxone, Lasix drip, therapeutic dose of Lovenox and pressors, she is on levophed 06/09/2021 Patient remains in the ICU actually improving. Her breathing pattern is better than yesterday,, she came off her BIPAP today which is dicontinued. Blood pressure this morning 88/63, patient is asymptomatic and has no tachycardia. MrsRanjith drip was stopped and switched to IV Lasix 40 mg twice daily. Other than that LOOKS stable with WBC 6.4, hemoglobin 10.7, platelets 78, creatinine 1.2. Low potassium and magnesium is been placed ceftriaxone was discontinued. And Lovenox and switched to a liquid 06/10/2021 Patient is seen and evaluated in follow-up continues to be in the ICU with multiple medical consultations following. Per nursing staff patient continues on Precedex although weaning and also weaning Levophed. Patient is currently maintained on 1 L of oxygen via nasal cannula and will continue. Patient is being followed by pulmonary and cardiology and is status post left thoracentesi s. IV antibiotics being discontinued. Patient is afebrile. Patient awaiting possible transfer out of the ICU. 06/11/2021 Patient is seen and evaluated this morning and continues to be closely monitored in the ICU and remains on levophed and precedex. Patient continues with some confusion although much more awake and alert during exam today. Patient was able to have a conversation and answer all questions and commands appropriately. Patient also being followed by pulmonary and cardiology. Patient tolerating diet on exam and being fed. Patient is extremely weak and will have PT/OT evaluate. Patient is afebrile. Patient is on room air currently. Denies chest pain or shortness of breath. 06/12/2021 Patient is seen today in the ICU awaiting transfer to med/surg when a bed is available. Patient has been weaned from precedex and levophed. Cardiology and pulmonary following. Patient is continued on IV lasix and will decrease the dose. Creatinine mildly elevated from yesterday. Patient reports to back pain and will add low dose ultram and monitor mentation closely. PT/OT to evaluate. Plan is to return to [facility] once stable. Patient denies shortness of breath. Patient is afebrile. Active Medications Acetaminophen (Acetaminophen Tab 325 Mg Tab) 650 mg PO Q6HR PRN PRN Reason: Fever and/ or Pain Last Admin: 06/12/21 19:56 Dose: 650 mg Documented by: Albuterol/Ipratropium (Ipratropium-Albuterol 3 Ml Neb) 3 ml INHALATION RT-Q4H PRN PRN Reason: shortness of breath Albuterol/Ipratropium (Ipratropium-Albuterol 3 Ml Neb) 3 ml INHALATION RT-Q4H PRN PRN Reason: Shortness Of Breath Albuterol/Ipratropium (Ipratropium-Albuterol 3 Ml Neb) 3 ml INHALATION RT- TID@ [facility] Last Admin: 06/12/21 20:49 Dose: Not Given Documented by: Amiodarone HCl (Amiodarone 200 Mg Tab) 200 mg PO BID [facility] Last Admin: 06/12/21 19:56 Dose: 200 mg Documented by: Apixaban (Apixaban 5 Mg Tab) 5 mg PO BID [facility]; Protocol Last Admin: 06/12/21 19:56 Dose: 5 mg Documented by: Atorvastatin Calcium (Atorvastatin 40 Mg Tab) 40 mg PO HS@2100 [facility] Last Admin: 06/12/21 19:56 Dose: 40 mg Documented by: Bisacodyl (Bisacodyl 10 Mg Supp) 10 mg RECTAL DAILY PRN PRN Reason: Constipation Budesonide/Formoterol Fumarate (Symbicort 160-4.5 Mcg Inhaler) 2 puff INH ALATION RT-BID@0900,1700 [facility] Last Admin: 06/12/21 20:49 Dose: Not Given Documented by: Furosemide (Furosemide 10 Mg/Ml 2 Ml Vial) 20 mg IV Q24HR [facility] Lidocaine (Lidocaine 5% Patch) 1 patch TOPICAL DAILY [facility]; Protocol Last Admin: 06/12/21 08:29 Dose: 1 patch Documented by: Metoprolol Tartrate (Metoprolol Tartrate 25 Mg Tab) 25 mg PO BID [facility] Last Admin: 06/12/21 19:56 Dose: 25 mg Documented by: Midodrine (Midodrine 5 Mg Tab) 2.5 mg PO AC-BID [facility] Last Admin: 06/12/21 17:10 Dose: Not Given Documented by: Miscellaneous Information (Pneumonia Protocol Utilized 1 Each Misc) 1 each PO ONCE PRN PRN Reason: Per Protocol Miscellaneous Information (Magnesium Replacement Protocol 1 Each Misc) 1 each MISCELLANE DAILY PRN; Protocol PRN Reason: Per Protocol Miscellaneous Information (Potassium Replacement Protocol 1 Each Misc) 1 each MISCELLANE DAILY PRN; Protocol PRN Reason: Per Protocol Miscellaneous Information (Potassium Replacement Protocol 1 Each Misc) 1 each MISCELLANE DAILY PRN; Protocol PRN Reason: Per Protocol Non-Formulary Medication (Estrogens, Conjugated [Premarin]) 1.25 mg PO DAILY@0900 [facility] Last Admin: 06/12/21 07:21 Dose: Not Given Documented by: Olanzapine (Olanzapine 7.5 Mg Tab) 15 mg PO HS@2100 [facility] Last Admin: 06/12/21 20:34 Dose: 15 mg Documented by: Pantoprazole Sodium (Pantoprazole 40 Mg/10 Ml Vial) 40 mg IVP DAILY [facility] Last Admin: 06/12/21 08:01 Dose: 40 mg Documented by: Sodium Chloride (Sodium Chloride 0.9% Flush 10 Ml Syringe) 10 ml IV BID [facility] Last Admin: 06/12/21 22:28 Dose: Not Given Documented by: Tramadol HCl (Tramadol 50 Mg Tab) 50 mg PO TID PRN PRN Reason: Pain Last Admin: 06/12/21 17:41 Dose: 50 mg Documented by: Physical exam: General: Patient is less confused today, follows commands appropriately and more alert. Obese, currently on room air HEENT examination is grossly unremarkable. Neck supple. No adenopathy thyromegaly or neck vein distention. Cardiovascular: S1, S2 muffled. irregularly irregular. Lungs reveal scattered bilateral rhonchi with some faint crackles. Abdomen is obese. Bowel sounds are noted. Extremities reveal edema. although improved. No cyanosis or clubbing. Skin is without rash or lesion. Neurologic; no focal deficit noted. diffusely weak Assessment: -Acute on chronic hypoxemic and hypercapnic respiratory failure; multifactorial, CO2 narcosis -COPD acute exacerbation -Possible bilateral pneumonia -Possible acute diastolic congestive heart failure with an ejection fraction of 50-55% -left pleural effusion status post thoracentesis -Altered Mental Status; Metabolic encephalopathy secondary to CO2 Narcosis -Atrial fibrillation with RVR; cardiology following -hypokalemia -hypomagnesemia -Hyperlipidemia -Hypertension -Moderate to severe tricuspid regurgitation -Moderate pulmonary hypertension -Possible obesity hypoventilation syndrome -Elevated Troponin; likely Type II [place]; cardiology on board -DVT Prophylaxis; Eliquis -GI prophylaxis -NO CODE Plan: This is a pleasant 70-year-old years old female who presents with multiple cardiac and pulmonary problems including possible pneumonia, CHF, AMS, high troponin, hypoxia and hypercapnia, A. fib and RVR and pulmonary hypertension. Continue with cardiology and pulmonary following Patient has been weaned from precedex and levophed Continue with anticoagulation and currently on Eliquis Continue IV Lasix 20 mg daily, creatinine mildly up Continue with Seroquel as needed Continue electrolyte replacement per protocol Possible transfer today out of the ICU once bed on selective is available Prognosis is guarded PT/OT to evaluate the patient along with social work following as patient will return to [facility] once stable The impression and plan of care has been dictated by Sophie Rhodes, Nurse Practitioner as directed. Dr. Saadia MD I have performed a history and examination and MDM of this patient, discussed the same with the dictator, and agree with the dictator's assessment and plan as written ,documented as a scribe. Based on total visit time, I have performed more than 50% of the visit. Objective - Vital Signs Vital signs: Vital Signs Temp 98.7 F 06/12/21 08:00 Pulse 96 06/12/21 08:00 Resp 31 H 06/12/21 08:00 BP 180/79 06/12/21 08:00 Pulse Ox 94 L 06/12/21 08:00 Intake & Output 06/11/21 06/12/21 06/12/21 18:59 06:59 18:59 Intake Total 1140.735 670.25 260 Output Total 1620 1235 150 Balance -479.265 -564.75 110 Weight 82.5 kg Intake: IV 220 140 20 0.9 NS 220 140 20 Intake, IV Titration 240.735 50.25 Amount Dexmedetomidine/0.9% NaCl 173.542 50.25 (Pmx) 400 mcg In Empty Bag 1 bag @ 0.2 MCG/KG/HR 5.02 mls/hr IV .[id number] [facility] Rx#:[id number] Norepinephrine 4 mg In 67.193 Sodium Chloride 0.9% 250 ml @ 0.05 MCG/KG/MIN 19. 126 mls/hr IV .[id number] [facility] Rx#:[id number] Oral 680 480 240 Output: Urine 1620 1235 150 Other: Voiding Method Indwelling Catheter Indwelling Catheter Indwelling Catheter # Bowel Movements 3 - Labs CBC & Chem 7: 06/12/21 05:44 06/12/21 05:44 Labs: Abnormal Lab Results - Last 24 Hours (Table) 06/12/21 06/12/21 Range/Units 05:44 05:44 RBC 3.42 L (3.80-5.40) m/uL Hgb 9.2 L (11.4-16.0) gm/dL Hct 32.0 L (34.0-46.0) % MCHC 28.8 L (31.0-37.0) g/dL RDW 17.0 H (11.5-15.5) % Plt Count 82 L (150-450) k/uL Lymphocytes # 0.7 L (1.0-4.8) k/uL BUN 23 H (7-17) mg/dL Creatinine 1.14 H (0.52-1.04) mg/dL Microbiology - Last 24 Hours (Table) 06/08/21 09:30 Gram Stain - Preliminary Pleural Fluid Body Fluid Culture - Preliminary
[2021-06-13] MEDS: traMADol 50 MG TAB PO PRN ×2 (05:45→17:28)
[2021-06-13] MEDS: MIDODRINE 5 MG TAB PO SCH ×2 (05:45→16:38)
[2021-06-13] MEDS: ESTROGENS CONJUGATED 1.25 MG PO SCH (07:59)
[2021-06-13] MEDS: PANTOPRAZOLE 40 MG/10 ML VIAL IVP SCH (08:31)
[2021-06-13] MEDS: AMIODARONE 200 MG TAB PO SCH ×2 (08:31→20:43)
[2021-06-13] MEDS: METOPROLOL TARTRATE 25 MG TAB PO SCH ×2 (08:32→20:42)
[2021-06-13] MEDS: FUROSEMIDE 10 MG/ML 2 ML VIAL IV SCH (08:32)
[2021-06-13] MEDS: APIXABAN 5 MG TAB PO SCH ×2 (08:32→20:42)
[2021-06-13] MEDS: LIDOCAINE 5% PATCH TOPICAL SCH (08:38)
[2021-06-13] MEDS: SYMBICORT 160-4.5 MCG INHALER INHALATION SCH ×2 (08:50→16:22)
[2021-06-13] MEDS: IPRATROPIUM-ALBUTEROL 3 ML NEB INHALATION SCH ×3 (08:50→20:50)
[2021-06-13] MEDS: ACETAMINOPHEN TAB 325 MG TAB PO PRN ×2 (12:31→20:42)
--- NOTE | 2021-06-13 15:38 | P.PN ---
Subjective This is a 70-year-old female with a past medical history significant for COPD, atrial fibrillation, congestive heart failure, hyperlipidemia, and hypertension. Patient does not follow with a inspector aide at [facility]. We have been asked to see the patient in consultation for afib with RVR. Patient examined at the bedside. Patient is currently residing at [facility] for rehab. She was brought to the hospital secondary to increased confusion. Apparently the patient is noncompliant with many of her medications at rehab and refuses to wear her CPAP. Patient was lethargic and unable to give any history at this time. Patient was found to be in atrial fibrillation with RVR. Patient was started on IV amio. She remains in atrial fibrillation this morning with a heart rate in the 120s. Echocardiogram performed this admission which shows EF 50-55%, septal flattening consistent with RV pressure and volume overload, RV severely enlarged, RVSP of 53, moderate to severe tricuspid regurgitation. Repeat troponins 0.057, 0.063. 06/13/2021 Patient seen and examined at bedside, no acute distress. Transferred out of ICU. No acute events overnight. A Schanz breathing is stable. No chest pain. She continues to be in atrial fibrillation with controlled ventricular rates in the 80s90s. She's currently maintained on amiodarone 200 mg twice a day, Eliquis 5 mg twice a day, atorvastatin 40 mg nightly, Lasix 20 mg daily, metoprolol titrate 25 mg twice a day, midodrine 2.5 mg twice a day GENERAL: No acute distress NECK: Supple without JVD LUNGS: Breath sounds diminished to auscultation bilaterally. Respiration equal and unlabored. No wheezes, rales or rhonchi. HEART: Irregular rate and rhythm without murmurs, rubs or gallops. S1 and S2 heard. EXTREMITIES: No lower extremity edema. No clubbing or cyanosis. Peripheral pulses intact. NEUROLOGIC: Alert and oriented 3 ASSESSMENT: Altered mental status Leukocytosis Elevated lactic acid COPD exacerbation Possible pneumonia Left pleural effusion s/p thoracentesis Acute hypoxic hypercapnic respiratory failure Abnormal troponin, suspect secondary to type II ND Atrial fibrillation with RVR, mildly improved Chronic congestive heart failure, type unknown, EF unknown Hyperlipidemia Hypertension COPD Chronic subdural hygromas Medication noncomplaince RV dilation, pulmonary hypertension, moderate to severe TR PLAN: From cardiology perspective, no further changes at this time. Agree with decreasing IV Lasix. We will continue amiodarone 200mg BID for 1 week, and switch to amiodarone daily and continue metoprolol for rate control. Continue anticoagulation with Eliquis. Continue supportive care We will continue current medical therapy. Follow the patient as needed. Please reach out with any further questions or concerns. Follow up outpatient with Dr. Polo. Nurse practitioner note has been reviewed by physician. Signing provider agrees with the documented findings, assessment, and plan of care. Objective - Vital Signs Vital signs: Vital Signs Temp 98.6 F 06/13/21 08:00 Pulse 108 H 06/13/21 14:00 Resp 18 06/13/21 14:00 BP 141/64 06/13/21 12:00 Pulse Ox 90 L 06/13/21 12:00 Intake & Output 06/12/21 06/13/21 06/13/21 18:59 06:59 18:59 Intake Total 540 Output Total 1999 Balance -1460 Weight 82.5 kg 71 kg Intake: IV 60 0.9 NS 60 Oral 480 Output: Urine 1999 Other: Voiding Method Indwelling Catheter Diaper Diaper # Voids 1 # Bowel Movements 1 1 - Labs CBC & Chem 7: 06/12/21 05:44 06/12/21 05:44
[2021-06-13] MEDS: ATORVASTATIN 40 MG TAB PO SCH (20:42)
[2021-06-13] MEDS: OLANZapine 7.5 MG TAB PO SCH (20:43)
--- NOTE | 2021-06-13 22:50 | P.PN ---
Subjective Progress Note Date: 06/13/21 70-year-old female with past medical history of congestive heart failure, A. fib on anticoagulation, COPD with noncompliant use of her BiPAP, mood disorder who is brought into the emergency department for hypoxia. Patient was recently seen at [facility] for altered mental status. Found to have subdural hematomas versus hygromas and was shipped to [place]. [place]'s evaluation deemed that the patient had chronic hygromas and she was cleared for anticoagulant use. Patient was transferred to [facility] for rehab. Patient has been noncompliant with her BiPAP and medications. at bedside states that she refuses majority of her medications. Today the staff found her more confused than normal. They state that she does has a history of some confusion at baseline however today was worsens. Her oxygen saturations were in the 80s. EMS attempted intubation of the patient however she was responsive and clenching down. There were unable to get an IV and therefore I was placed in the left humerus. Patient was placed on a nasal cannula. She did perk up upon transfer to the hospital however became agitated and therefore received 110 mg of ketamine. Patient arrives sedated with shallow respirations. She is unable to obtain any history from. She is found to be in A. fib which she has a history of. Laboratory studies; demonstrates a leukocytosis of 13.5. ABG demonstrates a CO2 of 89. Lactic acid 3.1. Troponin 0.059. BNP elevated at 4460. Urinalysis demonstrates occasional bacteria with moderate budding yeast. Chest x-ray is performed which demonstrates right lower lobe pneumonia and effusion. Patient was initiated on antibiotics after blood cultures were obtained. Fluids were not given to the patient even though she does meet sepsis criteria as she does have history of congestive heart failure and has visible effusion on chest x-ray with an elevated BNP. Patient does have a mildly low blood pressure and therefore was given a 500 mL normal saline bolus only. Patient is initiated on amiodarone due to her A. fib with persistently elevated heart rate. CT brain demonstrate the chronic hygromas without acute abnormality. 06/01/2021 Patient is seen and evaluated and follow-up with no issues overnight per nursing staff although patient continues to be confused and yelling out at times and can be redirected. Patient reports to having shortness of breath and is currently maintained on 4 L via nasal cannula. Cardiology and pulmonary following and patient is maintained on IV Cardizem and oral anticoagulant has been resumed. P atient with extensive weakness and will have PT/OT evaluated the patient and family would like the patient to return to [facility]. Case management and social work following. Patient is able to answer questions somewhat appropriately when redirected although continues to be confused and rambles at times. No reports of chest pain. Patient is afebrile. 06/02/2021 Patient is seen in follow-up today and per nursing staff and sitter at the bedside for safety, patient continues with confusion and has been pocketing her pills and spitting them out and not tolerating oral intake very well. Cardio logy following and patient is to continue on IV Cardizem along with amiodarone until able to tolerate oral intake. Patient also continued on ceftriaxone and oral prednisone with pulmonary following. Will add low-dose Seroquel at night and monitor closely. 06/03/2021 Patient remains confused and drowsy secondary to her CO2 narcosis but she is arousable and she knows and she is in the hospital. She denies headache or weakness or numbness, no asymmetry noted in her examination. Both pupils are equal and reactive to light. No meningeal signs. She ate 75% of her denying 100% of snack last night. She is on 4 L oxygen via nasal cannula. She is hemodynamically stable and afebrile. The hemoglobin is stable at 8.6, platelet count improved slightly at 121, creatinine normal 0.8, pro-calcitonin is slightly elevated at 0.18. Chest x-ray showing possible pneumonia and effusion and the recommend follow-up. I looked at the chest x-ray myself she has bilateral infiltrates, more on the right side, looks slightly better than when she came in to the hospital. She has significant bilateral leg edema probnp is improving since admission 4460 to 3190 [address] on this admission showing ejection fraction of 50-55% with moderate to severe tricuspid regurgitation and moderate pulmonary hypertension She has amiodarone and Cardizem running also she is on ceftriaxone, therapeutic dose of Lovenox and Eliquis is on hold. She is on prednisone 20 mg twice daily and Seroquel. We will add doxycycline for coverage of atypical bacteria. IV Lasix 40 twice a day. 06/04/2021 Patient is seen in follow-up this morning and continues to be confused and rambling. Patient was given a dose of IV Lasix for some volume overload and appears edematous throughout including bilateral lower extremities with 2+ pitting edema noted. Patient with continued shortness of breath and chest x-ray showing correlate for pneumonia versus congestive heart failure with probable associated effusions and the heart is enlarged with patchy densities also present at the left lung base. Pulmonary following recommending transfer to the ICU for close monitoring. She is continued on 2 L via nasal cannula and oxygen saturation is 99%. Patient will most likely be need on BiPAP. Patient will be placed on a Lasix drip. CODE STATUS needs to be addressed. Will call family. 06/05/2021 Patient is seen and evaluated in follow-up continues to be in the ICU being closely monitored. Patient is maintained on IV Lasix and diuresing well and also continues on IV antibiotics in the form of ceftriaxone and doxycycline and will continue. Patient also continues on IV Solu-Medrol twice daily in breathing inhalational treatments. Patient continues on IV amiodarone as patient is currently on a BiPAP and requiring a sitter at the bedside as patient continues to be confused and attempting to remove IVs and tubing. Patient being started on Precedex as well. Overall generalized edema continues with significant 2+ pitting edema noted in bilateral lower extremities. The PBC is normal at 4.7 and hemoglobin is 9.9, BMP within normal limits. Chest x-ray today shows bilateral pleural parenchymal changes stable and correlate for CHF with underlying pneumonia not excluded. 06/06/2021 Patient remains in the ICU on high flow nasal cannula at 4 L however earlier she was on BiPAP but her respiratory status is improving. She is currently on Lasix drip for her diastolic CHF him on ceftriaxone and doxycycline for her right lower lobe pneumonia and she was getting BiPAP for her CO2 retention. Patient clinically improved. Negative balance of 5-6 L over 24 hours Also she is on therapeutic dose of Lovenox Currently her heart rate is core controlled with Coreg and Lovenox at therapeutic dose. Ejection fraction 45-50% 06/07/2021 Patient uses BiPAP for about 4 hours last night, then she switched to 4 L/m of oxygen via nasal cannula and she is doing well this morning, she can talk freely with minimal shortness of breath. She is hemodynamically stable. Labs are pending. Chest x-ray reviewed by myself showing persistent bilateral infiltrates on both lower sites, more on the right side. She is eating without difficulty. She remains on Lasix drip at 10 mg per hour, ceftriaxone and doxycycline, Lovenox 100 mg twice a day, Coreg 3.125 mg, Seroquel/Zyprexa. She has good urine output 06/08/2021 Patient remains in the ICU, she is currently on 4 L of oxygen per minute. She refused BiPAP last night. She is eating little but she'll try to eat more this morning. No significant dyspnea or coughing, she is breathing easier compared to yesterday after 1250 mL of turbid fluid removed from her right-sided thorac ocentesis yesterday. She is a bit hypertensive and bradycardiac today while she is on Lasix drip whi le the dose lowered from 10 mg/h down to 5 mg per hour. Also she is on Coreg small dose 3.125 per cardiology is following the patient closely. WBC improved 7.3 hemoglobin went up 10.5 as well as platelet 204. Carbon dioxide is elevated 49 and BNP is also elevated 3940. Currently she is covered with ceftriaxone, Lasix drip, therapeutic dose of Lovenox and pressors, she is on levophed 06/09/2021 Patient remains in the ICU actually improving. Her breathing pattern is better than yesterday,, she came off her BIPAP today which is dicontinued. Blood pressure this morning 88/63, patient is asymptomatic and has no tachycardia. MrsRanjith drip was stopped and switched to IV Lasix 40 mg twice daily. Other than that LOOKS stable with WBC 6.4, hemoglobin 10.7, platelets 78, creatinine 1.2. Low potassium and magnesium is been placed ceftriaxone was discontinued. And Lovenox and switched to a liquid 06/10/2021 Patient is seen and evaluated in follow-up continues to be in the ICU with multiple medical consultations following. Per nursing staff patient continues on Precedex although weaning and also weaning Levophed. Patient is currently maintained on 1 L of oxygen via nasal cannula and will continue. Patient is being followed by pulmonary and cardiology and is status post left thoracentesi s. IV antibiotics being discontinued. Patient is afebrile. Patient awaiting possible transfer out of the ICU. 06/11/2021 Patient is seen and evaluated this morning and continues to be closely monitored in the ICU and remains on levophed and precedex. Patient continues with some confusion although much more awake and alert during exam today. Patient was able to have a conversation and answer all questions and commands appropriately. Patient also being followed by pulmonary and cardiology. Patient tolerating diet on exam and being fed. Patient is extremely weak and will have PT/OT evaluate. Patient is afebrile. Patient is on room air currently. Denies chest pain or shortness of breath. 06/12/2021 Patient is seen today in the ICU awaiting transfer to med/surg when a bed is available. Patient has been weaned from precedex and levophed. Cardiology and pulmonary following. Patient is continued on IV lasix and will decrease the dose. Creatinine mildly elevated from yesterday. Patient reports to back pain and will add low dose ultram and monitor mentation closely. PT/OT to evaluate. Plan is to return to [facility] once stable. Patient denies shortness of breath. Patient is afebrile. 06/13/2021 Patient is seen today and continues with intermittent confusion although more alert. Patient being followed by cardiology and pulmonary on the [facility] surg unit. Patient is lethargic but easily arousable. Patient is continued on IV lasix 20mg daily and will transition to oral in am. Will discuss with cardio and pulmonary about discharge planning and patient will be returning to [facility] on discharge. Patient is afebrile. Patient denies chest pain or shortness of breath. Active Medications Acetaminophen (Acetaminophen Tab 325 Mg Tab) 650 mg PO Q6HR PRN PRN Reason: Fever and/ or Pain Last Admin: 06/13/21 20:42 Dose: 650 mg Documented by: Albuterol/Ipratropium (Ipratropium-Albuterol 3 Ml Neb) 3 ml INHALATION RT-Q4H PRN PRN Reason: shortness of breath Albuterol/Ipratropium (Ipratropium-Albuterol 3 Ml Neb) 3 ml INHALATION RT-Q4H PRN PRN Reason: Shortness Of Breath Albuterol/Ipratropium (Ipratropium-Albuterol 3 Ml Neb) 3 ml INHALATION RT-TID@,,21 MARK Last Admin: 06/13/21 20:50 Dose: 3 ml Documented by: Amiodarone HCl (Amiodarone 200 Mg Tab) 200 mg PO BID [facility] Stop: 06/18/21 07:00 Last Admin: 06/13/21 20:43 Dose: 200 mg Documented by: Amiodarone HCl (Amiodarone 200 Mg Tab) 200 mg PO DAILY [facility] Apixaban (Apixaban 5 Mg Tab) 5 mg PO BID [facility]; Protocol Last Admin: 06/13/21 20:42 Dose: 5 mg Documented by: Atorvastatin Calcium (Atorvastatin 40 Mg Tab) 40 mg PO HS@2100 [facility] Last Admin: 06/13/21 20:42 Dose: 40 mg Documented by: Bisacodyl (Bisacodyl 10 Mg Supp) 10 mg RECTAL DAILY PRN PRN Reason: Constipation Budesonide/Formoterol Fumarate (Symbicort 160-4.5 Mcg Inhaler) 2 puff INHALATION RT-BID@0900,1700 [facility] Last Admin: 06/13/21 16:22 Dose: Not Given Documented by: Furosemide (Furosemide 10 Mg/Ml 2 Ml Vial) 20 mg IV Q24HR [facility] Last Admin: 06/13/21 08:32 Dose: 20 mg Documented by: Lidocaine (Lidocaine 5% Patch) 1 patch TOPICAL DAILY [facility]; Protocol Last Admin: 06/13/21 08:38 Dose: 1 patch Documented by: Metoprolol Tartrate (Metoprolol Tartrate 25 Mg Tab) 25 mg PO BID [facility] Last Admin: 06/13/21 20:42 Dose: 25 mg Documented by: Midodrine (Midodrine 5 Mg Tab) 2.5 mg PO AC-BID [facility] Last Admin: 06/13/21 16:38 Dose: Not Given Documented by: Miscellaneous Information (Pneumonia Protocol Utilized 1 Each Misc) 1 each PO ONCE PRN PRN Reason: Per Protocol Miscellaneous Information (Magnesium Replacement Protocol 1 Each Misc) 1 each MISCELLANE DAILY PRN; Protocol PRN Reason: Per Protocol Miscellaneous Information (Potassium Replacement Protocol 1 Each Misc) 1 each MISCELLANE DAILY PRN; Protocol PRN Reason: Per Protocol Miscellaneous Information (Potassium Replacement Protocol 1 Each Misc) 1 each MISCELLANE DAILY PRN; Protocol PRN Reason: Per Protocol Non-Formulary Medication (Estrogens, Conjugated [Premarin]) 1.25 mg PO DAILY@0900 [facility] Last Admin: 06/13/21 07:59 Dose: Not Given Documented by: Olanzapine (Olanzapine 7.5 Mg Tab) 15 mg PO HS@2100 [facility] Last Admin: 06/13/21 20:43 Dose: 15 mg Documented by: Pantoprazole Sodium (Pantoprazole 40 Mg/10 Ml Vial) 40 mg IVP DAILY [facility] Last Admin: 06/13/21 08:31 Dose: 40 mg Documented by: Sodium Chloride (Sodium Chloride 0.9% Flush 10 Ml Syringe) 10 ml IV BID [facility] Last Admin: 06/13/21 20:44 Dose: Not Given Documented by: Tramadol HCl (Tramadol 50 Mg Tab) 50 mg PO TID PRN PRN Reason: Pain Last Admin: 06/13/21 17:28 Dose: 50 mg Documented by: Physical exam: General: Patient is less confused today, follows commands appropriately and more alert. Obese, currently on room air HEENT examination is grossly unremarkable. Neck supple. No adenopathy thyromegaly or neck vein distention. Cardiovascular: S1, S2 muffled. irregularly irregular. Lungs reveal scattered bilateral rhonchi with some faint crackles. Abdomen is obese. Bowel sounds are noted. Extremities reveal edema. although improved. No cyanosis or clubbing. Skin is without rash or lesion. Neurologic; no focal deficit noted. diffusely weak Assessment: -Acute on chronic hypoxemic and hypercapnic respiratory failure; multifactorial, CO2 narcosis -COPD acute exacerbation -Possible bilateral pneumonia -Possible acute diastolic congestive heart failure with an ejection fraction of 50-55% -left pleural effusion status post thoracentesis -Altered Mental Status; Metabolic encephalopathy secondary to CO2 Narcosis -Atrial fibrillation with RVR; cardiology following -hypokalemia -hypomagnesemia -Hyperlipidemia -Hypertension -Moderate to severe tricuspid regurgitation -Moderate pulmonary hypertension -Possible obesity hypoventilation syndrome -Elevated Troponin; likely Type II MD; cardiology on board -DVT Prophylaxis; Eliquis -GI prophylaxis -NO CODE Plan: This is a pleasant 70-year-old years old female who presents with multiple cardiac and pulmonary problems including possible pneumonia, CHF, AMS, high troponin, hypoxia and hypercapnia, A. fib and RVR and pulmonary hypertension. Continue with cardiology and pulmonary following Patient has been weaned from precedex and levophed, transferred out of the ICU to [facility] surg Continue with anticoagulation and currently on Eliquis Continue IV Lasix 20 mg daily, will transition to oral in am Continue with Seroquel as needed Continue electrolyte replacement per protocol Prognosis is guarded PT/OT to evaluate the patient along with social work following as patient will return to [facility] once stable Possible discharge in 24-48 hours. The impression and plan of care has been dictated by Sophie Rhodes, Nurse Practitioner as directed. Dr. Ino MD I have performed a history and examination and MDM of this patient, discussed the same with the dictator, and agree with the dictator's assessment and plan as written ,documented as a scribe. Based on total visit time, I have performed more than 50% of the visit. Objective - Vital Signs Vital signs: Vital Signs Temp 98.0 F 06/13/21 02:59 Pulse 83 06/13/21 02:59 Resp 18 06/13/21 02:59 BP 105/62 06/13/21 02:59 Pulse Ox 92 L 06/13/21 02:59 Intake & Output 06/12/21 06/13/21 06/13/21 18:59 06:59 18:59 Intake Total 540 Output Total 2000 Balance -1460 Weight 82.5 kg 71 kg Intake: IV 60 0.9 NS 60 Oral 480 Output: Urine 2000 Other: Voiding Method Indwelling Catheter Diaper # Voids 1 # Bowel Movements 1 1 - Labs CBC & Chem 7: 06/12/21 05:44 06/12/21 05:44 Labs: Microbiology - Last 24 Hours (Table) 06/08/21 09:30 Gram Stain - Final Pleural Fluid Body Fluid Culture - Final
[2021-06-14 02:26] VITALS: RESP 18
[2021-06-14] MEDS: MIDODRINE 5 MG TAB PO SCH (06:07)
[2021-06-14] MEDS: traMADol 50 MG TAB PO PRN (06:07)
[2021-06-14] MEDS: IPRATROPIUM-ALBUTEROL 3 ML NEB INHALATION SCH ×2 (07:29→12:26)
[2021-06-14] MEDS: SYMBICORT 160-4.5 MCG INHALER INHALATION SCH (07:36)
[2021-06-14] MEDS: METOPROLOL TARTRATE 25 MG TAB PO SCH (09:46)
[2021-06-14] MEDS: APIXABAN 5 MG TAB PO SCH (09:46)
[2021-06-14] MEDS: FUROSEMIDE 10 MG/ML 2 ML VIAL IV SCH (09:47)
[2021-06-14] MEDS: PANTOPRAZOLE 40 MG/10 ML VIAL IVP SCH (09:47)
[2021-06-14] MEDS: LIDOCAINE 5% PATCH TOPICAL SCH (09:47)
[2021-06-14] MEDS: AMIODARONE 200 MG TAB PO SCH (09:47)
[2021-06-14 10:28] VITALS: BP 146/64; PULSE 94; TEMP 99.2
--- NOTE | 2021-06-14 12:02 | P.DS ---
Providers Date of admission: 05/30/21 18:15 Expected date of discharge: 06/14/21 Attending physician: Derek Velazquez Consults: 05/30/21 18:07 Consult Physician Stat Consulting Provider: [facility] Consult Reason/Comments: afib with rvr Do you want consulting provider notified?: Yes Consult Physician Stat Consulting Provider: Benson De Dios Reason/Comments: acute/chronic hypoxic/hypercarbic resp failure, HCAP Do you want consulting provider notified?: Yes Primary care physician: Yury Shipman Hospital Course: Final diagnosis -Acute on chronic hypoxemic and hypercapnic respiratory failure; multifactorial, CO2 narcosis -COPD acute exacerbation -Possible bilateral pneumonia -Possible acute diastolic congestive heart failure with an ejection fraction of 50-55% -left pleural effusion status post thoracentesis -Altered Mental Status; Metabolic encephalopathy secondary to CO2 Narcosis -Atrial fibrillation with RVR -hypokalemia -hypomagnesemia -Hyperlipidemia -Hypertension -Moderate to severe tricuspid regurgitation -Moderate pulmonary hypertension -Possible obesity hypoventilation syndrome -Elevated Troponin; likely Type II OR -DVT Prophylaxis -GI prophylaxis -NO CODE Discharge disposition Patient is being discharged in a stable condition with guarded prognosis to [facility]. Patient will follow-up with Dr. Yury Shipman in the outpatient setting upon discharge. Patient will also need to follow-up with cardiology Dr. Polo in 1 week. Total time taken is greater than 35 minutes. Hospital course This is a 70-year-old female who was recently admitted with hypoxia and increasing altered mental status. Patient was recently at [facility] and sent here for further evaluation. Suspected possible CO2 narcosis as patient had been noncompliant with the use of her BiPAP and medications. Patient has had prolonged hospitalization with a short stay in the ICU and was maintained on IV Lasix drip and has been transitioned back to oral Lasix. Patient patient was also in atrial fibrillation with RVR and unable to take medications and maintained on amiodarone and Cardizem drip until mentation improved and was able to tolerate oral intake. Patient is currently maintained on amiodarone 200 mg twice daily and is to continue until 06/18/2021 and then will decrease the dose to 200 mg daily thereafter and will need close outpatient follow-up with cardiology Dr. Polo in 1 week. Patient is also anticoagulated with Eliquis. Patient currently on room air with oxygen saturation of 88-90% and will continue to liters via nasal cannula and also continued breathing inhalational treatments and inhalers. Patient is maintained on heart healthy diet and recommend to continue with aspiration precautions as patient does become drowsy at times with head of the bed elevated 30-45 at all times and supervision with meals. Patient is extremely weak and will be returning to [facility] with guarded prognosis. Currently no reports of chest pain, shortness of breath, or palpitations. Patient is afebrile. No reports of nausea or vomiting and patient is tolerating diet. Patient will be going to [facility] today. Guarded prognosis. Physical exam: GENERAL: The patient is alert and oriented x2, Well developed, well nourished. HEENT: Pupils are round and equally reacting to light. EOMI. no scleral icterus. No conjunctival pallor. Normocephalic, atraumatic. No pharyngeal erythema. No thyromegaly. CARDIOVASCULAR: S1 and S2 muffled PULMONARY: diminished breath sounds bilaterally with some scattered rhonchi noted. ABDOMEN: soft. Nontender on exam. obese. non-distended, normoactive bowel sounds. No palpable organomegaly. MUSCULOSKELETAL: No joint swelling or deformity. EXTREMITIES: No cyanosis, clubbing, or pedal edema. NEUROLOGICAL: Gross neurological examination did not reveal any focal deficits. Confused at times. Diffusely weak SKIN: No rashes. Please refer to medication reconciliation sheet for a list of medications. The impression and plan of care has been dictated by Sophie Rhodes, Nurse Practitioner as directed. Dr. Ino MD I have performed a history and examination and MDM of this patient, discussed the same with the dictator, and agree with the dictator's assessment and plan as written ,documented as a scribe. Based on total visit time, I have performed more than 50% of the visit. Patient Condition at Discharge: Fair Plan - Discharge Summary Discharge Rx Participant: Yes New Discharge Prescriptions: New Lidocaine 5% Patch [Lidoderm 5% Patch] 1 patch TOPICAL DAILY patch Metoprolol Tartrate [Lopressor] 25 mg PO BID tab traMADol HCl [Ultram] 50 mg PO TID PRN #6 tab PRN Reason: Pain Amiodarone [Cordarone] 200 mg PO BID tab Midodrine [ProAmatine] 2.5 mg PO AC-BID tab Acetaminophen Tab [Tylenol] 650 mg PO Q6HR PRN tab PRN Reason: Fever And/ Or Pain Continue bisacodyL [Dulcolax] 10 mg RECTAL DAILY PRN PRN Reason: Constipation Ipratropium-Albuterol Nebulize [Duoneb 0.5 mg-3 mg/3 ml Soln] 3 ml INHALATION RT-Q4H PRN PRN Reason: Shortness Of Breath Ipratropium-Albuterol Nebulize [Duoneb 0.5 mg-3 mg/3 ml Soln] 3 ml INHALATION RT-TID@,, Budesonide/Formoterol Fumarate [Symbicort 160-4.5 Mcg Inhaler] 2 puff IN HALATION RT-BID@0900,1700 Famotidine [Pepcid] 20 mg PO BID@0900,1700 Apixaban [Eliquis] 5 mg PO BID@0900,1700 OLANZapine [ZyPREXA] 10 mg PO HS@2100 Estrogens, Conjugated [Premarin] 1.25 mg PO DAILY@0900 Atorvastatin Calcium [Lipitor] 40 mg PO HS@2100 Albuterol Inhaler [Ventolin Hfa Inhaler] 2 puff INHALATION RT-BID@0900,2100 Furosemide [Lasix] 20 mg PO DAILY@0900 Discontinued predniSONE [Deltasone] 20 mg PO BID@0800,1600 HYDROcodone/APAP 10-325MG [[place] 10-325] 1 tab PO Q6H PRN PRN Reason: Pain LORazepam [Ativan] 0.5 mg PO Q8H PRN PRN Reason: Anxiety Carvedilol [Coreg] 6.25 mg PO BID@0900,1700 lisinopriL 40 mg PO DAILY@0900 Umeclidinium [place] [Incruse Ellipta] 1 puff INHALATION RT-DAILY@0900 Discharge Medication List Albuterol Inhaler [Ventolin Hfa Inhaler] 2 puff INHALATION RT-BID@0900,2100 05/30/21 [History] Apixaban [Eliquis] 5 mg PO BID@0900,1700 05/30/21 [History] Atorvastatin Calcium [Lipitor] 40 mg PO HS@2100 05/30/21 [History] Budesonide/Formoterol Fumarate [Symbicort 160-4.5 Mcg Inhaler] 2 puff INHALATION RT-BID@0900,1700 05/30/21 [History] Estrogens, Conjugated [Premarin] 1.25 mg PO DAILY@0900 05/30/21 [History] Famotidine [Pepcid] 20 mg PO BID@0900,1700 05/30/21 [History] Furosemide [Lasix] 20 mg PO DAILY@0900 05/30/21 [History] Ipratropium-Albuterol Nebulize [Duoneb 0.5 mg-3 mg/3 ml Soln] 3 ml INHALATION RT-Q4H PRN 05/30/21 [History] Ipratropium-Albuterol Nebulize [Duoneb 0.5 mg-3 mg/3 ml Soln] 3 ml INHALATION RT-TID@,,05/30/21 [History] OLANZapine [ZyPREXA] 10 mg PO HS@2100 05/30/21 [History] bisacodyL [Dulcolax] 10 mg RECTAL DAILY PRN 05/30/21 [History] Acetaminophen Tab [Tylenol] 650 mg PO Q6HR PRN tab 06/14/21 [Rx] Amiodarone [Cordarone] 200 mg PO BID tab 06/14/21 [Rx] Lidocaine 5% Patch [Lidoderm 5% Patch] 1 patch TOPICAL DAILY patch 06/14/21 [Rx] Metoprolol Tartrate [Lopressor] 25 mg PO BID tab 06/14/21 [Rx] Midodrine [ProAmatine] 2.5 mg PO AC-BID tab 06/14/21 [Rx] traMADol HCl [Ultram] 50 mg PO TID PRN #6 tab 06/14/21 [Rx] Follow up Appointment(s)/Referral(s): Nain Polo DO [STAFF PHYSICIAN] - 1 Week Yury Shipman MD [Primary Care Provider] - 1-2 days Patient Instructions/Handouts: Amiodarone (By mouth), Apixaban (By mouth), A- fib (Atrial Fibrillation) (ED) Activity/Diet/Wound Care/Special Instructions: Amiodarone Taper Instructions: Take Amiodarone 200mg BID (06/11/2021-06/17/2021) Then take Amiodarone 200mg Daily starting on 06/18/21 Further changes by your rackman on follow up appointment Patient is returning to [facility] Activity as tolerated Recommend continue with breathing inhalational treatments along with inhalers Continue 2 L oxygen via nasal cannula Recommend continue with heart healthy diet and aspiration precautions with head of the bed elevated and supervision with meals Patient will need to follow-up with cardiology in one week Discharge Disposition: TRANSFER TO SNF/ECF
[2021-06-18] MEDS ORDERED: AMIODARONE 200 MG TAB PO SCH (09:00)
== END 2021-06-14 14:56 | DRG 280 ==
LOC: EC 14:26 → 3SCARD 18:15 → 2SICU 06-04 10:58 → 3SCARD 06-12 16:39
PROVIDERS: ADMIT Hospitalist; ATTEND Hospitalist
PROC: 5A09357 Assistance with Respiratory Ventilation, Less than 24 Consecutive Hours, Continuous Positive Airway Pressure (ICD-10-PCS; 2021-05-30)
PROC: 5A09457 Assistance with Respiratory Ventilation, 24-96 Consecutive Hours, Continuous Positive Airway Pressure (ICD-10-PCS; 2021-06-04)
PROC: 05HB33Z Insertion of Infusion Device into Right Basilic Vein, Percutaneous Approach (ICD-10-PCS; 2021-06-04)
PROC: 5A0935A Assistance with Respiratory Ventilation, Less than 24 Consecutive Hours, High Flow/Velocity Cannula (ICD-10-PCS; 2021-06-06)
PROC: 0W993ZX Drainage of Right Pleural Cavity, Percutaneous Approach, Diagnostic (ICD-10-PCS; principal; 2021-06-08)
DX: I11.0 Hypertensive heart disease with heart failure (principal); G93.41 Metabolic encephalopathy; I21.A1 Myocardial infarction type 2; I50.33 Acute on chronic diastolic (congestive) heart failure; J18.9 Pneumonia, unspecified organism; J96.22 Acute and chronic respiratory failure with hypercapnia; J96.21 Acute and chronic respiratory failure with hypoxia; G96.08 Other cranial cerebrospinal fluid leak; E87.2 Acidosis; F23 Brief psychotic disorder; I48.20 Chronic atrial fibrillation, unspecified; J44.0 Chronic obstructive pulmonary disease with (acute) lower respiratory infection; J44.1 Chronic obstructive pulmonary disease with (acute) exacerbation; J91.8 Pleural effusion in other conditions classified elsewhere; J93.9 Pneumothorax, unspecified; Z68.41 Body mass index [BMI] 40.0-44.9, adult; D69.6 Thrombocytopenia, unspecified; E66.01 Morbid (severe) obesity due to excess calories; Z79.01 Long term (current) use of anticoagulants; I27.20 Pulmonary hypertension, unspecified; F03.90 Unspecified dementia, unspecified severity, without behavioral disturbance, psychotic disturbance, mood disturbance, and anxiety; Z66 Do not resuscitate; I07.1 Rheumatic tricuspid insufficiency; F39 Unspecified mood [affective] disorder; R45.1 Restlessness and agitation; F41.9 Anxiety disorder, unspecified; R00.1 Bradycardia, unspecified; E78.5 Hyperlipidemia, unspecified; R03.1 Nonspecific low blood-pressure reading; Z88.5 Allergy status to narcotic agent; E83.42 Hypomagnesemia; E87.6 Hypokalemia; K21.9 Gastro-esophageal reflux disease without esophagitis; M54.9 Dorsalgia, unspecified; Y95 Nosocomial condition; K59.00 Constipation, unspecified; Z53.20 Procedure and treatment not carried out because of patient's decision for unspecified reasons; Z78.1 Physical restraint status; Z79.51 Long term (current) use of inhaled steroids; Z79.899 Other long term (current) drug therapy; Z91.14 Patient's other noncompliance with medication regimen; Z91.19 Patient's noncompliance with other medical treatment and regimen
CPT/HCPCS: 36410; 36415; 36600; 70450; 71045; 76937; 80048; 80053; 81001; 82140; 82803; 82805; 82945; 83605; 83615; 83735; 83880; 84132; 84145; 84157; 84439; 84443; 84484; 85025; 85027; 85610; 85730; 87040; 87070; 87086; 87205; 88108; 88305; 89050; 93005; 93306; 94640; 94660; 96365; 96367; 96375; 99291